=== PATIENT | male | born 1930 | race Caucasian/White ===

== ENCOUNTER → 2016-10-24 | Outpatient (CLI) | payer MEDICARE, BC, OTHER ==
[~2016-10-24] MED LIST: LOTE20TA3 PO; METO25 PO; RIVA15 PO
[2016-10-24 10:42] LABS: CHLORIDE 108 MEQ/L (98-107); POTASSIUM 4.1 MEQ/L (3.5-5.1); SODIUM (NA) 143 MEQ/L (136-145)
[2016-10-24 10:46] LABS: ANION GAP 10 MEQ/L (5-15); BLOOD UREA NITROGEN 36 MG/DL (7-18)
[2016-10-24 10:49] LABS: ALT (GPT) 21 U/L (12-78); AST (GOT) 22 U/L (15-37); GLOMERULAR FILTRATION RATE 48 ML/MIN (>89)
[2016-10-24 10:51] LABS: TOTAL BILIRUBIN ADULT 0.6 MG/DL (0.2-1.0)
[2016-10-24 10:52] LABS: ALKALINE PHOSPHATASE 60 U/L (45-117)
[2016-10-24 12:40] LABS: AUTOMATED NEUTROPHIL # 3.8 TH/MM3 (1.8-7.7); BASOPHIL # 0.1 TH/MM3 (0-0.2); BASOPHIL % 1.4 % (0.0-2.0); EOSINOPHIL # 0.3 TH/MM3 (0-0.4); EOSINOPHIL % 4.2 % (0.0-4.0); HEMO FLAGS DIFF FINAL; LYMPH % 21.5 % (9.0-44.0); LYMPHOCYTE # 1.5 TH/MM3 (1.0-4.8); MEAN CELL VOLUME 93.7 FL (80.0-100.0); MEAN CORPUSCULAR HEMOGLOBIN 31.1 PG (27.0-34.0); MEAN CORPUSCULAR HGB CONC 33.2 % (32.0-36.0); MONO % 16.4 % (0.0-8.0); NEUT % 56.5 % (16.0-70.0); PLATELET COUNT 179 TH/MM3 (150-450); RED BLOOD COUNT 4.06 MIL/MM3 (4.50-5.90); RED CELL DISTRIBUTION WIDTH 14.2 % (11.6-17.2); WHITE BLOOD COUNT 6.8 TH/MM3 (4.0-11.0)
== END ==
LOC: PLAB 08:39
PROVIDERS: ATTEND Family Medicine
DX: R10.9 Unspecified abdominal pain (principal)
CPT/HCPCS: 36415; 80053; 85025

== ENCOUNTER → 2017-02-25 | Outpatient (CLI) | payer MEDICARE, BC, OTHER ==
[2017-02-25 09:29] LABS: BASOPHIL % 0.4 % (0.0-2.0); EOSINOPHIL # 0.2 TH/MM3 (0-0.4); HEMATOCRIT 37.8 % (39.0-51.0); HEMO FLAGS DIFF FINAL; LYMPH % 19.3 % (9.0-44.0); LYMPHOCYTE # 1.3 TH/MM3 (1.0-4.8); MEAN CELL VOLUME 93.5 FL (80.0-100.0); MEAN CORPUSCULAR HEMOGLOBIN 31.7 PG (27.0-34.0); MEAN CORPUSCULAR HGB CONC 33.9 % (32.0-36.0); MONO % 17.3 % (0.0-8.0); PLATELET COUNT 179 TH/MM3 (150-450); RED BLOOD COUNT 4.05 MIL/MM3 (4.50-5.90); RED CELL DISTRIBUTION WIDTH 14.5 % (11.6-17.2); WHITE BLOOD COUNT 6.7 TH/MM3 (4.0-11.0)
[2017-02-25 10:12] LABS: BLOOD UREA NITROGEN 24 MG/DL (7-18); FERRITIN 173 NG/ML (26-388); GLOMERULAR FILTRATION RATE 45 ML/MIN (>89); TRANSFERRIN IRON PROFILE 232 MG/DL (200-360)
== END ==
LOC: PLAB 07:35
PROVIDERS: ATTEND Internal Medicine Gastroenterology
DX: R10.32 Left lower quadrant pain (principal); D64.9 Anemia, unspecified
CPT/HCPCS: 36415; 82565; 82728; 83540; 83550; 84520; 85025

== ENCOUNTER 2017-05-07 02:54 | Inpatient (IN) | payer MEDICARE, BC, OTHER ==
[~2017-05-07] VITALS: Ht 177.8 cm; Wt 90.7 kg
[2017-05-07] VITALS (16 sets, daily range): BP systolic 105–140; BP diastolic 55–85; PULSE 63–113; RESP 12–23; TEMP 97.4–102.3; O2SAT 92–100
--- NOTE | 2017-05-07 03:49 | PD ---
HPI Chief Complaint: Altered Mental Status Time Seen by Provider: 03:45 Travel History International Travel<30 days: No Contact w/Intl Traveler<30days: No Traveled to known affect area: No History of Present Illness HPI The patient is an 86 year old male who presents to the [facility] emergency department with a history of a rapid decline in his health over the last 2-3 weeks. The patient's family reports that he does have a history of sleep apnea and uses a CPAP mask. He had been sitting up elevated to sleep for several days in a roll when he awoke with back pain. The patient went to [facility] for evaluation and treatment of the back pain and was given a prescription for pain medicine. The patient then followed up with a chiropractor. After having chiropractic manipulation the patient was not able to walk and had to have a wheelchair to get around since then. The patient's pain was severe in his back. The patient was again brought to [facility] and had a CT scan of the upper spine done. They reported that the patient had spinal stenosis, herniated disc, degenerative disc disease noted. The patient was also constipated. The patient was admitted to the hospital for several days. The patient was then discharged to a local rehabilitation facility. He continues to be unable to walk. He is undergoing rehabilitation and will stand for a few seconds at a time. He has had a decreased level of alertness for the last 2 days. The patient's family reports that he was placed on gabapentin briefly and was experiencing muscle spasms and jerking/tremors. The gabapentin was therefore discontinued. The patient has not been eating or drinking well for the last 2 days. Patient primary care physician is Dr. Martinez. The patient was noted to be tremulous prior to her arrival and was sent over from his rehabilitation facility after being noted to have a fever with a MAXIMUM TEMPERATURE of 102. The patient's family reports that he has had a cough that began today. Otherwise, the patient has not had any neck pain , chest pain, shortness of breath, abdominal pain, vomiting, diarrhea, or urinary symptoms. The patient has been experiencing constipation. His last bowel movement was on Friday, 4 days ago. [facility] Past Medical History Narrative Medical The patient's past medical history is significant for hypertension, history of a mitral valve repair, atrial fibrillation, arthritis, hiatal hernia, hypertension. 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) Cancer: No Cardiovascular Problems: Yes (IRREGULAR HEARBEAT) Chest Pain: No Diabetes: No Diminished Hearing: No (UNKNOWN) Endocrine: No Gastrointestinal Disorders: No Glaucoma: No Genitourinary: No Hepatitis: No Hiatal Hernia: No Hypertension: Yes Immune Disorder: No Implanted Vascular Access Dvce: Yes Musculoskeletal: No Neurologic: No Psychiatric: No Reproductive: No Respiratory: Yes (SLEEP APNEA-USES C-PAP AT HS) Integumentary: No Thyroid Disease: No Influenza Vaccination: No Past Surgical History Narrative Surgical The patient's past surgical history is significant for multiple cardiac ablations that were unsuccessful, mitral valve repair related to mitral stenosis , pacemaker placement. Body Medical Devices: PACERMAKER Cardiac Surgery: Yes (PACEMAKER) Pacemaker: Yes Thoracic Surgery: Yes (VALVE REPAIR) Other Surgery: Yes Social History Alcohol Use: No Tobacco Use: No (FORMER) Substance Use: No Allergies-Medications (Allergen,Severity, Reaction): Coded Allergies: Xopenex (Unverified Allergy, Severe, 05/07/17) Uncoded Allergies: MRI PRECAUTION PACEMAKER (Adverse Reaction, Severe, NON COMPATIBLE PACMAKER , 05/07/17) [facility] PACEMAKER/05/07/17 [facility] Reported Meds & Prescriptions Reported Meds & Active Scripts Active Reported Xarelto (Rivaroxaban) 15 Mg Tab 15 Mg PO DAILY Carvedilol 3.125 Mg Tab 3.125 Mg PO BID Fleet Enema Six Pack 7-19 gm/118Ml (Sodium Phosphates) 1 Taylor Taylor Benazepril-Hydrochlorothiazide 20-12.5 Mg Tab 0.5 Tab PO DAILY Baclofen 10 Mg Tab 10 Mg PO BID Senokot S (Sennosides-Docusate Sodium) 8.6-50 Mg Tab 2 Tab PO HS Miralax Powder (Polyethylene Glycol 3350 Powder) 17 Gm Powd 17 Gm PO DAILY Mix and dissolve one measuring cap-ful (17 grams) in water or juice. Hydrocodone-Acetaminophen 5-325 mg Tab 2 Tab PO Q4H PRN Nystatin Liq 100,000 unit/ml Susp 5 Ml SWISH-SWAL QID Remeron (Mirtazapine) 15 Mg Tab 15 Mg PO HS Review of Systems Except as stated in HPI: all other systems reviewed are Neg General / Constitutional: Positive: Fever Eyes: No: Visual changes HENT: Positive: Congestion, No: Headaches Cardiovascular: No: Chest Pain or Discomfort Respiratory: Positive: Cough, No: Shortness of Breath Gastrointestinal: Positive: Constipation, Changes in Bowel Habits, Loss of Appetite, No: Nausea, Vomiting, Diarrhea, Abdominal Pain, Indigestion Genitourinary: No: Dysuria Musculoskeletal: Positive: Myalgias, Arthralgias, Limited ROM, No: Pain Skin: No Rash Neurologic: Positive: Weakness (generalized weakness), Change in Mentation, No : Focal Abnormalities, Slurred Speech, Sensory Disturbance Psychiatric: No: Depression Endocrine: No: Polydipsia Hematologic/Lymphatic: No: Easy Bruising Physical Exam Narrative General: The patient is a well-developed well-nourished male, drowsy on examination, intermittently alert. Head and Neck exam: Head is normocephalic atraumatic. Eyes: The patient has difficulty following commands for extraocular motion testing. Pupils are equal round and reactive to light. Nose: Midline septum with pink mucous membranes Mouth: Dentition unremarkable. Moist mucus membranes. Posterior oropharynx is not erythematous. No tonsillar hypertrophy. Uvula midline. Airway patent. Neck: No palpable lymphadenopathy. No nuchal rigidity. No thyromegaly. Cardiovascular: Sinus tachycardia in the low 100s without murmurs, gallops, or rubs. No pulse deficit to the extremities and simultaneous auscultation and palpation of his radial artery. Lungs: Clear to auscultation bilaterally. No wheezes, rhonchi, or rales. Abdomen: Soft, without tenderness to palpation in all 4 quadrants of the abdomen. No guarding, rebound, or rigidity. Normal bowel sounds are audible. No tenderness on palpation of McBurney's point. Negative [place] sign. Extremities: No clubbing, cyanosis, or edema. 2+ pulses in all 4 extremities. No calf tenderness on palpation. Back: No costovertebral angle tenderness to palpation. No spinous process tenderness on palpation. No step-off or crepitus. No erythema or ecchymosis. Neurologic Exam: The patient is uncooperative with formal neurologic testing. He is able to follow commands to say hello and smile. He is able to follow commands for strength testing and is able to squeeze with bilateral hands. The patient on examination of his legs withdraws to having his feet touched. Any movement seems to cause back pain for the patient. 2+ DTRs. Skin Exam: No rash noted. Intact skin that is warm and dry. The patient has an area of erythema overlying the sacrum, early pressure sore. Data Data Last Documented VS Vital Signs Date Time Temp Pulse Resp B/P Pulse Ox O2 Delivery O2 Flow Rate FiO2 05/07/17 05:21 107 14 116/61 95 Nasal Cannula 2 05/07/17 03:05 102.3 Orders Electrocardiogram (05/07/17 03:46) Complete Blood Count With Diff (05/07/17 03:46) Comprehensive Metabolic Panel (05/07/17 03:46) Creatine Kinase (Cpk) (05/07/17 03:46) Ckmb (Isoenzyme) Profile (05/07/17 03:46) Troponin I (05/07/17 03:46) B-Type Natriuretic Peptide (05/07/17 03:46) Prothrombin Time / Inr (Pt) (05/07/17 03:46) Act Partial Throm Time (Ptt) (05/07/17 03:46) Blood Culture (05/07/17 03:46) Lipase (05/07/17 03:46) Urinalysis - C+S If Indicated (05/07/17 03:46) Magnesium (Mg) (05/07/17 03:46) Ammonia (05/07/17 03:46) Chest, Single Ap (05/07/17 03:46) Ct Brain W/O Iv Contrast(Rout) (05/07/17 03:46) Iv Access Insert/Monitor (05/07/17 03:46) Ecg Monitoring (05/07/17 03:46) Oximetry (05/07/17 03:46) Lactic Acid Sepsis Protocol (05/07/17 03:46) Vancomycin Inj (Vancomycin Inj) (05/07/17 04:00) Piperacil-Tazo 3.375 Gm Premix (Zosyn 3. (05/07/17 04:00) Acetaminophen (Tylenol) (05/07/17 04:00) Sodium Chlorid 0.9% 500 Ml Inj (Ns 500 M (05/07/17 04:00) Acetaminophen Supp (Tylenol Supp) (05/07/17 04:30) Sodium Chlor 0.9% 1000 Ml Inj (Ns 1000 M (05/07/17 06:30) Admit Order (Ed Use Only) (05/07/17 06:26) Labs Laboratory Tests Test 05/07/17 05/07/17 03:30 03:40 White Blood Count 23.8 TH/MM3 Red Blood Count 4.51 MIL/MM3 Hemoglobin 13.6 GM/DL Hematocrit 42.3 % Mean Corpuscular Volume 93.8 FL Mean Corpuscular Hemoglobin 30.2 PG Mean Corpuscular Hemoglobin 32.2 % Concent Red Cell Distribution Width 13.7 % Platelet Count 283 TH/MM3 Mean Platelet Volume 9.6 FL Neutrophils (%) (Auto) 85.2 % Lymphocytes (%) (Auto) 3.7 % Monocytes (%) (Auto) 10.8 % Eosinophils (%) (Auto) 0.1 % Basophils (%) (Auto) 0.2 % Neutrophils # (Auto) 20.3 TH/MM3 Lymphocytes # (Auto) 0.9 TH/MM3 Monocytes # (Auto) 2.6 TH/MM3 Eosinophils # (Auto) 0.0 TH/MM3 Basophils # (Auto) 0.1 TH/MM3 CBC Comment AUTO DIFF Differential Total Cells 100 Counted Neutrophils % (Manual) 77 % Band Neutrophils % 9 % Lymphocytes % 5 % Monocytes % 7 % Neutrophils # (Manual) 20.9 TH/MM3 Metamyelocytes 1 % Myelocytes 1 % Differential Comment FINAL DIFF MANUAL Toxic Vacuolation PRESENT Platelet Estimate NORMAL Platelet Morphology Comment NORMAL Red Cell Morphology Comment NORMAL Prothrombin Time 12.9 SEC Prothromb Time International 1.2 RATIO Ratio Activated Partial 32.7 SEC Thromboplast Time Sodium Level 142 MEQ/L Potassium Level 4.1 MEQ/L Chloride Level 104 MEQ/L Carbon Dioxide Level 26.9 MEQ/L Anion Gap 11 MEQ/L Blood Urea Nitrogen 72 MG/DL Creatinine 2.06 MG/DL Estimat Glomerular Filtration 31 ML/MIN Rate Random Glucose 151 MG/DL Lactic Acid Level 1.5 mmol/L Calcium Level 10.3 MG/DL Magnesium Level 3.1 MG/DL Total Bilirubin 1.0 MG/DL Aspartate Amino Transf 14 U/L (AST/SGOT) Alanine Aminotransferase 19 U/L (ALT/SGPT) Alkaline Phosphatase 90 U/L Ammonia 28 MCMOL/L Total Creatine Kinase 27 U/L Troponin I LESS THAN 0.02 NG/ML B-Type Natriuretic Peptide 25 PG/ML Total Protein 7.8 GM/DL Albumin 3.4 GM/DL Lipase 162 U/L Urine Color YELLOW Urine Turbidity CLEAR Urine pH 5.0 Urine Specific [place] 1.017 Urine Protein TRACE mg/dL Urine Glucose (UA) NEG mg/dL Urine Ketones TRACE mg/dL Urine Occult Blood NEG Urine Nitrite NEG Urine Bilirubin NEG Urine Urobilinogen LESS THAN 2.0 MG/DL Urine Leukocyte Esterase NEG Urine RBC 2 /hpf Urine WBC LESS THAN 1 /hpf Urine Renal Epithelial Cells <1 /hpf Urine Bacteria RARE /hpf Urine Hyaline Casts 3 /lpf Urine Mucus FEW /lpf Microscopic Urinalysis Comment CULT NOT INDICATED MDM Medical Decision Making Medical Screen Exam Complete: Yes Emergency Medical Condition: Yes Medical Record Reviewed: Yes Interpretation(s) Last Impressions Head CT 05/07/17345 Signed Impressions: Service Date/Time: Sunday, May 07, 2017 05:06 - CONCLUSION: 1. Subtle small focal area of mildly increased density in the left periventricular white matter with surrounding low density. This is nonspecific but could represent a subtle area of slight hemorrhage and edema. 2. Atrophic change and chronic small vessel ischemic changes. Reji Meza MD Chest X-Ray 05/07/17345 Signed Impressions: Service Date/Time: Sunday, May 07, 2017 03:55 - CONCLUSION: Stable appearance with apparent scarring and no definite acute pneumonia. Reji Meza MD Differential Diagnosis Sepsis related to UTI, versus pneumonia, versus altered mentation from intracranial abnormality, versus hepatic encephalopathy, versus other metabolic encephalopathy Narrative Course During the course of the patients emergency department visit, the patients history, examination, and differential diagnosis were reviewed with the patient. The patient had IV access obtained and blood work sent for analysis. The patient was on a monitoring manager with oximetry and blood pressure monitoring. An ECG was done on arrival. The patient's ECG shows a sinus tachycardia rate of 110, left anterior fascicular block is noted, QRS duration 110 ms, QTC 411 ms, no acute ST segment elevation is noted. A CT scan of the brain was ordered. The patient was initially provided normal saline 500 mL bolus. The patient was initially cover with broad-spectrum antibiotic and given Tylenol 600 mg OK. A Perez catheter was placed to gravity. The patients laboratory studies were reviewed and remarkable for a white count of 23.8, hemoglobin 13.8, platelets 283 with neutrophils 77, bands 9, lymphocytes 5, monocytes 7, CMP is remarkable for a BUN of 72 and a creatinine of 2.06 which is slightly increased compared to his prior level of renal insufficiency, calcium 10.3, magnesium 3.1, glucose 151, AST 14, CPK 27, troponin I less than 0.02, BNP is 25, lipase 162, ammonia level XXVIII, lactic acid 1.5, PT 12.9, INR 1.2, PTT 32.7, urinalysis shows trace ketones rare bacteria, culture not indicated. Radiology studies were reviewed and remarkable for a chest x-ray that shows a stable appearance with the parents scarring and no definite acute pneumonia. CT scan of the brain shows a subtle small focal area of mildly increased density in the left periventricular white matter with surrounding low-density. This is nonspecific but could represent a subtle area of slight hemorrhage and edema. Atrophic changes chronic small vessel ischemic changes. A call was placed out to the neurosurgeon on-call, Dr. Yañez regarding the patient's CT scan findings. He reviewed the images. I did explain that the patient has a history of A. fib and is on Xarelto. Given the patient's fever and sepsis with back pain and he was concerned about the possibility of an underlying infection in the back. He recommended MRI, however I later found out that patient has a pacemaker that is incompatible with MRI. I did call me again regarding this he recommended at this point that a CT scan of the brain with contrast be ordered along with a CT scan of the cervical, T-spine, and L- spine with and without contrast. He recommended that further antibiotic administration be held until it is known whether the patient has a focus of infection in his back that could then be biopsied and cultured. He recommended that the patient be admitted to the intensive care unit under the electrical service technician. I then spoke to Dr. Mejia regarding this patient's case. He did agree to admit the patient for further evaluation and treatment at this time. The patient was given an additional 1 L normal saline IV fluid bolus after BNP came back within normal limits and no evidence of fluid overload was noted on chest x-ray and reexamination of the patient revealed no evidence of fluid overload. The patients results were discussed with the patient, including the plan of care. I explained that further testing and/ or monitoring is indicated based on the patients history, examination, and/ or laboratory findings. Therefore, I recommended admission for additional evaluation. The patient expressed understanding and was agreeable with this plan. The patient was admitted to the hospital in critical condition and sent to a bed under the care of the electrical service technician service. Critical Care Narrative Aggregate critical care time was 42 minutes. Time to perform other separately billable procedures was not included in the critical care time. My time did not include minutes spent treating any other patients simultaneously or on activities that did not directly contribute to the patient's treatment. The services I provided to this patient were to treat and/or prevent clinically significant deterioration that could result in: Progression of disability, versus fluid overload from volume resuscitation, versus cardiovascular collapse I provided critical care services requiring my management, as noted below: Chart data review, documentation time, medication orders and management, vital sign assessments/reviewing monitor data, ordering and reviewing lab tests, ordering and interpreting/reviewing x-rays and diagnostic studies, care of the patient and discussion of the patient with the admitting physicians. Sepsis Criteria SIRS Criteria (2 or more): Temp > 100.9 or < 96.8, Heart rate over 90, WBC > 59278, < 4000 or > 10% bands Physician Communication Physician Communication I spoke to Dr. Yañez regarding this patient at approximately 6:05 AM. He reviewed the patient's CT scan findings. He was concerned given the patient's history about the possibility of cerebritis, versus early abscess formation, versus discitis, versus osteomyelitis given the patient's back pain and sepsis. He recommended holding on further doses of antibiotic and obtaining an MRI with and without contrast of the brain, C-spine, T-spine, and L-spine. The patient will be admitted to the intensive care unit for close monitoring. Diagnosis Primary Impression: Sepsis Qualified Code: A41.9 - Sepsis, due to unspecified organism Additional Impressions: Altered mental status Qualified Code: R41.0 - Delirium Back pain Qualified Code: M54.5 - Acute bilateral low back pain without sciatica Generalized weakness Admitting Information Admitting Physician Requests: Sharyn Brewster MD May 07, 2017 03:49
[2017-05-07] MEDS ORDERED: SODIUM CHLORID 0.9% 500 ML INJ 500 ML IV ONE (04:00)
[2017-05-07] MEDS ORDERED: ACETAMINOPHEN 325 MG TAB PO ONE (04:00)
[2017-05-07] MEDS ORDERED: PIPERACIL-TAZO 3.375 GM PREMIX 50 ML IV ONE (04:00)
[2017-05-07] MEDS ORDERED: VANCOMYCIN INJ 1,000 MG in SODIUM CHLOR 0.9% 250 ML INJ 250 ML IV ONE (04:00)
[2017-05-07 04:21] LABS: AUTOMATED NEUTROPHIL # 20.3 TH/MM3 (1.8-7.7); BASOPHIL # 0.1 TH/MM3 (0-0.2); BASOPHIL % 0.2 % (0.0-2.0); EOSINOPHIL % 0.1 % (0.0-4.0); HEMATOCRIT 42.3 % (39.0-51.0); LYMPH % 3.7 % (9.0-44.0); LYMPHOCYTE # 0.9 TH/MM3 (1.0-4.8); MEAN CELL VOLUME 93.8 FL (80.0-100.0); MEAN CORPUSCULAR HEMOGLOBIN 30.2 PG (27.0-34.0); MEAN CORPUSCULAR HGB CONC 32.2 % (32.0-36.0); MONO % 10.8 % (0.0-8.0); NEUT % 85.2 % (16.0-70.0); PLATELET COUNT 283 TH/MM3 (150-450); RED BLOOD COUNT 4.51 MIL/MM3 (4.50-5.90); RED CELL DISTRIBUTION WIDTH 13.7 % (11.6-17.2); WHITE BLOOD COUNT 23.8 TH/MM3 (4.0-11.0)
--- NOTE | 2017-05-07 04:26 | RADRPT ---
EXAM DATE/TIME: 05/07/2017 03:55 [facility] COMPARISON: CHEST SINGLE AP, July 28, 2014, 8:58. INDICATIONS : Fever. MEDICAL HISTORY : None. SURGICAL HISTORY : Pacemaker. CABG. ENCOUNTER: Initial ACUITY: 1 day PAIN SCORE: 9/10 LOCATION: Bilateral chest FINDINGS: A single view of the chest demonstrates the lungs to be symmetrically aerated without evidence of mas s, infiltrate or effusion. The heart size remains mildly prominent. There is stable mild scarring at the lung bases. There is no perihilar edema. Patient status post median sternotomy. A left subclavia n transvenous pacer remains unchanged. Osseous structures are intact. CONCLUSION: Stable appearance with apparent scarring and no definite acute pneumonia. Reji Meza MD on May 07, 2017 at 4:24 Board Certified Radiologist. This report was verified electronically.
[2017-05-07 04:27] LABS: HEMO FLAGS AUTO DIFF
[2017-05-07] MEDS ORDERED: ACETAMINOPHEN 650 MG SUPP RECTAL ONE (04:30)
[2017-05-07 04:40] LABS: APTT (PATIENT) 32.7 SEC (24.3-30.1); INTERNATIONAL NORMALIZED RATIO 1.2 RATIO; PROTHROMBIN TIME - PATIENT 12.9 SEC (9.8-11.6)
[2017-05-07] MEDS ORDERED: BENA20TA3 PO (04:47)
[2017-05-07] MEDS ORDERED: REME15TA PO (04:47)
[2017-05-07] MEDS ORDERED: NYST1000 SWISH-SWAL (04:47)
[2017-05-07] MEDS ORDERED: MIRA3350 PO (04:47)
[2017-05-07] MEDS ORDERED: SENN1TAB17 PO (04:47)
[2017-05-07] MEDS ORDERED: CARV3.12 PO (04:47)
[2017-05-07] MEDS ORDERED: HYDR-3516 PO (04:47)
[2017-05-07] MEDS ORDERED: XARE15TA PO (04:47)
[2017-05-07] MEDS ORDERED: FLEEENE (04:47)
[2017-05-07] MEDS ORDERED: BACL10TA PO (04:47)
[2017-05-07 04:53] LABS: ALT (GPT) 19 U/L (12-78); ANION GAP 11 MEQ/L (5-15); AST (GOT) 14 U/L (15-37); BICARBONATE 26.9 MEQ/L (21.0-32.0); BLOOD UREA NITROGEN 72 MG/DL (7-18); CHLORIDE 104 MEQ/L (98-107); GLOMERULAR FILTRATION RATE 31 ML/MIN (>89); MAGNESIUM 3.1 MG/DL (1.5-2.5); POTASSIUM 4.1 MEQ/L (3.5-5.1); SODIUM (NA) 142 MEQ/L (136-145)
[2017-05-07 04:56] LABS: ALKALINE PHOSPHATASE 90 U/L (45-117); BANDS 9 % (0-6); METAMYELOCYTES 1 % (0-1); MYELOCYTES 1 % (0-0); NEUTROPHIL # MANUAL DIFF 20.9 TH/MM3 (1.8-7.7); POLYS (SEG NEUTROPHILS) 77 % (16-70); SCAN/DIFF FINAL DIFF MANUAL; WBC DIFF SAMPLE 100
[2017-05-07 04:57] LABS: BACTERIA, URINE RARE /hpf; BLOOD, URINE NEG (NEG); COMMENT (UR) CULT NOT INDICATED; CULTURE IF INDICATED CULT NOT INDICATED; GLUCOSE,URINE NEG (NEG); HYALINE CAST, URINE 3 /lpf (RARE); KETONE, URINE TRACE mg/dL (NEG); MUCUS URINE FEW /lpf (OCC); NITRITE,URINE NEG (NEG); RENAL EPITHELIAL CELLS <1 /hpf; URINE COLOR YELLOW (YELLW/STRAW)
[2017-05-07 04:57] LABS: CREATINE KINASE 27 U/L (39-308); PLATELET ESTIMATE SMEAR NORMAL (NORMAL); PLATELET MORPHOLOGY NORMAL (NORMAL); TOXIC VACUOLATION PRESENT (NONE SEEN)
--- NOTE | 2017-05-07 05:27 | RADRPT ---
EXAM DATE/TIME: 05/07/2017 05:06 [facility] COMPARISON: No previous studies available for comparison. INDICATIONS : Altered mental status. RADIATION DOSE: 69.15 CTDIvol (mGy) MEDICAL HISTORY : Hypertension. Cardiovascular disease SURGICAL HISTORY : Pacemaker. ENCOUNTER: Initial ACUITY: 1 day PAIN SCALE: Non-responsive LOCATION: cranial TECHNIQUE: Multiple contiguous axial images were obtained of the head. Using automated exposure control and adj ustment of the mA and/or kV according to patient size, radiation dose was kept as low as reasonably a chievable to obtain optimal diagnostic quality images. DICOM format image data is available electro nically for review and comparison. FINDINGS: CEREBRUM: There is moderate atrophic change with sulcal and ventricular prominence. Periventricular white matte r lucencies are present greatest along the left lateral ventricle. There is a small focal area of mil dly increased density measuring approximately 5 x 3 mm in this region. This is best seen on axial eloisa ge #25. No evidence of midline shift, mass lesion, hemorrhage or acute infarction. No extra-axial fl uid collections are seen. POSTERIOR FOSSA: The cerebellum and brainstem are intact. The 4th ventricle is midline. The cerebellopontine angle i s unremarkable. EXTRACRANIAL: The visualized portion of the orbits is intact. SKULL: The calvaria is intact. No evidence of skull fracture. CONCLUSION: 1. Subtle small focal area of mildly increased density in the left periventricular white matter with surrounding low density. This is nonspecific but could represent a subtle area of slight hemorrhage a nd edema. 2. Atrophic change and chronic small vessel ischemic changes. Reji Meza MD on May 07, 2017 at 5:23 Board Certified Radiologist. This report was verified electronically.
[2017-05-07] MEDS ORDERED: SODIUM CHLOR 0.9% 1000 ML INJ 1,000 ML IV ONE (06:30)
--- NOTE | 2017-05-07 09:04 | EKG ---
Date Performed: 05/07/2017 Time Performed: 04:33:59 PTAGE: 86 years EKG: SINUS TACHYCARDIA LEFT ANTERIOR FASCICULAR BLOCK MODERATE ST DEPRESSION ABNORMAL ECG PREVIOUS TRACING : 07/28/2014 21.45 DOCTOR: Milind De Santiago Interpretating Date/Time 05/07/2017 09:02:50
[2017-05-07] MEDS ORDERED: MISCELLANEOUS NURSING INFORMATION XX SCH (09:30)
[2017-05-07] MEDS ORDERED: DEXTROSE 50% IN WATER 50 ML VIAL(D50) IV PRN (09:30)
[2017-05-07] MEDS ORDERED: RESP: IPRATROPIUM 0.5 MG/2.5 ML NEB INH PRN (09:30)
[2017-05-07] MEDS ORDERED: Vancomycin Consult Pharmacy 1 EA OTHER SCH (09:30)
[2017-05-07] MEDS ORDERED: SENNOSIDES 8.6 MG TAB PO PRN (09:30)
[2017-05-07] MEDS ORDERED: LACTULOSE SYRUP 20 GM/30 ML CUP PO PRN (09:30)
[2017-05-07] MEDS ORDERED: BISACODYL 10 MG SUPP RECTAL PRN (09:30)
[2017-05-07] MEDS ORDERED: CHLORHEXIDINE GLUCONATE 2 % 1 PACK (2 CLOTHS) TOP PRN (09:30)
[2017-05-07] MEDS ORDERED: MAGNESIUM HYDROXIDE SUSP 30 ML CUP PO PRN (09:30)
[2017-05-07] MEDS ORDERED: GLUCAGON 1 MG/ML VIAL OTHER PRN (09:30)
--- NOTE | 2017-05-07 09:50 | MB ---
cc: IRMA FELDER M.D. DATE OF CONSULTATION 05/07/2017 HISTORY OF PRESENT ILLNESS He is an 86-year-old seen in neurological consultation. He was brought to the hospital yesterday and he is in the emergency room waiting for a regular bed. It appears that actually he came in in the middle of the night earlier today. His daughter is at the bedside. They provide history and I reviewed the H&P. The history is consistent. Some two weeks ago or so he was evaluated at [facility] for back pain and he may have stayed in the hospital two or three days. He went back to the hospital at some point with the diagnosis of some possible spine lesion. He did went to a nursing facility for rehab but needed to use a hoist in order to be transferred, etc. At some point he also went to a chiropractor and, according to the daughter he walked into the chiropractor's office and left in a wheelchair. Last night the family got a call that the patient was having seizure-like activity and he never had seizures before. He was subsequently brought to the hospital where I met him. PAST MEDICAL HISTORY 1. History of atrial fibrillation. 2. Hypertension. 3. Mitral valve repair. 4. Obstructive sleep apnea. 5. Pacemaker. The CT brain showed a small area of increased signal in the left periventricular region that could be calcification or a small hemorrhage, very tiny and really an incidental finding. The patient was noted to have some temperature of 102. He did have constipation when he was at [facility]. MEDICATIONS He takes - 1. Xarelto. 2. Carvedilol. 3. Benazepril. 4. Baclofen. 5. Symbicort. 6. MiraLax. 7. Hydrocodone. 8. Remeron. 9. Nystatin. NEUROLOGICAL EXAMINATION The neurologic exam showed the patient to be asleep and awakened. He followed simple commands but somewhat poorly. He did not seem to be fully responsive, though his eyes were open and he verbalized a few things. He did count fingers in both right and left visual hanks. There is no facial symmetry. He did not appear in distress until I moved his legs when he grimaced mildly. He did circuit breaker assembler perhaps stronger with the right than left but he was able to raise the left arm. He moves the lower extremities minimally on request and upon some somatosensory stimulation there was a little bit more of withdrawal. His reflexes were essentially absent in the lower extremities and plantar responses were none versus flexor. There is trace reflex response at the elbows. Pupils were about the same size, reactive. ASSESSMENT AND RECOMMENDATIONS This elderly man was functioning well some a three weeks ago, living alone and driving and now has been in the wheelchair in the longterm and had some tremor or shivering last night, possibly from sepsis. At the neurologic issue is the reason for his weakness especially involving the lower extremities as he is minimally functional motor krueger at this point but he is encephalopathic as well. Therefore the exam is limited. Unclear if he is able to have MRI studies or not as he has a pacemaker and I spoke to the nursing staff who are checking on these. I am going to look for the [facility] records, I believe he was at [facility] and there is a question of a spine lesion, so this may be an important issue. It appears that he had CT scans over there. If they were unable to do MRI, then we will do follow-up CT scans. He now has a bladder catheter and apparently he has been in diapers in the nursing facility. I checked his labs and he has a white count of 23.8, BUN of 72, creatinine 2.06 and glucose was 151. Sodium and potassium normal. Calcium 10.3, magnesium 3.1. I will follow the neurological course. Thank you for asking us to assist in his care. MD TIMI Grant/ELAINA /9:23 AM /9:34 AM
[2017-05-07] MEDS: SODIUM CHLOR 0.9% 1000 ML INJ 1,000 ML IV SCH (09:54)
[2017-05-07] MEDS: INSULIN NovoLIN REGULAR SUPPLEMENTAL SCALE SQ SCH ×4 (10:18→20:00)
--- NOTE | 2017-05-07 10:32 | MH ---
cc: CATHIE PRINGLE DATE OF ADMISSION: 05/07/2017 March 25, 1931 HISTORY OF PRESENT ILLNESS The patient is a 86-year-old male with past medical history of atrial fibrillation with previous ablation, permanent pacemaker placement, on Xarelto, hypertension, mitral valve repair, obstructive sleep apnea on C-PAP machine. The patient presented to [facility] ED early this morning with decline in his health for over the past 2-3 weeks. The patient went to [facility] for evaluation of his back pain and he was given prescription for pain medicine. He followed up with his chiropractor and since then he was not able to walk and had to use a wheelchair to get around. He was brought back to [facility] where he underwent a CT scan of the upper spine which showed spinal stenosis, herniated disk and degenerative disk disease. He was admitted to the hospital for several days and was then discharged to a local rehab facility. The patient continues to be unable to walk. He has had a decrease level of alertness for the past 2 days. The patient was placed Gabapentin for muscle spasms and tremors which was discontinued. Also, decreased p.o. intake for the past couple days. Per records, the patient has not had any neck pain, chest pain, shortness of breath, abdominal pain or any GI symptoms. In the ER he had a temperature of 102.3 rectally and his laboratory data is significant for leukocytosis with WBC of 23.8, associated with bandemia and renal failure with a creatinine of 2.06. His lactic acid level measured at 1.5. CT scan of the brain in the ER showed subtle small focal area of mildly increased density in the left periventricular white matter with surrounding low-density which is nonspecific. Questionable slight hemorrhage and edema. Dr. Yañez from neurosurgery was notified by ED and he recommended MRI of the brain, however, the patient has a pacemaker that is incompatible with MRI and he recommended to do a CT scan of the brain with contrast along with CT of the spine for further evaluation of his back pain. In the ED the patient was given vancomycin, Zosyn and 1.5 liter of crystalloids. He is on 2 liters nasal cannula with a saturation 98% and blood pressure of 106/57. The patient is awaiting to undergo CT of the spine along with CT brain with IV contrast. PAST MEDICAL HISTORY Past medical history significant for: 1. Hypertension. 2. Mitral valve repair. 3. Atrial fibrillation. 4. Arthritis. 5. Hiatal hernia. PAST SURGICAL HISTORY 1. Previous pacemaker placement. 2. Previous ablation. 3. Previous mitral valve repair related to mitral stenosis. SOCIAL HISTORY Nondrinker. Ex-smoker. ALLERGIES XOPENEX. MEDICATION Reported medications: 1. Xarelto. 2. Coreg. 3. Baclofen. 4. MiraLax. 5. Nystatin. 6. Remeron. FAMILY HISTORY Noncontributory. REVIEW OF SYSTEMS As per HPI. Rest of the review of systems unremarkable. PHYSICAL EXAMINATION GENERAL: A 86-year-old male lying in bed, in no acute distress. VITAL SIGNS: Temperature 102.3 rectally, pulse of 84, respiratory rate of 18, blood pressure 106/57, saturation 98% on 2 liters. HEENT: Atraumatic, normocephalic. Pupils equal, round and reactive to light and accommodation. Extraocular muscles intact. Conjunctivae pink. Nonicteric sclerae. Oral mucosa within normal. NECK: Supple. No JVD, adenopathy or thyromegaly. Trachea midline. CARDIOVASCULAR: Irregularly, irregular. Normal S1-S2. No murmurs, rubs or gallops noted. PULMONARY: Bilateral equal air entry. No rales or wheezing. ABDOMEN: Soft, nontender, no distension. Positive bowel sounds. EXTREMITIES: No cyanosis, clubbing or edema. NEURO: The patient is able to follow simple commands. Overall limited due to his back pain. LABORATORY DATA Sodium 142, potassium 4.1, chloride 104, CO2 26, BUN 72, creatinine 2.06, glucose 151, lactic acid 1.5, magnesium 3.1, AST 14, ALT 19, alk phos 90, total CK 27, troponin less than 0.02, BNP 25, albumin 3.4, WBC 23.8, hemoglobin 13.6, hematocrit 42, platelet count of 283, INR 1.2, PT 12.9, PTT 32.7. Urinalysis negative for leukocyte esterase, nitrite, less than 1 WBC. RADIOGRAPHIC STUDIES Chest x-ray showed no obvious infiltrates. CT brain showed several areas of possible slight hemorrhage and edema and atrophic change, chronic small-vessel ischemic changes. IMPRESSION 1. Respiratory insufficiency. 2. Altered mental status. 3. Febrile illness. 4. Leukocytosis with bandemia. 5. Acute renal failure. 6. Back pain with history of spinal stenosis and herniated disk. 7. Atrial fibrillation. 8. Hypertension. 9. History of obstructive sleep apnea on C-PAP. 10. Previous pacemaker placement. RECOMMENDATIONS 1. Monitor neuro status closely and avoid any sedatives. The patient is scheduled to undergo CT scan of the brain with contrast. Dr. Yañez from neurosurgery was notified regarding CT brain without contrast findings. 2. Will consult neurology service. His mental status changes likely related to sepsis and metabolic disturbance. 3. Continue with oxygen and maintain sats above 92%. 4. Bronchodilators on a p.r.n. basis and aspiration precautions. 5. Monitor heart rate and blood pressure closely and maintain MAP greater than 65 mmHg. Lactic acid level measured at 1.5. He was given 1.5 liters of crystalloids. Will continue with IV fluids NS at 84 mL an hour. 6. Monitor renal function, I&O's and avoid nephrotoxins. Electrolyte replacement as needed and continue with IV hydration as stated above. Will repeat BMP. 7. Keep n.p.o. for now and place on Protonix 40 mg IV daily for GI prophylaxis. 8. Continue with broad-spectrum antibiotics in the form of vancomycin and Zosyn. Adjust doses per renal function. A follow-up on blood cultures that was performed earlier today. Chest x-ray in the ED showed no definite acute pneumonia and a urinalysis was negative for UTI. Will consider ID consultation. 9. The patient is scheduled to undergo CT scan of the cervical, lumbar and thoracic spine for further evaluation of his back pain. 10. Monitor CBC. 11. Place on sliding scale insulin with Accu-Cheks for glycemic control. 12. GI prophylaxis with Protonix 40 mg daily and DVT prophylaxis with SCDs. Will hold off on Xarelto for now incase of any procedures needed. 13. Further recommendations will be based on hospital course. MD RA Cochran/ESTEFANIA /9:32 AM /9:57 AM
--- NOTE | 2017-05-07 10:39 | RADRPT ---
EXAM DATE/TIME: 05/07/2017 09:39 [facility] COMPARISON: CT BRAIN W/O CONTRAST, May 07, 2017, 5:06. INDICATIONS : Altered mental status IV CONTRAST: 46 cc Visipaque (iodixanol) IV ; Cumulative dose for multiple exams. RADIATION DOSE: 36.46 CTDIvol (mGy) MEDICAL HISTORY : Hypertension. A-Fib SURGICAL HISTORY : Pacemaker. ENCOUNTER: Initial ACUITY: 1 day PAIN SCALE: 10/10 LOCATION: cranial TECHNIQUE: Multiple contiguous axial images were obtained of the head. Using automated exposure control and adj ustment of the mA and/or kV according to patient size, radiation dose was kept as low as reasonably a chievable to obtain optimal diagnostic quality images. DICOM format image data is available electro nically for review and comparison. FINDINGS: CEREBRUM: There is mild generalized atrophy. Ventricles are normal in size. There is periventricular white alka er low attenuation and bilateral basal ganglia calcification. Stable 5 mm curvilinear increased densi ty in the left frontal periventricular white matter at the high convexity. No evidence of midline sh ift, cerebral edema or blood products. No extra-axial fluid collections are seen. POSTERIOR FOSSA: The cerebellum and brainstem demonstrate no acute finding. The 4th ventricle is midline. The cerebe llar pontine angle is unremarkable. EXTRACRANIAL: Visualized sinuses are clear. SKULL: The calvaria is intact. No evidence of skull fracture. CONCLUSION: 1. No acute intracranial abnormality is identified. There is no abnormal enhancement. 2. Stable nonspecific 5 mm curvilinear high density in the left frontal high convexity periventricula r white matter. Consider attention to this on followup imaging. 3. Chronic changes include mild atrophy and periventricular white matter low attenuation characterist ic of chronic microvascular ischemia. Dylan Carranza MD on May 07, 2017 at 10:33 Board Certified Radiologist. This report was verified electronically.
--- NOTE | 2017-05-07 10:49 | RADRPT ---
EXAM DATE/TIME: 05/07/2017 09:34 [facility] COMPARISON: No previous studies available for comparison. INDICATIONS : Osteomyelitis IV CONTRAST: 46 cc Visipaque (iodixanol) IV ; Cumulative dose for multiple exams. RADIATION DOSE: 24.48 CTDIvol (mGy) MEDICAL HISTORY : Hypertension. A-fib SURGICAL HISTORY : Pacemaker. ENCOUNTER: Initial ACUITY: 1 day PAIN SCALE: 10/10 LOCATION: neck TECHNIQUE: Volumetric scanning of the cervical spine was performed. Multiplanar reconstructions in the sagittal , coronal and oblique axial planes were performed. Using automated exposure control and adjustment o f the mA and/or kV according to patient size, radiation dose was kept as low as reasonably achievable to obtain optimal diagnostic quality images. DICOM format image data is available electronically fo r review and comparison. FINDINGS: VERTEBRA: Normal vertebral body height. No fracture is identified. ALIGNMENT: There is no anterolisthesis or retrolisthesis. Craniocervical junction and C1-C2 level demonstrate no acute finding. There is joint space narrowing and osteophytes at the atlantodens interval. C2-C3: There is right facet arthrosis with partial fusion and there is minimal posterior disc osteophyte com plex. No spinal canal stenosis or neural foraminal stenosis is present. C3-C4: There is right facet arthrosis with minimal posterior disc osteophyte complex. No spinal canal stenos is or neural foraminal narrowing is present. C4-C5: There is left facet arthrosis and diffuse posterior disc osteophyte complex and small bilateral uncov ertebral osteophytes. No spinal canal stenosis is present. There is mild neural foraminal narrowing b ilaterally. C5-C6: There is diffuse posterior disc osteophyte complex with decreased disc height. Uncovertebral osteophy luisa are present bilaterally, left greater than right. There is no spinal canal stenosis. There is mil d to moderate left neural foraminal narrowing. C6-C7: There is decreased disc height with endplate osteophytes anteriorly. Mild diffuse posterior disc oste ophyte complex is present with left uncovertebral osteophyte causing mild left neural foraminal narro wing. There is no canal stenosis. C7-T1: There is mild bilateral facet arthrosis. No disc herniation or canal stenosis is visualized. No neura l foraminal stenosis is seen. Visualized paraspinous structures demonstrate no acute finding. There is a calcified nodule in the ri ght thyroid gland measuring 8 mm. CONCLUSION: 1. No acute cervical spine abnormality is identified. I do not appreciate any findings to indicate os teomyelitis. However, a white blood cell scan may be more sensitive test for detecting osteomyelitis within the spine. 2. There are degenerative changes throughout the cervical spine, as above. Dylan Carranza MD on May 07, 2017 at 10:37 Board Certified Radiologist. This report was verified electronically.
--- NOTE | 2017-05-07 10:49 | RADRPT ---
EXAM DATE/TIME: 05/07/2017 09:34 [facility] COMPARISON: No previous studies available for comparison. INDICATIONS : Osteomyelitis IV CONTRAST: 46 cc Visipaque (iodixanol) IV ; Cumulative dose for multiple exams. RADIATION DOSE: 34.55 CTDIvol (mGy) ; Combined studies MEDICAL HISTORY : Hypertension. A-Fib SURGICAL HISTORY : Pacemaker. ENCOUNTER: Initial ACUITY: 1 day PAIN SCALE: 10/10 LOCATION: lower back TECHNIQUE: Volumetric scanning of the lumbar spine was performed. Multiplanar reconstructions in the sagittal, coronal and oblique axial planes were performed. Using automated exposure control and adjustment of the mA and/or kV according to patient size, radiation dose was kept as low as reasonably achievable t o obtain optimal diagnostic quality images. DICOM format image data is available electronically for review and comparison. FINDINGS: CONUS MEDULLARIS: Normal. PARASPINAL SOFT TISSUES: Normal. LUMBAR CORD: Normal. DURAL SAC: Normal. The bones are osteopenic with moderate degenerative changes. I see no bony destruction. L1 L3-L4: Moderate degenerative changes are present without bony destruction. There is moderate spinal stenosi s with bilateral neural foramina encroachment. L5-S1 CONCLUSION: Substantial degenerative changes. I don't see evidence for an osteomyelitis. Tagged white cell stud y could help since the patient has pacemaker and cannot tolerate MRI. The epidural space is poorly visualized. Myles Callejas MD FACR on May 07, 2017 at 10:43 Board Certified Radiologist. This report was verified electronically.
[2017-05-07] MEDS ORDERED: IODIXANOL 320 MG/ML 10 ML VIAL (for Rad CT) IV ONE (10:50)
--- NOTE | 2017-05-07 10:58 | RADRPT ---
EXAM DATE/TIME: 05/07/2017 09:34 [facility] COMPARISON: No previous studies available for comparison. INDICATIONS : Osteomyelitis IV CONTRAST: 46 cc Visipaque (iodixanol) IV ; Cumulative dose for multiple exams. RADIATION DOSE: 34.55 CTDIvol (mGy) ; Combined studies MEDICAL HISTORY : Hypertension. A-Fib SURGICAL HISTORY : Pacemaker. ENCOUNTER: Initial ACUITY: 1 day PAIN SCALE: 10/10 LOCATION: Upper back TECHNIQUE: Volumetric scanning of the thoracic spine was performed. Multiplanar reconstructions in the sagittal , coronal and oblique axial planes were performed. Using automated exposure control and adjustment o f the mA and/or kV according to patient size, radiation dose was kept as low as reasonably achievable to obtain optimal diagnostic quality images. DICOM format image data is available electronically fo r review and comparison. FINDINGS: The vertebral bodies of the thoracic spine are in normal alignment without evidence of subluxation. Vertebral body height is maintained. No fractures are seen. Minimal consolidative changes are seen posteriorly on the left. There are moderate degenerative changes throughout the thoracic spine, mostly anterior osteophytes. There is minimal loss of disc space height at T2-T3, T6-T7, T7-T8 and T8-T9. There is good preservat ion of vertebral body heights. There is no endplate destruction to suggest mass myelitis. There is no paravertebral mass There is no abnormal contrast-enhancement. CONCLUSION: Minimal consolidative changes left lung posteriorly. Extensive degenerative changes without obvious osteomyelitis . Tagged white cell study would help to exclude such since the patient hasn't pacemaker and cannot unde rgo MRI. Myles Callejas MD FACR on May 07, 2017 at 10:53 Board Certified Radiologist. This report was verified electronically.
[2017-05-07] MEDS ORDERED: VANCOMYCIN 1,000 MG/NS 250 ML IV ONE ×2 (11:00)
[2017-05-07] MEDS: PIPERACIL-TAZO 2.25 GM PREMIX 50 ML IV SCH ×3 (12:46→21:40)
--- NOTE | 2017-05-07 14:33 | PD.CONS ---
(Dayron Amado) HPI Service Neurosurgery Consult Requested By Dr Malaika Delcid Reason for Consult AMS, brain lesion, sepsis Primary Care Physician Brenda Martinez, DO History of Present Illness This is a very pleasant, although confused, 86-year-old male who isn't sure why he is here. The history is obtained from his daughters who are present and he gave permission to speak with. The patient has a history of sleep apnea and uses a CPAP machine at night. About 3 weeks ago he felt that having the head of the bed elevated would help him and he slept that way for a few nights. He developed back pain and one daughter took him to [facility] for evaluation. He was doing well and his pain was controlled with [facility], therefore he was discharged home. The following day the other daughter took him to his Chiropractor. At that time he was using a cane to ambulate. When he left the office he was not able to walk and had to be taken to the vehicle in a wheelchair. He was subsequently taken back to [facility] for evaluation again and imaging demonstrated spinal stenosis, disc herniation and degenerative disc disease. He was admitted for 3 days and after that was discharged to [facility] where he had been until this morning. His daughter's report that he was briefly on gabapentin which was stopped due to upper extremity tremors. That was replaced with Remeron and the patient had a decreased level of consciousness. The patient was found on the floor of his room at [facility] and he was transported to [facility] for evaluation in the emergency department. The daughters do report that the patient has had decreased oral intake the past few days and not had a bowel movement since 728. The patient was tremulous and had a max temperature of 102. His daughters did report to the ED Physician that the patient had started coughing that day. In the Emergency Department the patient was found to have an elevated WBC count at 23.8 with neutrophils [address] brain demonstrated a small focal area of mildly increased density within the left periventricular white matter with surrounding low-density which could represent slight haemorrhage and edema. Dr Yañez was notified and requested an MRI but the patient's pacemaker wasn't compatible. Therefore additional CT imaging w/o and w/contrast of the brain and spine were ordered which was unremarkable for any acute abnormality of the brain or spine. Substantial degenerative changes were noted throughout the spine. It was recommended that a tagged WBC study be done. The patient has been admitted by the [facility] to the [facility] and was waiting for a bed. (Dayron Amado) Review of Systems Constitutional: Patient denies any fever, chills, night sweats or any recent weight gain or loss. Integumentary: Patient denies any rashes, ulcerations or other lesions to the skin. HEENT: Patient denies any other visual or hearing difficulty. Respiratory: Patient denies any shortness of breath, wheezing or productive cough. Cardiovascular: Patient denies any chest pain, palpitations or irregular heartbeat. Gastrointestinal: Patient denies any abdominal pain, nausea, vomiting or incontinence of stool. Genitourinary: Patient denies any frequency, urgency, pain with urination or any urinary incontinence. Musculoskeletal: Patient denies any neck or back pain. Patient denies any pain or weakness to the extremities. Neurologic: Patient denies any headache, dizziness, numbness or tingling. Haematological/Lymphatic: Patient denies any easy bruising, bleeding tendencies or swollen glands. Psychiatric: Patient denies any anxiety or depression. The ROS may be suspect, the patient's daughters state he will say whatever he thinks will get him discharged home. (Dayron Amado) Past Family Social History Allergies: Coded Allergies: Xopenex (Unverified Allergy, Severe, 05/07/17) Uncoded Allergies: MRI PRECAUTION PACEMAKER (Adverse Reaction, Severe, NON COMPATIBLE PACMAKER , 05/07/17) [facility] PACEMAKER/05/07/17 VSV Past Medical History Hypertension Mitral valve stenosis Atrial fibrillation Arthritis Hiatal hernia Past Surgical History Pacemaker insertion Ablation x2 Mitral valve repair Reported Medications Xarelto Coreg Baclofen Miralax Nystatin Active Ordered Medications Current Medications Medications (Trade) Dose Ordered Sig/Jaswinder Route Start Time Stop Time Status Last Admin Miscellaneous Information 1 [id number] XX 05/07/17 09:30 (Chlorhexidine 2% Cloth) 3 pack Taper DAILY@04 TOP 05/08/17 04:00 05/04/18 03:59 (Chlorhexidine 2% Cloth) 3 pack UNSCH PRN TOP 05/07/17 09:30 (Lynsey-Colace) 1 tab BID PO 05/07/17 21:00 (Milk Of Magnesia Liq) 30 ml Q12H PRN PO 05/07/17 09:30 (Senokot) 17.2 mg Q12H PRN PO 05/07/17 09:30 (Dulcolax Supp) 10 mg DAILY PRN RECTAL 05/07/17 09:30 Lactulose 30 ml 30 ml DAILY PRN PO 05/07/17 09:30 (NS 1000 ml Inj) 1,000 ml @ 84 mls/hr [id number] IV 05/07/17 09:30 05/07/17 09:54 (D50w (Vial) Inj) 50 ml UNSCH PRN IV 05/07/17 09:30 (Glucagon Inj) 1 mg UNSCH PRN OTHER 05/07/17 09:30 Insulin Human Regular 1 1 Q4HR SQ 05/07/17 09:30 05/07/17 10:18 Pharmacy Profile Note 0 ml @ 0 mls/hr UNSCH OTHER 05/07/17 09:30 (Zosyn 2.25 Gm Premix) 50 ml @ 200 mls/hr Q6H IV 05/07/17 11:00 05/07/17 12:46 Social History Retired from [employer] (20 yrs) & [employer] (15 yrs). with 2 grown daughters. Lived alone and was providing own care per daughters. (Dayron Amado) Physical Exam Vital Signs Vital Signs Date Time Temp Pulse Resp B/P Pulse Ox O2 Delivery O2 Flow Rate FiO2 05/07/17 13:20 85 19 111/73 100 Nasal Cannula 2 05/07/17 12:37 64 20 113/84 99 Nasal Cannula 2 05/07/17 11:28 98 21 05/07/17 11:23 98.4 63 19 107/81 98 Nasal Cannula 2 05/07/17 10:01 81 21 105/58 97 Nasal Cannula 2 05/07/17 08:45 84 18 106/57 98 Nasal Cannula 2 05/07/17 07:39 Nasal Cannula 2 05/07/17 07:39 98.8 99 20 112/77 98 Nasal Cannula 2 05/07/17 06:48 96 13 106/55 97 Nasal Cannula 2 05/07/17 05:21 107 14 116/61 95 Nasal Cannula 2 05/07/17 04:35 110 12 130/78 95 Nasal Cannula 2 05/07/17 03:05 113 12 96 Non-Rebreather 15 05/07/17 03:05 102.3 113 12 121/85 96 Physical Exam GENERAL: The patient is awake & alert, readily interacts, in no apparent distress, essentially normal affect. SKIN: Warm, dry & intact, no evident rashes, ulcerations or other lesions noted. HEENT: Normocephalic, atraumatic. PERRLA, EOMI. TMs obscured by cerumen, no otorrhea. Bilateral nares pink & moist w/o rhinorrhea. MMM & pink. NECK: Midline cervical spine NTTP, neck supple, no JVD, trachea midline. CARDIOVASCULAR: S1S2 w/RRR w/o M/G/R, radial & pedal pulses 2+ bilaterally, cap refill < 2 sec, 2+ pedal edema. RESPIRATORY: CTAB w/o W/R/R, equal excursion, nonlaboured, on NC. GASTROINTESTINAL: Abdomen w/diffuse TTP, no palpable masses or organomegaly, positive bowel sounds. GENITOURINARY: Normal male genitalia, Perez catheter to BSD w/clear yellow urine. MUSCULOSKELETAL: CALDERON w/o difficulty, no evident deformity or clubbing, TTP to lumbosacral spine. NEUROLOGICAL: AAOx2 (person & time but not place). Speech clear & appropriate, recognises that he doesn't know where he is or why. CN II-XII grossly intact. Sensation intact to light touch to all extremities. Motor strength 5/5 to all major flexion & extension muscle groups except hand intrinsics/extrinsics which is 3+ to 5/5 which may be r/t patient not fully understanding and having difficulty following instructions. Laboratory Laboratory Tests Test 05/07/17 05/07/17 03:30 03:40 White Blood Count 23.8 Red Blood Count 4.51 Hemoglobin 13.6 Hematocrit 42.3 Mean Corpuscular Volume 93.8 Mean Corpuscular Hemoglobin 30.2 Mean Corpuscular Hemoglobin 32.2 Concent Red Cell Distribution Width 13.7 Platelet Count 283 Mean Platelet Volume 9.6 Neutrophils (%) (Auto) 85.2 Lymphocytes (%) (Auto) 3.7 Monocytes (%) (Auto) 10.8 Eosinophils (%) (Auto) 0.1 Basophils (%) (Auto) 0.2 Neutrophils # (Auto) 20.3 Lymphocytes # (Auto) 0.9 Monocytes # (Auto) 2.6 Eosinophils # (Auto) 0.0 Basophils # (Auto) 0.1 CBC Comment AUTO DIFF Differential Total Cells 100 Counted Neutrophils % (Manual) 77 Band Neutrophils % 9 Lymphocytes % 5 Monocytes % 7 Neutrophils # (Manual) 20.9 Metamyelocytes 1 Myelocytes 1 Differential Comment FINAL DIFF MANUAL Toxic Vacuolation PRESENT Platelet Estimate NORMAL Platelet Morphology Comment NORMAL Red Cell Morphology Comment NORMAL Prothrombin Time 12.9 Prothromb Time International 1.2 Ratio Activated Partial 32.7 Thromboplast Time Sodium Level 142 Potassium Level 4.1 Chloride Level 104 Carbon Dioxide Level 26.9 Anion Gap 11 Blood Urea Nitrogen 72 Creatinine 2.06 Estimat Glomerular Filtration 31 Rate Random Glucose 151 Lactic Acid Level 1.5 Calcium Level 10.3 Magnesium Level 3.1 Total Bilirubin 1.0 Aspartate Amino Transf 14 (AST/SGOT) Alanine Aminotransferase 19 (ALT/SGPT) Alkaline Phosphatase 90 Ammonia 28 Total Creatine Kinase 27 Troponin I LESS THAN 0.02 B-Type Natriuretic Peptide 25 Total Protein 7.8 Albumin 3.4 Lipase 162 Urine Color YELLOW Urine Turbidity CLEAR Urine pH 5.0 Urine Specific [place] 1.017 Urine Protein TRACE Urine Glucose (UA) NEG Urine Ketones TRACE Urine Occult Blood NEG Urine Nitrite NEG Urine Bilirubin NEG Urine Urobilinogen LESS THAN 2.0 Urine Leukocyte Esterase NEG Urine RBC 2 Urine WBC LESS THAN 1 Urine Renal Epithelial Cells <1 Urine Bacteria RARE Urine Hyaline Casts 3 Urine Mucus FEW Microscopic Urinalysis Comment CULT NOT INDICATED Date/Time Procedure Status Source Growth 05/07/17 03:35 Aerobic Blood Culture Received Blood Peripheral Pending 05/07/17 03:35 Anaerobic Blood Culture Received Blood Peripheral Pending (Dayron Amado) Result Diagram: 05/07/1732905/07/170 Imaging Recent Impressions Head CT 05/07/176 Signed Impressions: Service Date/Time: Sunday, May 07, 2017 05:06 - CONCLUSION: 1. Subtle small focal area of mildly increased density in the left periventricular white matter with surrounding low density. This is nonspecific but could represent a subtle area of slight hemorrhage and edema. 2. Atrophic change and chronic small vessel ischemic changes. Reji Meza MD Chest X-Ray 05/07/17 0346 Signed Impressions: Service Date/Time: Sunday, May 07, 2017 03:55 - CONCLUSION: Stable appearance with apparent scarring and no definite acute pneumonia. Reji Meza MD Thoracic Spine CT 05/07/17 0000 Signed Impressions: Service Date/Time: Sunday, May 07, 2017 09:34 - CONCLUSION: Minimal consolidative changes left lung posteriorly. Extensive degenerative changes without obvious osteomyelitis . Tagged white cell study would help to exclude such since the patient hasn't pacemaker and cannot undergo MRI. Myles Callejas MD FACR Lumbar Spine CT 05/07/17 Signed Impressions: Service Date/Time: Friday, May 07, 2017 09:34 - CONCLUSION: Substantial degenerative changes. I don't see evidence for an osteomyelitis. Tagged white cell study could help since the patient has pacemaker and cannot tolerate MRI. The epidural space is poorly visualized. Myles Callejas MD FACR Head CT 05/07/17 Signed Impressions: Service Date/Time: Sunday, May 07, 2017 09:39 - CONCLUSION: 1. No acute intracranial abnormality is identified. There is no abnormal enhancement. 2. Stable nonspecific 5 mm curvilinear high density in the left frontal high convexity periventricular white matter. Consider attention to this on followup imaging. 3. Chronic changes include mild atrophy and periventricular white matter low attenuation characteristic of chronic microvascular ischemia. Dylan Carranza MD Cervical Spine CT 05/07/17 Signed Impressions: Service Date/Time: Sunday, May 07, 2017 09:34 - CONCLUSION: 1. No acute cervical spine abnormality is identified. I do not appreciate any findings to indicate osteomyelitis. However, a white blood cell scan may be more sensitive test for detecting osteomyelitis within the spine. 2. There are degenerative changes throughout the cervical spine, as above. Dylan Carranza MD (Dayron Amado) Assessment and Plan Assessment and Plan Impression: Altered mental status Febrile illness Leukocytosis w/bandemia Back pain w/history of spinal stenosis, disc herniation & degenerative disc disease Patient doing well when seen, still w/confusion o/w neurologically intact, persistent low back pain. Plan: Primary management per [facility]. Frequent neuro checks. Tagged WBC study. (Dayron Amado) Attending Statement I have personally seen and examined the patient on 05/07/2017. Pertinent documentation and study results have been reviewed by the undersigned. I have personally developed the treatment plan and performed medical decision making. Agree with findings, exam, and treatment plan as noted above. On my examination on 05/07/2017, patient awake and relatively alert, moderate confusion and mild agitation He is not complaining of any significant low back pain. He moves his upper extremities and legs with good strength, a little difficult to accurately assess due to confusion-altered mental status. Hospital response absent bilateral No ankle clonus Plantar responses are neutral Imaging studies fully reviewed by the undersigned as noted above. Based on his history, suspicious for infectious process in the spine. Also question the etiology of the abnormality noted on CT scan head imaging with area of decreased attenuation at the left periventricular region, but no enhancement on contrast CT imaging. Tagged white blood cell study pending. Infectious disease following. (Ishmael Yañez MD) Dayron Amado May 07, 2017 14:33 Ishmael Yañez MD May 09, 2017 21:21
--- NOTE | 2017-05-07 17:18 | HHI.IDPN ---
Note Infectious Disease Note BRIEF ID NOTE Came by to see patient to do ID consultation Patient just left the ICU to go to nuclear medicine for WBC scan Full ID consultation will be done tomorrow Kae Alberto MD, MD May 07, 2017 17:18
[2017-05-07] MEDS: MORPHINE SULFATE 4 MG/ML INJ IV PUSH PRN (18:56)
[2017-05-07] MEDS: DOCUSATE SODIUM 50 MG/SENNA 8.6 MG TAB PO SCH (21:40)
[2017-05-08] VITALS (13 sets, daily range): BP systolic 116–154; BP diastolic 61–84; PULSE 94–113; RESP 18–28; TEMP 98.2–98.8; O2SAT 91–94
[2017-05-08] MEDS: CHLORHEXIDINE GLUCONATE 2 % 1 PACK (2 CLOTHS) TOP SCH (04:00)
[2017-05-08] MEDS: INSULIN NovoLIN REGULAR SUPPLEMENTAL SCALE SQ SCH ×6 (04:00→20:00)
[2017-05-08 05:03] LABS: BASOPHIL % 0.1 % (0.0-2.0); EOSINOPHIL # 0.1 TH/MM3 (0-0.4); EOSINOPHIL % 0.2 % (0.0-4.0); HEMATOCRIT 35.8 % (39.0-51.0); HEMO FLAGS DIFF FINAL; LYMPHOCYTE # 1.7 TH/MM3 (1.0-4.8); MEAN CELL VOLUME 94.4 FL (80.0-100.0); MEAN CORPUSCULAR HEMOGLOBIN 31.2 PG (27.0-34.0); MONO % 9.8 % (0.0-8.0); NEUT % 81.9 % (16.0-70.0); PLATELET COUNT 231 TH/MM3 (150-450); RED CELL DISTRIBUTION WIDTH 13.8 % (11.6-17.2); WHITE BLOOD COUNT 20.8 TH/MM3 (4.0-11.0)
[2017-05-08] MEDS: PIPERACIL-TAZO 2.25 GM PREMIX 50 ML IV SCH ×4 (05:32→23:07)
[2017-05-08] MEDS: SODIUM CHLOR 0.9% 1000 ML INJ 1,000 ML IV SCH ×3 (05:33→23:05)
[2017-05-08 06:01] LABS: BICARBONATE 26.5 MEQ/L (21.0-32.0); MAGNESIUM 2.8 MG/DL (1.5-2.5); POTASSIUM 3.6 MEQ/L (3.5-5.1)
--- NOTE | 2017-05-08 08:06 | HHI.CCPN ---
Subjective Remarks/Hospital Course The patient is a 86-year-old male with past medical history of atrial fibrillation with previous ablation, permanent pacemaker placement, on Xarelto, hypertension, mitral valve repair, obstructive sleep apnea on C-PAP machine. The patient presented to [facility] ED early this morning with decline in his health for over the past 2-3 weeks. The patient went to [facility] for evaluation of his back pain and he was given prescription for pain medicine. He followed up with his chiropractor and since then he was not able to walk and had to use a wheelchair to get around. He was brought back to [facility] where he underwent a CT scan of the upper spine which showed spinal stenosis, herniated disk and degenerative disk disease. He was admitted to the hospital for several days and was then discharged to a local rehab facility. The patient continues to be unable to walk. He has had a decrease level of alertness for the past 2 days. The patient was placed Gabapentin for muscle spasms and tremors which was discontinued. Also, decreased p.o. intake for the past couple days. Per records , the patient has not had any neck pain, chest pain, shortness of breath, abdominal pain or any GI symptoms. In the ER he had a temperature of 102.3 rectally and his laboratory data is significant for leukocytosis with WBC of 23.8, associated with bandemia and renal failure with a creatinine of 2.06. His lactic acid level measured at 1.5. CT scan of the brain in the ER showed subtle small focal area of mildly increased density in the left periventricular white matter with surrounding low-density which is nonspecific. Questionable slight hemorrhage and edema. Dr. Yañez from neurosurgery was notified by ED and he recommended MRI of the brain, however, the patient has a pacemaker that is incompatible with MRI and he recommended to do a CT scan of the brain with contrast along with CT of the spine for further evaluation of his back pain. In the ED the patient was given vancomycin, Zosyn and 1.5 liter of crystalloids. He is on 2 liters nasal cannula with a saturation 98% and blood pressure of 106/ 57. The patient is awaiting to undergo CT of the spine along with CT brain with IV contrast. SUBJ 8/3: Patient is lying on bed not in acute distress. WBC 20.8 yesterday improved to 20.8. BUN/cr 72/2 improved to 55/1.6. Urine output 2.[address] of the brain showed no evidence of bleed. 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 ID neurology and neurosurgery following. Patient's altered mentation appears to be secondary to sepsis which is improving now Objective Vital Signs Date Time Temp Pulse Resp B/P Pulse Ox O2 Delivery O2 Flow Rate FiO2 05/08/17 06:00 94 05/08/17 04:00 98.2 28 154/74 93 05/07/17 15:10 Nasal Cannula 2 05/07/17 11:28 21 Intake and Output 05/07/17 05/07/17 05/08/17 08:00 16:00 00:00 Intake Total 543 ml Output Total 900 ml 800 ml Balance -900 ml -257 ml Result Diagram: 05/08/17 0436 05/08/17 0436 Objective Remarks GENERAL: A 86-year-old male lying in bed, in no acute distress. HEENT: Atraumatic, normocephalic. Pupils equal, round NECK: Supple. No JVD, adenopathy or thyromegaly. Trachea midline. CARDIOVASCULAR: Irregularly irregular. Normal S1-S2. No murmurs, rubs or gallops noted. PULMONARY: Bilateral equal air entry. No rales or wheezing. ABDOMEN: Soft, nontender, no distension. Positive bowel sounds. EXTREMITIES: No cyanosis, clubbing or edema. NEURO: The patient is able to follow simple commands. Oriented to person and knows that he is in a hospital. Muscle power normal in all extremities sensations preserved. Reflexes normal A/P Assessment and Plan IMPRESSION Severe sepsis Altered mental status/acute metabolic encephalopathy Febrile illness with Leukocytosis and bandemia. Acute renal failure. Respiratory insufficiency. Back pain with history of spinal stenosis and herniated disk. Atrial fibrillation. Hypertension. History of obstructive sleep apnea on C-PAP. Previous pacemaker placement. RECOMMENDATIONS Neuro: - Mental status improving with IV antibiotics and hydration - Metabolic encephalopathy secondary to sepsis appears to be the reason for acute mental status change - Repeat CT of the brain with contrast did not show any intracranial hemorrhage. Dr. Yañez from neurosurgery following - Neurology service Dr. Turcios Resp: - Continue with oxygen and maintain sats above 92%. - Bronchodilators on a p.r.n. basis and aspiration precautions. - Use home CPAP at night CVS: - Monitor heart rate and blood pressure closely and maintain MAP greater than 65 mmHg. - Lactic acid level measured at 1.5. He was given 1.5 liters of crystalloids. Continue with IV fluids NS at 84 mL an hour. GI: - Keep n.p.o. for now and place on Protonix 40 mg IV daily for GI prophylaxis. - Speech pathology for swallow eval : - BUN and creatinine started improving with hydration - Monitor renal function, I&O's and avoid nephrotoxins. - Electrolyte replacement as needed ID: - Continue with broad-spectrum antibiotics in the form of vancomycin and Zosyn. Adjust doses per renal function. - Follow blood cultures, send sputum culture, repeat chest x-ray - Infectious disease following - CT scan of the cervical, lumbar and thoracic spine negative for any evidence of infection - Tagged WBC scan if concern of osteomyelitis-will discuss with ID HEME: - Monitor CBC. coags Endo: - Sliding scale insulin with Accu-Cheks for glycemic control. Proph: - GI prophylaxis with Protonix 40 mg daily and DVT prophylaxis with SCDs. - Will hold off on Xarelto for now incase of any procedures needed or LP needed CCT 32 MIN Remains critically ill but slightly improved. Still has severe sepsis acute renal failure and metabolic encephalopathy, but he appears to be on the right track with improvement Eduardo Richardson MD May 08, 2017 08:06
--- NOTE | 2017-05-08 09:09 | RADRPT ---
EXAM DATE/TIME: 05/08/2017 08:25 [facility] COMPARISON: CT THORACIC SPINE W CONTRAST, May 07, 2017, 9:34. CHEST SINGLE AP, May 07, 2017, 3:55. INDICATIONS : Respiratory disease. MEDICAL HISTORY : Hypertension. Atrial fibrilation. SURGICAL HISTORY : Pacemaker. ENCOUNTER: Subsequent ACUITY: 2 days PAIN SCORE: 0/10 LOCATION: Bilateral chest FINDINGS: Portable AP view of the chest demonstrates cardiac silhouette size at the upper limits for normal in this patient post median sternotomy. Single lead left chest wall cardiac pacing device remains presen t. Multiple EKG lines overlie the patient. There is atelectasis at the level in base. No pleural effu tico, airspace consolidation, or pneumothorax is visualized. The bones and soft tissues demonstrate n o acute finding. CONCLUSION: Atelectasis at the left lung base. No acute cardiopulmonary abnormality is identified. Dylan Carranza MD on May 08, 2017 at 9:06 Board Certified Radiologist. This report was verified electronically.
[2017-05-08] MEDS: DOCUSATE SODIUM 50 MG/SENNA 8.6 MG TAB PO SCH ×2 (09:16→23:05)
[2017-05-08] MEDS: MORPHINE SULFATE 4 MG/ML INJ IV PUSH PRN ×3 (09:24→18:59)
--- NOTE | 2017-05-08 10:19 | PD.ID.CON ---
History of Present Illness Service ID Consult Requested By Reason for Consult Evaluation and M'ment of sepsis, possible epidural abscess/osteomyelitis. Primary Care Physician Brenda Martinez DO Diagnoses: History of Present Illness asked me to see pt and take over consult as she is unable to see patient. is a very pleasant, 86-year-old male with PMHx of chronic back pain on narcotics. His PMHx is also significant for Sleep apnea, on CPAP, Pacemaker status, Afib on anticoagulants. With this background patient is admitted with altered mental status. Reportedly, approx 3 weeks ago he felt that having the head of the bed elevated would help him and he slept that way for a few nights. He developed back pain and one daughter took him to [facility] for evaluation. He was doing well and his pain was controlled with Seymour, therefore he was discharged home. The following day the other daughter took him to his Chiropractor. At that time he was using a cane to ambulate. When he left the office he was not able to walk and had to be taken to the vehicle in a wheelchair. He was subsequently taken back to [facility] for evaluation again and imaging demonstrated spinal stenosis, disc herniation and degenerative disc disease. He was admitted for 3 days and after that was discharged to [facility] where he had been until this morning. His daughter's report that he was briefly on gabapentin which was stopped due to upper extremity tremors. That was replaced with Remeron and the patient had a decreased level of consciousness. The patient was found on the floor of his room at [facility] and he was transported to [facility] for evaluation in the emergency department. The daughters do report that the patient has had decreased oral intake the past few days and not had a bowel movement since 728. The patient was tremulous and had a max temperature of 102. His daughters did report to the ED Physician that the patient had started coughing that day. In the Emergency Department the patient was found to have an elevated WBC count at 23.8 with neutrophils [address] brain demonstrated a small focal area of mildly increased density within the left periventricular white matter with surrounding low-density which could represent slight hemorrhage and edema. Dr Yañez was notified and requested an MRI but the patient's pacemaker wasn't compatible. Therefore additional CT imaging w/o and w/contrast of the brain and spine were ordered which was unremarkable for any acute abnormality of the brain or spine. Substantial degenerative changes were noted throughout the spine. It was recommended that a tagged WBC study be done. The patient has been admitted by the Technology Applications Teacher to the [facility] [place] At the time of my evaluation, patient is in the [facility]. He is not on pressors, awake, oriented x 2, non focal, has a wilcox in place with good urine output. No diarrhea, no rash. Coughs white yellow sputum. Denies any chest pain but endorses worsening back pain on slightest movement. ID consulted for evaluation and Mment of sepsis, possible spinal epidural abscess or osteomyelitis. Review of Systems ROS Limitations: Altered Mental Status Past Family Social History Allergies: Coded Allergies: Xopenex (Unverified Allergy, Severe, 05/07/17) Uncoded Allergies: MRI PRECAUTION PACEMAKER (Adverse Reaction, Severe, NON COMPATIBLE PACMAKER , 05/07/17) [facility] PACEMAKER/05/07/17 [facility] Past Medical History Hypertension Mitral valve stenosis Atrial fibrillation Arthritis Hiatal hernia Past Surgical History Pacemaker insertion Ablation x2 Mitral valve repair Reported Medications Reported Meds & Active Scripts Active Reported Xarelto (Rivaroxaban) 15 Mg Tab 15 Mg PO DAILY Carvedilol 3.125 Mg Tab 3.125 Mg PO BID Fleet Enema Six Pack 7-19 gm/118Ml (Sodium Phosphates) 1 Taylor Taylor Benazepril-Hydrochlorothiazide 20-12.5 Mg Tab 0.5 Tab PO DAILY Baclofen 10 Mg Tab 10 Mg PO BID Senokot S (Sennosides-Docusate Sodium) 8.6-50 Mg Tab 2 Tab PO HS Miralax Powder (Polyethylene Glycol 3350 Powder) 17 Gm Powd 17 Gm PO DAILY Mix and dissolve one measuring cap-ful (17 grams) in water or juice. Hydrocodone-Acetaminophen 5-325 mg Tab 2 Tab PO Q4H PRN Nystatin Liq 100,000 unit/ml Susp 5 Ml SWISH-SWAL QID Remeron (Mirtazapine) 15 Mg Tab 15 Mg PO HS Active Ordered Medications Current Medications Medications (Trade) Dose Ordered Sig/Jaswinder Route Start Time Stop Time Status Last Admin Miscellaneous Information 1 Q361D XX 05/07/17 09:30 (Chlorhexidine 2% Cloth) 3 pack Taper DAILY@04 TOP 05/08/17 04:00 05/04/18 03:59 05/08/17 04:00 (Chlorhexidine 2% Cloth) 3 pack UNSCH PRN TOP 05/07/17 09:30 (Lynsey-Colace) 1 tab BID PO 05/07/17 21:00 05/08/17 09:16 (Milk Of Magnesia Liq) 30 ml Q12H PRN PO 05/07/17 09:30 (Senokot) 17.2 mg Q12H PRN PO 05/07/17 09:30 (Dulcolax Supp) 10 mg DAILY PRN RECTAL 05/07/17 09:30 Lactulose 30 ml 30 ml DAILY PRN PO 05/07/17 09:30 (NS 1000 ml Inj) 1,000 ml @ 84 mls/hr [id number] IV 05/07/17 09:30 05/08/17 09:17 (D50w (Vial) Inj) 50 ml UNSCH PRN IV 05/07/17 09:30 (Glucagon Inj) 1 mg UNSCH PRN OTHER 05/07/17 09:30 Insulin Human Regular 1 1 Q4HR SQ 05/07/17 09:30 05/07/17 10:18 Pharmacy Profile Note 0 ml @ 0 mls/hr UNSCH OTHER 05/07/17 09:30 (Zosyn 2.25 Gm Premix) 50 ml @ 200 mls/hr Q6H IV 05/07/17 11:00 05/08/17 09:16 Morphine Sulfate 2 mg 2 mg Q3H PRN IV PUSH 05/07/17 18:45 05/08/17 09:24 (Vancomycin Inj/ NS 250 ml Inj) 250 ml @ 250 mls/hr Q12H IV 05/08/17 11:00 Family History could not be obtained. Social History Retired from [employer] (20 yrs) & [employer] (15 yrs). with 2 grown daughters. Lived alone and was providing own care per daughters. Physical Exam Vital Signs Vital Signs Date Time Temp Pulse Resp B/P Pulse Ox O2 Delivery O2 Flow Rate FiO2 05/08/17 09:17 94 05/08/17 06:00 94 05/08/17 04:00 98.2 96 28 154/74 93 05/08/17 04:00 94 05/08/17 02:00 94 05/08/17 00:00 98.2 98 24 116/63 94 05/08/17 00:00 98 05/07/17 22:00 92 05/07/17 20:00 96 05/07/17 20:00 97.4 96 20 138/72 93 05/07/17 19:01 20 05/07/17 18:00 101 05/07/17 16:00 104 05/07/17 16:00 97.9 104 23 140/75 92 05/07/17 15:10 75 17 128/80 98 Nasal Cannula 2 05/07/17 13:20 85 19 111/73 100 Nasal Cannula 2 05/07/17 12:37 64 20 113/84 99 Nasal Cannula 2 05/07/17 11:28 98 21 05/07/17 11:23 98.4 63 19 107/81 98 Nasal Cannula 2 Physical Exam GENERAL: Obese elderly, well-developed patient, in no apparent distress. SKIN: No rashes, ecchymoses or lesions. Cool and dry. HEAD: Atraumatic. Normocephalic. No temporal or scalp tenderness. EYES: Pupils equal round and reactive. Extraocular motions intact. No scleral icterus. No injection or drainage. ENT: Nose without bleeding, purulent drainage or septal hematoma. Throat without erythema, tonsillar hypertrophy or exudate. Uvula midline. Airway patent. NECK: Trachea midline. supple, nontender, no meningeal signs. Pacemaker site with no e.o infection. CARDIOVASCULAR: Regular rate and rhythm without murmurs, gallops, or rubs. RESPIRATORY: Clear to auscultation. Breath sounds equal bilaterally. No wheezes , rales, or rhonchi. Protuberant abdomen. MUSCULOSKELETAL: Extremities without clubbing, cyanosis, or edema. No joint tenderness, effusion, or edema noted. No calf tenderness. Negative Homans sign bilaterally. NEUROLOGICAL: Awake and alert. Grossly non focal. Confused. Able to tell me where he is. Does not events leading to admission or any other health details. Psych: cooperative IV line sites with no e.o infection. Laboratory Laboratory Tests Test 05/07/17 05/08/17 16:00 04:36 Nasal Screen MRSA (PCR) MRSA NOT DETECTED White Blood Count 20.8 Red Blood Count 3.80 Hemoglobin 11.8 Hematocrit 35.8 Mean Corpuscular Volume 94.4 Mean Corpuscular Hemoglobin 31.2 Mean Corpuscular Hemoglobin 33.0 Concent Red Cell Distribution Width 13.8 Platelet Count 231 Mean Platelet Volume 9.8 Neutrophils (%) (Auto) 81.9 Lymphocytes (%) (Auto) 8.0 Monocytes (%) (Auto) 9.8 Eosinophils (%) (Auto) 0.2 Basophils (%) (Auto) 0.1 Neutrophils # (Auto) 17.0 Lymphocytes # (Auto) 1.7 Monocytes # (Auto) 2.0 Eosinophils # (Auto) 0.1 Basophils # (Auto) 0.0 CBC Comment DIFF FINAL Differential Comment Sodium Level 147 Potassium Level 3.6 Chloride Level 111 Carbon Dioxide Level 26.5 Anion Gap 10 Blood Urea Nitrogen 55 Creatinine 1.59 Estimat Glomerular Filtration 41 Rate Random Glucose 132 Calcium Level 9.4 Phosphorus Level 2.7 Magnesium Level 2.8 Total Creatine Kinase 38 Vitamin B12 Level 1789 Thyroid Stimulating Hormone 0.210 3rd Gen Random Vancomycin Level 11.8 Date/Time Procedure Status Source Growth 05/07/17 03:35 Aerobic Blood Culture Received Blood Peripheral Pending 05/07/17 03:35 Anaerobic Blood Culture Received Blood Peripheral Pending Result Diagram: 05/08/17 0436 05/08/17 0436 Imaging Last Impressions Chest X-Ray 05/08/17 0000 Signed Impressions: Service Date/Time: May 08:25 - CONCLUSION: Atelectasis at the left lung base. No acute cardiopulmonary abnormality is identified. Dylan Carranza MD Head CT 05/07/17 0346 Signed Impressions: Service Date/Time: Sunday, May 07, 2017 05:06 - CONCLUSION: 1. Subtle small focal area of mildly increased density in the left periventricular white matter with surrounding low density. This is nonspecific but could represent a subtle area of slight hemorrhage and edema. 2. Atrophic change and chronic small vessel ischemic changes. Reji Meza MD Thoracic Spine CT 05/07/17 0000 Signed Impressions: Service Date/Time: Sunday, May 07, 2017 09:34 - CONCLUSION: Minimal consolidative changes left lung posteriorly. Extensive degenerative changes without obvious osteomyelitis . Tagged white cell study would help to exclude such since the patient hasn't pacemaker and cannot undergo MRI. Myles Callejas MD FACR Lumbar Spine CT 05/07/17 0000 Signed Impressions: Service Date/Time: Sunday, May 07, 2017 09:34 - CONCLUSION: Substantial degenerative changes. I don't see evidence for an osteomyelitis. Tagged white cell study could help since the patient has pacemaker and cannot tolerate MRI. The epidural space is poorly visualized. Myles Callejas MD FACR Cervical Spine CT 05/07/17 0000 Signed Impressions: Service Date/Time: Sunday, May 07, 2017 09:34 - CONCLUSION: 1. No acute cervical spine abnormality is identified. I do not appreciate any findings to indicate osteomyelitis. However, a white blood cell scan may be more sensitive test for detecting osteomyelitis within the spine. 2. There are degenerative changes throughout the cervical spine, as above. Dylan Carranza MD Assessment and Plan Assessment and Plan Sepsis present on admission. Possible Osteomyelitis of spine or Epidural abscess. Possible aspiration pneumonia or CAP. Acute metabolic encephalopathy: infection, metabolic, ? dementia at baseline, hypothyrodism related. Acute renal failure: ? baseline CKD, prerenal component (poor oral intake prior to admission)\ Morbid Obesity (BMI 23.7) Sleep apnea on CPAP. Chronic pain on narcotics. (no pain medicine pump in place, will d.w daughter if any intrathecal pump) Pacemaker status. Recs Urine legionella antigen Urine Strep pneumo antigen Follow cultures Follow WBC Scan. continue Zosyn IV Continue Vanco IV (if no bacteremia consider switching to Zyvox or stop as pt has acute renal failure) start Azithro (for atypical pneumonia) Check 2 D ECHO (pacemaker status and infection of unknown origin so far) Follow clinically. d/w SAMEER Gomez and . I will be OOT from 05/09/2017 to 05/15/2017. I will be back on 05/16/2017. Other ID MDs covering for me. Melanie Mejia MD May 08, 2017 10:19
--- NOTE | 2017-05-08 12:13 | HHI.PR ---
Review/Management Daily Summary 05/08 more responsive and following commands much more promptly now moves lower limbs well oriented to person and aware of being in the hospital, denying back pain today probably met encephalopathy from sepsis I saw records from [facility] when NS thought L2 lesion to be benign and no surgical LS disease monitor Subjective Subjective Comments No acute events reported No headache Active Medications Current Medications Medications (Trade) Dose Ordered Sig/Jaswinder Route Start Time Stop Time Status Last Admin Miscellaneous Information 1 Q361D XX 05/07/17 09:30 (Chlorhexidine 2% Cloth) 3 pack Taper DAILY@04 TOP 05/08/17 04:00 05/04/18 03:59 05/08/17 04:00 (Chlorhexidine 2% Cloth) 3 pack UNSCH PRN TOP 05/07/17 09:30 (Lynsey-Colace) 1 tab BID PO 05/07/17 21:00 05/08/17 09:16 (Milk Of Magnesia Liq) 30 ml Q12H PRN PO 05/07/17 09:30 (Senokot) 17.2 mg Q12H PRN PO 05/07/17 09:30 (Dulcolax Supp) 10 mg DAILY PRN RECTAL 05/07/17 09:30 Lactulose 30 ml 30 ml DAILY PRN PO 05/07/17 09:30 (NS 1000 ml Inj) 1,000 ml @ 84 mls/hr [id number] IV 05/07/17 09:30 05/08/17 09:17 (D50w (Vial) Inj) 50 ml UNSCH PRN IV 05/07/17 09:30 (Glucagon Inj) 1 mg UNSCH PRN OTHER 05/07/17 09:30 Insulin Human Regular 1 1 Q4HR SQ 05/07/17 09:30 05/07/17 10:18 Pharmacy Profile Note 0 ml @ 0 mls/hr UNSCH OTHER 05/07/17 09:30 (Zosyn 2.25 Gm Premix) 50 ml @ 200 mls/hr Q6H IV 05/07/17 11:00 05/08/17 09:16 Morphine Sulfate 2 mg 2 mg Q3H PRN IV PUSH 05/07/17 18:45 05/08/17 09:24 Vancomycin HCl 1000 mg/Sodium Chloride 250 ml @ 250 mls/hr Q12H IV 05/08/17 11:00 (Zithromax Inj/ NS 250 ml Inj) 250 ml @ 250 mls/hr Q24H IV 05/08/17 11:00 Allergies Allergies Coded Allergies Xopenex (Unverified Allergy, Severe, 05/07/17) Uncoded Allergies MRI PRECAUTION PACEMAKER ( Adverse Reaction, Severe, NON COMPATIBLE PACMAKER, 05/07/17) Exam I&O / VS 05/07/17 05/07/17 05/08/17 15:00 23:00 07:00 Intake Total 543 ml 598 ml Output Total 1700 ml 650 ml Balance -1157 ml -52 ml Intake Oral 120 ml IV Total 423 ml 598 ml Output Urine Total 1700 ml 650 ml Vital Signs Date Time Temp Pulse Resp B/P Pulse Ox O2 Delivery O2 Flow Rate FiO2 05/08/17 12:00 98.6 110 20 151/81 92 05/08/17 12:00 110 05/08/17 10:00 109 05/08/17 09:45 19 05/08/17 09:17 94 05/08/17 08:00 98.5 108 22 153/84 94 05/08/17 08:00 108 05/08/17 06:00 94 05/08/17 04:00 98.2 96 28 154/74 93 05/08/17 04:00 94 05/08/17 02:00 94 05/08/17 00:00 98.2 98 24 116/63 94 05/08/17 00:00 98 05/07/17 22:00 92 05/07/17 20:00 96 05/07/17 20:00 97.4 96 20 138/72 93 05/07/17 18:00 101 05/07/17 16:00 104 05/07/17 16:00 97.9 104 23 140/75 92 05/07/17 15:10 75 17 128/80 98 Nasal Cannula 2 05/07/17 13:20 85 19 111/73 100 Nasal Cannula 2 05/07/17 12:37 64 20 113/84 99 Nasal Cannula 2 Objective Radiology Results Last 48 hours Impressions Chest X-Ray 05/08/17 0000 Signed Impressions: Service Date/Time: May 08:25 - CONCLUSION: Atelectasis at the left lung base. No acute cardiopulmonary abnormality is identified. Dylan Carranza MD Head CT 05/07/176 Signed Impressions: Service Date/Time: Sunday, May 07, 2017 05:06 - CONCLUSION: 1. Subtle small focal area of mildly increased density in the left periventricular white matter with surrounding low density. This is nonspecific but could represent a subtle area of slight hemorrhage and edema. 2. Atrophic change and chronic small vessel ischemic changes. Reji Meza MD Chest X-Ray 05/07/17345 Signed Impressions: Service Date/Time: Sunday, May 07, 2017 03:55 - CONCLUSION: Stable appearance with apparent scarring and no definite acute pneumonia. Reji Meza MD Thoracic Spine CT 05/07/17 Signed Impressions: Service Date/Time: Sunday, May 07, 2017 09:34 - CONCLUSION: Minimal consolidative changes left lung posteriorly. Extensive degenerative changes without obvious osteomyelitis . Tagged white cell study would help to exclude such since the patient hasn't pacemaker and cannot undergo MRI. Myles Callejas MD FACR Lumbar Spine CT 05/07/17 Signed Impressions: Service Date/Time: Sunday, May 07, 2017 09:34 - CONCLUSION: Substantial degenerative changes. I don't see evidence for an osteomyelitis. Tagged white cell study could help since the patient has pacemaker and cannot tolerate MRI. The epidural space is poorly visualized. Myles Callejas MD FACR Head CT 05/07/17 Signed Impressions: Service Date/Time: Sunday, May 07, 2017 09:39 - CONCLUSION: 1. No acute intracranial abnormality is identified. There is no abnormal enhancement. 2. Stable nonspecific 5 mm curvilinear high density in the left frontal high convexity periventricular white matter. Consider attention to this on followup imaging. 3. Chronic changes include mild atrophy and periventricular white matter low attenuation characteristic of chronic microvascular ischemia. Dylan Carranza MD Cervical Spine CT 05/07/17 Signed Impressions: Service Date/Time: Sunday, May 07, 2017 09:34 - CONCLUSION: 1. No acute cervical spine abnormality is identified. I do not appreciate any findings to indicate osteomyelitis. However, a white blood cell scan may be more sensitive test for detecting osteomyelitis within the spine. 2. There are degenerative changes throughout the cervical spine, as above. Dylan Carranza MD Micro and Labs Laboratory Tests Test 05/07/17 05/08/17 16:00 04:36 Nasal Screen MRSA (PCR) MRSA NOT DETECTED White Blood Count 20.8 Red Blood Count 3.80 Hemoglobin 11.8 Hematocrit 35.8 Mean Corpuscular Volume 94.4 Mean Corpuscular Hemoglobin 31.2 Mean Corpuscular Hemoglobin 33.0 Concent Red Cell Distribution Width 13.8 Platelet Count 231 Mean Platelet Volume 9.8 Neutrophils (%) (Auto) 81.9 Lymphocytes (%) (Auto) 8.0 Monocytes (%) (Auto) 9.8 Eosinophils (%) (Auto) 0.2 Basophils (%) (Auto) 0.1 Neutrophils # (Auto) 17.0 Lymphocytes # (Auto) 1.7 Monocytes # (Auto) 2.0 Eosinophils # (Auto) 0.1 Basophils # (Auto) 0.0 CBC Comment DIFF FINAL Differential Comment Sodium Level 147 Potassium Level 3.6 Chloride Level 111 Carbon Dioxide Level 26.5 Anion Gap 10 Blood Urea Nitrogen 55 Creatinine 1.59 Estimat Glomerular Filtration 41 Rate Random Glucose 132 Calcium Level 9.4 Phosphorus Level 2.7 Magnesium Level 2.8 Total Creatine Kinase 38 Vitamin B12 Level 1789 Thyroid Stimulating Hormone 0.210 3rd Gen Random Vancomycin Level 11.8 Date/Time Procedure Status Source Growth 05/08/17 10:20 Legionella Antigen - Final Complete Urine Random Urine PRESUMPTIVE NEGATIVE FOR LEGIONELLA P... 05/08/17 10:20 Streptococcus pneumoniae Antigen (M - Final Complete Urine Random Urine PRESUMPTIVE NEGATIVE FOR STREPTOCOCCU... 05/07/17 03:35 Aerobic Blood Culture - Preliminary Resulted Blood Peripheral NO GROWTH IN 1 DAY 05/07/17 03:35 Anaerobic Blood Culture - Preliminary Resulted Blood Peripheral NO GROWTH IN 1 DAY Papa Turcios MD May 08, 2017 12:13
[2017-05-08] MEDS: AZITHROMYCIN INJ 500 MG in SODIUM CHLOR 0.9% 250 ML INJ 250 ML IV SCH (13:03)
[2017-05-08] MEDS: VANCOMYCIN 1,000 MG/NS 250 ML IV SCH ×4 (13:03→23:06)
[2017-05-08 13:42] LABS: RAPID PLASMA REAGIN SCREEN NON-REACTIVE (NON-REACTVE)
--- NOTE | 2017-05-08 16:20 | RADRPT ---
EXAM DATE/TIME: 05/07/2017 17:05 [facility] COMPARISON: No previous studies available for comparison. INDICATIONS : Neck pain for 3 weeks. DOSE: 21.1 mCi Tc99m Ceretec labeled white blood cells IV PLANAR IMAGIN min, 3 hrs, 20 hrs SPECT IMAGIN hrs, 20 hrs IMAGNG: SPECT/CT imaging with fusion was performed. RADIATION DOSE: 13.81 CTDIvol (mGy) ; Multiple Day Study MEDICAL HISTORY : Hypertension. Atrial fibrillation. SURGICAL HISTORY : Pacemaker. Mitral valve replaced. ENCOUNTER: Initial ACUITY: 3 weeks PAIN SCALE: 3/10 LOCATION: Neck. TECHNIQUE: Following the in vitro labeling of autologous white cells and reinjection, whole body scan was perfor med at the specified times. Imaging was performed at specified times in sagittal, axial and coronal planes. Attenuation correction was performed with computed tomography and both the attenuation corre ction and non-attenuation corrected data sets were reviewed. FINDINGS: No abnormal activity is identified cervical or thoracic spine. There is increased activity around the mainstem bronchi bilaterally extending into the lungs characteris tracheobronchitis and probable bro nchopneumonia.CONCLUSION: 1. No abnormal activity in the neck or cervical and thoracic spine. 2. Abnormal increased activity along both mainstem bronchi and extending into the lungs most characte ristic of a bronchitis or bronchopneumonia. Jose Pelayo MD on May 08, 2017 at 16:05 Board Certified Radiologist. This report was verified electronically.
--- NOTE | 2017-05-08 16:31 | HHI.NSPN ---
(Dayron Amado) History Chief Complaint: Slight aching to back. (AneudyDayron) Interval History 05/07: This is a very pleasant, although confused, 86-year-old male who isn't sure why he is here. The history is obtained from his daughters who are present and he gave permission to speak with. The patient has a history of sleep apnea and uses a CPAP machine at night. About 3 weeks ago he felt that having the head of the bed elevated would help him and he slept that way for a few nights. He developed back pain and one daughter took him to [facility] for evaluation. He was doing well and his pain was controlled with [place], therefore he was discharged home. The following day the other daughter took him to his Chiropractor. At that time he was using a cane to ambulate. When he left the office he was not able to walk and had to be taken to the vehicle in a wheelchair. He was subsequently taken back to [facility] for evaluation again and imaging demonstrated spinal stenosis, disc herniation and degenerative disc disease. He was admitted for 3 days and after that was discharged to [facility] where he had been until this morning. His daughter's report that he was briefly on gabapentin which was stopped due to upper extremity tremors. That was replaced with Remeron and the patient had a decreased level of consciousness. The patient was found on the floor of his room at [facility] and he was transported to [facility] for evaluation in the emergency department. The daughters do report that the patient has had decreased oral intake the past few days and not had a bowel movement since 728. The patient was tremulous and had a max temperature of 102. His daughters did report to the ED Physician that the patient had started coughing that day. In the Emergency Department the patient was found to have an elevated WBC count at 23.8 with neutrophils [address] brain demonstrated a small focal area of mildly increased density within the left periventricular white matter with surrounding low-density which could represent slight haemorrhage and edema. Dr Yañez was notified and requested an MRI but the patient's pacemaker wasn't compatible. Therefore additional CT imaging w/o and w/contrast of the brain and spine were ordered which was unremarkable for any acute abnormality of the brain or spine. Substantial degenerative changes were noted throughout the spine. It was recommended that a tagged WBC study be done. The patient has been admitted by the [facility] to the [facility] and was waiting for a bed. 05/08: The patient states he is doing good today. He has no complaints but does endorse some aching to the back. (Dayron Amado) System Review Comments Constitutional: Patient denies any fever or chills. HEENT: Patient denies any visual or hearing difficulty. Respiratory: Patient does endorse having a productive cough. He denies any shortness of breath. Cardiovascular: Patient denies any chest pain, palpitations or irregular heartbeat. Gastrointestinal: Patient denies any abdominal pain, nausea, vomiting or incontinence of stool. Genitourinary: Patient denies any urinary incontinence. Musculoskeletal: Patient endorses aching to the back. Patient denies any neck pain or any pain or weakness to the extremities. Neurologic: Patient denies any headache, dizziness, numbness or tingling. ( Dayron Amado) Exam Results Vital Signs Date Time Temp Pulse Resp B/P Pulse Ox O2 Delivery O2 Flow Rate FiO2 05/08/17 14:00 109 05/08/17 13:30 19 05/08/17 12:00 98.6 151/81 92 05/07/17 15:10 Nasal Cannula 2 05/07/17 11:28 21 Intake and Output 05/07/17 05/07/17 05/08/17 08:00 16:00 00:00 Intake Total 543 ml Output Total 900 ml 800 ml Balance -900 ml -257 ml (Dayron Amado) Physical Examination GENERAL: The patient is asleep but awakens to verbal stimuli, alert after that , readily interacts, in no apparent distress, essentially normal affect. SKIN: Warm, dry & intact, no evident rashes, ulcerations or other lesions noted. HEENT: Normocephalic, atraumatic. NECK: Midline cervical spine NTTP, neck supple, no JVD, trachea midline. CARDIOVASCULAR: S1S2 w/RRR w/o M/G/R, radial & pedal pulses 2+ bilaterally, cap refill < 2 sec, 2+ pedal edema. RESPIRATORY: CTAB w/o W/R/R, equal excursion, nonlaboured, on RA. GASTROINTESTINAL: Abdomen soft, nontender, positive bowel sounds. MUSCULOSKELETAL: CALDERON w/o difficulty, no evident deformity or clubbing, NTTP to lumbosacral spine. NEUROLOGICAL: Asleep, awakens to verbal stimuli, alert after that, oriented to self, year but not month and being in hospital. Speech clear & appropriate although still slightly confused. Sensation intact to light touch to all extremities. Motor strength 5/5 to all major flexion & extension muscle groups. (Dayron Amado) Lab, Micro, Other Results Allergies Coded Allergies Type Severity Reaction Last Updated Verified Xopenex Allergy Severe 05/07/17 No Uncoded Allergies Type Severity Reaction Last Updated Verified MRI PRECAUTION PACEMAKER Adverse Reaction Severe NON COMPATIBLE PACMAKER Recent Impressions Chest X-Ray 05/08/17 0000 Signed Impressions: Service Date/Time: May 08:25 - CONCLUSION: Atelectasis at the left lung base. No acute cardiopulmonary abnormality is identified. Dylan Carranza MD Head CT 05/07/17 0346 Signed Impressions: Service Date/Time: Sunday, May 07, 2017 05:06 - CONCLUSION: 1. Subtle small focal area of mildly increased density in the left periventricular white matter with surrounding low density. This is nonspecific but could represent a subtle area of slight hemorrhage and edema. 2. Atrophic change and chronic small vessel ischemic changes. Reji Meza MD Chest X-Ray 05/07/17 0346 Signed Impressions: Service Date/Time: Sunday, May 07, 2017 03:55 - CONCLUSION: Stable appearance with apparent scarring and no definite acute pneumonia. Reji Meza MD Thoracic Spine CT 05/07/17 0000 Signed Impressions: Service Date/Time: Sunday, May 07, 2017 09:34 - CONCLUSION: Minimal consolidative changes left lung posteriorly. Extensive degenerative changes without obvious osteomyelitis . Tagged white cell study would help to exclude such since the patient hasn't pacemaker and cannot undergo MRI. Myles Callejas MD FACR Lumbar Spine CT 05/07/17 0000 Signed Impressions: Service Date/Time: Sunday, May 07, 2017 09:34 - CONCLUSION: Substantial degenerative changes. I don't see evidence for an osteomyelitis. Tagged white cell study could help since the patient has pacemaker and cannot tolerate MRI. The epidural space is poorly visualized. Myles Callejas MD FACR Head CT 05/07/17 0000 Signed Impressions: Service Date/Time: Sunday, May 07, 2017 09:39 - CONCLUSION: 1. No acute intracranial abnormality is identified. There is no abnormal enhancement. 2. Stable nonspecific 5 mm curvilinear high density in the left frontal high convexity periventricular white matter. Consider attention to this on followup imaging. 3. Chronic changes include mild atrophy and periventricular white matter low attenuation characteristic of chronic microvascular ischemia. Dylan Carranza MD Cervical Spine CT 05/07/17 0000 Signed Impressions: Service Date/Time: Sunday, May 07, 2017 09:34 - CONCLUSION: 1. No acute cervical spine abnormality is identified. I do not appreciate any findings to indicate osteomyelitis. However, a white blood cell scan may be more sensitive test for detecting osteomyelitis within the spine. 2. There are degenerative changes throughout the cervical spine, as above. Dylan Carranza MD ////// 06:00 18:00 06:00 18:00 06:00 18:00 Intake Total 1141 ml 1476 ml Output Total 900 ml 1450 ml 400 ml Balance -900 ml -309 ml 1076 ml Intake Oral 120 ml 480 ml IV Total 1021 ml 996 ml Output Urine Total 900 ml 1450 ml 400 ml Laboratory Tests Test 05/07/17 05/07/17 05/07/17 05/08/17 03:30 03:40 16:00 04:36 White Blood Count 23.8 TH/MM3 20.8 TH/MM3 Red Blood Count 4.51 MIL/MM3 3.80 MIL/MM3 Hemoglobin 13.6 GM/DL 11.8 GM/DL Hematocrit 42.3 % 35.8 % Mean Corpuscular Volume 93.8 FL 94.4 FL Mean Corpuscular Hemoglobin 30.2 PG 31.2 PG Mean Corpuscular Hemoglobin 32.2 % 33.0 % Concent Red Cell Distribution Width 13.7 % 13.8 % Platelet Count 283 TH/MM3 231 TH/MM3 Mean Platelet Volume 9.6 FL 9.8 FL Neutrophils (%) (Auto) 85.2 % 81.9 % Lymphocytes (%) (Auto) 3.7 % 8.0 % Monocytes (%) (Auto) 10.8 % 9.8 % Eosinophils (%) (Auto) 0.1 % 0.2 % Basophils (%) (Auto) 0.2 % 0.1 % Neutrophils # (Auto) 20.3 TH/MM3 17.0 TH/MM3 Lymphocytes # (Auto) 0.9 TH/MM3 1.7 TH/MM3 Monocytes # (Auto) 2.6 TH/MM3 2.0 TH/MM3 Eosinophils # (Auto) 0.0 TH/MM3 0.1 TH/MM3 Basophils # (Auto) 0.1 TH/MM3 0.0 TH/MM3 CBC Comment AUTO DIFF DIFF FINAL Differential Total Cells 100 Counted Neutrophils % (Manual) 77 % Band Neutrophils % 9 % Lymphocytes % 5 % Monocytes % 7 % Neutrophils # (Manual) 20.9 TH/MM3 Metamyelocytes 1 % Myelocytes 1 % Differential Comment FINAL DIFF MANUAL Toxic Vacuolation PRESENT Platelet Estimate NORMAL Platelet Morphology Comment NORMAL Red Cell Morphology Comment NORMAL Prothrombin Time 12.9 SEC Prothromb Time International 1.2 RATIO Ratio Activated Partial 32.7 SEC Thromboplast Time Sodium Level 142 MEQ/L 147 MEQ/L Potassium Level 4.1 MEQ/L 3.6 MEQ/L Chloride Level 104 MEQ/L 111 MEQ/L Carbon Dioxide Level 26.9 MEQ/L 26.5 MEQ/L Anion Gap 11 MEQ/L 10 MEQ/L Blood Urea Nitrogen 72 MG/DL 55 MG/DL Creatinine 2.06 MG/DL 1.59 MG/DL Estimat Glomerular Filtration 31 ML/MIN 41 ML/MIN Rate Random Glucose 151 MG/DL 132 MG/DL Lactic Acid Level 1.5 mmol/L Calcium Level 10.3 MG/DL 9.4 MG/DL Magnesium Level 3.1 MG/DL 2.8 MG/DL Total Bilirubin 1.0 MG/DL Aspartate Amino Transf 14 U/L (AST/SGOT) Alanine Aminotransferase 19 U/L (ALT/SGPT) Alkaline Phosphatase 90 U/L Ammonia 28 MCMOL/L Total Creatine Kinase 27 U/L 38 U/L Troponin I LESS THAN 0.02 NG/ML B-Type Natriuretic Peptide 25 PG/ML Total Protein 7.8 GM/DL Albumin 3.4 GM/DL Lipase 162 U/L Urine Color YELLOW Urine Turbidity CLEAR Urine pH 5.0 Urine Specific Kimberly 1.017 Urine Protein TRACE mg/dL Urine Glucose (UA) NEG mg/dL Urine Ketones TRACE mg/dL Urine Occult Blood NEG Urine Nitrite NEG Urine Bilirubin NEG Urine Urobilinogen LESS THAN 2.0 MG/DL Urine Leukocyte Esterase NEG Urine RBC 2 /hpf Urine WBC LESS THAN 1 /hpf Urine Renal Epithelial Cells <1 /hpf Urine Bacteria RARE /hpf Urine Hyaline Casts 3 /lpf Urine Mucus FEW /lpf Microscopic Urinalysis Comment CULT NOT INDICATED Nasal Screen MRSA (PCR) MRSA NOT DETECTED Phosphorus Level 2.7 MG/DL Vitamin B12 Level 1789 PG/ML Thyroid Stimulating Hormone 0.210 uIU/ML 3rd Gen Random Vancomycin Level 11.8 COMMENT Rapid Plasma Reagin NON-REACTIVE Vital Signs Date Time Temp Pulse Resp B/P Pulse Ox O2 Delivery O2 Flow Rate FiO2 05/08/17 14:00 109 05/08/17 13:30 19 05/08/17 12:00 98.6 110 20 151/81 92 05/08/17 12:00 110 05/08/17 10:00 109 05/08/17 09:17 94 05/08/17 08:00 98.5 108 22 153/84 94 05/08/17 08:00 108 05/08/17 06:00 94 05/08/17 04:00 98.2 96 28 154/74 93 05/08/17 04:00 94 05/08/17 02:00 94 05/08/17 00:00 98.2 98 24 116/63 94 05/08/17 00:00 98 05/07/17 22:00 92 05/07/17 20:00 96 05/07/17 20:00 97.4 96 20 138/72 93 05/07/17 18:00 101 05/07/17 16:00 104 05/07/17 16:00 97.9 104 23 140/75 92 05/07/17 15:10 75 17 128/80 98 Nasal Cannula 2 05/07/17 13:20 85 19 111/73 100 Nasal Cannula 2 05/07/17 12:37 64 20 113/84 99 Nasal Cannula 2 05/07/17 11:28 98 21 05/07/17 11:23 98.4 63 19 107/81 98 Nasal Cannula 2 05/07/17 10:01 81 21 105/58 97 Nasal Cannula 2 05/07/17 08:45 84 18 106/57 98 Nasal Cannula 2 05/07/17 07:39 Nasal Cannula 2 05/07/17 07:39 98.8 99 20 112/77 98 Nasal Cannula 2 05/07/17 06:48 96 13 106/55 97 Nasal Cannula 2 05/07/17 05:21 107 14 116/61 95 Nasal Cannula 2 05/07/17 04:35 110 12 130/78 95 Nasal Cannula 2 05/07/17 03:05 113 12 96 Non-Rebreather 15 05/07/17 03:05 102.3 113 12 121/85 96 (Dayron Amado) Medical Decision Making Impression and Plan Impression: Altered mental status Febrile illness Leukocytosis w/bandemia Back pain w/history of spinal stenosis, disc herniation & degenerative disc disease Repeat CT brain demonstrates no acute intracranial abnormality. CT cervical, thoracic & lumbar spine demonstrates extensive degenerative changes w/o any obvious osteomyelitis. Tagged WBC study results pending. Leukocystosis, slight interval improvement Sodium 146 Patient doing well when seen, improvement in confusion o/w neurologically intact , improvement in low back pain. Plan: Primary management per [facility]. Frequent neuro checks. (Dayron Amado) Attending Statement I have personally seen and examined the patient on 05/08/17 pertinent documentation and study results have been reviewed by the undersigned. I have personally developed the treatment plan and performed medical decision making. Agree with findings, exam, and treatment plan as noted above. Patient with moderate confusion, mild agitation when examined by the undersigned. No significant spinal tenderness. Patient does not complain of any significant low back pain He is moving all extremities well Tagged WBC study results pending Infectious disease following. May mobilize out of bed from neurosurgery standpoint. Okay for Britany (Ishmael Yañez MD) Dayron Amado May 08, 2017 16:31 Ishmael Yañez MD May 09, 2017 21:16
[2017-05-09] VITALS (12 sets, daily range): BP systolic 129–153; BP diastolic 74–97; PULSE 110–114; RESP 16–20; TEMP 98.4–99.1; O2SAT 92–98
[2017-05-09] MEDS: CHLORHEXIDINE GLUCONATE 2 % 1 PACK (2 CLOTHS) TOP SCH (04:00)
[2017-05-09] MEDS: INSULIN NovoLIN REGULAR SUPPLEMENTAL SCALE SQ SCH ×6 (04:00→23:24)
--- NOTE | 2017-05-09 05:36 | RADRPT ---
EXAM DATE/TIME: 05/09/2017 04:14 [place] COMPARISON: CHEST SINGLE AP, May 08, 2017, 8:25. INDICATIONS : Shortness of breath MEDICAL HISTORY : Hypertension. Atrial fibrilation. SURGICAL HISTORY : Pacemaker. ENCOUNTER: Subsequent ACUITY: 4 - 6 days PAIN SCORE: 8/10 LOCATION: Bilateral chest FINDINGS: The cardiac silhouette is enlarged in transverse diameter. Median sternotomy wires are present. A bip olar pacemaker is in place via a left sided approach. There is subsegmental atelectasis in the left b ase. The right lung is free of acute parenchymal opacity. CONCLUSION: 1. Subsegmental atelectasis left base. The findings are improved when compared with the prior exam. Aguila Brown MD on May 09, 2017 at 5:34 Board Certified Radiologist. This report was verified electronically.
[2017-05-09] MEDS: PIPERACIL-TAZO 2.25 GM PREMIX 50 ML IV SCH ×4 (06:03→23:20)
[2017-05-09 07:03] LABS: BASOPHIL % 0.2 % (0.0-2.0); EOSINOPHIL # 0.1 TH/MM3 (0-0.4); EOSINOPHIL % 0.6 % (0.0-4.0); HEMATOCRIT 36.5 % (39.0-51.0); HEMO FLAGS DIFF FINAL; LYMPH % 11.5 % (9.0-44.0); LYMPHOCYTE # 1.6 TH/MM3 (1.0-4.8); MEAN CELL VOLUME 94.6 FL (80.0-100.0); MEAN CORPUSCULAR HEMOGLOBIN 31.1 PG (27.0-34.0); MEAN CORPUSCULAR HGB CONC 32.9 % (32.0-36.0); MONO % 10.9 % (0.0-8.0); NEUT % 76.8 % (16.0-70.0); PLATELET COUNT 207 TH/MM3 (150-450); RED BLOOD COUNT 3.86 MIL/MM3 (4.50-5.90); RED CELL DISTRIBUTION WIDTH 13.9 % (11.6-17.2); WHITE BLOOD COUNT 14.3 TH/MM3 (4.0-11.0)
[2017-05-09 07:50] LABS: ALKALINE PHOSPHATASE 106 U/L (45-117); ALT (GPT) 22 U/L (12-78); ANION GAP 8 MEQ/L (5-15); AST (GOT) 21 U/L (15-37); BICARBONATE 24.7 MEQ/L (21.0-32.0); BLOOD UREA NITROGEN 39 MG/DL (7-18); CHLORIDE 112 MEQ/L (98-107); GLOMERULAR FILTRATION RATE 52 ML/MIN (>89); POTASSIUM 3.8 MEQ/L (3.5-5.1); SODIUM (NA) 145 MEQ/L (136-145); TOTAL BILIRUBIN ADULT 0.7 MG/DL (0.2-1.0)
[2017-05-09] MEDS: DOCUSATE SODIUM 50 MG/SENNA 8.6 MG TAB PO SCH ×2 (08:49→20:50)
[2017-05-09] MEDS: SODIUM CHLOR 0.9% 1000 ML INJ 1,000 ML IV SCH ×2 (08:50→20:51)
--- NOTE | 2017-05-09 09:47 | HHI.IDPN ---
Subjective Subjective Remarks ID COVERAGE is a very pleasant, 86-year-old male with PMHx of chronic back pain on narcotics. His PMHx is also significant for Sleep apnea, on CPAP, Pacemaker status, Afib on anticoagulants. With this background patient is admitted with altered mental status. Reportedly, approx 3 weeks ago he felt that having the head of the bed elevated would help him and he slept that way for a few nights. He developed back pain and one daughter took him to [facility] for evaluation. He was doing well and his pain was controlled with Ferron, therefore he was discharged home. The following day the other daughter took him to his Chiropractor. At that time he was using a cane to ambulate. When he left the office he was not able to walk and had to be taken to the vehicle in a wheelchair. He was subsequently taken back to [facility] for evaluation again and imaging demonstrated spinal stenosis, disc herniation and degenerative disc disease. He was admitted for 3 days and after that was discharged to [facility] where he had been until this morning. His daughter's report that he was briefly on gabapentin which was stopped due to upper extremity tremors. That was replaced with Remeron and the patient had a decreased level of consciousness. The patient was found on the floor of his room at [facility] and he was transported to [facility] for evaluation in the emergency department. The daughters do report that the patient has had decreased oral intake the past few days and not had a bowel movement since 728. The patient was tremulous and had a max temperature of 102. His daughters did report to the ED Physician that the patient had started coughing that day. In the Emergency Department the patient was found to have an elevated WBC count at 23.8 with neutrophils [address] brain demonstrated a small focal area of mildly increased density within the left periventricular white matter with surrounding low-density which could represent slight hemorrhage and edema. Dr Yañez was notified and requested an MRI but the patient's pacemaker wasn't compatible. Therefore additional CT imaging w/o and w/contrast of the brain and spine were ordered which was unremarkable for any acute abnormality of the brain or spine. Substantial degenerative changes were noted throughout the spine. It was recommended that a tagged WBC study be done. The patient has been admitted by the Patient Registration Clerk to the [facility] At the time of my evaluation, patient is in the [facility]. He is not on pressors, awake, oriented x 2, non focal, has a wilcox in place with good urine output. No diarrhea, no rash. Coughs white yellow sputum. Denies any chest pain but endorses worsening back pain on slightest movement. ID consulted for evaluation and Mment of sepsis, possible spinal epidural abscess or osteomyelitis. Notes reviewed Temps better BP ok Mental status improved Tagged WBC scan did not lit up spine, but (+) for lungs Not SOB No CP Has moist cough, occasionally brings up fuchs phlegm No N/V Antibiotics Vancomycin Zithromax Zosyn Past Medical History Hypertension Mitral valve stenosis Atrial fibrillation Arthritis Hiatal hernia Past Surgical History Pacemaker insertion Ablation x2 Mitral valve repair Allergies: Coded Allergies: Xopenex (Unverified Allergy, Severe, 05/07/17) Uncoded Allergies: MRI PRECAUTION PACEMAKER (Adverse Reaction, Severe, NON COMPATIBLE PACMAKER , 05/07/17) [facility] PACEMAKER/05/07/17 VSV Objective . Vital Signs Date Time Temp Pulse Resp B/P Pulse Ox O2 Delivery O2 Flow Rate FiO2 05/09/17 08:00 114 05/09/17 08:00 98.8 112 19 145/92 93 05/09/17 06:00 111 05/09/17 04:00 111 05/09/17 04:00 98.9 111 18 129/74 95 05/09/17 02:00 110 05/09/17 00:00 98.4 110 16 137/76 93 05/09/17 00:00 110 05/09/17 00:00 110 05/08/17 22:00 111 05/08/17 22:00 111 05/08/17 20:00 111 05/08/17 20:00 98.7 111 18 133/61 91 05/08/17 20:00 111 05/08/17 19:20 20 05/08/17 18:00 112 05/08/17 18:00 113 05/08/17 16:00 109 05/08/17 16:00 98.8 110 20 117/78 92 05/08/17 16:00 109 05/08/17 14:00 109 05/08/17 12:00 98.6 110 20 151/81 92 05/08/17 12:00 110 05/08/17 12:00 110 05/08/17 10:00 109 05/08/17 10:00 109 05/08/17 05/08/17 05/09/17 15:00 23:00 07:00 Intake Total 1476 ml 583 ml 510 ml Output Total 400 ml 600 ml 350 ml Balance 1076 ml -17 ml 160 ml Intake Oral 480 ml 120 ml 80 ml IV Total 996 ml 463 ml 430 ml Output Urine Total 400 ml 600 ml 350 ml # Bowel Movements 0 0 . Laboratory Tests Test 05/08/17 05/09/17 04:36 06:20 White Blood Count 20.8 TH/MM3 14.3 TH/MM3 Red Blood Count 3.80 MIL/MM3 3.86 MIL/MM3 Hemoglobin 11.8 GM/DL 12.0 GM/DL Hematocrit 35.8 % 36.5 % Mean Corpuscular Volume 94.4 FL 94.6 FL Mean Corpuscular Hemoglobin 31.2 PG 31.1 PG Mean Corpuscular Hemoglobin 33.0 % 32.9 % Concent Red Cell Distribution Width 13.8 % 13.9 % Platelet Count 231 TH/MM3 207 TH/MM3 Mean Platelet Volume 9.8 FL 9.7 FL Neutrophils (%) (Auto) 81.9 % 76.8 % Lymphocytes (%) (Auto) 8.0 % 11.5 % Monocytes (%) (Auto) 9.8 % 10.9 % Eosinophils (%) (Auto) 0.2 % 0.6 % Basophils (%) (Auto) 0.1 % 0.2 % Neutrophils # (Auto) 17.0 TH/MM3 11.0 TH/MM3 Lymphocytes # (Auto) 1.7 TH/MM3 1.6 TH/MM3 Monocytes # (Auto) 2.0 TH/MM3 1.6 TH/MM3 Eosinophils # (Auto) 0.1 TH/MM3 0.1 TH/MM3 Basophils # (Auto) 0.0 TH/MM3 0.0 TH/MM3 CBC Comment DIFF FINAL DIFF FINAL Differential Comment Laboratory Tests Test 05/08/17 05/09/17 04:36 06:20 Sodium Level 147 MEQ/L 145 MEQ/L Potassium Level 3.6 MEQ/L 3.8 MEQ/L Chloride Level 111 MEQ/L 112 MEQ/L Carbon Dioxide Level 26.5 MEQ/L 24.7 MEQ/L Anion Gap 10 MEQ/L 8 MEQ/L Blood Urea Nitrogen 55 MG/DL 39 MG/DL Creatinine 1.59 MG/DL 1.31 MG/DL Estimat Glomerular Filtration 41 ML/MIN 52 ML/MIN Rate Random Glucose 132 MG/DL 134 MG/DL Calcium Level 9.4 MG/DL 9.3 MG/DL Phosphorus Level 2.7 MG/DL Magnesium Level 2.8 MG/DL Total Creatine Kinase 38 U/L Vitamin B12 Level 1789 PG/ML Thyroid Stimulating Hormone 0.210 uIU/ML 3rd Gen Total Bilirubin 0.7 MG/DL Aspartate Amino Transf 21 U/L (AST/SGOT) Alanine Aminotransferase 22 U/L (ALT/SGPT) Alkaline Phosphatase 106 U/L Total Protein 6.9 GM/DL Albumin 2.7 GM/DL Microbiology Date/Time Procedure Status Source Growth 05/07/17 03:30 Aerobic Blood Culture - Preliminary Resulted Blood Peripheral NO GROWTH IN 1 DAY 05/07/17 03:30 Anaerobic Blood Culture - Preliminary Resulted Blood Peripheral NO GROWTH IN 1 DAY 05/07/17 03:35 Aerobic Blood Culture - Preliminary Resulted Blood Peripheral NO GROWTH IN 1 DAY 05/07/17 03:35 Anaerobic Blood Culture - Preliminary Resulted Blood Peripheral NO GROWTH IN 1 DAY 05/08/17 10:20 Legionella Antigen - Final Complete Urine Random Urine PRESUMPTIVE NEGATIVE FOR LEGIONELLA P... 05/08/17 10:20 Streptococcus pneumoniae Antigen (M - Final Complete Urine Random Urine PRESUMPTIVE NEGATIVE FOR STREPTOCOCCU... 05/08/17 12:15 Gram Stain - Final Resulted Sputum Expectorated Sputum 05/08/17 12:15 Sputum Culture Resulted Sputum Expectorated Sputum Pending Imaging Chest X-Ray 05/09/17 0600 Signed Impressions: Service Date/Time: Tuesday, May 09, 2017 04:14 - CONCLUSION: 1. Subsegmental atelectasis left base. The findings are improved when compared with the prior exam. Aguila Brown MD Head CT 05/07/17 0346 Signed Impressions: Service Date/Time: Sunday, May 07, 2017 05:06 - CONCLUSION: 1. Subtle small focal area of mildly increased density in the left periventricular white matter with surrounding low density. This is nonspecific but could represent a subtle area of slight hemorrhage and edema. 2. Atrophic change and chronic small vessel ischemic changes. Reji Meza MD Tumor Localization 8/2/17 0000 Signed Impressions: Service Date/Time: Sunday, May 07, 2017 17:05 - CONCLUSION: 1. No abnormal activity in the neck or cervical and thoracic spine. 2. Abnormal increased activity along both mainstem bronchi and extending into the lungs most characteristic of a bronchitis or bronchopneumonia. Jose Pelayo MD Thoracic Spine CT 05/07/17 Signed Impressions: Service Date/Time: Sunday, May 07, 2017 09:34 - CONCLUSION: Minimal consolidative changes left lung posteriorly. Extensive degenerative changes without obvious osteomyelitis . Tagged white cell study would help to exclude such since the patient hasn't pacemaker and cannot undergo MRI. Myles Callejas MD FACR Lumbar Spine CT 05/07/17 Signed Impressions: Service Date/Time: Sunday, May 07, 2017 09:34 - CONCLUSION: Substantial degenerative changes. I don't see evidence for an osteomyelitis. Tagged white cell study could help since the patient has pacemaker and cannot tolerate MRI. The epidural space is poorly visualized. Myles Callejas MD FACR Cervical Spine CT 05/07/17 Signed Impressions: Service Date/Time: Sunday, May 07, 2017 09:34 - CONCLUSION: 1. No acute cervical spine abnormality is identified. I do not appreciate any findings to indicate osteomyelitis. However, a white blood cell scan may be more sensitive test for detecting osteomyelitis within the spine. 2. There are degenerative changes throughout the cervical spine, as above. Dylan Carranza MD Physical Exam GENERAL: Awake and alert, in no apparent distress. SKIN: No rashes, ecchymoses or lesions. Cool and dry. HEAD: Atraumatic. Normocephalic. No temporal or scalp tenderness. EYES: Pupils equal round and reactive. Extraocular motions intact. No scleral icterus. No injection or drainage. ENT: Nose without bleeding, purulent drainage or septal hematoma. Throat without erythema. Has fuchs coating on his tongue. NECK: Trachea midline. supple, nontender, no meningeal signs. Pacemaker site with no e.o infection. CARDIOVASCULAR: Regular rate and rhythm without murmurs, gallops, or rubs. RESPIRATORY: Clear to auscultation. Breath sounds equal bilaterally. No wheezes , rales, or rhonchi. ABDOMEN: Protuberant abdomen. Not tender MUSCULOSKELETAL: Extremities without clubbing, cyanosis, or edema. No joint tenderness, effusion, or edema noted. No calf tenderness. Negative Homans sign bilaterally. NEUROLOGICAL: Awake and alert. Grossly non focal. Psych: cooperative IV line sites with no e.o infection. Assessment & Plan Remarks Sepsis present on admission. Pneumonia ? Osteomyelitis of spine or Epidural abscess, WBC scan negative, back pain same Acute metabolic encephalopathy: infection, metabolic, ? dementia at baseline - seems better, so possibly related to sepsis Acute renal failure: ? baseline CKD, prerenal component (poor oral intake prior to admission) - improving Morbid Obesity (BMI 23.7) Sleep apnea on CPAP. Chronic pain on narcotics. (no pain medicine pump in place, will d.w daughter if any intrathecal pump) Pacemaker status. PLAN Follow cultures. - adjust Abx accordingly once C/S available Continue Zosyn IV Continue Vanco IV (if no bacteremia consider switching to Zyvox or stop as pt has acute renal failure) Continue Azithro (for atypical pneumonia) Await echo Follow temps Monitor progress D/W Dr Antunez ([facility]) Dr Virgen covering this weekend Kae Gaffney MD May 09, 2017 09:47
--- NOTE | 2017-05-09 09:49 | HHI.CCPN ---
Subjective Remarks/Hospital Course The patient is a 86-year-old male with past medical history of atrial fibrillation with previous ablation, permanent pacemaker placement, on Xarelto, hypertension, mitral valve repair, obstructive sleep apnea on C-PAP machine. The patient presented to [facility] ED early this morning with decline in his health for over the past 2-3 weeks. The patient went to [facility] for evaluation of his back pain and he was given prescription for pain medicine. He followed up with his chiropractor and since then he was not able to walk and had to use a wheelchair to get around. He was brought back to [facility] where he underwent a CT scan of the upper spine which showed spinal stenosis, herniated disk and degenerative disk disease. He was admitted to the hospital for several days and was then discharged to a local rehab facility. The patient continues to be unable to walk. He has had a decrease level of alertness for the past 2 days. The patient was placed Gabapentin for muscle spasms and tremors which was discontinued. Also, decreased p.o. intake for the past couple days. Per records , the patient has not had any neck pain, chest pain, shortness of breath, abdominal pain or any GI symptoms. In the ER he had a temperature of 102.3 rectally and his laboratory data is significant for leukocytosis with WBC of 23.8, associated with bandemia and renal failure with a creatinine of 2.06. His lactic acid level measured at 1.5. CT scan of the brain in the ER showed subtle small focal area of mildly increased density in the left periventricular white matter with surrounding low-density which is nonspecific. Questionable slight hemorrhage and edema. Dr. Yañez from neurosurgery was notified by ED and he recommended MRI of the brain, however, the patient has a pacemaker that is incompatible with MRI and he recommended to do a CT scan of the brain with contrast along with CT of the spine for further evaluation of his back pain. In the ED the patient was given vancomycin, Zosyn and 1.5 liter of crystalloids. He is on 2 liters nasal cannula with a saturation 98% and blood pressure of 106/ 57. The patient is awaiting to undergo CT of the spine along with CT brain with IV contrast. SUBJ 8/3: Patient is lying on bed not in acute distress. WBC 20.8 yesterday improved to 20.8. BUN/cr 72/2 improved to 55/1.6. Urine output 2.[address] of the brain showed no evidence of bleed. 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 ID neurology and neurosurgery following. Patient's altered mentation appears to be secondary to sepsis which is improving now 05/09 No events overnight. On room air oxygen when seen. Afebrile. Renal function is improving with Cr: 1.31 today from 1.59 Objective Vital Signs Date Time Temp Pulse Resp B/P Pulse Ox O2 Delivery O2 Flow Rate FiO2 05/09/17 08:00 114 05/09/17 08:00 98.8 19 145/92 93 05/07/17 15:10 Nasal Cannula 2 05/07/17 11:28 21 Intake and Output 05/08/17 05/08/17 05/08/17 07:59 15:59 23:59 Intake Total 598 ml 1476 ml 583 ml Output Total 650 ml 400 ml 600 ml Balance -52 ml 1076 ml -17 ml Result Diagram: 05/09/17 0620 05/09/17 0620 Other Results Laboratory Tests Test 05/09/17 06:20 White Blood Count 14.3 TH/MM3 Red Blood Count 3.86 MIL/MM3 Hemoglobin 12.0 GM/DL Hematocrit 36.5 % Mean Corpuscular Volume 94.6 FL Mean Corpuscular Hemoglobin 31.1 PG Mean Corpuscular Hemoglobin 32.9 % Concent Red Cell Distribution Width 13.9 % Platelet Count 207 TH/MM3 Mean Platelet Volume 9.7 FL Neutrophils (%) (Auto) 76.8 % Lymphocytes (%) (Auto) 11.5 % Monocytes (%) (Auto) 10.9 % Eosinophils (%) (Auto) 0.6 % Basophils (%) (Auto) 0.2 % Neutrophils # (Auto) 11.0 TH/MM3 Lymphocytes # (Auto) 1.6 TH/MM3 Monocytes # (Auto) 1.6 TH/MM3 Eosinophils # (Auto) 0.1 TH/MM3 Basophils # (Auto) 0.0 TH/MM3 CBC Comment DIFF FINAL Differential Comment Sodium Level 145 MEQ/L Potassium Level 3.8 MEQ/L Chloride Level 112 MEQ/L Carbon Dioxide Level 24.7 MEQ/L Anion Gap 8 MEQ/L Blood Urea Nitrogen 39 MG/DL Creatinine 1.31 MG/DL Estimat Glomerular Filtration 52 ML/MIN Rate Random Glucose 134 MG/DL Calcium Level 9.3 MG/DL Total Bilirubin 0.7 MG/DL Aspartate Amino Transf 21 U/L (AST/SGOT) Alanine Aminotransferase 22 U/L (ALT/SGPT) Alkaline Phosphatase 106 U/L Total Protein 6.9 GM/DL Albumin 2.7 GM/DL Vancomycin Level Trough 24.0 MCG/ML Imaging Last Impressions Chest X-Ray 05/09/17 0600 Signed Impressions: Service Date/Time: Tuesday, May 09, 2017 04:14 - CONCLUSION: 1. Subsegmental atelectasis left base. The findings are improved when compared with the prior exam. Aguila Brown MD Head CT 05/07/17 0346 Signed Impressions: Service Date/Time: Sunday, May 07, 2017 05:06 - CONCLUSION: 1. Subtle small focal area of mildly increased density in the left periventricular white matter with surrounding low density. This is nonspecific but could represent a subtle area of slight hemorrhage and edema. 2. Atrophic change and chronic small vessel ischemic changes. Reji Meza MD Tumor Localization 05/07/17 0000 Signed Impressions: Service Date/Time: Sunday, May 07, 2017 17:05 - CONCLUSION: 1. No abnormal activity in the neck or cervical and thoracic spine. 2. Abnormal increased activity along both mainstem bronchi and extending into the lungs most characteristic of a bronchitis or bronchopneumonia. Jose Pelayo MD Thoracic Spine CT 05/07/17 0000 Signed Impressions: Service Date/Time: Sunday, May 07, 2017 09:34 - CONCLUSION: Minimal consolidative changes left lung posteriorly. Extensive degenerative changes without obvious osteomyelitis . Tagged white cell study would help to exclude such since the patient hasn't pacemaker and cannot undergo MRI. Myles Callejas MD FACR Lumbar Spine CT 05/07/17 0000 Signed Impressions: Service Date/Time: Sunday, May 07, 2017 09:34 - CONCLUSION: Substantial degenerative changes. I don't see evidence for an osteomyelitis. Tagged white cell study could help since the patient has pacemaker and cannot tolerate MRI. The epidural space is poorly visualized. Myles Callejas MD FACR Cervical Spine CT 05/07/17 0000 Signed Impressions: Service Date/Time: Sunday, May 07, 2017 09:34 - CONCLUSION: 1. No acute cervical spine abnormality is identified. I do not appreciate any findings to indicate osteomyelitis. However, a white blood cell scan may be more sensitive test for detecting osteomyelitis within the spine. 2. There are degenerative changes throughout the cervical spine, as above. Dylan Carranza MD Objective Remarks GENERAL: A 86-year-old male lying in bed, in no acute distress. HEENT: Atraumatic, normocephalic. Pupils equal, round NECK: Supple. No JVD, adenopathy or thyromegaly. Trachea midline. CARDIOVASCULAR: Irregularly irregular. Normal S1-S2. No murmurs, rubs or gallops noted. PULMONARY: Bilateral equal air entry. No rales or wheezing. ABDOMEN: Soft, nontender, no distension. Positive bowel sounds. EXTREMITIES: No cyanosis, clubbing or edema. NEURO: The patient is able to follow simple commands. Oriented to person and knows that he is in a hospital. Muscle power normal in all extremities sensations preserved. Reflexes normal A/P Assessment and Plan IMPRESSION Severe sepsis Altered mental status/acute metabolic encephalopathy Febrile illness with Leukocytosis and bandemia. Acute renal failure. Respiratory insufficiency. Back pain with history of spinal stenosis and herniated disk. Atrial fibrillation. Hypertension. History of obstructive sleep apnea on C-PAP. Previous pacemaker placement. RECOMMENDATIONS Neuro: - Mental status improving with IV antibiotics and hydration - Metabolic encephalopathy secondary to sepsis appears to be the reason for acute mental status change - Repeat CT of the brain with contrast did not show any intracranial hemorrhage. Dr. Yañez from neurosurgery following - Neurology service Dr. Turcios Resp: - Oxygen PRN maintain sats above 92%. - Bronchodilators on a p.r.n. basis and aspiration precautions. - Use home CPAP at night -CXR today- Subsegmental atelectasis left base. Overall improved compared to prior exam. CVS: - Monitor HR and BP and maintain MAP > 65 mmHg. - Lactic acid level measured at 1.5. He was given 1.5 liters of crystalloids in ED. Continue with IV fluids NS at 84 mL an hour. GI: - On Protonix 40 mg IV daily for GI prophylaxis. - On PO heart healthy diet : - Monitor renal function, I&O's and avoid nephrotoxins. -renal function is improving -Cr: 1.31 from 1.59 - Electrolyte replacement as needed ID: - Continue with abx (vancomycin, Zithromax, Zosyn) montior for sigsn of infections ( Fever, WBC) WBC is trending down - BC 05/07: NGTD, 05/08 strep pneumonia and Legionella urinary Ag negative, follow up on sputum cx - ID following - CT scan of the cervical, lumbar and thoracic spine negative for any evidence of infection - Tagged WBC scan : tracheobronchitis vs bronchopneumonia HEME: - Monitor CBC. coags Endo: - Sliding scale insulin with Accu-Cheks for glycemic control. Proph: - GI prophylaxis with Protonix 40 mg daily and DVT prophylaxis with SCDs. - Xarelto on hold for now in case of any procedures needed Level 3 Benedicto Antunez MD May 09, 2017 09:49
[2017-05-09] MEDS: AZITHROMYCIN INJ 500 MG in SODIUM CHLOR 0.9% 250 ML INJ 250 ML IV SCH (11:58)
[2017-05-09] MEDS: VANCOMYCIN 1,000 MG/NS 250 ML IV SCH ×4 (11:58→23:20)
--- NOTE | 2017-05-09 18:44 | ECHRPT ---
Indication: endocarditis CONCLUSIONS The left ventricular systolic function is [id number] reduced with an estimated ejection fra ction in the range of 35-40%. Mild concentric left ventricular hypertrophy. Mitral valve annuloplasty ring is probably present. Trace mitral valve regurgitation. There is mild tricuspid valve regurgitation. BP: 153 / 84 HR: 109 Rhythm: MEASUREMENTS (Male / Female) Normal Values Technical Quality: 2D ECHO LV Diastolic Diameter PLAX 4.4 cm 4.2 - 5.9 / 3.9 - 5.3 cm LV Systolic Diameter PLAX 3.8 cm IVS Diastolic Thickness 1.4 cm 0.6 - 1.0 / 0.6 - 0.9 cm LVPW Diastolic Thickness 0.6 cm 0.6 - 1.0 / 0.6 - 0.9 cm LV Relative Wall Thickness 0.4 RV Internal Dim ED PLAX 2.1 cm DOPPLER MV Peak Velocity 187.0 cm/s MV Peak Gradient 14.0 mmHg MV Mean Velocity 93.0 cm/s MV Mean Gradient 5.0 mmHg MV Area PHT 4.0 cm TR Peak Velocity 278.0 cm/s TR Peak Gradient 30.9 mmHg FINDINGS LEFT VENTRICLE Normal left ventricular size. Mild concentric left ventricular hypertrophy. The left ventricular systolic function is [id number] reduced with an estimated ejection fra ction in the range of 35-40%. RIGHT VENTRICLE The right ventricular size is normal. The right ventricular systoilc function is mildly decreased. LEFT ATRIUM The left atrial size is moderately dilated. RIGHT ATRIUM The right atrium is not well visualized. ATRIAL SEPTUM The interatrial septum not well visualized. AORTA The aortic root and proximal ascending aorta are normal in size on limited imaging. MITRAL VALVE Mitral valve annuloplasty ring is probably present. No stenosis noted (MVA of 4cm squared) Trace mitral valve regurgitation. AORTIC VALVE Trileaflet aortic valve. No aortic valve stenosis or regurgitation. TRICUSPID VALVE Grossly normal tricuspid valve There is mild tricuspid valve regurgitation. There is estimated mild pulmonary hypertension present (41 mmHg). PULMONARY VALVE The pulmonary valve is not well visualized. VESSELS The inferior vena cava is normal in size. PERICARDIUM No pericardial effusion. Cullen Maxwell DO (Electronically Signed) Final Date:09 May 2017 18:42
[2017-05-10] VITALS (13 sets, daily range): BP systolic 114–156; BP diastolic 73–94; PULSE 108–115; RESP 16–21; TEMP 98.3–98.7; O2SAT 91–97
[2017-05-10] MEDS: MORPHINE SULFATE 4 MG/ML INJ IV PUSH PRN (02:46)
[2017-05-10] MEDS: CHLORHEXIDINE GLUCONATE 2 % 1 PACK (2 CLOTHS) TOP SCH (04:00)
[2017-05-10] MEDS: INSULIN NovoLIN REGULAR SUPPLEMENTAL SCALE SQ SCH ×5 (04:00→20:00)
[2017-05-10] MEDS ORDERED: HALOPERIDOL LACTATE 5 MG/ML AMP IV ONE (04:00)
[2017-05-10] MEDS: PIPERACIL-TAZO 2.25 GM PREMIX 50 ML IV SCH ×4 (04:21→22:33)
[2017-05-10 07:24] LABS: AUTOMATED NEUTROPHIL # 12.1 TH/MM3 (1.8-7.7); BASOPHIL % 0.3 % (0.0-2.0); EOSINOPHIL % 0.1 % (0.0-4.0); HEMATOCRIT 35.4 % (39.0-51.0); HEMO FLAGS AUTO DIFF; LYMPHOCYTE # 1.4 TH/MM3 (1.0-4.8); MEAN CELL VOLUME 93.3 FL (80.0-100.0); MEAN CORPUSCULAR HEMOGLOBIN 30.1 PG (27.0-34.0); MEAN CORPUSCULAR HGB CONC 32.3 % (32.0-36.0); MONO % 10.4 % (0.0-8.0); NEUT % 80.2 % (16.0-70.0); PLATELET COUNT 202 TH/MM3 (150-450); RED CELL DISTRIBUTION WIDTH 13.8 % (11.6-17.2); WHITE BLOOD COUNT 15.1 TH/MM3 (4.0-11.0)
[2017-05-10 07:25] LABS: BICARBONATE 21.8 MEQ/L (21.0-32.0)
[2017-05-10 07:28] LABS: POTASSIUM 4.4 MEQ/L (3.5-5.1)
[2017-05-10 07:59] LABS: METAMYELOCYTES 1 % (0-1); NEUTROPHIL # MANUAL DIFF 12.2 TH/MM3 (1.8-7.7); POLYS (SEG NEUTROPHILS) 80 % (16-70); WBC DIFF SAMPLE 100
[2017-05-10 08:00] LABS: PLATELET ESTIMATE SMEAR NORMAL (NORMAL); PLATELET MORPHOLOGY NORMAL (NORMAL); SCAN/DIFF FINAL DIFF MANUAL
[2017-05-10] MEDS: DOCUSATE SODIUM 50 MG/SENNA 8.6 MG TAB PO SCH ×2 (08:06→20:05)
[2017-05-10] MEDS: SODIUM CHLOR 0.9% 1000 ML INJ 1,000 ML IV SCH ×2 (08:07→22:00)
[2017-05-10] MEDS ORDERED: ONDANSETRON HCL 4 MG/2 ML VIAL IV PUSH PRN (09:15)
[2017-05-10] MEDS ORDERED: VANCOMYCIN 1,000 MG/NS 250 ML IV ONE ×2 (12:00)
[2017-05-10] MEDS: AZITHROMYCIN INJ 500 MG in SODIUM CHLOR 0.9% 250 ML INJ 250 ML IV SCH (12:09)
[2017-05-10] MEDS ORDERED: PROCHLORPERAZINE INJ 10 MG/2 ML VIAL IV PUSH PRN (13:00)
[2017-05-10] MEDS ORDERED: PROMETHAZINE HCL 25 MG SUPP RECTAL PRN (13:00)
--- NOTE | 2017-05-10 13:51 | HHI.CCPN ---
Subjective Remarks/Hospital Course The patient is a 86-year-old male with past medical history of atrial fibrillation with previous ablation, permanent pacemaker placement, on Xarelto, hypertension, mitral valve repair, obstructive sleep apnea on C-PAP machine. The patient presented to [facility] ED early this morning with decline in his health for over the past 2-3 weeks. The patient went to [place] for evaluation of his back pain and he was given prescription for pain medicine. He followed up with his chiropractor and since then he was not able to walk and had to use a wheelchair to get around. He was brought back to [place] where he underwent a CT scan of the upper spine which showed spinal stenosis, herniated disk and degenerative disk disease. He was admitted to the hospital for several days and was then discharged to a local rehab facility. The patient continues to be unable to walk. He has had a decrease level of alertness for the past 2 days. The patient was placed Gabapentin for muscle spasms and tremors which was discontinued. Also, decreased p.o. intake for the past couple days. Per records , the patient has not had any neck pain, chest pain, shortness of breath, abdominal pain or any GI symptoms. In the ER he had a temperature of 102.3 rectally and his laboratory data is significant for leukocytosis with WBC of 23.8, associated with bandemia and renal failure with a creatinine of 2.06. His lactic acid level measured at 1.5. CT scan of the brain in the ER showed subtle small focal area of mildly increased density in the left periventricular white matter with surrounding low-density which is nonspecific. Questionable slight hemorrhage and edema. Dr. Yañez from neurosurgery was notified by ED and he recommended MRI of the brain, however, the patient has a pacemaker that is incompatible with MRI and he recommended to do a CT scan of the brain with contrast along with CT of the spine for further evaluation of his back pain. In the ED the patient was given vancomycin, Zosyn and 1.5 liter of crystalloids. He is on 2 liters nasal cannula with a saturation 98% and blood pressure of 106/ 57. The patient is awaiting to undergo CT of the spine along with CT brain with IV contrast. 05/08: Patient is lying on bed not in acute distress. WBC 20.8 yesterday improved to 20.8. BUN/cr 72/2 improved to 55/1.6. Urine output 2.[address] of the brain showed no evidence of bleed. 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 ID neurology and neurosurgery following. Patient's altered mentation appears to be secondary to sepsis which is improving now 05/09 No events overnight. On room air oxygen when seen. Afebrile. Renal function is improving with Cr: 1.31 today from 1.59 Subjective: 05/10: Draining bilious emesis this AM. Denies abdominal pain currently. Currently afebrile. Remains in sinus tachycardia. Somewhat confused today but received Zofran. CT brain ordered for a.m. Objective Vital Signs Date Time Temp Pulse Resp B/P Pulse Ox O2 Delivery O2 Flow Rate FiO2 05/10/17 12:18 91 Nasal Cannula 5.00 05/10/17 10:00 108 05/10/17 08:00 98.3 20 126/78 05/07/17 11:28 21 Intake and Output 05/09/17 05/09/17 05/10/17 08:00 16:00 00:00 Intake Total 510 ml 902 ml 1312 ml Output Total 350 ml 400 ml 600 ml Balance 160 ml 502 ml 712 ml Result Diagram: 05/10/17 0550 05/10/17 0550 Other Results Microbiology Date/Time Procedure Status Source Growth 05/08/17 12:15 Gram Stain - Final Resulted Sputum Expectorated Sputum 05/08/17 12:15 Sputum Culture - Preliminary Resulted Sputum Expectorated Sputum MODERATE GROWTH NORMAL RESPIRATORY IRENE 05/08/17 10:20 Legionella Antigen - Final Complete Urine Random Urine PRESUMPTIVE NEGATIVE FOR LEGIONELLA P... 05/08/17 10:20 Streptococcus pneumoniae Antigen (M - Final Complete Urine Random Urine PRESUMPTIVE NEGATIVE FOR STREPTOCOCCU... 05/07/17 03:35 Aerobic Blood Culture - Preliminary Resulted Blood Peripheral NO GROWTH IN 3 DAYS 05/07/17 03:35 Anaerobic Blood Culture - Preliminary Resulted Blood Peripheral NO GROWTH IN 3 DAYS Imaging Last Impressions Chest X-Ray 05/09/17 0600 Signed Impressions: Service Date/Time: Tuesday, May 09, 2017 04:14 - CONCLUSION: 1. Subsegmental atelectasis left base. The findings are improved when compared with the prior exam. Aguila Brown MD Head CT 05/07/17 0346 Signed Impressions: Service Date/Time: Sunday, May 07, 2017 05:06 - CONCLUSION: 1. Subtle small focal area of mildly increased density in the left periventricular white matter with surrounding low density. This is nonspecific but could represent a subtle area of slight hemorrhage and edema. 2. Atrophic change and chronic small vessel ischemic changes. Reji Meza MD Tumor Localization 05/07/17 0000 Signed Impressions: Service Date/Time: Sunday, May 07, 2017 17:05 - CONCLUSION: 1. No abnormal activity in the neck or cervical and thoracic spine. 2. Abnormal increased activity along both mainstem bronchi and extending into the lungs most characteristic of a bronchitis or bronchopneumonia. Jose Pelayo MD Thoracic Spine CT 05/07/17 Signed Impressions: Service Date/Time: Sunday, May 07, 2017 09:34 - CONCLUSION: Minimal consolidative changes left lung posteriorly. Extensive degenerative changes without obvious osteomyelitis . Tagged white cell study would help to exclude such since the patient hasn't pacemaker and cannot undergo MRI. Myles Callejas MD FACR Lumbar Spine CT 05/07/17 Signed Impressions: Service Date/Time: Sunday, May 07, 2017 09:34 - CONCLUSION: Substantial degenerative changes. I don't see evidence for an osteomyelitis. Tagged white cell study could help since the patient has pacemaker and cannot tolerate MRI. The epidural space is poorly visualized. Myles Callejas MD FACR Cervical Spine CT 05/07/17 0000 Signed Impressions: Service Date/Time: Sunday, May 07, 2017 09:34 - CONCLUSION: 1. No acute cervical spine abnormality is identified. I do not appreciate any findings to indicate osteomyelitis. However, a white blood cell scan may be more sensitive test for detecting osteomyelitis within the spine. 2. There are degenerative changes throughout the cervical spine, as above. Dylan Carranza MD Objective Remarks GENERAL: A 86-year-old male sitting up in bed, in no acute distress. HEENT: Atraumatic, normocephalic. Pupils equal, round NECK: Supple. No JVD, adenopathy or thyromegaly. Trachea midline. CARDIOVASCULAR: Irregularly irregular. Tachycardia. Normal S1-S2. No murmurs , rubs or gallops noted. PULMONARY: Bilateral equal air entry. No rales or wheezing. ABDOMEN: Soft, nontender, no distension. Positive bowel sounds. EXTREMITIES: No significant peripheral edema. NEURO: The patient is able to follow simple commands. Oriented to person and knows that he is in a hospital. Muscle power normal in all extremities with sensations preserved. Reflexes normal A/P Assessment and Plan IMPRESSION Severe sepsis Altered mental status/acute metabolic encephalopathy Febrile illness with Leukocytosis and bandemia. Acute renal failure - resolved Respiratory insufficiency. Back pain with history of spinal stenosis and herniated disk. Atrial fibrillation. Hypertension. Osteoarthritis History of obstructive sleep apnea on C-PAP. Previous [employer] pacemaker placement. Chronic systolic heart failure Mitral valve replacement Leukocytosis Low TSH RECOMMENDATIONS Neuro: - Mental status improving with IV antibiotics and hydration - Metabolic encephalopathy secondary to sepsis appears to be the reason for acute mental status change - Repeat CT of the brain with no contrast 05/06 revealed left frontal 5 motor convexity recommended follow-up. Dr. Yañez from neurosurgery following - Neurology service Dr. Turcios Resp: - Oxygen PRN maintain sats above 92%. - Bronchodilators on a p.r.n. basis and aspiration precautions. - Use home CPAP at night -CXR today- Subsegmental atelectasis left base. Overall improved compared to prior exam. CVS: - Monitor HR and BP and maintain MAP > 65 mmHg. - Lactic acid level measured at 1.5. He was given 1.5 liters of crystalloids in ED. Continue with IV fluids NS at 84 mL an hour. 2-D echocardiogram revealed EF 35-40%. Mild LVH. Trace MR/TR. GI: - On Protonix 40 mg IV daily for GI prophylaxis. - On PO heart healthy diet : - Monitor renal function, I&O's and avoid nephrotoxins. -renal function is improving -Cr: Currently within normal limits - Electrolyte replacement as needed ID: - Continue with abx (vancomycin, Zithromax, Zosyn) montior for sigsn of infections ( Fever, WBC) WBC is trending down - BC 05/07: NGTD, 05/08 strep pneumonia and Legionella urinary Ag negative, follow up on sputum cx - ID following - CT scan of the cervical, lumbar and thoracic spine negative for any evidence of infection - Tagged WBC scan : tracheobronchitis vs bronchopneumonia HEME: - Monitor CBC. coags Endo: - Sliding scale insulin with Accu-Cheks for glycemic control. Follow-up free T3/T4 Proph: - GI prophylaxis with Protonix 40 mg daily and DVT prophylaxis with SCDs. - Xarelto on hold for now in case of any procedures needed Level 3 Roly Richards MD May 10, 2017 13:51
--- NOTE | 2017-05-10 15:31 | RADRPT ---
EXAM DATE/TIME: 05/10/2017 14:58 [facility] COMPARISON: No previous studies available for comparison. INDICATIONS : Nausea and vomiting. MEDICAL HISTORY : Hypertension. SURGICAL HISTORY : None. ENCOUNTER: Initial ACUITY: 1 day PAIN SCORE: 5/10 LOCATION: Bilateral abdomen. FINDINGS: There is nonspecific gastric distention. There is no small or large bowel distention. No evidence of free air. CONCLUSION: Distended stomach, etiology uncertain. Gastric outlet or proximal duodenal obstruction would be in th e differential. No evidence of small or large bowel distention. Dylan Santo MD on May 10, 2017 at 15:28 Board Certified Radiologist. This report was verified electronically.
[2017-05-10] MEDS: DIATRIZOATE MEGLUM/DIATRIZOATE SOD 9 ML CUP PO ONE ×2 (17:26→18:22)
[2017-05-10 18:30] LABS: INDIRECT BILIRUBIN 0.5 MG/DL (0.0-0.8); TOTAL BILIRUBIN ADULT 0.7 MG/DL (0.2-1.0)
--- NOTE | 2017-05-10 21:05 | RADRPT ---
EXAM DATE/TIME: 05/10/2017 20:52 [facility] COMPARISON: No previous studies available for comparison. INDICATIONS : Follow-up, left front 5mm convex abnormality. RADIATION DOSE: 49.08 CTDIvol (mGy) MEDICAL HISTORY : Cardiovascular disease. Hypertension. Hernia, hiatal. SURGICAL HISTORY : Pacemaker. Cardiac surgery. ENCOUNTER: Subsequent ACUITY: 3 days PAIN SCALE: 0/10 LOCATION: cranial TECHNIQUE: Multiple contiguous axial images were obtained of the head. Using automated exposure control and adj ustment of the mA and/or kV according to patient size, radiation dose was kept as low as reasonably a chievable to obtain optimal diagnostic quality images. DICOM format image data is available electro nically for review and comparison. FINDINGS: Comparison is May 07. Small high density area in the left frontal lobe may represent calcification or possibly a tiny hemorrhage, either stable or minimally smaller. There is white matter disease. Bas al ganglia calcifications are noted. No mass effect or shift. No hydrocephalus. CONCLUSION: 1. No new findings. Tiny hemorrhage or calcification left frontal lobe either stable or slightly smal ler. Jose Pelayo MD on May 10, 2017 at 20:58 Board Certified Radiologist. This report was verified electronically.
--- NOTE | 2017-05-10 21:15 | RADRPT ---
EXAM DATE/TIME: 05/10/2017 20:55 [facility] COMPARISON: No previous studies available for comparison. INDICATIONS : Distention. ORAL CONTRAST: Prescribed oral contrast ingested. RADIATION DOSE: 19.35 CTDIvol (mGy) MEDICAL HISTORY : Cardiovascular disease. Hypertension. Hernia, hiatal. SURGICAL HISTORY : Pacemaker. Cardiac surgery. ENCOUNTER: Initial ACUITY: 1 day PAIN SCALE: 8/10 LOCATION: medial abdomen TECHNIQUE: Volumetric scanning of the abdomen and pelvis was performed. Using automated exposure control and ad justment of the mA and/or kV according to patient size, radiation dose was kept as low as reasonably achievable to obtain optimal diagnostic quality images. DICOM format image data is available electro nically for review and comparison. FINDINGS: There is subsegmental basal airspace disease. Pacer leads in right atrium and right ventricle with ca rdiomegaly. No acute findings in the liver, spleen, adrenals or pancreas. Bilateral renal cysts. No hydronephrosi s or obstructive uropathy. No calcified gallstones or biliary ductal dilatation. Nasogastric tube coiled in stomach. Pectus defo rmity. No significant free fluid. No bowel obstruction. No adenopathy. Perez catheter in bladder. Degenerati ve disc disease in the lumbar spine with stenosis most notable at L2-3. Colonic diverticulosis without diverticulitis. CONCLUSION: 1. Mild gaseous distention of the stomach with nasogastric tube present. No significant small or larg e bowel distention. Colonic diverticulosis. 2. Subsegmental basal airspace disease in the lungs without significant effusion. 3. Pacer leads in right atrium and right ventricle. 4. Perez in decompressed bladder. Jose Pealyo MD on May 10, 2017 at 21:08 Board Certified Radiologist. This report was verified electronically.
[2017-05-11] VITALS (20 sets, daily range): BP systolic 135–169; BP diastolic 79–90; PULSE 81–115; RESP 17–22; TEMP 97.6–98; O2SAT 89–98
[2017-05-11] MEDS: CHLORHEXIDINE GLUCONATE 2 % 1 PACK (2 CLOTHS) TOP SCH (04:00)
[2017-05-11] MEDS: INSULIN NovoLIN REGULAR SUPPLEMENTAL SCALE SQ SCH ×4 (04:00→11:49)
[2017-05-11] MEDS: PIPERACIL-TAZO 2.25 GM PREMIX 50 ML IV SCH (04:28)
[2017-05-11] MEDS: DOCUSATE SODIUM 50 MG/SENNA 8.6 MG TAB PO SCH ×3 (08:24→21:00)
[2017-05-11] MEDS: SODIUM CHLOR 0.9% 1000 ML INJ 1,000 ML IV SCH (08:24)
[2017-05-11] MEDS: AZITHROMYCIN INJ 500 MG in SODIUM CHLOR 0.9% 250 ML INJ 250 ML IV SCH (11:22)
[2017-05-11] MEDS: PIPERACIL-TAZO 4.5 GM PREMIX 100 ML IV SCH ×2 (11:22→22:01)
--- NOTE | 2017-05-11 13:05 | HHI.CCPN ---
Subjective Remarks/Hospital Course The patient is a 86-year-old male with past medical history of atrial fibrillation with previous ablation, permanent pacemaker placement, on Xarelto, hypertension, mitral valve repair, obstructive sleep apnea on C-PAP machine. The patient presented to [facility] ED early this morning with decline in his health for over the past 2-3 weeks. The patient went to [facility] for evaluation of his back pain and he was given prescription for pain medicine. He followed up with his chiropractor and since then he was not able to walk and had to use a wheelchair to get around. He was brought back to [facility] where he underwent a CT scan of the upper spine which showed spinal stenosis, herniated disk and degenerative disk disease. He was admitted to the hospital for several days and was then discharged to a local rehab facility. The patient continues to be unable to walk. He has had a decrease level of alertness for the past 2 days. The patient was placed Gabapentin for muscle spasms and tremors which was discontinued. Also, decreased p.o. intake for the past couple days. Per records , the patient has not had any neck pain, chest pain, shortness of breath, abdominal pain or any GI symptoms. In the ER he had a temperature of 102.3 rectally and his laboratory data is significant for leukocytosis with WBC of 23.8, associated with bandemia and renal failure with a creatinine of 2.06. His lactic acid level measured at 1.5. CT scan of the brain in the ER showed subtle small focal area of mildly increased density in the left periventricular white matter with surrounding low-density which is nonspecific. Questionable slight hemorrhage and edema. Dr. Yañez from neurosurgery was notified by ED and he recommended MRI of the brain, however, the patient has a pacemaker that is incompatible with MRI and he recommended to do a CT scan of the brain with contrast along with CT of the spine for further evaluation of his back pain. In the ED the patient was given vancomycin, Zosyn and 1.5 liter of crystalloids. He is on 2 liters nasal cannula with a saturation 98% and blood pressure of 106/ 57. The patient is awaiting to undergo CT of the spine along with CT brain with IV contrast. 05/08: Patient is lying on bed not in acute distress. WBC 20.8 yesterday improved to 20.8. BUN/cr 72/2 improved to 55/1.6. Urine output 2.[address] of the brain showed no evidence of bleed. 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 ID neurology and neurosurgery following. Patient's altered mentation appears to be secondary to sepsis which is improving now 05/09 No events overnight. On room air oxygen when seen. Afebrile. Renal function is improving with Cr: 1.31 today from 1.59 05/10: Draining bilious emesis this AM. Denies abdominal pain currently. Currently afebrile. Remains in sinus tachycardia. Somewhat confused today but received Zofran. CT brain ordered for a.m. Subjective: 05/11: Afebrile. CT brain essentially stable convexity noted. CT abdomen/ pelvis revealed slightly distended stomach with no signs of obstruction. Mental status stable. Objective Vital Signs Date Time Temp Pulse Resp B/P Pulse Ox O2 Delivery O2 Flow Rate FiO2 05/11/17 12:00 92 18 160/89 89 05/11/17 07:53 Nasal Cannula 2.00 05/11/17 04:00 98.0 05/07/17 11:28 21 Intake and Output 05/10/17 05/10/17 05/11/17 08:00 16:00 00:00 Intake Total 713 ml 829 ml 869 ml Output Total 550 ml 425 ml 350 ml Balance 163 ml 404 ml 519 ml Result Diagram: 05/10/17 0550 05/10/17 0550 Other Results Microbiology Date/Time Procedure Status Source Growth 05/08/17 12:15 Gram Stain - Final Complete Sputum Expectorated Sputum 05/08/17 12:15 Sputum Culture - Final Complete Sputum Expectorated Sputum MODERATE GROWTH NORMAL RESPIRATORY IRENE 05/08/17 10:20 Legionella Antigen - Final Complete Urine Random Urine PRESUMPTIVE NEGATIVE FOR LEGIONELLA P... 05/08/17 10:20 Streptococcus pneumoniae Antigen (M - Final Complete Urine Random Urine PRESUMPTIVE NEGATIVE FOR STREPTOCOCCU... 05/07/17 03:35 Aerobic Blood Culture - Preliminary Resulted Blood Peripheral NO GROWTH IN 4 DAYS 05/07/17 03:35 Anaerobic Blood Culture - Preliminary Resulted Blood Peripheral NO GROWTH IN 4 DAYS Imaging Last Impressions Head CT 05/10/172019 Signed Impressions: Service Date/Time: Wednesday, May 10, 2017 20:52 - CONCLUSION: 1. No new findings. Tiny hemorrhage or calcification left frontal lobe either stable or slightly smaller. Jose Pelayo MD Abdomen/Pelvis CT 05/10/17 Signed Impressions: Service Date/Time: Wednesday, May 10, 2017 20:55 - CONCLUSION: 1. Mild gaseous distention of the stomach with nasogastric tube present. No significant small or large bowel distention. Colonic diverticulosis. 2. Subsegmental basal airspace disease in the lungs without significant effusion. 3. Pacer leads in right atrium and right ventricle. 4. Perez in decompressed bladder. Jose Pelayo MD Abdomen X-Ray 05/10/17 Signed Impressions: Service Date/Time: Wednesday, May 10, 2017 14:58 - CONCLUSION: Distended stomach, etiology uncertain. Gastric outlet or proximal duodenal obstruction would be in the differential. No evidence of small or large bowel distention. Dylan Santo MD Chest X-Ray 05/09/17 0600 Signed Impressions: Service Date/Time: Tuesday, May 09, 2017 04:14 - CONCLUSION: 1. Subsegmental atelectasis left base. The findings are improved when compared with the prior exam. Aguila Brown MD Tumor Localization 05/07/17 Signed Impressions: Service Date/Time: Sunday, May 07, 2017 17:05 - CONCLUSION: 1. No abnormal activity in the neck or cervical and thoracic spine. 2. Abnormal increased activity along both mainstem bronchi and extending into the lungs most characteristic of a bronchitis or bronchopneumonia. Joes Pelayo MD Thoracic Spine CT 05/07/17 Signed Impressions: Service Date/Time: Sunday, May 07, 2017 09:34 - CONCLUSION: Minimal consolidative changes left lung posteriorly. Extensive degenerative changes without obvious osteomyelitis . Tagged white cell study would help to exclude such since the patient hasn't pacemaker and cannot undergo MRI. Myles Callejas MD FACR Lumbar Spine CT 05/07/17 Signed Impressions: Service Date/Time: Sunday, May 07, 2017 09:34 - CONCLUSION: Substantial degenerative changes. I don't see evidence for an osteomyelitis. Tagged white cell study could help since the patient has pacemaker and cannot tolerate MRI. The epidural space is poorly visualized. Myles Callejas MD FACJohana Cervical Spine CT 8/2/17 0000 Signed Impressions: Service Date/Time: Sunday, May 07, 2017 09:34 - CONCLUSION: 1. No acute cervical spine abnormality is identified. I do not appreciate any findings to indicate osteomyelitis. However, a white blood cell scan may be more sensitive test for detecting osteomyelitis within the spine. 2. There are degenerative changes throughout the cervical spine, as above. Dylan Carranza MD Objective Remarks GENERAL: A 86-year-old male sitting up in bed, in no acute distress. HEENT: Atraumatic, normocephalic. Pupils equal, round NECK: Supple. No JVD, adenopathy or thyromegaly. Trachea midline. CARDIOVASCULAR: Irregularly irregular. Tachycardia. Normal S1-S2. No murmurs , rubs or gallops noted. PULMONARY: Bilateral equal air entry. No rales or wheezing. ABDOMEN: Soft, nontender, no real distention. Positive bowel sounds. EXTREMITIES: No significant peripheral edema. NEURO: The patient is able to follow simple commands. Oriented to person and knows that he is in a hospital. Muscle power normal in all extremities with sensations preserved. Reflexes normal A/P Assessment and Plan IMPRESSION Severe sepsis Altered mental status/acute metabolic encephalopathy Febrile illness with Leukocytosis and bandemia. Acute renal failure - resolved Respiratory insufficiency. Back pain with history of spinal stenosis and herniated disk. Atrial fibrillation. Hypertension. Osteoarthritis History of obstructive sleep apnea on C-PAP. Previous [employer] pacemaker placement. Chronic systolic heart failure Mitral valve replacement Leukocytosis Low TSH Gastric distention Colonic diverticulosis RECOMMENDATIONS Neuro: - Mental status improving with IV antibiotics and hydration - Metabolic encephalopathy secondary to sepsis appears to be the reason for acute mental status change - Repeat CT of the brain with no contrast 05/06 revealed left frontal 5 motor convexity recommended follow-up. Dr. Yañez from neurosurgery following - Neurology service Dr. Turcios Resp: - Oxygen PRN maintain sats above 92%. - Bronchodilators on a p.r.n. basis and aspiration precautions. - Use home CPAP at night -CXR today- Subsegmental atelectasis left base. Overall improved compared to prior exam. CVS: - Monitor HR and BP and maintain MAP > 65 mmHg. - Lactic acid level measured at 1.5. He was given 1.5 liters of crystalloids in ED. Continue with IV fluids NS at 84 mL an hour. 2-D echocardiogram revealed EF 35-40%. Mild LVH. Trace MR/TR. GI: - On Protonix 40 mg IV daily for GI prophylaxis. - On PO heart healthy diet - GI consulted for assistance the stomach. CT abdomen/pelvis feels slightly distended stomach with no signs of obstruction : - Monitor renal function, I&O's and avoid nephrotoxins. - renal function is stabilized-Cr: Currently within normal limits - Electrolyte replacement as needed ID: - Continue with abx (vancomycin, Zithromax, Zosyn) montior for sigsn of infections ( Fever, WBC) WBC is trending down - BC 05/07: NGTD, 05/08 strep pneumonia and Legionella urinary Ag negative, follow up on sputum cx - ID following - CT scan of the cervical, lumbar and thoracic spine negative for any evidence of infection - Tagged WBC scan : tracheobronchitis vs bronchopneumonia HEME: - Monitor CBC. coags Endo: - Sliding scale insulin with Accu-Cheks for glycemic control. Follow-up free T3/T4 Proph: - GI prophylaxis with Protonix 40 mg daily and DVT prophylaxis with SCDs. - Xarelto on hold for now in case of any procedures needed Level 2 Patient is stable from a critical care medicine standpoint. Assign care to hospitalist in a.m. 05/12. Roly Richards MD May 11, 2017 13:05
[2017-05-11 15:25] LABS: AUTOMATED NEUTROPHIL # 10.8 TH/MM3 (1.8-7.7); BASOPHIL % 0.2 % (0.0-2.0); EOSINOPHIL # 0.1 TH/MM3 (0-0.4); EOSINOPHIL % 0.5 % (0.0-4.0); HEMATOCRIT 35.4 % (39.0-51.0); LYMPH % 11.2 % (9.0-44.0); LYMPHOCYTE # 1.5 TH/MM3 (1.0-4.8); MEAN CORPUSCULAR HEMOGLOBIN 30.2 PG (27.0-34.0); MEAN CORPUSCULAR HGB CONC 31.8 % (32.0-36.0); MONO % 9.5 % (0.0-8.0); NEUT % 78.6 % (16.0-70.0); PLATELET COUNT 193 TH/MM3 (150-450); RED BLOOD COUNT 3.73 MIL/MM3 (4.50-5.90); RED CELL DISTRIBUTION WIDTH 13.5 % (11.6-17.2); WHITE BLOOD COUNT 13.8 TH/MM3 (4.0-11.0)
[2017-05-11 15:26] LABS: HEMO FLAGS AUTO DIFF
[2017-05-11 15:37] LABS: BICARBONATE 25.6 MEQ/L (21.0-32.0); MAGNESIUM 1.8 MG/DL (1.5-2.5); POTASSIUM 3.2 MEQ/L (3.5-5.1)
[2017-05-11 15:47] LABS: FREE T3 1.41 PG/ML (2.18-3.98); FREE T4 1.44 NG/DL (0.76-1.46)
[2017-05-11 16:12] LABS: SCAN/DIFF AUTO DIFF CONFIRMED
[2017-05-11] MEDS: NYSTATIN SUSP 500,000 U/5 ML CUP SWISH-SWAL SCH ×2 (17:01→21:42)
[2017-05-11] MEDS: 1/2 NS + KCL 20 MEQ INJ 1,000 ML IV SCH (17:04)
[2017-05-11] MEDS: MAGNESIUM SULFATE 1 GM PREMIX 100 ML IV SCH ×2 (17:32→19:48)
[2017-05-11] MEDS ORDERED: VANCOMYCIN INJ 1,500 MG in SODIUM CHLORID 0.9% 500 ML INJ 500 ML IV ONE (18:00)
[2017-05-11] MEDS ORDERED: POTASSIUM PHOSPHATE INJ 15 MMOL in SODIUM CHLORIDE 0.9% INJ 150 ML IV ONE (18:00)
[2017-05-11] MEDS: MIRTAZAPINE 15 MG TAB PO SCH (21:42)
[2017-05-11] MEDS: CARVEDILOL 3.125 MG TAB PO SCH (21:42)
[2017-05-12] VITALS (9 sets, daily range): BP systolic 134–164; BP diastolic 71–92; PULSE 90–103; RESP 18–20; TEMP 97.5–98.7; O2SAT 95–97
[2017-05-12] MEDS: CHLORHEXIDINE GLUCONATE 2 % 1 PACK (2 CLOTHS) TOP SCH (04:00)
[2017-05-12] MEDS: PIPERACIL-TAZO 4.5 GM PREMIX 100 ML IV SCH ×3 (05:09→20:35)
[2017-05-12] MEDS: 1/2 NS + KCL 20 MEQ INJ 1,000 ML IV SCH ×2 (05:11→16:59)
[2017-05-12] MEDS: DOCUSATE SODIUM 50 MG/SENNA 8.6 MG TAB PO SCH ×3 (08:41→20:36)
[2017-05-12] MEDS: POLYETHYLENE GLYCOL 17 GM PKG PO SCH (08:41)
[2017-05-12] MEDS: NYSTATIN SUSP 500,000 U/5 ML CUP SWISH-SWAL SCH ×4 (08:43→20:35)
[2017-05-12] MEDS: CARVEDILOL 3.125 MG TAB PO SCH ×2 (08:44→20:35)
[2017-05-12 09:55] LABS: AUTOMATED NEUTROPHIL # 10.3 TH/MM3 (1.8-7.7); BASOPHIL # 0.1 TH/MM3 (0-0.2); BASOPHIL % 0.5 % (0.0-2.0); EOSINOPHIL # 0.3 TH/MM3 (0-0.4); HEMATOCRIT 31.7 % (39.0-51.0); LYMPH % 10.4 % (9.0-44.0); LYMPHOCYTE # 1.4 TH/MM3 (1.0-4.8); MEAN CELL VOLUME 92.6 FL (80.0-100.0); MEAN CORPUSCULAR HEMOGLOBIN 31.2 PG (27.0-34.0); MEAN CORPUSCULAR HGB CONC 33.7 % (32.0-36.0); MONO % 8.7 % (0.0-8.0); NEUT % 78.4 % (16.0-70.0); PLATELET COUNT 195 TH/MM3 (150-450); RED BLOOD COUNT 3.42 MIL/MM3 (4.50-5.90); RED CELL DISTRIBUTION WIDTH 13.6 % (11.6-17.2); WHITE BLOOD COUNT 13.2 TH/MM3 (4.0-11.0)
[2017-05-12 10:15] LABS: HEMO FLAGS AUTO DIFF
[2017-05-12 10:18] LABS: AMYLASE 70 U/L (25-115); ANION GAP 11 MEQ/L (5-15); AST (GOT) 13 U/L (15-37); BICARBONATE 24.4 MEQ/L (21.0-32.0); BLOOD UREA NITROGEN 17 MG/DL (7-18); CHLORIDE 108 MEQ/L (98-107); GLOMERULAR FILTRATION RATE 73 ML/MIN (>89); MAGNESIUM 2.1 MG/DL (1.5-2.5); POTASSIUM 3.1 MEQ/L (3.5-5.1); SODIUM (NA) 143 MEQ/L (136-145)
[2017-05-12 10:19] LABS: ALT (GPT) 20 U/L (12-78)
[2017-05-12 10:22] LABS: ALKALINE PHOSPHATASE 84 U/L (45-117); TOTAL BILIRUBIN ADULT 0.8 MG/DL (0.2-1.0)
[2017-05-12 10:50] LABS: PLATELET ESTIMATE SMEAR NORMAL (NORMAL); PLATELET MORPHOLOGY NORMAL (NORMAL); SCAN/DIFF AUTO DIFF CONFIRMED
[2017-05-12] MEDS: AZITHROMYCIN INJ 500 MG in SODIUM CHLOR 0.9% 250 ML INJ 250 ML IV SCH (11:10)
--- NOTE | 2017-05-12 14:13 | PD.CONS ---
HPI History of Present Illness This is a 86 year old male who presented to the ER for evaluation generalized weakness and back pain with difficulty getting around. He was evaluated at [facility] for evaluation of back pain and given pain medicine. He then followed up with a chiropractor, but was having a difficulty ambulating and was requiring the use of a wheelchair. He returned to the hospital and was admitted for inability to ambulate. CT scan of the upper spine which revealed spinal stenosis, herniated disk and degenerative disc disease. He was treated in the hospital and then discharged to a local rehab facility. He was then sent to this facility for inability to walk and lethargy. He was noted to have a fever of 102.[address] scan of the brain revealed small focal area of mildly increased density in the left periventricular white matter with surrounding low-density which is nonspecific. Questionable slight hemorrhage and edema. He was evaluated by neurosurgery and MRI was recommended, but could not be done secondary to his PPM being incompatible with MRI. He was then admitted to the unit with severe sepsis, altered mental status, acute metabolic encephalopathy, febrile illness with leukocytosis and bandemia, acute kidney injury, respiratory insufficiency, back pain, atrial fibrillation, hypertension , ostearthritis, RYLAND, systolic heart failure. He was noted to have a large amount of gastric output and he was evaluated with Abdomen X-Ray (05/10/17)----> Distended stomach, etiology uncertain. Gastric outlet or proximal duodenal obstruction would be in the differential. No evidence of small or large bowel distention. He then had a Abdomen/Pelvis CT (05/10/17)-----> 1. Mild gaseous distention of the stomach with nasogastric tube present. No significant small or large bowel distention. Colonic diverticulosis. 2. Subsegmental basal airspace disease in the lungs without significant effusion. 3. Pacer leads in right atrium and right ventricle. 4. Perez in decompressed bladder. GI was consulted for further evaluation and treatment of gastric distention. The patient tells me that he has been told that his stomach was distended for quite some time, even prior to this hospitalization. He states that he has had an EGD in the past, but not for quite some time. He is not currently having any nausea or vomiting and he denies any heartburn, reflux, abdominal pain, melena, or hematochezia. He does report that he has had diarrhea intermittently for the past week. This is usually 1-2 liquid brown stools per day. PFSH Past Medical History ? Gastric distention, unclear etiology- pt states he has been told this in the past HTN Mitral valve stenosis, s/p mitral valve repair Atrial fibrillation Arthritis Hiatal hernia Spinal stenosis Herniated disk Degenerative disc disease. Past Surgical History PPM placement Cardiac ablation MV repair EGD Coded Allergies: Xopenex (Unverified Allergy, Severe, 05/07/17) Uncoded Allergies: MRI PRECAUTION PACEMAKER (Adverse Reaction, Severe, NON COMPATIBLE PACMAKER , 05/07/17) [facility] PACEMAKER/05/07/17 [facility] Medications Allergies Coded Allergies Type Severity Reaction Last Updated Verified Xopenex Allergy Severe 05/07/17 No Uncoded Allergies Type Severity Reaction Last Updated Verified MRI PRECAUTION PACEMAKER Adverse Reaction Severe NON COMPATIBLE PACMAKER Active Scripts Medications Dose Route/Sig Days Date Category Dose Instructions Xarelto (Rivaroxaban) 15 Mg Tab 15 Mg PO DAILY 05/07/17 Reported Carvedilol 3.125 Mg Tab 3.125 Mg PO BID 05/07/17 Reported Fleet Enema Six Pack 7-19 gm/118Ml (Sodium Phosphates) 1 Taylor Taylor 05/07/17 Reported Benazepril-Hydrochlorothiazide 20-12.5 Mg Tab 0.5 Tab PO DAILY 05/07/17 Reported Baclofen 10 Mg Tab 10 Mg PO BID 05/07/17 Reported Senokot S (Sennosides-Docusate Sodium) 8.6-50 Mg Tab 2 Tab PO HS 05/07/17 Reported Miralax Powder (Polyethylene Glycol 3350 Powder) 17 Gm Powd 17 Gm PO DAILY 05/07/17 Reported Mix and dissolve one measuring cap-ful (17 grams) in water or juice. Hydrocodone-Acetaminophen 5-325 mg Tab 2 Tab PO Q4H PRN 05/07/17 Reported Nystatin Liq 100,000 unit/ml Susp 5 Ml SWISH-SWAL QID 05/07/17 Reported Remeron (Mirtazapine) 15 Mg Tab 15 Mg PO HS 05/07/17 Reported Family History States both parents from cancer, does not know what type. Social History No tobacco, etoh, illicit drug use. Review of Systems Constitutional: COMPLAINS OF: Fatigue, DENIES: Weight loss Respiratory: DENIES: Cough, Shortness of breath Cardiovascular: DENIES: Chest pain Gastrointestinal: COMPLAINS OF: Diarrhea, DENIES: Abdominal pain, Black stools , Bloody stools, Constipation, Nausea, Vomiting, Swelling of Abdomen, Heartburn , Hematemesis Musculoskeletal: COMPLAINS OF: Joint pain Integumentary: DENIES: Rash Hematologic/lymphatic: DENIES: Bruising Neurologic: DENIES: Headache Psychiatric: COMPLAINS OF: Confusion GI Exam Vitals I&O Vital Signs Date Time Temp Pulse Resp B/P Pulse Ox O2 Delivery O2 Flow Rate FiO2 05/12/17 12:00 98.2 100 20 140/71 96 05/12/17 08:08 90 05/12/17 08:00 98.3 91 20 137/75 96 05/12/17 08:00 Nasal Cannula 2.00 05/12/17 07:26 97 Nasal Cannula 2.00 05/12/17 04:00 98.7 101 18 142/82 96 05/12/17 00:00 98.2 90 18 134/76 95 05/11/17 21:00 115 05/11/17 20:00 97.6 113 18 148/90 97 05/11/17 18:01 114 05/11/17 18:00 109 05/11/17 17:00 103 17 160/81 96 05/11/17 16:00 85 05/11/17 16:00 85 17 140/89 96 05/11/17 14:01 94 05/11/17 14:00 99 I/O 05/11/17 05/11/17 05/11/17 05/12/17 05/12/17 05/12/17 07:00 15:00 23:00 07:00 15:00 23:00 Intake Total 524 ml 985 ml 480 ml Output Total 325 ml 1200 ml 500 ml 1000 ml Balance 199 ml -215 ml -20 ml -1000 ml Intake Oral 150 ml 480 ml IV Total 374 ml 985 ml Output Urine Total 325 ml 500 ml 500 ml 1000 ml Gastric Drainage Total 700 ml # Bowel Movements 2 0 1 Imaging Last Impressions Head CT 05/10/172019 Signed Impressions: Service Date/Time: Wednesday, May 10, 2017 20:52 - CONCLUSION: 1. No new findings. Tiny hemorrhage or calcification left frontal lobe either stable or slightly smaller. Jose Pelayo MD Abdomen/Pelvis CT 05/10/17 Signed Impressions: Service Date/Time: Wednesday, May 10, 2017 20:55 - CONCLUSION: 1. Mild gaseous distention of the stomach with nasogastric tube present. No significant small or large bowel distention. Colonic diverticulosis. 2. Subsegmental basal airspace disease in the lungs without significant effusion. 3. Pacer leads in right atrium and right ventricle. 4. Perez in decompressed bladder. Jose Pelayo MD Abdomen X-Ray 05/10/17 Signed Impressions: Service Date/Time: Wednesday, May 10, 2017 14:58 - CONCLUSION: Distended stomach, etiology uncertain. Gastric outlet or proximal duodenal obstruction would be in the differential. No evidence of small or large bowel distention. Dylan Santo MD Chest X-Ray 05/09/17 0600 Signed Impressions: Service Date/Time: Tuesday, May 09, 2017 04:14 - CONCLUSION: 1. Subsegmental atelectasis left base. The findings are improved when compared with the prior exam. Aguila Brown MD Tumor Localization 05/07/17 Signed Impressions: Service Date/Time: Sunday, May 07, 2017 17:05 - CONCLUSION: 1. No abnormal activity in the neck or cervical and thoracic spine. 2. Abnormal increased activity along both mainstem bronchi and extending into the lungs most characteristic of a bronchitis or bronchopneumonia. Jose Pelayo MD Thoracic Spine CT 05/07/17 Signed Impressions: Service Date/Time: Sunday, May 07, 2017 09:34 - CONCLUSION: Minimal consolidative changes left lung posteriorly. Extensive degenerative changes without obvious osteomyelitis . Tagged white cell study would help to exclude such since the patient hasn't pacemaker and cannot undergo MRI. Myles Callejas MD FACR Lumbar Spine CT 05/07/17 Signed Impressions: Service Date/Time: Sunday, May 07, 2017 09:34 - CONCLUSION: Substantial degenerative changes. I don't see evidence for an osteomyelitis. Tagged white cell study could help since the patient has pacemaker and cannot tolerate MRI. The epidural space is poorly visualized. Myles Callejas MD FACJohana Cervical Spine CT 05/07/17 Signed Impressions: Service Date/Time: Sunday, May 07, 2017 09:34 - CONCLUSION: 1. No acute cervical spine abnormality is identified. I do not appreciate any findings to indicate osteomyelitis. However, a white blood cell scan may be more sensitive test for detecting osteomyelitis within the spine. 2. There are degenerative changes throughout the cervical spine, as above. Dylan Carranza MD Laboratory Test 05/11/17 05/12/17 13:54 09:10 White Blood Count 13.8 TH/MM3 13.2 TH/MM3 Red Blood Count 3.73 MIL/MM3 3.42 MIL/MM3 Hemoglobin 11.3 GM/DL 10.7 GM/DL Hematocrit 35.4 % 31.7 % Mean Corpuscular Volume 95.0 FL 92.6 FL Mean Corpuscular Hemoglobin 30.2 PG 31.2 PG Mean Corpuscular Hemoglobin 31.8 % 33.7 % Concent Red Cell Distribution Width 13.5 % 13.6 % Platelet Count 193 TH/MM3 195 TH/MM3 Mean Platelet Volume 9.3 FL 9.2 FL Neutrophils (%) (Auto) 78.6 % 78.4 % Lymphocytes (%) (Auto) 11.2 % 10.4 % Monocytes (%) (Auto) 9.5 % 8.7 % Eosinophils (%) (Auto) 0.5 % 2.0 % Basophils (%) (Auto) 0.2 % 0.5 % Neutrophils # (Auto) 10.8 TH/MM3 10.3 TH/MM3 Lymphocytes # (Auto) 1.5 TH/MM3 1.4 TH/MM3 Monocytes # (Auto) 1.3 TH/MM3 1.1 TH/MM3 Eosinophils # (Auto) 0.1 TH/MM3 0.3 TH/MM3 Basophils # (Auto) 0.0 TH/MM3 0.1 TH/MM3 CBC Comment AUTO DIFF AUTO DIFF Differential Comment AUTO DIFF AUTO DIFF CONFIRMED CONFIRMED Sodium Level 147 MEQ/L 143 MEQ/L Potassium Level 3.2 MEQ/L 3.1 MEQ/L Chloride Level 111 MEQ/L 108 MEQ/L Carbon Dioxide Level 25.6 MEQ/L 24.4 MEQ/L Anion Gap 10 MEQ/L 11 MEQ/L Blood Urea Nitrogen 22 MG/DL 17 MG/DL Creatinine 1.02 MG/DL 0.97 MG/DL Estimat Glomerular Filtration 69 ML/MIN 73 ML/MIN Rate Random Glucose 90 MG/DL 114 MG/DL Calcium Level 8.4 MG/DL 8.6 MG/DL Phosphorus Level 2.0 MG/DL 2.1 MG/DL Magnesium Level 1.8 MG/DL 2.1 MG/DL Free Thyroxine 1.44 NG/DL Free Triiodothyronine (T3) 1.41 PG/ML pg/dL Random Vancomycin Level 14.6 COMMENT Platelet Estimate NORMAL Platelet Morphology Comment NORMAL Red Cell Morphology Comment NORMAL Lactic Acid Level 0.8 mmol/L Total Bilirubin 0.8 MG/DL Aspartate Amino Transf 13 U/L (AST/SGOT) Alanine Aminotransferase 20 U/L (ALT/SGPT) Alkaline Phosphatase 84 U/L Total Protein 6.0 GM/DL Albumin 2.3 GM/DL Amylase Level 70 U/L Lipase 280 U/L Date/Time Procedure Status Source Growth 05/08/17 12:15 Gram Stain - Final Complete Sputum Expectorated Sputum 05/08/17 12:15 Sputum Culture - Final Complete Sputum Expectorated Sputum MODERATE GROWTH NORMAL RESPIRATORY ARTHUR 05/08/17 10:20 Legionella Antigen - Final Complete Urine Random Urine PRESUMPTIVE NEGATIVE FOR LEGIONELLA P... 05/08/17 10:20 Streptococcus pneumoniae Antigen (M - Final Complete Urine Random Urine PRESUMPTIVE NEGATIVE FOR STREPTOCOCCU... Physical Examination HEENT: Normocephalic; atraumatic; no jaundice. CHEST: CTA CARDIAC: RRR ABDOMEN: Soft, nondistended, nontender; no hepatosplenomegaly; bowel sounds are present in all four quadrants. EXTREMITIES: No clubbing, cyanosis, or edema. SKIN: Normal; no rash; no jaundice. UNIT CONTROL CLERK: No focal deficits; lethargic,oriented times three. Assessment and Plan Plan ASSESSMENT: - Gastric distention, unclear etiology. Abdomen X-Ray (05/10/17)----> Distended stomach, etiology uncertain. Gastric outlet or proximal duodenal obstruction would be in the differential. No evidence of small or large bowel distention. He then had a Abdomen/Pelvis CT (05/10/17)-----> 1. Mild gaseous distention of the stomach with nasogastric tube present. No significant small or large bowel distention. Colonic diverticulosis. 2. Subsegmental basal airspace disease in the lungs without significant effusion. 3. Pacer leads in right atrium and right ventricle. 4. Perez in decompressed bladder. GI was consulted for further evaluation and treatment of gastric distention. The patient tells me that he has been told that his stomach was distended for quite some time, even prior to this hospitalization. He states that he has had an EGD in the past, but not for quite some time. He is not currently having any nausea, vomiting, or abdominal pain. - Diarrhea. 1 week hx of intermittent diarrhea with 1-2 liquid stools per day. No bleeding. Will check for CDiff. - Inability to ambulate, generalized weakness with spinal stenosis, herniated disk, and ddd. NSx following- CT cervical, thoracic, lumbar spine with extensive degenerative changes without obvious OM. WBC scan without activity in neck and thoracic spine. - AMS, acute encephalopathy. Abnormal imaging with CT scan of the brain revealed small focal area of mildly increased density in the left periventricular white matter with surrounding low-density which is nonspecific. Questionable slight hemorrhage and edema. He was evaluated by neurosurgery and MRI was recommended, but could not be done secondary to his PPM being incompatible with MRI. Rpt. CT with no acute intracranial abnormality. NSx following - Resp. Insufficiency, bronchitis vs. bronchopneumonia on wbc scan. Zosyn/ Azithromycin. - Fever, Leukocytosis, Bandemia. Sputum with moderate growth normal respiratory arthur, random urine negative for legionella/streptococcus, bcx no growth 5 days. Zosyn, Nystatin, Azithromycin. - Acute kidney injury with electrolyte abnormalities. Improved. - Anemia, normocytic. 10.7/31.7. - Hx Atrial fibrillation, hypertension, ostearthritis, RYLAND, systolic heart failure. per attending. PLAN: - Plan for egd in am - Obtain consents - NPO after MN - Cont. Miralax - Add Protonix - Monitor labs - Supportive care - Further recommendations to follow based on results of above - Pt seen and examined by Dr. Ludwig and myself and this note is written on his behalf Tonia Ferraro May 12, 2017 14:13
--- NOTE | 2017-05-12 16:20 | HHI.NSPN ---
(Dayron Amado) History Chief Complaint: Back pain with movement. (AenudyDayron DWYER) Interval History 05/07: This is a very pleasant, although confused, 86-year-old male who isn't sure why he is here. The history is obtained from his daughters who are present and he gave permission to speak with. The patient has a history of sleep apnea and uses a CPAP machine at night. About 3 weeks ago he felt that having the head of the bed elevated would help him and he slept that way for a few nights. He developed back pain and one daughter took him to [facility] for evaluation. He was doing well and his pain was controlled with [place], therefore he was discharged home. The following day the other daughter took him to his Chiropractor. At that time he was using a cane to ambulate. When he left the office he was not able to walk and had to be taken to the vehicle in a wheelchair. He was subsequently taken back to [facility] for evaluation again and imaging demonstrated spinal stenosis, disc herniation and degenerative disc disease. He was admitted for 3 days and after that was discharged to [facility] where he had been until this morning. His daughter's report that he was briefly on gabapentin which was stopped due to upper extremity tremors. That was replaced with Remeron and the patient had a decreased level of consciousness. The patient was found on the floor of his room at [facility] and he was transported to [facility] for evaluation in the emergency department. The daughters do report that the patient has had decreased oral intake the past few days and not had a bowel movement since 728. The patient was tremulous and had a max temperature of 102. His daughters did report to the ED Physician that the patient had started coughing that day. In the Emergency Department the patient was found to have an elevated WBC count at 23.8 with neutrophils [address] brain demonstrated a small focal area of mildly increased density within the left periventricular white matter with surrounding low-density which could represent slight haemorrhage and edema. Dr Yañez was notified and requested an MRI but the patient's pacemaker wasn't compatible. Therefore additional CT imaging w/o and w/contrast of the brain and spine were ordered which was unremarkable for any acute abnormality of the brain or spine. Substantial degenerative changes were noted throughout the spine. It was recommended that a tagged WBC study be done. The patient has been admitted by the Bow Maker Machine Tender to the [facility] and was waiting for a bed. 05/08: The patient states he is doing good today. He has no complaints but does endorse some aching to the back. 05/12: When seen this afternoon the patient states he is doing good. He denied any back pain when asked but finally did endorse pain with movement. He also endorsed pain to the right groin. He still is unable to ambulate. (Dayron Amado) System Review Comments Constitutional: Patient denies any fever or chills. HEENT: Patient denies any visual or hearing difficulty. Respiratory: Patient does have a cough. He denies any shortness of breath. Cardiovascular: Patient denies any chest pain, palpitations or irregular heartbeat. Gastrointestinal: Patient denies any abdominal pain, nausea, vomiting or incontinence of stool. Genitourinary: Patient denies any urinary incontinence. Musculoskeletal: Patient has back pain with movement. He also has pain to the right groin. He denies any neck or extremity pain. Neurologic: Patient states he is unable to walk. He denies any headache, dizziness, numbness or tingling. (Dayron Amado) Exam Results Vital Signs Date Time Temp Pulse Resp B/P Pulse Ox O2 Delivery O2 Flow Rate FiO2 05/12/17 12:00 98.2 100 20 140/71 96 05/12/17 08:00 Nasal Cannula 2.00 Intake and Output 05/11/17 05/11/17 05/11/17 07:59 15:59 23:59 Intake Total 524 ml 985 ml 480 ml Output Total 325 ml 1200 ml 500 ml Balance 199 ml -215 ml -20 ml (Dayron Amado) Physical Examination GENERAL: The patient is awake & alert when seen and readily interacts, in no apparent distress, essentially normal affect. SKIN: Warm, dry & intact, no evident rashes, ulcerations or other lesions noted. HEENT: Normocephalic, atraumatic. NECK: Neck supple, no JVD, trachea midline. CARDIOVASCULAR: S1S2 w/RRR w/o M/G/R, radial & pedal pulses 2+ bilaterally, cap refill < 2 sec, 2+ pedal edema. RESPIRATORY: CTAB w/o W/R/R, equal excursion, nonlaboured, on RA. GASTROINTESTINAL: Abdomen soft, nontender, positive bowel sounds. MUSCULOSKELETAL: CALDERON w/o difficulty, no evident deformity or clubbing,TTP to lumbar spine & right groin. NEUROLOGICAL: AAOx2 (self, year). Speech clear & appropriate. Sensation intact to light touch to all extremities. Motor strength 5/5 to all major flexion & extension muscle groups. (Dayron Amado) Lab, Micro, Other Results Allergies Coded Allergies Type Severity Reaction Last Updated Verified Xopenex Allergy Severe 05/07/17 No Uncoded Allergies Type Severity Reaction Last Updated Verified MRI PRECAUTION PACEMAKER Adverse Reaction Severe NON COMPATIBLE PACMAKER Recent Impressions Head CT 05/10/172019 Signed Impressions: Service Date/Time: Wednesday, May 10, 2017 20:52 - CONCLUSION: 1. No new findings. Tiny hemorrhage or calcification left frontal lobe either stable or slightly smaller. Jose Pelayo MD Abdomen/Pelvis CT 05/10/17 0000 Signed Impressions: Service Date/Time: Wednesday, May 10, 2017 20:55 - CONCLUSION: 1. Mild gaseous distention of the stomach with nasogastric tube present. No significant small or large bowel distention. Colonic diverticulosis. 2. Subsegmental basal airspace disease in the lungs without significant effusion. 3. Pacer leads in right atrium and right ventricle. 4. Perez in decompressed bladder. Jose Pelayo MD Abdomen X-Ray 05/10/17 0000 Signed Impressions: Service Date/Time: Wednesday, May 10, 2017 14:58 - CONCLUSION: Distended stomach, etiology uncertain. Gastric outlet or proximal duodenal obstruction would be in the differential. No evidence of small or large bowel distention. Dylan Santo MD / 05:59 17:59 05:59 17:59 05:59 17:59 Intake Total 1312 ml 1542 ml 1393 ml 985 ml 480 ml 730 ml Output Total 600 ml 975 ml 675 ml 1200 ml 500 ml 1000 ml Balance 712 ml 567 ml 718 ml -215 ml -20 ml -270 ml Intake Oral 240 ml 80 ml 150 ml 480 ml IV Total 1072 ml 1462 ml 1243 ml 985 ml 730 ml Output Urine Total 600 ml 975 ml 675 ml 500 ml 500 ml 1000 ml Gastric Drainage Total 700 ml # Bowel Movements 0 2 0 2 0 1 Laboratory Tests Test 05/10/17 05/10/17 05/10/17 05/11/17 05:50 17:40 17:46 13:54 White Blood Count 15.1 TH/MM3 13.8 TH/MM3 Red Blood Count 3.80 MIL/MM3 3.73 MIL/MM3 Hemoglobin 11.5 GM/DL 11.3 GM/DL Hematocrit 35.4 % 35.4 % Mean Corpuscular Volume 93.3 FL 95.0 FL Mean Corpuscular Hemoglobin 30.1 PG 30.2 PG Mean Corpuscular Hemoglobin 32.3 % 31.8 % Concent Red Cell Distribution Width 13.8 % 13.5 % Platelet Count 202 TH/MM3 193 TH/MM3 Mean Platelet Volume 10.2 FL 9.3 FL Neutrophils (%) (Auto) 80.2 % 78.6 % Lymphocytes (%) (Auto) 9.0 % 11.2 % Monocytes (%) (Auto) 10.4 % 9.5 % Eosinophils (%) (Auto) 0.1 % 0.5 % Basophils (%) (Auto) 0.3 % 0.2 % Neutrophils # (Auto) 12.1 TH/MM3 10.8 TH/MM3 Lymphocytes # (Auto) 1.4 TH/MM3 1.5 TH/MM3 Monocytes # (Auto) 1.6 TH/MM3 1.3 TH/MM3 Eosinophils # (Auto) 0.0 TH/MM3 0.1 TH/MM3 Basophils # (Auto) 0.0 TH/MM3 0.0 TH/MM3 CBC Comment AUTO DIFF AUTO DIFF Differential Total Cells 100 Counted Neutrophils % (Manual) 80 % Lymphocytes % 14 % Monocytes % 5 % Neutrophils # (Manual) 12.2 TH/MM3 Metamyelocytes 1 % Differential Comment FINAL DIFF AUTO DIFF MANUAL CONFIRMED Platelet Estimate NORMAL Platelet Morphology Comment NORMAL Hematology Comments Sodium Level 145 MEQ/L 147 MEQ/L Potassium Level 4.4 MEQ/L 3.2 MEQ/L Chloride Level 112 MEQ/L 111 MEQ/L Carbon Dioxide Level 21.8 MEQ/L 25.6 MEQ/L Anion Gap 11 MEQ/L 10 MEQ/L Blood Urea Nitrogen 29 MG/DL 22 MG/DL Creatinine 1.07 MG/DL 1.02 MG/DL Estimat Glomerular Filtration 65 ML/MIN 69 ML/MIN Rate Random Glucose 145 MG/DL 90 MG/DL Calcium Level 8.8 MG/DL 8.4 MG/DL Random Vancomycin Level 21.1 COMMENT 14.6 COMMENT Total Bilirubin 0.7 MG/DL Direct Bilirubin 0.2 MG/DL Indirect Bilirubin 0.5 MG/DL Aspartate Amino Transf 21 U/L (AST/SGOT) Alanine Aminotransferase 23 U/L (ALT/SGPT) Alkaline Phosphatase 99 U/L Total Protein 6.7 GM/DL Albumin 2.5 GM/DL Amylase Level 59 U/L Lipase 204 U/L Lactic Acid Level 2.3 mmol/L Phosphorus Level 2.0 MG/DL Magnesium Level 1.8 MG/DL Free Thyroxine 1.44 NG/DL Free Triiodothyronine (T3) 1.41 PG/ML pg/dL Test 05/12/17 09:10 White Blood Count 13.2 TH/MM3 Red Blood Count 3.42 MIL/MM3 Hemoglobin 10.7 GM/DL Hematocrit 31.7 % Mean Corpuscular Volume 92.6 FL Mean Corpuscular Hemoglobin 31.2 PG Mean Corpuscular Hemoglobin 33.7 % Concent Red Cell Distribution Width 13.6 % Platelet Count 195 TH/MM3 Mean Platelet Volume 9.2 FL Neutrophils (%) (Auto) 78.4 % Lymphocytes (%) (Auto) 10.4 % Monocytes (%) (Auto) 8.7 % Eosinophils (%) (Auto) 2.0 % Basophils (%) (Auto) 0.5 % Neutrophils # (Auto) 10.3 TH/MM3 Lymphocytes # (Auto) 1.4 TH/MM3 Monocytes # (Auto) 1.1 TH/MM3 Eosinophils # (Auto) 0.3 TH/MM3 Basophils # (Auto) 0.1 TH/MM3 CBC Comment AUTO DIFF Differential Comment AUTO DIFF CONFIRMED Platelet Estimate NORMAL Platelet Morphology Comment NORMAL Red Cell Morphology Comment NORMAL Sodium Level 143 MEQ/L Potassium Level 3.1 MEQ/L Chloride Level 108 MEQ/L Carbon Dioxide Level 24.4 MEQ/L Anion Gap 11 MEQ/L Blood Urea Nitrogen 17 MG/DL Creatinine 0.97 MG/DL Estimat Glomerular Filtration 73 ML/MIN Rate Random Glucose 114 MG/DL Lactic Acid Level 0.8 mmol/L Calcium Level 8.6 MG/DL Phosphorus Level 2.1 MG/DL Magnesium Level 2.1 MG/DL Total Bilirubin 0.8 MG/DL Aspartate Amino Transf 13 U/L (AST/SGOT) Alanine Aminotransferase 20 U/L (ALT/SGPT) Alkaline Phosphatase 84 U/L Total Protein 6.0 GM/DL Albumin 2.3 GM/DL Amylase Level 70 U/L Lipase 280 U/L Vital Signs Date Time Temp Pulse Resp B/P Pulse Ox O2 Delivery O2 Flow Rate FiO2 05/12/17 12:00 98.2 100 20 140/71 96 05/12/17 08:08 90 05/12/17 08:00 98.3 91 20 137/75 96 05/12/17 08:00 Nasal Cannula 2.00 05/12/17 07:26 97 Nasal Cannula 2.00 05/12/17 04:00 98.7 101 18 142/82 96 05/12/17 00:00 98.2 90 18 134/76 95 05/11/17 21:00 115 05/11/17 20:00 97.6 113 18 148/90 97 05/11/17 18:01 114 05/11/17 18:00 109 05/11/17 17:00 103 17 160/81 96 05/11/17 16:00 85 05/11/17 16:00 85 17 140/89 96 05/11/17 14:01 94 05/11/17 14:00 99 05/11/17 13:00 107 05/11/17 12:00 92 05/11/17 12:00 92 18 160/89 89 05/11/17 11:00 106 05/11/17 10:00 100 05/11/17 09:00 106 05/11/17 09:00 106 22 139/90 95 05/11/17 08:00 81 05/11/17 08:00 81 20 169/83 94 05/11/17 07:53 96 Nasal Cannula 2.00 05/11/17 06:00 102 05/11/17 04:00 98.0 113 18 149/79 98 05/11/17 04:00 105 05/11/17 02:00 104 05/11/17 01:30 97.7 104 18 135/89 95 05/11/17 00:00 104 05/10/17 22:00 113 05/10/17 20:00 113 05/10/17 20:00 98.6 113 18 134/79 97 05/10/17 18:00 114 05/10/17 16:00 98.4 112 21 114/73 96 05/10/17 16:00 112 05/10/17 14:00 115 05/10/17 12:18 91 Nasal Cannula 5.00 05/10/17 12:00 98.7 110 21 118/73 93 05/10/17 12:00 110 05/10/17 10:00 108 05/10/17 08:00 98.3 113 20 126/78 95 05/10/17 08:00 112 05/10/17 06:00 114 05/10/17 04:00 98.7 111 18 156/94 95 05/10/17 04:00 111 05/10/17 02:53 16 05/10/17 02:00 113 05/10/17 00:00 98.3 112 16 140/85 96 05/10/17 00:00 112 05/09/17 22:00 113 05/09/17 20:00 114 05/09/17 20:00 99.1 114 18 153/97 98 05/09/17 18:00 114 (Dayron Amado) Medical Decision Making Impression and Plan Impression: Altered mental status Febrile illness Leukocytosis w/bandemia Back pain w/history of spinal stenosis, disc herniation & degenerative disc disease Repeat CT brain demonstrates no acute intracranial abnormality. CT cervical, thoracic & lumbar spine demonstrates extensive degenerative changes w/o any obvious osteomyelitis. Tagged WBC study was unremarkable for any abnormal activity to the neck or cervical and thoracic spine. There was abnormal increased activity along both mainstem bronchi and extending into the lungs most characteristic of bronchitis or bronchopneumonia. Patient continues to do well and remains neurologically intact, still w/back pain and inability to ambulate. Plan: Primary management per Hospitalist. Continue neuro checks. (Dayron Amado) Attending Statement I have personally seen and examined the patient on the date of this note. Pertinent documentation and study results have been reviewed by the undersigned. I have personally developed the treatment plan and performed medical decision making. Agree with findings, exam, and treatment plan as noted above. Patient continues to have significant low back pain with movement. Still painful trying to mobilize out of bed. His upper and lower extremity sensorimotor exam is within normal limits. No definite evidence of focal lumbar radiculopathy. He does not really have significant focal L3 or L4 symptoms or deficits, but does have probable moderately severe stenosis of the L3 4 level. It seems somewhat unlikely that this is causing the severe central low back pain. On examination today he does have moderate tenderness at the lower lumbosacral midline with mild right lateral hip tenderness and discomfort in the right hip and groin region with range of motion. There is a possibility of lumbar facet mediated pain. 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 Discussed with the patient's family. He would be a reasonable candidate for lumbar facet block and possible LIOR's, given the lack of definite infectious etiology for his pain. He would need to be off of anticoagulation to complete the injections. If he is off anticoagulation, a myelogram CT scan of the spine would also be reasonable to better determine the severity of nerve root impingement, particularly at the L3 4 level. Cardiology opinion regarding the patient's risks for being off anticoagulation for an extended period of time would be helpful. No surgical intervention is recommended at the present time given his intact neurologic function, but may require a limited decompressive procedure depending on pain management procedures and possible myelogram if accomplished. (Ishmael Yañez MD) Dayron Amado May 12, 2017 16:20 Ishmael Yañez MD May 12, 2017 23:45
[2017-05-12] MEDS: LISINOPRIL 5 MG TAB PO SCH (18:00)
[2017-05-12] MEDS ORDERED: MORPHINE SULFATE 4 MG/ML INJ IV PUSH ONE (18:15)
--- NOTE | 2017-05-12 18:32 | HHI.PR ---
Subjective Remarks Follow-up on inability to walk, back pain, right hip pain, tracheobronchitis. Patient states that he's been okay since last night, he is does well if he lies still but if he tries to walk his right hip and his low back her tremendously. Objective Vital Signs Date Time Temp Pulse Resp B/P Pulse Ox O2 Delivery O2 Flow Rate FiO2 05/12/17 17:01 97 Nasal Cannula 2.00 05/12/17 16:00 97.5 103 20 164/92 95 05/12/17 12:00 98.2 100 20 140/71 96 05/12/17 08:08 90 05/12/17 08:00 98.3 91 20 137/75 96 05/12/17 08:00 Nasal Cannula 2.00 05/12/17 07:26 97 Nasal Cannula 2.00 05/12/17 04:00 98.7 101 18 142/82 96 05/12/17 00:00 98.2 90 18 134/76 95 05/11/17 21:00 115 05/11/17 20:00 97.6 113 18 148/90 97 I/O 05/11/17 05/11/17 05/11/17 05/12/17 05/12/17 05/12/17 07:00 15:00 23:00 07:00 15:00 23:00 Intake Total 524 ml 985 ml 480 ml 730 ml Output Total 325 ml 1200 ml 500 ml 1000 ml 700 ml Balance 199 ml -215 ml -20 ml -1000 ml 730 ml -700 ml Intake Oral 150 ml 480 ml IV Total 374 ml 985 ml 730 ml Output Urine Total 325 ml 500 ml 500 ml 1000 ml 700 ml Gastric Drainage Total 700 ml # Bowel Movements 2 0 1 1 Result Diagram: 05/12/17 0910 05/12/17 0910 Imaging Last Impressions Head CT 05/10/172019 Signed Impressions: Service Date/Time: Wednesday, May 10, 2017 20:52 - CONCLUSION: 1. No new findings. Tiny hemorrhage or calcification left frontal lobe either stable or slightly smaller. Jose Pelayo MD Abdomen/Pelvis CT 05/10/17 0000 Signed Impressions: Service Date/Time: Wednesday, May 10, 2017 20:55 - CONCLUSION: 1. Mild gaseous distention of the stomach with nasogastric tube present. No significant small or large bowel distention. Colonic diverticulosis. 2. Subsegmental basal airspace disease in the lungs without significant effusion. 3. Pacer leads in right atrium and right ventricle. 4. Perez in decompressed bladder. Jose Pelayo MD Abdomen X-Ray 05/10/17 Signed Impressions: Service Date/Time: Wednesday, May 10, 2017 14:58 - CONCLUSION: Distended stomach, etiology uncertain. Gastric outlet or proximal duodenal obstruction would be in the differential. No evidence of small or large bowel distention. Dylan Santo MD Chest X-Ray 05/09/17 0600 Signed Impressions: Service Date/Time: Tuesday, May 09, 2017 04:14 - CONCLUSION: 1. Subsegmental atelectasis left base. The findings are improved when compared with the prior exam. Aguila Brown MD Tumor Localization 05/07/17 Signed Impressions: Service Date/Time: Sunday, May 07, 2017 17:05 - CONCLUSION: 1. No abnormal activity in the neck or cervical and thoracic spine. 2. Abnormal increased activity along both mainstem bronchi and extending into the lungs most characteristic of a bronchitis or bronchopneumonia. Jose Pelayo MD Thoracic Spine CT 05/07/17 Signed Impressions: Service Date/Time: Sunday, May 07, 2017 09:34 - CONCLUSION: Minimal consolidative changes left lung posteriorly. Extensive degenerative changes without obvious osteomyelitis . Tagged white cell study would help to exclude such since the patient hasn't pacemaker and cannot undergo MRI. Myles Callejas MD FACR Lumbar Spine CT 05/07/17 Signed Impressions: Service Date/Time: Sunday, May 07, 2017 09:34 - CONCLUSION: Substantial degenerative changes. I don't see evidence for an osteomyelitis. Tagged white cell study could help since the patient has pacemaker and cannot tolerate MRI. The epidural space is poorly visualized. Myles Callejas MD FACR Cervical Spine CT 05/07/17 Signed Impressions: Service Date/Time: Sunday, May 07, 2017 09:34 - CONCLUSION: 1. No acute cervical spine abnormality is identified. I do not appreciate any findings to indicate osteomyelitis. However, a white blood cell scan may be more sensitive test for detecting osteomyelitis within the spine. 2. There are degenerative changes throughout the cervical spine, as above. Dylan Carranza MD Objective Remarks GENERAL: Resting comfortably no acute distress CARDIOVASCULAR: irregular rhythm and regular rate, without murmurs, gallops, or rubs. RESPIRATORY: Breath sounds equal and clear bilaterally anteriorly. GASTROINTESTINAL: Abdomen soft, non-tender, nondistended. MUSCULOSKELETAL: No cyanosis, or edema. He has minimal pain on right hip abduction, but has the severe pain in right internal rotation and hip flexion ( actively and passively), pain with external rotation but moderate pain on active and passive abduction. Noted to be very tender over right inguinal fold with no masses palpated. No bruising noted. Exam is limited due to pain. A/P Assessment and Plan 86 y/o WM admitted to ICU with inability to walk and metabolic encephalopathy secondary to sepsis likely secondary to tracheobronchitis rhonchi versus bronchopneumonia. Most recently patient had a fall onto the floor out of his bed at home prior to hospitalization and had substantial low back and right hip pain. Has has been essentially unable to walk secondary to pain in both areas. Has had substantial central nervous system workup, neurology and neurosurgery both following, no acute SOCIAL WORKER ASSISTANT infections have been identified, rather pulmonary process has been identified by infectious disease. Patient still reports having substantial right hip pain - we'll workup for fracture versus effusion versus arthritis flare. Metabolic encephalopathy - clinically resolved. - secondary to sepsis appears to be the reason for acute mental status change - Repeat CT of the brain with no contrast 05/06 revealed left frontal 5 motor convexity recommended follow-up. Dr. Yañez from neurosurgery following Right hip pain - We'll obtain plain film, if negative may consider CT scan for right hip for further workup if pain persists and also because MRI is contraindicated given patient has pacemaker. Discussed case with with over the phone, impression is most likely flareup of chronic arthritis but initial workup is warranted. Impaired systolic function - 2-D echocardiogram revealed EF 35-40%. Mild LVH. Trace MR/TR. started low dose lisinopril abd distention - chronic, not a problem for the patient, tolerating feeds well Tracheobronchitis vs bronchopneumonia - Continue with abx (vancomycin, Zithromax, Zosyn) montior for sigsn of infections ( Fever, WBC) WBC is trending down - BC 05/07: NGTD, 05/08 strep pneumonia and Legionella urinary Ag negative, follow up on sputum cx - ID following - CT scan of the cervical, lumbar and thoracic spine negative for any evidence of infection - Tagged WBC scan : tracheobronchitis vs bronchopneumonia -Oxygen PRN maintain sats above 92%. - Bronchodilators on a p.r.n. basis and aspiration precautions. - Use home CPAP at night -CXR today- Subsegmental atelectasis left base. Afib - Currently rate controlled but will need to resume anticoagulation, we'll consider restarting tomorrow after touching base with neurosurgery - Sliding scale insulin with Accu-Cheks for glycemic control. Follow-up free T3/T4 Proph: - GI prophylaxis with Protonix 40 mg daily and DVT prophylaxis with SCDs. - Xarelto on hold for now in case of any procedures needed Level 2 Armaan Burden MD May 12, 2017 18:32
--- NOTE | 2017-05-12 18:55 | RADRPT ---
EXAM DATE/TIME: 05/12/2017 18:29 [facility] COMPARISON: No previous studies available for comparison. INDICATIONS : Right hip pain MEDICAL HISTORY : Arthritis. Cardiovascular disease. Hypertension. Hernia, hiatal. SURGICAL HISTORY : Pacemaker. Cardiac surgery. ENCOUNTER: Initial ACUITY: 1 week PAIN SCORE: 7/10 LOCATION: Right Hip FINDINGS: Examination of the right hip was performed with AP Pelvis. There is moderate osteoarthritis of the r ight hip. Mild osteoarthritis left hip. No acute fracture or dislocation. CONCLUSION: 1. Moderate osteoarthritis of the right hip. No acute bony abnormalities. Jose Pelayo MD on May 12, 2017 at 18:51 Board Certified Radiologist. This report was verified electronically.
[2017-05-12] MEDS: MIRTAZAPINE 15 MG TAB PO SCH (20:35)
[2017-05-13] VITALS (9 sets, daily range): BP systolic 129–149; BP diastolic 77–92; PULSE 98–114; RESP 20; TEMP 97.3–98; O2SAT 95–98
[2017-05-13] MEDS: CHLORHEXIDINE GLUCONATE 2 % 1 PACK (2 CLOTHS) TOP SCH (03:17)
[2017-05-13] MEDS: PIPERACIL-TAZO 4.5 GM PREMIX 100 ML IV SCH ×2 (05:05→13:37)
[2017-05-13] MEDS: 1/2 NS + KCL 20 MEQ INJ 1,000 ML IV SCH ×2 (05:05→11:44)
[2017-05-13 07:27] LABS: AUTOMATED NEUTROPHIL # 8.2 TH/MM3 (1.8-7.7); BASOPHIL % 0.3 % (0.0-2.0); EOSINOPHIL # 0.2 TH/MM3 (0-0.4); EOSINOPHIL % 2.2 % (0.0-4.0); HEMATOCRIT 32.8 % (39.0-51.0); LYMPH % 13.3 % (9.0-44.0); LYMPHOCYTE # 1.5 TH/MM3 (1.0-4.8); MEAN CELL VOLUME 93.8 FL (80.0-100.0); MEAN CORPUSCULAR HEMOGLOBIN 30.7 PG (27.0-34.0); MEAN CORPUSCULAR HGB CONC 32.7 % (32.0-36.0); NEUT % 73.2 % (16.0-70.0); PLATELET COUNT 196 TH/MM3 (150-450); RED CELL DISTRIBUTION WIDTH 13.6 % (11.6-17.2); WHITE BLOOD COUNT 11.2 TH/MM3 (4.0-11.0)
[2017-05-13 07:35] LABS: HEMO FLAGS AUTO DIFF
[2017-05-13 07:45] LABS: BICARBONATE 24.7 MEQ/L (21.0-32.0); POTASSIUM 3.1 MEQ/L (3.5-5.1)
[2017-05-13] MEDS: NYSTATIN SUSP 500,000 U/5 ML CUP SWISH-SWAL SCH ×4 (08:09→22:08)
[2017-05-13] MEDS: DOCUSATE SODIUM 50 MG/SENNA 8.6 MG TAB PO SCH ×3 (08:10→21:00)
[2017-05-13] MEDS: PANTOPRAZOLE SOD 40 MG DELAYED RELEASE TAB PO SCH (08:10)
[2017-05-13] MEDS: POLYETHYLENE GLYCOL 17 GM PKG PO SCH (08:10)
[2017-05-13 08:16] LABS: BANDS 8 % (0-6); EOSINOPHILS 2 % (0-4); MYELOCYTES 2 % (0-0); NEUTROPHIL # MANUAL DIFF 8.6 TH/MM3 (1.8-7.7); POLYS (SEG NEUTROPHILS) 67 % (16-70); WBC DIFF SAMPLE 100
[2017-05-13 08:17] LABS: OVALOCYTES 1+ (NORMAL); PLATELET ESTIMATE SMEAR NORMAL (NORMAL); PLATELET MORPHOLOGY NORMAL (NORMAL); SCAN/DIFF FINAL DIFF MANUAL
[2017-05-13] MEDS: LISINOPRIL 5 MG TAB PO SCH (08:17)
[2017-05-13] MEDS: CARVEDILOL 3.125 MG TAB PO SCH ×2 (08:18→22:08)
--- NOTE | 2017-05-13 10:49 | HHI.GIFU ---
Subjective Remarks EGD performed. Multiple biopsies taken. Duodenal polyp looks benign. Not removed, biopsied only. Gastritis biopsied. 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 Objective Vitals I&O Vital Signs Date Time Temp Pulse Resp B/P Pulse Ox O2 Delivery O2 Flow Rate FiO2 05/13/17 08:00 98.0 110 20 149/81 98 05/13/17 08:00 Nasal Cannula 1.00 05/13/17 06:24 103 05/13/17 04:00 97.6 98 20 138/77 95 05/13/17 00:00 97.8 102 20 140/83 95 05/12/17 20:00 98.4 92 20 152/75 95 05/12/17 17:01 97 Nasal Cannula 2.00 05/12/17 16:00 97.5 103 20 164/92 95 05/12/17 12:00 98.2 100 20 140/71 96 I/O 05/12/17 05/12/17 05/12/17 05/13/17 05/13/17 05/13/17 07:00 15:00 23:00 07:00 15:00 23:00 Intake Total 730 ml 240 ml 0 ml Output Total 1000 ml 700 ml 800 ml Balance -1000 ml 730 ml -460 ml -800 ml Intake Oral 240 ml 0 ml IV Total 730 ml Output Urine Total 1000 ml 700 ml 800 ml # Bowel Movements 1 1 Laboratory Laboratory Tests Test 05/12/17 05/13/17 18:07 06:29 Procalcitonin 0.15 White Blood Count 11.2 Red Blood Count 3.50 Hemoglobin 10.7 Hematocrit 32.8 Mean Corpuscular Volume 93.8 Mean Corpuscular Hemoglobin 30.7 Mean Corpuscular Hemoglobin 32.7 Concent Red Cell Distribution Width 13.6 Platelet Count 196 Mean Platelet Volume 8.9 Neutrophils (%) (Auto) 73.2 Lymphocytes (%) (Auto) 13.3 Monocytes (%) (Auto) 11.0 Eosinophils (%) (Auto) 2.2 Basophils (%) (Auto) 0.3 Neutrophils # (Auto) 8.2 Lymphocytes # (Auto) 1.5 Monocytes # (Auto) 1.2 Eosinophils # (Auto) 0.2 Basophils # (Auto) 0.0 CBC Comment AUTO DIFF Differential Total Cells 100 Counted Neutrophils % (Manual) 67 Band Neutrophils % 8 Lymphocytes % 16 Monocytes % 5 Eosinophils % 2 Neutrophils # (Manual) 8.6 Myelocytes 2 Differential Comment FINAL DIFF MANUAL Platelet Estimate NORMAL Platelet Morphology Comment NORMAL Ovalocytes 1+ Sodium Level 142 Potassium Level 3.1 Chloride Level 107 Carbon Dioxide Level 24.7 Anion Gap 10 Blood Urea Nitrogen 16 Creatinine 1.00 Estimat Glomerular Filtration 71 Rate Random Glucose 111 Calcium Level 8.5 Random Vancomycin Level 10.7 Date/Time Procedure Status Source Growth 05/08/17 12:15 Gram Stain - Final Complete Sputum Expectorated Sputum 05/08/17 12:15 Sputum Culture - Final Complete Sputum Expectorated Sputum MODERATE GROWTH NORMAL RESPIRATORY ARTHUR Physical Exam HEENT: Pupils round and reactive to light; normocephalic; atraumatic; no jaundice. Throat is clear. NECK: Neck is supple, no JVD, no lymphadenopathy. CHEST: Chest is clear to auscultation and percussion. CARDIAC: Regular rate and rhythm with no murmur gallop or rubs. ABDOMEN: Soft, nondistended, nontender; no hepatosplenomegaly; bowel sounds are present in all four quadrants. EXTREMITIES: No clubbing, cyanosis, or edema. SKIN: Normal; no rash; no jaundice. MEDICAL LABORATORY TECHNICIANS: No focal deficits; alert and oriented times three. Assessment and Plan Plan ASSESSMENT: - Gastric distention, unclear etiology. Abdomen X-Ray (05/10/17)----> Distended stomach, etiology uncertain. Gastric outlet or proximal duodenal obstruction would be in the differential. No evidence of small or large bowel distention. He then had a Abdomen/Pelvis CT (05/10/17)-----> 1. Mild gaseous distention of the stomach with nasogastric tube present. No significant small or large bowel distention. Colonic diverticulosis. 2. Subsegmental basal airspace disease in the lungs without significant effusion. 3. Pacer leads in right atrium and right ventricle. 4. Perez in decompressed bladder. GI was consulted for further evaluation and treatment of gastric distention. The patient tells me that he has been told that his stomach was distended for quite some time, even prior to this hospitalization. He states that he has had an EGD in the past, but not for quite some time. He is not currently having any nausea, vomiting, or abdominal pain. - Diarrhea. 1 week hx of intermittent diarrhea with 1-2 liquid stools per day. No bleeding. Will check for CDiff. - Inability to ambulate, generalized weakness with spinal stenosis, herniated disk, and ddd. NSx following- CT cervical, thoracic, lumbar spine with extensive degenerative changes without obvious OM. WBC scan without activity in neck and thoracic spine. - AMS, acute encephalopathy. Abnormal imaging with CT scan of the brain revealed small focal area of mildly increased density in the left periventricular white matter with surrounding low-density which is nonspecific. Questionable slight hemorrhage and edema. He was evaluated by neurosurgery and MRI was recommended, but could not be done secondary to his PPM being incompatible with MRI. Rpt. CT with no acute intracranial abnormality. NSx following - Resp. Insufficiency, bronchitis vs. bronchopneumonia on wbc scan. Zosyn/ Azithromycin. - Fever, Leukocytosis, Bandemia. Sputum with moderate growth normal respiratory arthur, random urine negative for legionella/streptococcus, bcx no growth 5 days. Zosyn, Nystatin, Azithromycin. - Acute kidney injury with electrolyte abnormalities. Improved. - Anemia, normocytic. 10.7/31.7. - Hx Atrial fibrillation, hypertension, ostearthritis, RYLAND, systolic heart failure. per attending. EGD showed no ulcerations but gastritis is present. May respond to Carafate. Incidental duodenal polyp will need removal with poss EMR. Biopsy taken.Barretts esophagus at GE junction biopsy taken. PLAN: Regular diet. Await biopsy result. Carafate 1 gm SIMON and HS Arslan Ludwig MD May 13, 2017 10:49
[2017-05-13] MEDS ORDERED: PROPOFOL 200 MG/20 ML AMP IV ONE (10:58)
--- NOTE | 2017-05-13 11:08 | HHI.GIFU ---
Subjective Remarks EGD performed. Distal esophagitis. Hiatal hernia. Biopsies taken at GE junction. Mild gastritis. Biopsied. Pylorus is open. duodenum norrmal. Objective Vitals I&O Vital Signs Date Time Temp Pulse Resp B/P Pulse Ox O2 Delivery O2 Flow Rate FiO2 05/13/17 08:00 98.0 110 20 149/81 98 05/13/17 08:00 Nasal Cannula 1.00 05/13/17 06:24 103 05/13/17 04:00 97.6 98 20 138/77 95 05/13/17 00:00 97.8 102 20 140/83 95 05/12/17 20:00 98.4 92 20 152/75 95 05/12/17 17:01 97 Nasal Cannula 2.00 05/12/17 16:00 97.5 103 20 164/92 95 05/12/17 12:00 98.2 100 20 140/71 96 I/O 05/12/17 05/12/17 05/12/17 05/13/17 05/13/17 05/13/17 07:00 15:00 23:00 07:00 15:00 23:00 Intake Total 730 ml 240 ml 0 ml Output Total 1000 ml 700 ml 800 ml Balance -1000 ml 730 ml -460 ml -800 ml Intake Oral 240 ml 0 ml IV Total 730 ml Output Urine Total 1000 ml 700 ml 800 ml # Bowel Movements 1 1 Laboratory Laboratory Tests Test 05/12/17 05/13/17 18:07 06:29 Procalcitonin 0.15 White Blood Count 11.2 Red Blood Count 3.50 Hemoglobin 10.7 Hematocrit 32.8 Mean Corpuscular Volume 93.8 Mean Corpuscular Hemoglobin 30.7 Mean Corpuscular Hemoglobin 32.7 Concent Red Cell Distribution Width 13.6 Platelet Count 196 Mean Platelet Volume 8.9 Neutrophils (%) (Auto) 73.2 Lymphocytes (%) (Auto) 13.3 Monocytes (%) (Auto) 11.0 Eosinophils (%) (Auto) 2.2 Basophils (%) (Auto) 0.3 Neutrophils # (Auto) 8.2 Lymphocytes # (Auto) 1.5 Monocytes # (Auto) 1.2 Eosinophils # (Auto) 0.2 Basophils # (Auto) 0.0 CBC Comment AUTO DIFF Differential Total Cells 100 Counted Neutrophils % (Manual) 67 Band Neutrophils % 8 Lymphocytes % 16 Monocytes % 5 Eosinophils % 2 Neutrophils # (Manual) 8.6 Myelocytes 2 Differential Comment FINAL DIFF MANUAL Platelet Estimate NORMAL Platelet Morphology Comment NORMAL Ovalocytes 1+ Sodium Level 142 Potassium Level 3.1 Chloride Level 107 Carbon Dioxide Level 24.7 Anion Gap 10 Blood Urea Nitrogen 16 Creatinine 1.00 Estimat Glomerular Filtration 71 Rate Random Glucose 111 Calcium Level 8.5 Random Vancomycin Level 10.7 Date/Time Procedure Status Source Growth 05/08/17 12:15 Gram Stain - Final Complete Sputum Expectorated Sputum 05/08/17 12:15 Sputum Culture - Final Complete Sputum Expectorated Sputum MODERATE GROWTH NORMAL RESPIRATORY ARTHUR Physical Exam HEENT: Pupils round and reactive to light; normocephalic; atraumatic; no jaundice. Throat is clear. NECK: Neck is supple, no JVD, no lymphadenopathy. CHEST: Chest is clear to auscultation and percussion. CARDIAC: Regular rate and rhythm with no murmur gallop or rubs. ABDOMEN: Soft, nondistended, nontender; no hepatosplenomegaly; bowel sounds are present in all four quadrants. EXTREMITIES: No clubbing, cyanosis, or edema. SKIN: Normal; no rash; no jaundice. CRM MARKETING MANAGER: No focal deficits; alert and oriented times three. Assessment and Plan Plan ASSESSMENT: - Gastric distention, unclear etiology. Abdomen X-Ray (05/10/17)----> Distended stomach, etiology uncertain. Gastric outlet or proximal duodenal obstruction would be in the differential. No evidence of small or large bowel distention. He then had a Abdomen/Pelvis CT (05/10/17)-----> 1. Mild gaseous distention of the stomach with nasogastric tube present. No significant small or large bowel distention. Colonic diverticulosis. 2. Subsegmental basal airspace disease in the lungs without significant effusion. 3. Pacer leads in right atrium and right ventricle. 4. Perez in decompressed bladder. GI was consulted for further evaluation and treatment of gastric distention. The patient tells me that he has been told that his stomach was distended for quite some time, even prior to this hospitalization. He states that he has had an EGD in the past, but not for quite some time. He is not currently having any nausea, vomiting, or abdominal pain. - Diarrhea. 1 week hx of intermittent diarrhea with 1-2 liquid stools per day. No bleeding. Will check for CDiff. - Inability to ambulate, generalized weakness with spinal stenosis, herniated disk, and ddd. NSx following- CT cervical, thoracic, lumbar spine with extensive degenerative changes without obvious OM. WBC scan without activity in neck and thoracic spine. - AMS, acute encephalopathy. Abnormal imaging with CT scan of the brain revealed small focal area of mildly increased density in the left periventricular white matter with surrounding low-density which is nonspecific. Questionable slight hemorrhage and edema. He was evaluated by neurosurgery and MRI was recommended, but could not be done secondary to his PPM being incompatible with MRI. Rpt. CT with no acute intracranial abnormality. NSx following - Resp. Insufficiency, bronchitis vs. bronchopneumonia on wbc scan. Zosyn/ Azithromycin. - Fever, Leukocytosis, Bandemia. Sputum with moderate growth normal respiratory arthur, random urine negative for legionella/streptococcus, bcx no growth 5 days. Zosyn, Nystatin, Azithromycin. - Acute kidney injury with electrolyte abnormalities. Improved. - Anemia, normocytic. 10.7/31.7. - Hx Atrial fibrillation, hypertension, ostearthritis, RYLAND, systolic heart failure. per attending. EGD showed distal esophagitis. Hiatal hernia. Pylorus is open. Duodenum is normal. PLAN: Full liquid diet. continue to follow. Arslan Ludwig MD May 13, 2017 11:08
[2017-05-13] MEDS ORDERED: DO NOT ADM ANY ANTICOAGULANT DRUGS PRN (11:17)
[2017-05-13] MEDS: AZITHROMYCIN INJ 500 MG in SODIUM CHLOR 0.9% 250 ML INJ 250 ML IV SCH (12:22)
[2017-05-13] MEDS: MORPHINE SULFATE 4 MG/ML INJ IV PUSH PRN (12:54)
--- NOTE | 2017-05-13 14:09 | HHI.NSPN ---
(Dayron Amado) History Chief Complaint: Back pain with movement. (AneudyDayron DWYER) Interval History 05/07: This is a very pleasant, although confused, 86-year-old male who isn't sure why he is here. The history is obtained from his daughters who are present and he gave permission to speak with. The patient has a history of sleep apnea and uses a CPAP machine at night. About 3 weeks ago he felt that having the head of the bed elevated would help him and he slept that way for a few nights. He developed back pain and one daughter took him to [facility] for evaluation. He was doing well and his pain was controlled with [place], therefore he was discharged home. The following day the other daughter took him to his Chiropractor. At that time he was using a cane to ambulate. When he left the office he was not able to walk and had to be taken to the vehicle in a wheelchair. He was subsequently taken back to [facility] for evaluation again and imaging demonstrated spinal stenosis, disc herniation and degenerative disc disease. He was admitted for 3 days and after that was discharged to [facility] where he had been until this morning. His daughter's report that he was briefly on gabapentin which was stopped due to upper extremity tremors. That was replaced with Remeron and the patient had a decreased level of consciousness. The patient was found on the floor of his room at [facility] and he was transported to [facility] for evaluation in the emergency department. The daughters do report that the patient has had decreased oral intake the past few days and not had a bowel movement since 728. The patient was tremulous and had a max temperature of 102. His daughters did report to the ED Physician that the patient had started coughing that day. In the Emergency Department the patient was found to have an elevated WBC count at 23.8 with neutrophils [address] brain demonstrated a small focal area of mildly increased density within the left periventricular white matter with surrounding low-density which could represent slight haemorrhage and edema. Dr Yañez was notified and requested an MRI but the patient's pacemaker wasn't compatible. Therefore additional CT imaging w/o and w/contrast of the brain and spine were ordered which was unremarkable for any acute abnormality of the brain or spine. Substantial degenerative changes were noted throughout the spine. It was recommended that a tagged WBC study be done. The patient has been admitted by the Enrollment Manager to the [facility] and was waiting for a bed. 05/08: The patient states he is doing good today. He has no complaints but does endorse some aching to the back. 05/12: When seen this afternoon the patient states he is doing good. He denied any back pain when asked but finally did endorse pain with movement. He also endorsed pain to the right groin. He still is unable to ambulate. 05/13: The patient says he is doing good this afternoon. He does endorse back pain with movement and still has the right groin pain. He went for a GI procedure this morning but he isn't aware of the results. (Dayron Amado ) System Review Comments Constitutional: Patient denies any fever or chills. HEENT: Patient denies any visual or hearing difficulty. Respiratory: Patient denies any shortness of breath or productive cough. Cardiovascular: Patient denies any chest pain, palpitations or irregular heartbeat. Gastrointestinal: Patient denies any abdominal pain, nausea, vomiting or incontinence of stool. Genitourinary: Patient denies any urinary incontinence. Musculoskeletal: Patient has back pain with movement. He also has pain to the right groin. He denies any neck or extremity pain. Neurologic: Patient states he is unable to walk. He denies any headache, dizziness, numbness or tingling. (Dayron Amado) Exam Results Vital Signs Date Time Temp Pulse Resp B/P Pulse Ox O2 Delivery O2 Flow Rate FiO2 05/13/17 12:00 97.3 114 20 146/92 98 05/13/17 11:45 Nasal Cannula 2 Intake and Output 05/12/17 05/12/17 05/13/17 08:00 16:00 00:00 Intake Total 730 ml 240 ml Output Total 1000 ml 700 ml 0 ml Balance -1000 ml 30 ml 240 ml (Dayron Amado) Physical Examination GENERAL: The patient is awake & alert watching TV, he readily interacts, in no apparent distress, essentially normal affect. SKIN: Warm, dry & intact, no evident rashes, ulcerations or other lesions noted. HEENT: Normocephalic, atraumatic. NECK: Neck supple, no JVD, trachea midline. CARDIOVASCULAR: S1S2 w/RRR w/o M/G/R, radial & pedal pulses 2+ bilaterally, cap refill < 2 sec, 2+ pedal edema. RESPIRATORY: CTAB w/o W/R/R, equal excursion, nonlaboured, on RA. GASTROINTESTINAL: Abdomen soft, nontender, positive bowel sounds. MUSCULOSKELETAL: CALDERON w/o difficulty, no evident deformity or clubbing, TTP to lumbar spine & right groin. NEUROLOGICAL: AAOx3 (person, time & being in hospital but not name). Speech clear & appropriate. Sensation intact to light touch to all extremities. Motor strength 5/5 to all major flexion & extension muscle groups. (Dayron Amado) Lab, Micro, Other Results Allergies Coded Allergies Type Severity Reaction Last Updated Verified Xopenex Allergy Severe 05/07/17 No Uncoded Allergies Type Severity Reaction Last Updated Verified MRI PRECAUTION PACEMAKER Adverse Reaction Severe NON COMPATIBLE PACMAKER Recent Impressions Hip and Pelvis X-Ray 05/12/17 0000 Signed Impressions: Service Date/Time: Friday, May 12, 2017 18:29 - CONCLUSION: 1. Moderate osteoarthritis of the right hip. No acute bony abnormalities. Jose Pelayo MD Head CT 05/10/172019 Signed Impressions: Service Date/Time: Wednesday, May 10, 2017 20:52 - CONCLUSION: 1. No new findings. Tiny hemorrhage or calcification left frontal lobe either stable or slightly smaller. Jose Pelayo MD 06:00 18:00 06:00 18:00 06:00 18:00 Intake Total 1393 ml 985 ml 480 ml 730 ml 240 ml 180 ml Output Total 675 ml 1200 ml 1500 ml 700 ml 800 ml 325 ml Balance 718 ml -215 ml -1020 ml 30 ml -560 ml -145 ml Intake Oral 150 ml 480 ml 240 ml IV Total 1243 ml 985 ml 730 ml 30 ml Other 150 ml Output Urine Total 675 ml 500 ml 1500 ml 700 ml 800 ml 325 ml Gastric Drainage Total 700 ml # Bowel Movements 0 2 1 1 0 Laboratory Tests Test 05/10/17 05/10/17 05/11/17 05/12/17 17:40 17:46 13:54 09:10 Total Bilirubin 0.7 MG/DL 0.8 MG/DL Direct Bilirubin 0.2 MG/DL Indirect Bilirubin 0.5 MG/DL Aspartate Amino Transf 21 U/L 13 U/L (AST/SGOT) Alanine Aminotransferase 23 U/L 20 U/L (ALT/SGPT) Alkaline Phosphatase 99 U/L 84 U/L Total Protein 6.7 GM/DL 6.0 GM/DL Albumin 2.5 GM/DL 2.3 GM/DL Amylase Level 59 U/L 70 U/L Lipase 204 U/L 280 U/L Lactic Acid Level 2.3 mmol/L 0.8 mmol/L White Blood Count 13.8 TH/MM3 13.2 TH/MM3 Red Blood Count 3.73 MIL/MM3 3.42 MIL/MM3 Hemoglobin 11.3 GM/DL 10.7 GM/DL Hematocrit 35.4 % 31.7 % Mean Corpuscular Volume 95.0 FL 92.6 FL Mean Corpuscular Hemoglobin 30.2 PG 31.2 PG Mean Corpuscular Hemoglobin 31.8 % 33.7 % Concent Red Cell Distribution Width 13.5 % 13.6 % Platelet Count 193 TH/MM3 195 TH/MM3 Mean Platelet Volume 9.3 FL 9.2 FL Neutrophils (%) (Auto) 78.6 % 78.4 % Lymphocytes (%) (Auto) 11.2 % 10.4 % Monocytes (%) (Auto) 9.5 % 8.7 % Eosinophils (%) (Auto) 0.5 % 2.0 % Basophils (%) (Auto) 0.2 % 0.5 % Neutrophils # (Auto) 10.8 TH/MM3 10.3 TH/MM3 Lymphocytes # (Auto) 1.5 TH/MM3 1.4 TH/MM3 Monocytes # (Auto) 1.3 TH/MM3 1.1 TH/MM3 Eosinophils # (Auto) 0.1 TH/MM3 0.3 TH/MM3 Basophils # (Auto) 0.0 TH/MM3 0.1 TH/MM3 CBC Comment AUTO DIFF AUTO DIFF Differential Comment AUTO DIFF AUTO DIFF CONFIRMED CONFIRMED Sodium Level 147 MEQ/L 143 MEQ/L Potassium Level 3.2 MEQ/L 3.1 MEQ/L Chloride Level 111 MEQ/L 108 MEQ/L Carbon Dioxide Level 25.6 MEQ/L 24.4 MEQ/L Anion Gap 10 MEQ/L 11 MEQ/L Blood Urea Nitrogen 22 MG/DL 17 MG/DL Creatinine 1.02 MG/DL 0.97 MG/DL Estimat Glomerular Filtration 69 ML/MIN 73 ML/MIN Rate Random Glucose 90 MG/DL 114 MG/DL Calcium Level 8.4 MG/DL 8.6 MG/DL Phosphorus Level 2.0 MG/DL 2.1 MG/DL Magnesium Level 1.8 MG/DL 2.1 MG/DL Free Thyroxine 1.44 NG/DL Free Triiodothyronine (T3) 1.41 PG/ML pg/dL Random Vancomycin Level 14.6 COMMENT Platelet Estimate NORMAL Platelet Morphology Comment NORMAL Red Cell Morphology Comment NORMAL Test 05/12/17 05/13/17 18:07 06:29 Procalcitonin 0.15 ng/mL White Blood Count 11.2 TH/MM3 Red Blood Count 3.50 MIL/MM3 Hemoglobin 10.7 GM/DL Hematocrit 32.8 % Mean Corpuscular Volume 93.8 FL Mean Corpuscular Hemoglobin 30.7 PG Mean Corpuscular Hemoglobin 32.7 % Concent Red Cell Distribution Width 13.6 % Platelet Count 196 TH/MM3 Mean Platelet Volume 8.9 FL Neutrophils (%) (Auto) 73.2 % Lymphocytes (%) (Auto) 13.3 % Monocytes (%) (Auto) 11.0 % Eosinophils (%) (Auto) 2.2 % Basophils (%) (Auto) 0.3 % Neutrophils # (Auto) 8.2 TH/MM3 Lymphocytes # (Auto) 1.5 TH/MM3 Monocytes # (Auto) 1.2 TH/MM3 Eosinophils # (Auto) 0.2 TH/MM3 Basophils # (Auto) 0.0 TH/MM3 CBC Comment AUTO DIFF Differential Total Cells 100 Counted Neutrophils % (Manual) 67 % Band Neutrophils % 8 % Lymphocytes % 16 % Monocytes % 5 % Eosinophils % 2 % Neutrophils # (Manual) 8.6 TH/MM3 Myelocytes 2 % Differential Comment FINAL DIFF MANUAL Platelet Estimate NORMAL Platelet Morphology Comment NORMAL Ovalocytes 1+ Sodium Level 142 MEQ/L Potassium Level 3.1 MEQ/L Chloride Level 107 MEQ/L Carbon Dioxide Level 24.7 MEQ/L Anion Gap 10 MEQ/L Blood Urea Nitrogen 16 MG/DL Creatinine 1.00 MG/DL Estimat Glomerular Filtration 71 ML/MIN Rate Random Glucose 111 MG/DL Calcium Level 8.5 MG/DL Random Vancomycin Level 10.7 COMMENT Vital Signs Date Time Temp Pulse Resp B/P Pulse Ox O2 Delivery O2 Flow Rate FiO2 05/13/17 12:00 97.3 114 20 146/92 98 05/13/17 11:45 98.5 92 16 130/81 96 Nasal Cannula 2 05/13/17 11:30 113 16 125/84 96 Nasal Cannula 2 05/13/17 11:15 98.0 113 16 123/81 96 Nasal Cannula 2 05/13/17 08:00 98.0 110 20 149/81 98 05/13/17 08:00 Nasal Cannula 1.00 05/13/17 06:24 103 05/13/17 04:00 97.6 98 20 138/77 95 05/13/17 00:00 97.8 102 20 140/83 95 05/12/17 20:00 98.4 92 20 152/75 95 05/12/17 17:01 97 Nasal Cannula 2.00 05/12/17 16:00 97.5 103 20 164/92 95 05/12/17 12:00 98.2 100 20 140/71 96 05/12/17 08:08 90 05/12/17 08:00 98.3 91 20 137/75 96 05/12/17 08:00 Nasal Cannula 2.00 05/12/17 07:26 97 Nasal Cannula 2.00 05/12/17 04:00 98.7 101 18 142/82 96 05/12/17 00:00 98.2 90 18 134/76 95 05/11/17 21:00 115 05/11/17 20:00 97.6 113 18 148/90 97 05/11/17 18:01 114 05/11/17 18:00 109 05/11/17 17:00 103 17 160/81 96 05/11/17 16:00 85 05/11/17 16:00 85 17 140/89 96 05/11/17 14:01 94 05/11/17 14:00 99 05/11/17 13:00 107 05/11/17 12:00 92 05/11/17 12:00 92 18 160/89 89 05/11/17 11:00 106 05/11/17 10:00 100 05/11/17 09:00 106 05/11/17 09:00 106 22 139/90 95 05/11/17 08:00 81 05/11/17 08:00 81 20 169/83 94 05/11/17 07:53 96 Nasal Cannula 2.00 05/11/17 06:00 102 05/11/17 04:00 98.0 113 18 149/79 98 05/11/17 04:00 105 05/11/17 02:00 104 05/11/17 01:30 97.7 104 18 135/89 95 05/11/17 00:00 104 05/10/17 22:00 113 05/10/17 20:00 113 05/10/17 20:00 98.6 113 18 134/79 97 05/10/17 18:00 114 05/10/17 16:00 98.4 112 21 114/73 96 05/10/17 16:00 112 05/10/17 14:00 115 (Dayron Amado) Medical Decision Making Impression and Plan Impression: Altered mental status Febrile illness Leukocytosis w/bandemia Back pain w/history of spinal stenosis, disc herniation & degenerative disc disease Repeat CT brain demonstrates no acute intracranial abnormality. CT cervical, thoracic & lumbar spine demonstrates extensive degenerative changes w/o any obvious osteomyelitis. Tagged WBC study was unremarkable for any abnormal activity to the neck or cervical and thoracic spine. There was abnormal increased activity along both mainstem bronchi and extending into the lungs most characteristic of bronchitis or bronchopneumonia. Patient is doing good and neurologically intact, still w/back pain and inability to ambulate. Plan: Primary management per Hospitalist. Continue neuro checks. Will order CT myelogram to be done on . Will hold Mirtazapine, Prochlorperazine & Promethazine so that CT myelogram may be done. CBC & PT on at 0600. Valium corporate operations compliance manager for CT myelogram per protocol. (Dayron Amado) Attending Statement I have personally seen and examined the patient on the date of this note. Pertinent documentation and study results have been reviewed by the undersigned. I have personally developed the treatment plan and performed medical decision making. Agree with findings, exam, and treatment plan as noted above. On my examination 05/13/17, the patient remains awake and alert. He has focal tenderness over the mid right groin area without palpable mass. Also fairly focal tenderness at the right mid anterior ankle. Mild lower extremity edema. No cyanosis noted. No significant varicosities. Uncertain regarding the etiology of the left groin and ankle pain. His initial CT scan reveals rather severe L3 4 stenosis. Discussed with the patient regarding myelogram CT scan of the lumbar spine and he wishes to proceed on 05/15/17. Contraindicated myelography medications have been held today. He remains unable to ambulate out of bed due to the severe low back pain. (Ishmael Yañez MD) Dayron Amado May 13, 2017 14:09 Ishmael Yañez MD May 13, 2017 22:01
--- NOTE | 2017-05-13 15:02 | HHI.IDPN ---
Subjective Subjective Remarks ID COVERAGE is a very pleasant, 86-year-old male with PMHx of chronic back pain on narcotics. His PMHx is also significant for Sleep apnea, on CPAP, Pacemaker status, Afib on anticoagulants. With this background patient is admitted with altered mental status. Reportedly, approx 3 weeks ago he felt that having the head of the bed elevated would help him and he slept that way for a few nights. He developed back pain and one daughter took him to [facility] for evaluation. He was doing well and his pain was controlled with [place], therefore he was discharged home. The following day the other daughter took him to his Chiropractor. At that time he was using a cane to ambulate. When he left the office he was not able to walk and had to be taken to the vehicle in a wheelchair. He was subsequently taken back to [facility] for evaluation again and imaging demonstrated spinal stenosis, disc herniation and degenerative disc disease. He was admitted for 3 days and after that was discharged to [facility] where he had been until this morning. His daughter's report that he was briefly on gabapentin which was stopped due to upper extremity tremors. That was replaced with Remeron and the patient had a decreased level of consciousness. The patient was found on the floor of his room at [place] [facility] and he was transported to [facility] for evaluation in the emergency department. The daughters do report that the patient has had decreased oral intake the past few days and not had a bowel movement since 728. The patient was tremulous and had a max temperature of 102. His daughters did report to the ED Physician that the patient had started coughing that day. In the Emergency Department the patient was found to have an elevated WBC count at 23.8 with neutrophils [address] brain demonstrated a small focal area of mildly increased density within the left periventricular white matter with surrounding low-density which could represent slight hemorrhage and edema. Dr Yañez was notified and requested an MRI but the patient's pacemaker wasn't compatible. Therefore additional CT imaging w/o and w/contrast of the brain and spine were ordered which was unremarkable for any acute abnormality of the brain or spine. Substantial degenerative changes were noted throughout the spine. It was recommended that a tagged WBC study be done. The patient has been admitted by the Warehouse Associate to the [facility] . At the time of my evaluation, patient is in the [facility]MC. He is not on pressors, awake, oriented x 2, non focal, has a wilcox in place with good urine output. No diarrhea, no rash. Coughs white yellow sputum. Denies any chest pain but endorses worsening back pain on slightest movement. ID consulted for evaluation and Mment of sepsis, possible spinal epidural abscess or osteomyelitis. Notes reviewed Temps better BP ok Good sats on RA C/S reviewed Not SOB No CP No N/V Antibiotics Vancomycin Zithromax Zosyn Past Medical History Hypertension Mitral valve stenosis Atrial fibrillation Arthritis Hiatal hernia Past Surgical History Pacemaker insertion Ablation x2 Mitral valve repair Allergies: Coded Allergies: Xopenex (Unverified Allergy, Severe, 05/07/17) Uncoded Allergies: MRI PRECAUTION PACEMAKER (Adverse Reaction, Severe, NON COMPATIBLE PACMAKER , 05/07/17) [facility] PACEMAKER/05/07/17 VSV Objective . Vital Signs Date Time Temp Pulse Resp B/P Pulse Ox O2 Delivery O2 Flow Rate FiO2 05/13/17 12:00 97.3 114 20 146/92 98 05/13/17 11:45 98.5 92 16 130/81 96 Nasal Cannula 2 05/13/17 11:30 113 16 125/84 96 Nasal Cannula 2 05/13/17 11:15 98.0 113 16 123/81 96 Nasal Cannula 2 05/13/17 08:00 98.0 110 20 149/81 98 05/13/17 08:00 Nasal Cannula 1.00 05/13/17 06:24 103 05/13/17 04:00 97.6 98 20 138/77 95 05/13/17 00:00 97.8 102 20 140/83 95 05/12/17 20:00 98.4 92 20 152/75 95 05/12/17 17:01 97 Nasal Cannula 2.00 05/12/17 16:00 97.5 103 20 164/92 95 05/12/17 05/12/17 05/13/17 14:59 22:59 06:59 Intake Total 730 ml 240 ml 0 ml Output Total 700 ml 800 ml Balance 730 ml -460 ml -800 ml Intake Oral 240 ml 0 ml IV Total 730 ml Output Urine Total 700 ml 800 ml # Bowel Movements 1 . Laboratory Tests Test 05/12/17 05/13/17 09:10 06:29 White Blood Count 13.2 TH/MM3 11.2 TH/MM3 Red Blood Count 3.42 MIL/MM3 3.50 MIL/MM3 Hemoglobin 10.7 GM/DL 10.7 GM/DL Hematocrit 31.7 % 32.8 % Mean Corpuscular Volume 92.6 FL 93.8 FL Mean Corpuscular Hemoglobin 31.2 PG 30.7 PG Mean Corpuscular Hemoglobin 33.7 % 32.7 % Concent Red Cell Distribution Width 13.6 % 13.6 % Platelet Count 195 TH/MM3 196 TH/MM3 Mean Platelet Volume 9.2 FL 8.9 FL Neutrophils (%) (Auto) 78.4 % 73.2 % Lymphocytes (%) (Auto) 10.4 % 13.3 % Monocytes (%) (Auto) 8.7 % 11.0 % Eosinophils (%) (Auto) 2.0 % 2.2 % Basophils (%) (Auto) 0.5 % 0.3 % Neutrophils # (Auto) 10.3 TH/MM3 8.2 TH/MM3 Lymphocytes # (Auto) 1.4 TH/MM3 1.5 TH/MM3 Monocytes # (Auto) 1.1 TH/MM3 1.2 TH/MM3 Eosinophils # (Auto) 0.3 TH/MM3 0.2 TH/MM3 Basophils # (Auto) 0.1 TH/MM3 0.0 TH/MM3 CBC Comment AUTO DIFF AUTO DIFF Differential Comment AUTO DIFF FINAL DIFF CONFIRMED MANUAL Platelet Estimate NORMAL NORMAL Platelet Morphology Comment NORMAL NORMAL Red Cell Morphology Comment NORMAL Differential Total Cells 100 Counted Neutrophils % (Manual) 67 % Band Neutrophils % 8 % Lymphocytes % 16 % Monocytes % 5 % Eosinophils % 2 % Neutrophils # (Manual) 8.6 TH/MM3 Myelocytes 2 % Ovalocytes 1+ Laboratory Tests Test 05/12/17 05/12/17 05/13/17 09:10 18:07 06:29 Sodium Level 143 MEQ/L 142 MEQ/L Potassium Level 3.1 MEQ/L 3.1 MEQ/L Chloride Level 108 MEQ/L 107 MEQ/L Carbon Dioxide Level 24.4 MEQ/L 24.7 MEQ/L Anion Gap 11 MEQ/L 10 MEQ/L Blood Urea Nitrogen 17 MG/DL 16 MG/DL Creatinine 0.97 MG/DL 1.00 MG/DL Estimat Glomerular Filtration 73 ML/MIN 71 ML/MIN Rate Random Glucose 114 MG/DL 111 MG/DL Lactic Acid Level 0.8 mmol/L Calcium Level 8.6 MG/DL 8.5 MG/DL Phosphorus Level 2.1 MG/DL Magnesium Level 2.1 MG/DL Total Bilirubin 0.8 MG/DL Aspartate Amino Transf 13 U/L (AST/SGOT) Alanine Aminotransferase 20 U/L (ALT/SGPT) Alkaline Phosphatase 84 U/L Total Protein 6.0 GM/DL Albumin 2.3 GM/DL Amylase Level 70 U/L Lipase 280 U/L Procalcitonin 0.15 ng/mL Imaging Chest X-Ray 05/09/17 0600 Signed Impressions: Service Date/Time: Tuesday, May 09, 2017 04:14 - CONCLUSION: 1. Subsegmental atelectasis left base. The findings are improved when compared with the prior exam. Aguila Brown MD Head CT 05/07/17 0346 Signed Impressions: Service Date/Time: Sunday, May 07, 2017 05:06 - CONCLUSION: 1. Subtle small focal area of mildly increased density in the left periventricular white matter with surrounding low density. This is nonspecific but could represent a subtle area of slight hemorrhage and edema. 2. Atrophic change and chronic small vessel ischemic changes. Reji Meza MD Tumor Localization 05/07/17 0000 Signed Impressions: Service Date/Time: Sunday, May 07, 2017 17:05 - CONCLUSION: 1. No abnormal activity in the neck or cervical and thoracic spine. 2. Abnormal increased activity along both mainstem bronchi and extending into the lungs most characteristic of a bronchitis or bronchopneumonia. Jose Pelayo MD Thoracic Spine CT 05/07/17 0000 Signed Impressions: Service Date/Time: Sunday, May 07, 2017 09:34 - CONCLUSION: Minimal consolidative changes left lung posteriorly. Extensive degenerative changes without obvious osteomyelitis . Tagged white cell study would help to exclude such since the patient hasn't pacemaker and cannot undergo MRI. Myles Callejas MD FACR Lumbar Spine CT 05/07/17 0000 Signed Impressions: Service Date/Time: Sunday, May 07, 2017 09:34 - CONCLUSION: Substantial degenerative changes. I don't see evidence for an osteomyelitis. Tagged white cell study could help since the patient has pacemaker and cannot tolerate MRI. The epidural space is poorly visualized. Myles Callejas MD FACR Cervical Spine CT 05/07/17 0000 Signed Impressions: Service Date/Time: Sunday, May 07, 2017 09:34 - CONCLUSION: 1. No acute cervical spine abnormality is identified. I do not appreciate any findings to indicate osteomyelitis. However, a white blood cell scan may be more sensitive test for detecting osteomyelitis within the spine. 2. There are degenerative changes throughout the cervical spine, as above. Dylan Carranza MD Physical Exam GENERAL: Awake and alert, NAD SKIN: No rashes, ecchymoses or lesions. Cool and dry. HEAD: Atraumatic. Normocephalic. No temporal or scalp tenderness. EYES: Pupils equal round and reactive. Extraocular motions intact. No scleral icterus. No injection or drainage. ENT: Nose without bleeding, purulent drainage. Throat without erythema. Has fuchs coating on his tongue. NECK: Trachea midline. supple, nontender, no meningeal signs. Pacemaker site with no e.o infection. CARDIOVASCULAR: Regular rate and rhythm without murmurs, gallops, or rubs. RESPIRATORY: Clear to auscultation. Decreased at bases ABDOMEN: Protuberant, not tender MUSCULOSKELETAL: Extremities without clubbing, cyanosis, or edema. No calf tenderness. NEUROLOGICAL: Awake and alert. Grossly non focal. Psych: cooperative IV line sites with no e.o infection. Assessment & Plan Remarks Sepsis present on admission. Pneumonia ? Osteomyelitis of spine or Epidural abscess, WBC scan negative, back pain same Acute metabolic encephalopathy: infection, metabolic, ? dementia at baseline - seems better, so possibly related to sepsis Acute renal failure: ? baseline CKD, prerenal component (poor oral intake prior to admission) - improving Morbid Obesity (BMI 23.7) Sleep apnea on CPAP. Chronic pain on narcotics. (no pain medicine pump in place, will d.w daughter if any intrathecal pump) Pacemaker status. PLAN Change to po Abx and complete PNA treatment Follow temps Monitor progress Clinically improving from ID standpoint Kae Gaffney MD May 13, 2017 15:02
--- NOTE | 2017-05-13 20:15 | HHI.PR ---
Subjective Remarks Follow-up on inability to walk, back pain, right hip pain, tracheobronchitis. Still having right hip pain and back pain. Reports that he had issues with severe incontinence without the Perez during this hospitalization and is concerned that this will recur if we discontinue the Perez Objective Vital Signs Date Time Temp Pulse Resp B/P Pulse Ox O2 Delivery O2 Flow Rate FiO2 05/13/17 19:52 Nasal Cannula 2.00 05/13/17 16:00 98.0 113 20 129/78 98 05/13/17 16:00 Nasal Cannula 2.00 05/13/17 12:00 Nasal Cannula 2.00 05/13/17 12:00 97.3 114 20 146/92 98 05/13/17 11:45 98.5 92 16 130/81 96 Nasal Cannula 2 05/13/17 11:30 113 16 125/84 96 Nasal Cannula 2 05/13/17 11:15 98.0 113 16 123/81 96 Nasal Cannula 2 05/13/17 08:12 113 05/13/17 08:00 98.0 110 20 149/81 98 05/13/17 08:00 Nasal Cannula 1.00 05/13/17 06:24 103 05/13/17 04:00 97.6 98 20 138/77 95 05/13/17 00:00 97.8 102 20 140/83 95 I/O 05/12/17 05/12/17 05/12/17 05/13/17 05/13/17 05/13/17 07:00 15:00 23:00 07:00 15:00 23:00 Intake Total 730 ml 240 ml 0 ml 912 ml Output Total 1000 ml 700 ml 800 ml 1450 ml Balance -1000 ml 730 ml -460 ml -800 ml -538 ml Intake Oral 240 ml 0 ml 360 ml IV Total 730 ml 402 ml Other 150 ml Output Urine Total 1000 ml 700 ml 800 ml 1450 ml # Bowel Movements 1 1 1 Result Diagram: 05/13/1729 05/13/17628 Imaging Last Impressions Hip and Pelvis X-Ray 05/12/17 0000 Signed Impressions: Service Date/Time: Friday, May 12, 2017 18:29 - CONCLUSION: 1. Moderate osteoarthritis of the right hip. No acute bony abnormalities. Jose Pelayo MD Head CT 05/10/172019 Signed Impressions: Service Date/Time: Wednesday, May 10, 2017 20:52 - CONCLUSION: 1. No new findings. Tiny hemorrhage or calcification left frontal lobe either stable or slightly smaller. Jose Pelayo MD Abdomen/Pelvis CT 05/10/17 Signed Impressions: Service Date/Time: Wednesday, May 10, 2017 20:55 - CONCLUSION: 1. Mild gaseous distention of the stomach with nasogastric tube present. No significant small or large bowel distention. Colonic diverticulosis. 2. Subsegmental basal airspace disease in the lungs without significant effusion. 3. Pacer leads in right atrium and right ventricle. 4. Perez in decompressed bladder. Jose Pelayo MD Abdomen X-Ray 05/10/17 Signed Impressions: Service Date/Time: Wednesday, May 10, 2017 14:58 - CONCLUSION: Distended stomach, etiology uncertain. Gastric outlet or proximal duodenal obstruction would be in the differential. No evidence of small or large bowel distention. Dylan Santo MD Chest X-Ray 05/09/17 0600 Signed Impressions: Service Date/Time: Tuesday, May 09, 2017 04:14 - CONCLUSION: 1. Subsegmental atelectasis left base. The findings are improved when compared with the prior exam. Aguila Brown MD Tumor Localization 05/07/17 Signed Impressions: Service Date/Time: Sunday, May 07, 2017 17:05 - CONCLUSION: 1. No abnormal activity in the neck or cervical and thoracic spine. 2. Abnormal increased activity along both mainstem bronchi and extending into the lungs most characteristic of a bronchitis or bronchopneumonia. Jose Pelayo MD Thoracic Spine CT 05/07/17 Signed Impressions: Service Date/Time: Sunday, May 07, 2017 09:34 - CONCLUSION: Minimal consolidative changes left lung posteriorly. Extensive degenerative changes without obvious osteomyelitis . Tagged white cell study would help to exclude such since the patient hasn't pacemaker and cannot undergo MRI. Myles Callejas MD FACR Lumbar Spine CT 05/07/17 Signed Impressions: Service Date/Time: Sunday, May 07, 2017 09:34 - CONCLUSION: Substantial degenerative changes. I don't see evidence for an osteomyelitis. Tagged white cell study could help since the patient has pacemaker and cannot tolerate MRI. The epidural space is poorly visualized. Myles Callejas MD FACR Cervical Spine CT 05/07/17 0000 Signed Impressions: Service Date/Time: Sunday, May 07, 2017 09:34 - CONCLUSION: 1. No acute cervical spine abnormality is identified. I do not appreciate any findings to indicate osteomyelitis. However, a white blood cell scan may be more sensitive test for detecting osteomyelitis within the spine. 2. There are degenerative changes throughout the cervical spine, as above. Dylan Carranza MD Objective Remarks GENERAL: Resting comfortably no acute distress CARDIOVASCULAR: irregular rhythm and regular rate, without murmurs, gallops, or rubs. RESPIRATORY: Breath sounds equal and clear bilaterally anteriorly. GASTROINTESTINAL: Abdomen soft, non-tender, nondistended. MUSCULOSKELETAL: tender over right inguinal fold with no masses palpated. No bruising noted. A/P Assessment and Plan 86 y/o WM admitted to ICU with inability to walk and metabolic encephalopathy secondary to sepsis likely secondary to tracheobronchitis rhonchi versus bronchopneumonia. Most recently patient had a fall onto the floor out of his bed at home prior to hospitalization and had substantial low back and right hip pain. Has has been essentially unable to walk secondary to pain in both areas. Has had substantial central nervous system workup, neurology and neurosurgery both following, no acute LPN INSTRUCTOR infections have been identified, rather pulmonary process has been identified by infectious disease. Patient still reports having substantial right hip pain - we'll workup for fracture versus effusion versus arthritis flare. Metabolic encephalopathy - clinically resolved. - secondary to sepsis appears to be the reason for acute mental status change - Repeat CT of the brain with no contrast 05/06 revealed left frontal 5 motor convexity recommended follow-up. Dr. Yañez from neurosurgery following Right hip pain -, Plain film is negative, we'll proceed with CT scan for right hip for further workup if pain persists since MRI is contraindicated given patient has pacemaker. Discussed case with ortho yesterday over the phone, impression is most likely flareup of chronic arthritis but initial workup is warranted. Impaired systolic function - 2-D echocardiogram revealed EF 35-40%. Mild LVH. Trace MR/TR. low dose lisinopril abd distention - chronic, not a problem for the patient, tolerating feeds well Tracheobronchitis vs bronchopneumonia - Continue with abx (vancomycin, Zithromax, Zosyn) montior for sigsn of infections ( Fever, WBC) WBC is trending down - BC 05/07: NGTD, 05/08 strep pneumonia and Legionella urinary Ag negative, follow up on sputum cx - ID following - CT scan of the cervical, lumbar and thoracic spine negative for any evidence of infection - Tagged WBC scan : tracheobronchitis vs bronchopneumonia -Oxygen PRN maintain sats above 92%. - Bronchodilators on a p.r.n. basis and aspiration precautions. - Use home CPAP at night Afib - Currently rate controlled, resuming anticoagulation since no surgery is planned at this time - Sliding scale insulin with Accu-Cheks for glycemic control. Follow-up free T3/T4 Proph: - GI prophylaxis with Protonix 40 mg daily and DVT prophylaxis with SCDs. - Xarelto on hold for now in case of any procedures needed Level 2 Armaan Burden MD May 13, 2017 20:15
[2017-05-13] MEDS ORDERED: ENOXAPARIN SODIUM 40 MG/0.4 ML SYRINGE SQ ONE (21:00)
[2017-05-13] MEDS: CEFUROXIME AXETIL 500 MG TAB PO SCH (22:08)
[2017-05-14] VITALS (10 sets, daily range): BP systolic 131–152; BP diastolic 79–99; PULSE 74–115; RESP 18–22; TEMP 97.4–98.7; O2SAT 93–98
[2017-05-14] MEDS: CHLORHEXIDINE GLUCONATE 2 % 1 PACK (2 CLOTHS) TOP SCH (03:44)
[2017-05-14] MEDS: 1/2 NS + KCL 20 MEQ INJ 1,000 ML IV SCH (04:20)
[2017-05-14] MEDS: AZITHROMYCIN 250 MG TAB PO SCH (08:49)
[2017-05-14] MEDS: PANTOPRAZOLE SOD 40 MG DELAYED RELEASE TAB PO SCH (08:49)
[2017-05-14] MEDS: CARVEDILOL 3.125 MG TAB PO SCH ×2 (08:50→21:40)
[2017-05-14] MEDS: LISINOPRIL 5 MG TAB PO SCH (08:50)
[2017-05-14] MEDS: CEFUROXIME AXETIL 500 MG TAB PO SCH ×2 (08:50→21:40)
[2017-05-14] MEDS: NYSTATIN SUSP 500,000 U/5 ML CUP SWISH-SWAL SCH ×4 (08:50→21:00)
[2017-05-14] MEDS: DOCUSATE SODIUM 50 MG/SENNA 8.6 MG TAB PO SCH ×3 (09:00→21:00)
[2017-05-14] MEDS: POLYETHYLENE GLYCOL 17 GM PKG PO SCH (09:00)
[2017-05-14] MEDS ORDERED: IOHEXOL 350 MG/ML 10 ML VIAL (for RAD DIAG) IV ONE (10:45)
--- NOTE | 2017-05-14 11:23 | RADRPT ---
EXAM DATE/TIME: 05/14/2017 10:26 [place] COMPARISON: No previous studies available for comparison. INDICATIONS : Severe right hip pain. IV CONTRAST: 67 cc Omnipaque 350 (iohexol) IV RADIATION DOSE: 21.72 CTDIvol (mGy) MEDICAL HISTORY : None SURGICAL HISTORY : None. ENCOUNTER: Initial ACUITY: 1 day PAIN SCALE: 8/10 LOCATION: Right pelvis TECHNIQUE: Volumetric scanning of the hip was performed. Using automated exposure control and adjustment of the mA and/or kV according to patient size, radiation dose was kept as low as reasonably achievable to o btain optimal diagnostic quality images. DICOM format image data is available electronically for rev iew and comparison. FINDINGS: BONES: Significant marginal spurring is identified along the femoral head and neck. There is no evidence of acute fracture or subluxation. A 14 mm subchondral cyst is noted along the weight-bearing portion of the acetabulum. Smaller subchondral cysts are seen in the acetabulum and femoral head. Mild marginal spurring is noted along the acetabular rim. JOINTS: Severe joint space narrowing with [id number] apposition is noted. SOFT TISSUES: Muscles, tendons and neurovascular structures are grossly unremarkable. No evidence of mass, organize d fluid collection, or foreign body. CONCLUSION: Moderate to severe arthropathy of the right hip characteristic of osteoarthritis. No acute fracture, inflammatory changes or soft tissue mass are noted. Palliative treatment with intra-articular steroid injection should be considered. Luca Gonzalez MD on May 14, 2017 at 11:09 Board Certified Radiologist. This report was verified electronically.
[2017-05-14] MEDS: MORPHINE SULFATE 4 MG/ML INJ IV PUSH PRN ×3 (13:06→23:36)
--- NOTE | 2017-05-14 14:48 | HHI.GIFU ---
Subjective Remarks Late entry from 0940 this am. Pt was in stretcher, going to ay. HR was 130 when I saw patient, but nurse reports that they had just got him up on the stretcher and that it immediately came back down to 113. He c/o hip pain. No n/v. Mild epigastric discomfort. 1 bm Objective Vitals I&O Vital Signs Date Time Temp Pulse Resp B/P Pulse Ox O2 Delivery O2 Flow Rate FiO2 05/14/17 12:00 98.3 113 22 131/87 97 05/14/17 11:41 93 Nasal Cannula 3.00 05/14/17 08:00 97.4 115 22 149/99 96 05/14/17 04:00 98.2 113 20 150/91 96 05/14/17 00:00 98.1 96 20 138/82 96 05/13/17 20:00 97.9 114 20 130/86 97 05/13/17 19:52 Nasal Cannula 2.00 05/13/17 19:38 114 05/13/17 16:00 98.0 113 20 129/78 98 05/13/17 16:00 Nasal Cannula 2.00 I/O 05/13/17 05/13/17 05/13/17 05/14/17 05/14/17 05/14/17 06:59 14:59 22:59 06:59 14:59 22:59 Intake Total 0 ml 912 ml 1152 ml 630 ml Output Total 800 ml 1450 ml 1000 ml 525 ml Balance -800 ml -538 ml 152 ml 105 ml Intake Oral 0 ml 360 ml 480 ml 0 ml IV Total 402 ml 672 ml 630 ml Other 150 ml Output Urine Total 800 ml 1450 ml 1000 ml 525 ml # Bowel Movements 1 Imaging Last Impressions Lower Extremity CT 05/14/17 0000 Signed Impressions: Service Date/Time: Sunday, May 14, 2017 10:26 - CONCLUSION: Moderate to severe arthropathy of the right hip characteristic of osteoarthritis. No acute fracture, inflammatory changes or soft tissue mass are noted. Palliative treatment with intra-articular steroid injection should be considered. Luca Gonzalez MD Hip and Pelvis X-Ray 05/12/17 0000 Signed Impressions: Service Date/Time: Friday, May 12, 2017 18:29 - CONCLUSION: 1. Moderate osteoarthritis of the right hip. No acute bony abnormalities. Jose Pelayo MD Head CT 05/10/172019 Signed Impressions: Service Date/Time: Wednesday, May 10, 2017 20:52 - CONCLUSION: 1. No new findings. Tiny hemorrhage or calcification left frontal lobe either stable or slightly smaller. Jose Pelayo MD Abdomen/Pelvis CT 05/10/17 Signed Impressions: Service Date/Time: Wednesday, May 10, 2017 20:55 - CONCLUSION: 1. Mild gaseous distention of the stomach with nasogastric tube present. No significant small or large bowel distention. Colonic diverticulosis. 2. Subsegmental basal airspace disease in the lungs without significant effusion. 3. Pacer leads in right atrium and right ventricle. 4. Perez in decompressed bladder. Jose Pelayo MD Abdomen X-Ray 05/10/17 Signed Impressions: Service Date/Time: Wednesday, May 10, 2017 14:58 - CONCLUSION: Distended stomach, etiology uncertain. Gastric outlet or proximal duodenal obstruction would be in the differential. No evidence of small or large bowel distention. Dylan Santo MD Chest X-Ray 05/09/17 0600 Signed Impressions: Service Date/Time: Tuesday, May 09, 2017 04:14 - CONCLUSION: 1. Subsegmental atelectasis left base. The findings are improved when compared with the prior exam. Aguila Brown MD Tumor Localization 05/07/17 Signed Impressions: Service Date/Time: Sunday, May 07, 2017 17:05 - CONCLUSION: 1. No abnormal activity in the neck or cervical and thoracic spine. 2. Abnormal increased activity along both mainstem bronchi and extending into the lungs most characteristic of a bronchitis or bronchopneumonia. Jose Pelayo MD Thoracic Spine CT 05/07/17 Signed Impressions: Service Date/Time: Sunday, May 07, 2017 09:34 - CONCLUSION: Minimal consolidative changes left lung posteriorly. Extensive degenerative changes without obvious osteomyelitis . Tagged white cell study would help to exclude such since the patient hasn't pacemaker and cannot undergo MRI. Myles Callejas MD FACR Lumbar Spine CT 05/07/17 Signed Impressions: Service Date/Time: Sunday, May 07, 2017 09:34 - CONCLUSION: Substantial degenerative changes. I don't see evidence for an osteomyelitis. Tagged white cell study could help since the patient has pacemaker and cannot tolerate MRI. The epidural space is poorly visualized. Myles Callejas MD FACR Cervical Spine CT 05/07/17 0000 Signed Impressions: Service Date/Time: Sunday, May 07, 2017 09:34 - CONCLUSION: 1. No acute cervical spine abnormality is identified. I do not appreciate any findings to indicate osteomyelitis. However, a white blood cell scan may be more sensitive test for detecting osteomyelitis within the spine. 2. There are degenerative changes throughout the cervical spine, as above. Dylan Carranza MD Physical Exam HEENT: Normocephalic; atraumatic; no jaundice. CHEST: CTA, diminished bases CARDIAC: Irregular, tachycardic ABDOMEN: Soft, nondistended, nontender; no hepatosplenomegaly; bowel sounds are present in all four quadrants. EXTREMITIES: No clubbing, cyanosis, or edema. SKIN: Normal; no rash; no jaundice. [employer]: No focal deficits; alert and oriented times three. Assessment and Plan Plan ASSESSMENT: - Gastric distention, unclear etiology. Abdomen X-Ray (05/10/17)----> Distended stomach, etiology uncertain. Gastric outlet or proximal duodenal obstruction would be in the differential. No evidence of small or large bowel distention. He then had a Abdomen/Pelvis CT (05/10/17)-----> 1. Mild gaseous distention of the stomach with nasogastric tube present. No significant small or large bowel distention. Colonic diverticulosis. 2. Subsegmental basal airspace disease in the lungs without significant effusion. 3. Pacer leads in right atrium and right ventricle. 4. Perez in decompressed bladder. GI was consulted for further evaluation and treatment of gastric distention. The patient tells me that he has been told that his stomach was distended for quite some time, even prior to this hospitalization and that he has had an EGD in the past, but not for quite some time. S/P EGD (05/13/17)----> distal esophagitis, hiatal hernia, bx of GE junction, mild gastritis pylorus open, normal duodenum. Pathology pending. No n/v. Mild epigastric discomfort. PPI. - Diarrhea. 1 week hx of intermittent diarrhea with 1-2 liquid stools per day. No bleeding. 1BM today. - Inability to ambulate, generalized weakness with spinal stenosis, herniated disk, and ddd. NSx following- CT cervical, thoracic, lumbar spine with extensive degenerative changes without obvious OM. WBC scan without activity in neck and thoracic spine. - AMS, acute encephalopathy. Abnormal imaging with CT scan of the brain revealed small focal area of mildly increased density in the left periventricular white matter with surrounding low-density which is nonspecific. Questionable slight hemorrhage and edema. He was evaluated by neurosurgery and MRI was recommended, but could not be done secondary to his PPM being incompatible with MRI. Rpt. CT with no acute intracranial abnormality. NSx following - Resp. Insufficiency, bronchitis vs. bronchopneumonia on wbc scan. Ceftin/ Azithromycin. - Fever, Leukocytosis, Bandemia. Sputum with moderate growth normal respiratory arthur, random urine negative for legionella/streptococcus, bcx no growth 5 days. Ceftin, Nystatin, Azithromycin. - Acute kidney injury with electrolyte abnormalities. Improved. - Anemia, normocytic. 10.7/32.8 yesterday. - Hx Atrial fibrillation, hypertension, ostearthritis, [place], systolic heart failure. per attending. PLAN: - WU - Await pathology - PPI - Monitor labs - Supportive care - Further recommendations to follow based on results of above - Pt seen and examined by Dr. Ludwig and myself and this note is written on his behalf Tonia Ferraro May 14, 2017 14:48
[2017-05-14] MEDS ORDERED: ENOXAPARIN SODIUM 30 MG/0.3 ML SYRINGE SQ ONE (17:00)
--- NOTE | 2017-05-14 18:16 | HHI.PR ---
Subjective Remarks Follow-up on inability to walk, back pain, right hip pain, tracheobronchitis. Still having right hip pain and back pain. Reports that he had issues with severe incontinence without the Perez during this hospitalization and is concerned that this will recur if we discontinue the Perez Objective Vital Signs Date Time Temp Pulse Resp B/P Pulse Ox O2 Delivery O2 Flow Rate FiO2 05/14/17 16:00 98.7 114 20 152/79 98 05/14/17 12:00 98.3 113 22 131/87 97 05/14/17 11:41 93 Nasal Cannula 3.00 05/14/17 08:00 97.4 115 22 149/99 96 05/14/17 04:00 98.2 113 20 150/91 96 05/14/17 00:00 98.1 96 20 138/82 96 05/13/17 20:00 97.9 114 20 130/86 97 05/13/17 19:52 Nasal Cannula 2.00 05/13/17 19:38 114 I/O 05/13/17 05/13/17 05/13/17 05/14/17 05/14/17 05/14/17 06:59 14:59 22:59 06:59 14:59 22:59 Intake Total 0 ml 912 ml 1152 ml 630 ml 480 ml Output Total 800 ml 1450 ml 1000 ml 525 ml 1250 ml Balance -800 ml -538 ml 152 ml 105 ml -770 ml Intake Oral 0 ml 360 ml 480 ml 0 ml 480 ml IV Total 402 ml 672 ml 630 ml Other 150 ml Output Urine Total 800 ml 1450 ml 1000 ml 525 ml 1250 ml # Bowel Movements 1 1 Result Diagram: 05/13/1729 05/13/17628 Objective Remarks GENERAL: Resting comfortably no acute distress CARDIOVASCULAR: irregular rhythm and regular rate, without murmurs, gallops, or rubs. RESPIRATORY: Breath sounds equal and clear bilaterally anteriorly. GASTROINTESTINAL: Abdomen soft, non-tender, nondistended. MUSCULOSKELETAL: tender over right inguinal fold with no masses palpated. No bruising noted. A/P Assessment and Plan 86 y/o WM admitted to ICU with inability to walk and metabolic encephalopathy secondary to sepsis likely secondary to tracheobronchitis rhonchi versus bronchopneumonia. Most recently patient had a fall onto the floor out of his bed at home prior to hospitalization and had substantial low back and right hip pain. Has has been essentially unable to walk secondary to pain in both areas. Has had substantial central nervous system workup, neurology and neurosurgery both following, no acute [employer] infections have been identified, rather pulmonary process has been identified by infectious disease. Patient still reports having substantial right hip pain - we'll workup for fracture versus effusion versus arthritis flare. Metabolic encephalopathy - clinically resolved. - secondary to sepsis appears to be the reason for acute mental status change - Repeat CT of the brain with no contrast 05/06 revealed left frontal 5 motor convexity recommended follow-up. Dr. Yañez from neurosurgery following Right hip pain -, Plain film is negative, we'll proceed with CT scan for right hip for further workup if pain persists since MRI is contraindicated given patient has pacemaker. Discussed case with ortho yesterday over the phone, impression is most likely flareup of chronic arthritis but initial workup is warranted. Impaired systolic function - 2-D echocardiogram revealed EF 35-40%. Mild LVH. Trace MR/TR. low dose lisinopril abd distention - chronic, not a problem for the patient, tolerating feeds well Tracheobronchitis vs bronchopneumonia - Continue with abx (vancomycin, Zithromax, Zosyn) montior for sigsn of infections ( Fever, WBC) WBC is trending down - BC 05/07: NGTD, 05/08 strep pneumonia and Legionella urinary Ag negative, follow up on sputum cx - ID following - CT scan of the cervical, lumbar and thoracic spine negative for any evidence of infection - Tagged WBC scan : tracheobronchitis vs bronchopneumonia -Oxygen PRN maintain sats above 92%. - Bronchodilators on a p.r.n. basis and aspiration precautions. - Use home CPAP at night Afib - Currently rate controlled, resuming anticoagulation since no surgery is planned at this time - Sliding scale insulin with Accu-Cheks for glycemic control. Follow-up free T3/T4 Proph: - GI prophylaxis with Protonix 40 mg daily and DVT prophylaxis with SCDs. - Xarelto on hold for now in case of any procedures needed Level 2 Armaan Burden MD May 14, 2017 18:16
--- NOTE | 2017-05-14 18:23 | HHI.PR ---
Subjective Remarks Follow-up on inability to walk, back pain, right hip pain, tracheobronchitis. Patient actually reports being able to sit up today in bed which she says is a improvement from before, being able to bear somewhat more weight partially on his right hip. Says that he still unable to stand due to the severe pain in his right hip and also from his lower back. He is opting to delay the treatment of a radiographically guided intra-articular right hip injection due to this improvement, we'll reassess in a few days to see if he still needs it. Objective Vital Signs Date Time Temp Pulse Resp B/P Pulse Ox O2 Delivery O2 Flow Rate FiO2 05/14/17 16:00 98.7 114 20 152/79 98 05/14/17 12:00 98.3 113 22 131/87 97 05/14/17 11:41 93 Nasal Cannula 3.00 05/14/17 08:00 97.4 115 22 149/99 96 05/14/17 04:00 98.2 113 20 150/91 96 05/14/17 00:00 98.1 96 20 138/82 96 05/13/17 20:00 97.9 114 20 130/86 97 05/13/17 19:52 Nasal Cannula 2.00 05/13/17 19:38 114 I/O 05/13/17 05/13/17 05/13/17 05/14/17 05/14/17 05/14/17 06:59 14:59 22:59 06:59 14:59 22:59 Intake Total 0 ml 912 ml 1152 ml 630 ml 480 ml Output Total 800 ml 1450 ml 1000 ml 525 ml 1250 ml Balance -800 ml -538 ml 152 ml 105 ml -770 ml Intake Oral 0 ml 360 ml 480 ml 0 ml 480 ml IV Total 402 ml 672 ml 630 ml Other 150 ml Output Urine Total 800 ml 1450 ml 1000 ml 525 ml 1250 ml # Bowel Movements 1 1 Result Diagram: 05/13/1762805/13/17628 Objective Remarks GENERAL: Resting comfortably, no acute distress CARDIOVASCULAR: irregular rhythm and tachycardic rate, without murmurs, gallops , or rubs. RESPIRATORY: Breath sounds equal and clear bilaterally anteriorly. GASTROINTESTINAL: Abdomen soft, non-tender, nondistended. MUSCULOSKELETAL: less, mild TTP over right inguinal fold with no masses palpated. A/P Assessment and Plan 86 y/o WM admitted to ICU with inability to walk and metabolic encephalopathy secondary to sepsis likely secondary to tracheobronchitis rhonchi versus bronchopneumonia. Most recently patient had a fall onto the floor out of his bed at home prior to hospitalization and had substantial low back and right hip pain. Has has been essentially unable to walk secondary to pain in both areas. Has had substantial central nervous system workup, neurology and neurosurgery both following, no acute [employer] infections have been identified, rather pulmonary process has been identified by infectious disease. Patient still reports having substantial right hip pain - we'll workup for fracture versus effusion versus arthritis flare. Metabolic encephalopathy - clinically resolved. - secondary to sepsis appears to be the reason for acute mental status change - Repeat CT of the brain with no contrast 05/06 revealed left frontal 5 motor convexity recommended follow-up. Dr. Yañez from neurosurgery following. Free T4 wnl. Inability to walk/back pain - Has chronic degenerative disc disease along with spinal stenosis. Neurosurgery following, plan for CT myelogram tomorrow. Has to be off of Lovenox 12 hours prior to procedure. Right hip pain/inability to walk - Plain film is negative, CT scan is not showing any signs of acute infection or hip effusion, patient overall is improving with this, would like to try conservative management before proceeding with an intra-articular hip injection. Impaired systolic function - 2-D echocardiogram revealed EF 35-40%. Mild LVH. Trace MR/TR. low dose lisinopril abd distention - chronic, not a problem for the patient, tolerating feeds well Tracheobronchitis vs bronchopneumonia - Continue with abx (vancomycin, Zithromax, Zosyn) montior for sigsn of infections ( Fever, WBC) WBC is trending down - BC 05/07: NGTD, 05/08 strep pneumonia and Legionella urinary Ag negative, follow up on sputum cx - ID following - CT scan of the cervical, lumbar and thoracic spine negative for any evidence of infection - Tagged WBC scan : tracheobronchitis vs bronchopneumonia -Oxygen PRN maintain sats above 92%. - Bronchodilators on a p.r.n. basis and aspiration precautions. - Use home CPAP at night Afib - Currently rate controlled, given Lovenox last night, giving another Lovenox shot today as one time given CT myelogram tomorrow. Free T4 wnl. - Sliding scale insulin with Accu-Cheks for glycemic control. Proph: - GI prophylaxis with Protonix 40 mg daily and DVT prophylaxis with SCDs. - Xarelto on hold for now in case of any procedures needed - lovenox intermittently due to procedures Armaan Burden MD May 14, 2017 18:23
[2017-05-15] VITALS (9 sets, daily range): BP systolic 139–147; BP diastolic 84–89; PULSE 106–115; RESP 18; TEMP 97.9–98.8; O2SAT 95–97
[2017-05-15] MEDS: CHLORHEXIDINE GLUCONATE 2 % 1 PACK (2 CLOTHS) TOP SCH (04:00)
[2017-05-15] MEDS: 1/2 NS + KCL 20 MEQ INJ 1,000 ML IV SCH (04:09)
[2017-05-15] MEDS ORDERED: LACTATED RINGER'S 1000 ML INJ 1,000 ML IV SCH ×2 (06:00→17:52)
[2017-05-15] MEDS ORDERED: DIAZEPAM 5 MG TAB PO SCH ×2 (07:00→15:15)
[2017-05-15] MEDS: CARVEDILOL 3.125 MG TAB PO SCH ×2 (08:32→21:49)
[2017-05-15] MEDS: AZITHROMYCIN 250 MG TAB PO SCH (08:32)
[2017-05-15] MEDS: NYSTATIN SUSP 500,000 U/5 ML CUP SWISH-SWAL SCH ×4 (08:32→21:49)
[2017-05-15] MEDS: CEFUROXIME AXETIL 500 MG TAB PO SCH ×2 (08:32→21:49)
[2017-05-15] MEDS: LISINOPRIL 5 MG TAB PO SCH (08:33)
[2017-05-15] MEDS: PANTOPRAZOLE SOD 40 MG DELAYED RELEASE TAB PO SCH (08:33)
[2017-05-15] MEDS: DOCUSATE SODIUM 50 MG/SENNA 8.6 MG TAB PO SCH ×3 (08:34→21:00)
[2017-05-15] MEDS: POLYETHYLENE GLYCOL 17 GM PKG PO SCH (08:34)
--- NOTE | 2017-05-15 09:01 | HHI.PR ---
Subjective Remarks The patient says that the hoarseness in his voice comes and goes. He said he is still feeling weak. He says he has a couple of tests to do today. He says his right hip and groin is hurting quite a bit. He says he is on a clear liquid diet. Objective Vitals Vital Signs Date Time Temp Pulse Resp B/P Pulse Ox O2 Delivery O2 Flow Rate FiO2 05/15/17 08:00 98.8 115 18 139/84 95 05/15/17 04:44 98.5 110 18 143/84 96 05/14/17 23:28 98.7 113 18 147/95 97 05/14/17 20:18 96 Nasal Cannula 2.50 05/14/17 20:17 98.4 115 18 144/92 97 05/14/17 20:00 115 05/14/17 19:47 Nasal Cannula 2.00 05/14/17 16:00 98.7 114 20 152/79 98 05/14/17 12:00 98.3 113 22 131/87 97 05/14/17 11:41 93 Nasal Cannula 3.00 I/O 05/14/17 05/14/17 05/14/17 05/15/17 05/15/17 05/15/17 07:00 15:00 23:00 07:00 15:00 23:00 Intake Total 630 ml 1080 ml 60 ml Output Total 525 ml 1250 ml 225 ml Balance 105 ml -170 ml -165 ml Intake Oral 0 ml 1080 ml 60 ml IV Total 630 ml Output Urine Total 525 ml 1250 ml 225 ml # Voids 0 # Bowel Movements 1 0 Result Diagram: 05/13/17 0629 05/13/17 0629 Imaging Last Impressions Lower Extremity CT 05/14/17 0000 Signed Impressions: Service Date/Time: Sunday, May 14, 2017 10:26 - CONCLUSION: Moderate to severe arthropathy of the right hip characteristic of osteoarthritis. No acute fracture, inflammatory changes or soft tissue mass are noted. Palliative treatment with intra-articular steroid injection should be considered. Luca Gonzalez MD Hip and Pelvis X-Ray 05/12/17 0000 Signed Impressions: Service Date/Time: Friday, May 12, 2017 18:29 - CONCLUSION: 1. Moderate osteoarthritis of the right hip. No acute bony abnormalities. Jose Pelayo MD Head CT 05/10/172019 Signed Impressions: Service Date/Time: Wednesday, May 10, 2017 20:52 - CONCLUSION: 1. No new findings. Tiny hemorrhage or calcification left frontal lobe either stable or slightly smaller. Jose Pelayo MD Abdomen/Pelvis CT 05/10/17 Signed Impressions: Service Date/Time: Wednesday, May 10, 2017 20:55 - CONCLUSION: 1. Mild gaseous distention of the stomach with nasogastric tube present. No significant small or large bowel distention. Colonic diverticulosis. 2. Subsegmental basal airspace disease in the lungs without significant effusion. 3. Pacer leads in right atrium and right ventricle. 4. Perez in decompressed bladder. Jose Pelayo MD Abdomen X-Ray 05/10/17 Signed Impressions: Service Date/Time: Wednesday, May 10, 2017 14:58 - CONCLUSION: Distended stomach, etiology uncertain. Gastric outlet or proximal duodenal obstruction would be in the differential. No evidence of small or large bowel distention. Dylan Santo MD Chest X-Ray 05/09/17 0600 Signed Impressions: Service Date/Time: Tuesday, May 09, 2017 04:14 - CONCLUSION: 1. Subsegmental atelectasis left base. The findings are improved when compared with the prior exam. Aguila Brown MD Tumor Localization 05/07/17 Signed Impressions: Service Date/Time: Sunday, May 07, 2017 17:05 - CONCLUSION: 1. No abnormal activity in the neck or cervical and thoracic spine. 2. Abnormal increased activity along both mainstem bronchi and extending into the lungs most characteristic of a bronchitis or bronchopneumonia. Jose Pelayo MD Thoracic Spine CT 05/07/17 Signed Impressions: Service Date/Time: Sunday, May 07, 2017 09:34 - CONCLUSION: Minimal consolidative changes left lung posteriorly. Extensive degenerative changes without obvious osteomyelitis . Tagged white cell study would help to exclude such since the patient hasn't pacemaker and cannot undergo MRI. Myles Callejas MD FACR Lumbar Spine CT 05/07/17 Signed Impressions: Service Date/Time: Sunday, May 07, 2017 09:34 - CONCLUSION: Substantial degenerative changes. I don't see evidence for an osteomyelitis. Tagged white cell study could help since the patient has pacemaker and cannot tolerate MRI. The epidural space is poorly visualized. Myles Callejas MD FACR Cervical Spine CT 05/07/17 0000 Signed Impressions: Service Date/Time: Sunday, May 07, 2017 09:34 - CONCLUSION: 1. No acute cervical spine abnormality is identified. I do not appreciate any findings to indicate osteomyelitis. However, a white blood cell scan may be more sensitive test for detecting osteomyelitis within the spine. 2. There are degenerative changes throughout the cervical spine, as above. Dylan Carranza MD Objective Remarks GENERAL: Sitting up in bed, in no acute distress. HEENT: Atraumatic, normocephalic. Pupils equal, round NECK: Supple. No JVD, adenopathy or thyromegaly. Trachea midline. CARDIOVASCULAR: Tachycardia. Normal S1-S2. No murmurs, rubs or gallops noted. PULMONARY: Bilateral equal air entry. No rales or wheezing. ABDOMEN: Soft, nontender, slightly distended. Positive bowel sounds. EXTREMITIES: No significant peripheral edema. Right hip tender to palpation. NEURO: No gross deficits. PSYCH: Mood and affect appropriate. Medications and IVs Current Medications Medications (Trade) Dose Ordered Sig/Jaswinder Route Start Time Stop Time Status Last Admin Miscellaneous Information 1 Q361D XX 05/07/17 09:30 (Chlorhexidine 2% Cloth) Taper DAILY@04 TOP 05/08/17 04:00 05/04/18 03:59 05/11/17 04:00 (Chlorhexidine 2% Cloth) 3 pack UNSCH PRN TOP 05/07/17 09:30 (Lynsey-Colace) 1 tab BID PO 05/07/17 21:00 05/13/17 08:10 (Milk Of Magnesia Liq) 30 ml Q12H PRN PO 05/07/17 09:30 (Senokot) 17.2 mg Q12H PRN PO 05/07/17 09:30 (Dulcolax Supp) 10 mg DAILY PRN RECTAL 05/07/17 09:30 (Lactulose Liq) 30 ml DAILY PRN PO 05/07/17 09:30 (Morphine Inj) 2 mg Q3H PRN IV PUSH 05/07/17 18:45 05/14/17 23:36 (Zofran Inj) 4 mg Q6HR PRN IV PUSH 05/10/17 09:15 05/10/17 09:33 (Compazine Inj) 5 mg Q6H PRN IV PUSH 05/10/17 13:00 Hold 05/10/17 13:43 (Phenergan Supp) 25 mg Q6H PRN RECTAL 05/10/17 13:00 Hold (Coreg) 3.125 mg BID PO 05/11/17 21:00 05/15/17 08:32 (Remeron) 15 mg HS PO 05/11/17 21:00 Hold 05/12/17 20:35 (Mycostatin Liq) 5 ml QID SWISH-SWAL 05/11/17 18:00 05/15/17 08:32 (Miralax) 17 gm DAILY PO 05/12/17 09:00 (Lynsey-Colace) 2 tab HS PO 05/11/17 21:00 (Protonix) 40 mg DAILY PO 05/13/17 09:00 05/15/17 08:33 Lisinopril 5 mg 5 mg DAILY PO 05/12/17 18:00 05/15/17 08:33 (Lr 1000 ml Inj) 1,000 ml @ 125 mls/hr Q8H IV 05/15/17 06:00 05/15/17 13:59 05/15/17 05:31 (Zithromax) 500 mg DAILY PO 05/14/17 09:00 05/18/17 08:59 05/15/17 08:32 (Ceftin) 500 mg Q12HR PO 05/13/17 21:00 05/17/17 20:59 05/15/17 08:32 A/P Assessment and Plan Metabolic encephalopathy/ weakness Admitted to ICU with inability to walk and metabolic encephalopathy secondary to sepsis likely secondary to tracheobronchitis versus bronchopneumonia. Most recently patient had a fall onto the floor out of his bed at home prior to hospitalization and had substantial low back and right hip pain. Has has been essentially unable to walk secondary to pain in both areas. Has had substantial central nervous system workup, neurology and neurosurgery both following, no acute DYE RANGE TENDER infections have been identified. ID consult appreciated. Imaging has revealed significant spinal stenosis. - antibiotics per ID. - CT myelogram per NS pending. - PT/ OT/ ST. Right hip pain Plain film is negative, CT scan with arthritis. - consider joint injection. - PT/ OT. - pain control with a bowel regimen. Chronic systolic CHF 2-D echocardiogram revealed EF 35-40%; Mild LVH; Trace MR/TR. - continue low dose lisinopril. abdominal distention GI consult appreciated. CT scan noted. - serial abdominal exams. - follow up with GI. - bowel regimen. Tracheobronchitis vs bronchopneumonia ID consult appreciated. BC 05/07: NGTD, 05/08 strep pneumonia and Legionella urinary Ag negative. CT scan of the cervical, lumbar and thoracic spine negative for any evidence of infection. Tagged WBC scan: tracheobronchitis vs bronchopneumonia. - Oxygen PRN maintain sats above 92%. - Bronchodilators on a p.r.n. basis and aspiration precautions. - Use home CPAP at night. - continue azithromycin and Ceftin per ID. Afib Has been tachycardic. - repeat an EKG. - increase Coreg as needed. - telemetry. - Xarelto on hold for procedures. Hypokalemia Likely s/t decreased PO intake. - repeat BMP and replete as needed. PPx: Lovenox Discharge Planning Awaiting further evaluation Reji Jaramillo DO May 15, 2017 09:01
[2017-05-15 09:56] LABS: AUTOMATED NEUTROPHIL # 8.4 TH/MM3 (1.8-7.7); BASOPHIL % 0.2 % (0.0-2.0); EOSINOPHIL # 0.2 TH/MM3 (0-0.4); EOSINOPHIL % 1.8 % (0.0-4.0); HEMO FLAGS DIFF FINAL; LYMPH % 10.1 % (9.0-44.0); LYMPHOCYTE # 1.1 TH/MM3 (1.0-4.8); MEAN CELL VOLUME 92.7 FL (80.0-100.0); MEAN CORPUSCULAR HEMOGLOBIN 30.7 PG (27.0-34.0); MEAN CORPUSCULAR HGB CONC 33.1 % (32.0-36.0); MONO % 11.8 % (0.0-8.0); NEUT % 76.1 % (16.0-70.0); PLATELET COUNT 195 TH/MM3 (150-450); RED BLOOD COUNT 3.56 MIL/MM3 (4.50-5.90); RED CELL DISTRIBUTION WIDTH 13.4 % (11.6-17.2)
[2017-05-15 10:01] LABS: INTERNATIONAL NORMALIZED RATIO 1.1 RATIO; PROTHROMBIN TIME - PATIENT 12.3 SEC (9.8-11.6)
--- NOTE | 2017-05-15 10:30 | HHI.NSPN ---
(Dayron Amado) History Chief Complaint: Right groin and right foot pain. (Dayron Amado) Interval History 05/07: This is a very pleasant, although confused, 86-year-old male who isn't sure why he is here. The history is obtained from his daughters who are present and he gave permission to speak with. The patient has a history of sleep apnea and uses a CPAP machine at night. About 3 weeks ago he felt that having the head of the bed elevated would help him and he slept that way for a few nights. He developed back pain and one daughter took him to [facility] for evaluation. He was doing well and his pain was controlled with [place], therefore he was discharged home. The following day the other daughter took him to his Chiropractor. At that time he was using a cane to ambulate. When he left the office he was not able to walk and had to be taken to the vehicle in a wheelchair. He was subsequently taken back to [facility] for evaluation again and imaging demonstrated spinal stenosis, disc herniation and degenerative disc disease. He was admitted for 3 days and after that was discharged to [facility] where he had been until this morning. His daughter's report that he was briefly on gabapentin which was stopped due to upper extremity tremors. That was replaced with Remeron and the patient had a decreased level of consciousness. The patient was found on the floor of his room at [facility] and he was transported to [facility] for evaluation in the emergency department. The daughters do report that the patient has had decreased oral intake the past few days and not had a bowel movement since 728. The patient was tremulous and had a max temperature of 102. His daughters did report to the ED Physician that the patient had started coughing that day. In the Emergency Department the patient was found to have an elevated WBC count at 23.8 with neutrophils [address] brain demonstrated a small focal area of mildly increased density within the left periventricular white matter with surrounding low-density which could represent slight haemorrhage and edema. Dr Yañez was notified and requested an MRI but the patient's pacemaker wasn't compatible. Therefore additional CT imaging w/o and w/contrast of the brain and spine were ordered which was unremarkable for any acute abnormality of the brain or spine. Substantial degenerative changes were noted throughout the spine. It was recommended that a tagged WBC study be done. The patient has been admitted by the Polymer Tester to the [facility] and was waiting for a bed. 05/08: The patient states he is doing good today. He has no complaints but does endorse some aching to the back. 05/12: When seen this afternoon the patient states he is doing good. He denied any back pain when asked but finally did endorse pain with movement. He also endorsed pain to the right groin. He still is unable to ambulate. 05/13: The patient says he is doing good this afternoon. He does endorse back pain with movement and still has the right groin pain. He went for a GI procedure this morning but he isn't aware of the results. 05/15: This morning the patient states he is doing good. He does have pain to the right groin and the right foot. He denies any pain to the back. He is to go for a CT myelogram today. (Dayron Amado) System Review Comments Constitutional: Patient denies any fever or chills. HEENT: Patient denies any visual or hearing difficulty. Respiratory: Patient denies any shortness of breath or productive cough. Cardiovascular: Patient states he did have a racing heart this morning but not when seen. He denies any chest pain or irregular heartbeat. Gastrointestinal: Patient states his "tummy is tender" this morning but he is unable to describe it any further. He denies any vomiting or incontinence of stool. Genitourinary: Patient denies any urinary incontinence. Musculoskeletal: Patient has pain to the right groin and the right foot. He denies any neck, back or other extremity pain. Neurologic: Patient states he is unable to walk. He denies any headache, dizziness, numbness or tingling. (Dayron Amado) Exam Results Vital Signs Date Time Temp Pulse Resp B/P Pulse Ox O2 Delivery O2 Flow Rate FiO2 05/15/17 08:00 98.8 115 18 139/84 95 05/14/17 20:18 Nasal Cannula 2.50 05/14/17 08:00 21 Intake and Output 05/14/17 05/14/17 05/15/17 08:00 16:00 00:00 Intake Total 630 ml 480 ml 600 ml Output Total 525 ml 1250 ml Balance 105 ml -770 ml 600 ml (Dayron Amado) Physical Examination GENERAL: The patient is asleep but awakens to verbal stimuli, after that he is alert and readily interacts. No apparent distress. Normal affect. SKIN: Warm, dry & intact, no evident rashes, ulcerations or other lesions noted. HEENT: Normocephalic, atraumatic. NECK: Midline cervical spine NTTP, neck supple, no JVD, trachea midline. CARDIOVASCULAR: S1S2 w/RRR w/o M/G/R, radial & pedal pulses 2+ bilaterally, cap refill < 2 sec, 2+ pedal edema. RESPIRATORY: CTAB w/o W/R/R, equal excursion, nonlaboured, on NC. GASTROINTESTINAL: Abdomen soft, nontender, positive bowel sounds. MUSCULOSKELETAL: CALEDRON w/o difficulty, no evident deformity or clubbing, TTP at mid right groin and top of the mid right foot, the patient states the lumbosacral spine is "raw" to palpation. NEUROLOGICAL: AAOx3 (person, time & being in hospital but not name). Speech clear & appropriate. Sensation intact to light touch to all extremities. Motor strength 5/5 to all major flexion & extension muscle groups. (Dayron Amado) Lab, Micro, Other Results Allergies Coded Allergies Type Severity Reaction Last Updated Verified Xopenex Allergy Severe 05/07/17 No Uncoded Allergies Type Severity Reaction Last Updated Verified MRI PRECAUTION PACEMAKER Adverse Reaction Severe NON COMPATIBLE PACMAKER Recent Impressions Lower Extremity CT 05/14/17 0000 Signed Impressions: Service Date/Time: Sunday, May 14, 2017 10:26 - CONCLUSION: Moderate to severe arthropathy of the right hip characteristic of osteoarthritis. No acute fracture, inflammatory changes or soft tissue mass are noted. Palliative treatment with intra-articular steroid injection should be considered. Luca Gonzalez MD 06:00 18:00 06:00 18:00 06:00 18:00 Intake Total 240 ml 912 ml 1782 ml 480 ml 660 ml Output Total 800 ml 1450 ml 1525 ml 1250 ml 225 ml Balance -560 ml -538 ml 257 ml -770 ml 435 ml Intake Oral 240 ml 360 ml 480 ml 480 ml 660 ml IV Total 402 ml 1302 ml Other 150 ml Output Urine Total 800 ml 1450 ml 1525 ml 1250 ml 225 ml # Voids 0 # Bowel Movements 0 1 1 0 Laboratory Tests Test 05/12/17 05/13/17 05/15/17 18:07 06:29 09:19 Procalcitonin 0.15 ng/mL White Blood Count 11.2 TH/MM3 11.0 TH/MM3 Red Blood Count 3.50 MIL/MM3 3.56 MIL/MM3 Hemoglobin 10.7 GM/DL 10.9 GM/DL Hematocrit 32.8 % 33.0 % Mean Corpuscular Volume 93.8 FL 92.7 FL Mean Corpuscular Hemoglobin 30.7 PG 30.7 PG Mean Corpuscular Hemoglobin 32.7 % 33.1 % Concent Red Cell Distribution Width 13.6 % 13.4 % Platelet Count 196 TH/MM3 195 TH/MM3 Mean Platelet Volume 8.9 FL 8.6 FL Neutrophils (%) (Auto) 73.2 % 76.1 % Lymphocytes (%) (Auto) 13.3 % 10.1 % Monocytes (%) (Auto) 11.0 % 11.8 % Eosinophils (%) (Auto) 2.2 % 1.8 % Basophils (%) (Auto) 0.3 % 0.2 % Neutrophils # (Auto) 8.2 TH/MM3 8.4 TH/MM3 Lymphocytes # (Auto) 1.5 TH/MM3 1.1 TH/MM3 Monocytes # (Auto) 1.2 TH/MM3 1.3 TH/MM3 Eosinophils # (Auto) 0.2 TH/MM3 0.2 TH/MM3 Basophils # (Auto) 0.0 TH/MM3 0.0 TH/MM3 CBC Comment AUTO DIFF DIFF FINAL Differential Total Cells 100 Counted Neutrophils % (Manual) 67 % Band Neutrophils % 8 % Lymphocytes % 16 % Monocytes % 5 % Eosinophils % 2 % Neutrophils # (Manual) 8.6 TH/MM3 Myelocytes 2 % Differential Comment FINAL DIFF MANUAL Platelet Estimate NORMAL Platelet Morphology Comment NORMAL Ovalocytes 1+ Sodium Level 142 MEQ/L Potassium Level 3.1 MEQ/L Chloride Level 107 MEQ/L Carbon Dioxide Level 24.7 MEQ/L Anion Gap 10 MEQ/L Blood Urea Nitrogen 16 MG/DL Creatinine 1.00 MG/DL Estimat Glomerular Filtration 71 ML/MIN Rate Random Glucose 111 MG/DL Calcium Level 8.5 MG/DL Random Vancomycin Level 10.7 COMMENT Prothrombin Time 12.3 SEC Prothromb Time International 1.1 RATIO Ratio Vital Signs Date Time Temp Pulse Resp B/P Pulse Ox O2 Delivery O2 Flow Rate FiO2 05/15/17 08:00 98.8 115 18 139/84 95 05/15/17 04:44 98.5 110 18 143/84 96 05/14/17 23:28 98.7 113 18 147/95 97 05/14/17 20:18 96 Nasal Cannula 2.50 05/14/17 20:17 98.4 115 18 144/92 97 05/14/17 20:00 115 05/14/17 19:47 Nasal Cannula 2.00 05/14/17 16:00 98.7 114 20 152/79 98 05/14/17 12:00 98.3 113 22 131/87 97 05/14/17 11:41 93 Nasal Cannula 3.00 05/14/17 08:00 96 Nasal Cannula 2.00 21 05/14/17 08:00 97.4 115 22 149/99 96 05/14/17 08:00 74 05/14/17 04:00 98.2 113 20 150/91 96 05/14/17 00:00 98.1 96 20 138/82 96 05/13/17 20:00 97.9 114 20 130/86 97 05/13/17 19:52 Nasal Cannula 2.00 05/13/17 19:38 114 05/13/17 16:00 98.0 113 20 129/78 98 05/13/17 16:00 Nasal Cannula 2.00 05/13/17 12:00 Nasal Cannula 2.00 05/13/17 12:00 97.3 114 20 146/92 98 05/13/17 11:45 98.5 92 16 130/81 96 Nasal Cannula 2 05/13/17 11:30 113 16 125/84 96 Nasal Cannula 2 05/13/17 11:15 98.0 113 16 123/81 96 Nasal Cannula 2 05/13/17 08:12 113 05/13/17 08:00 98.0 110 20 149/81 98 05/13/17 08:00 Nasal Cannula 1.00 05/13/17 06:24 103 05/13/17 04:00 97.6 98 20 138/77 95 05/13/17 00:00 97.8 102 20 140/83 95 05/12/17 20:00 98.4 92 20 152/75 95 05/12/17 17:01 97 Nasal Cannula 2.00 05/12/17 16:00 97.5 103 20 164/92 95 05/12/17 12:00 98.2 100 20 140/71 96 (Dayron Amado) Medical Decision Making Impression and Plan Impression: Altered mental status Febrile illness Leukocytosis w/bandemia Back pain w/history of spinal stenosis, disc herniation & degenerative disc disease Repeat CT brain demonstrates no acute intracranial abnormality. CT cervical, thoracic & lumbar spine demonstrates extensive degenerative changes w/o any obvious osteomyelitis. Tagged WBC study was unremarkable for any abnormal activity to the neck or cervical and thoracic spine. There was abnormal increased activity along both mainstem bronchi and extending into the lungs most characteristic of bronchitis or bronchopneumonia. Patient continues to do well and remains neurologically intact, back pain w/ movement, still unable to ambulate. Patient is refusing to sit up with Physical Therapy. Plan: Primary management per Hospitalist. Continue neuro checks. CT myelogram ordered for today on . Will hold Mirtazapine, Prochlorperazine & Promethazine [address] myelogram is done. Valium container coordinator for CT myelogram per protocol. (Dayron Amado) Attending Statement I have personally seen and examined the patient on 05/15/17. Pertinent documentation and study results have been reviewed by the undersigned. I have personally developed the treatment plan and performed medical decision making. Agree with findings, exam, and treatment plan as noted above. My examination on 05/15/17 revealed the patient to be awake and alert. Still with complaint of significant central low back pain when trying to mobilize out of better turn side to side. Sensation intact light touch lower extremities No focal lower extremity motor deficit Post myelogram CT scan pending at the time of 8/10/17 visit. (Ishmael Yañez MD ) Dayron Amado May 15, 2017 10:30 Ishmael Yañez MD May 16, 2017 20:28
[2017-05-15] MEDS: MORPHINE SULFATE 4 MG/ML INJ IV PUSH PRN (14:17)
[2017-05-15] MEDS ORDERED: TRIAMCINOLONE ACETONIDE 40 MG/ML VIAL ONE (15:23)
[2017-05-15] MEDS ORDERED: ROPIVACAINE 1% PF INJ 20 ML AMP ONE (15:23)
[2017-05-15] MEDS ORDERED: IOHEXOL 300 MG/ML 50 ML BTL (for RAD DIAG) IT ONE (16:28)
--- NOTE | 2017-05-15 17:03 | RADRPT ---
EXAM DATE/TIME: 05/15/2017 15:12 [facility] COMPARISON: No previous studies available for comparison. INDICATIONS : Patient with right hip pain in need of steroid injection. MEDICAL HISTORY : 1.HTN 2.Mitral value repair 3.Afib 4.Arthritis 5.Hiatal hernia SURGICAL HISTORY : 1.Pace maker 2.Ablation 3.Mitral valve repair ENCOUNTER: Initial ACUITY: 1 week PAIN SCORE: 10/10 LOCATION: Right Hip FLUORO TIME: 4.1 minutes IMAGE SERIES: 1 CONTRAST: 2cc Omnipaque (iohexol) 300 DEVICE: 20 gauge needle was placed into the right hip joint MEDICATIONS: 1.) 2 cc ropivicaine (Naropin) IA 2.) 40mg triamcinolone (Kenalog) IA RESPONSE: Pre procedure pain level was 10/10. Post procedure pain level was 0/10. PROCEDURE : The risks, benefits and alternatives to the procedure were explained and verbal and written consent w as obtained. The site was prepped in sterile fashion. Full sterile technique was used, including ca p, mask, sterile gloves and gown and a large sterile sheet. Hand hygiene and 2% chlorhexidine and/or betadine/alcohol prep was utilized per protocol for cutaneous antisepsis. The skin and subcutaneous tissues were infiltrated with local anesthetic solution. Under sterile conditions and using aseptic technique with fluoroscopic guidance the joint was punctur ed and positive contrast was injected to confirm intra-articular position. Following this, the presc ribed mixture of Kenalog and local anesthetics was injected. The patient tolerated the procedure wel l and there were no complications. CONCLUSION: Uncomplicated therapeutic injection performed under fluoroscopic guidance. Dylan Rush MD on May 15, 2017 at 17:01 Board Certified Radiologist. This report was verified electronically.
--- NOTE | 2017-05-15 17:03 | RADRPT ---
EXAM DATE/TIME: 05/15/2017 15:12 [facility] COMPARISON: No previous studies available for comparison. INDICATIONS : Patient with possible spinal stenosis in need of complete myelogram. MEDICAL HISTORY : 1.HTN 2.Mitral value repair 3.Afib 4.Arthritis 5.Hiatal hernia SURGICAL HISTORY : 1.Pace maker 2.Ablation 3.Mitral valve repair ENCOUNTER: Initial ACUITY: 1 week PAIN SCORE: 0/10 LUMBAR PUNCTURE TIME: 1606 hours FLUORO TIME: 4.1 minutes IMAGE SERIES: CONTRAST: 20 cc Omnipaque (iohexol) 300 ACCESS LEVEL: L2-3 PROCEDURE : 1. Fluoroscopic guided lumbar puncture. 2. Instillation of intrathecal contrast. 3. Total spinal axis myelogram. The risks, benefits and alternatives to the procedure were explained and verbal and written consent w as obtained. The site was prepped in sterile fashion. Full sterile technique was used, including ca p, mask, sterile gloves and gown and a large sterile sheet. Hand hygiene and 2% chlorhexidine and/or betadine/alcohol prep was utilized per protocol for cutaneous antisepsis. The skin and subcutaneous tissues were infiltrated with local anesthetic solution. With fluoroscopic guidance the lumbar thecal sac was punctured at level above and a diagnostic quanti ty of contrast is present in the subarachnoid space. Following the lumbar radiographs contrast was r un cephalad and radiographs were obtained of the thoracic spine. Under fluoroscopic guidance contras t was placed in the cervical region and radiographs were obtained of the cervical region. The patient tolerated procedure well and there were no complications. CT scan is to be performed for further evaluation. CONCLUSION: Uncomplicated total axis myelogram as above. CT scan is to be performed for further evaluation. Dylan Rush MD on May 15, 2017 at 17:01 Board Certified Radiologist. This report was verified electronically.
--- NOTE | 2017-05-15 17:32 | RADRPT ---
EXAM DATE/TIME: 05/15/2017 16:28 [facility] COMPARISON: No previous studies available for comparison. INDICATIONS : Neck pain, spinal stenosis. RADIATION DOSE: 28.49 CTDIvol (mGy) CT of thecervical spine was performed post myelogram. MEDICAL HISTORY : Hypertension. Afib. SURGICAL HISTORY : Pacemaker. ENCOUNTER: Initial ACUITY: 1 day PAIN SCALE: 2/10 LOCATION: Bilateral neck region. TECHNIQUE: Volumetric scanning of the cervical spine was performed. Multiplanar reconstructions in the sagittal, coronal and oblique axial planes were performed. Using automated exposure control and adjustment o f the mA and/or kV according to patient size, radiation dose was kept as low as reasonably achievable to obtain optimal diagnostic quality images. DICOM format image data is available electronically f or review and comparison. FINDINGS: There is excellent contrast opacification of the cervical subarachnoid space related to myelographic contrast performed earlier in special procedures. VERTEBRAE: Normal vertebral body height. ALIGNMENT: No evidence of subluxation. C2-C3: Mild vertebral body endplate ridging without significant disc protrusion, canal or foraminal stenosis . C3-C4: Slight broad dorsal disc osteophyte, minimally eccentric to the left with minimal indentation of thec al sac. Canal and foramina appear adequate. C4-C5: Broad calcific disc protrusion with trailing osteophytic spurring contributing to moderate indentatio n of the ventral thecal sac. Adequate preservation of dorsal CSF space. Slight bilateral foraminal st enosis, left worse than right. C5-C6: Slight broad dorsal disc osteophyte. Is abruptly asymmetric to the left with slight indentation of th e thecal sac and the left lateral recess and mild asymmetric left foraminal stenosis. Canal is adequa te. C6-C7: Minimal broad dorsal disc protrusion slightly indenting thecal sac. Mild asymmetrically left-sided fo raminal stenosis. Canal is adequate. C7-T1: The bony spinal canal is normal in size. No evidence of disc bulge or herniation. The neural forami na are bilaterally patent. CONCLUSION: Multilevel abnormalities, none of which appear to produce critical compromise of canal or foramina. S ee above discussion. Dylan Rush MD on May 15, 2017 at 17:23 Board Certified Radiologist. This report was verified electronically.
--- NOTE | 2017-05-15 17:38 | RADRPT ---
EXAM DATE/TIME: 05/15/2017 16:35 [facility] COMPARISON: No previous studies available for comparison. INDICATIONS : Mid back pain, spinal stenosis. RADIATION DOSE: 30.07 CTDIvol (mGy) ; Combined studies - Thoracic Spine/Lumbar Spine CT of thethoracic spine was performed post myelogram. MEDICAL HISTORY : Hypertension. AFIB SURGICAL HISTORY : Pacemaker. ENCOUNTER: Initial ACUITY: 1 day PAIN SCALE: 3/10 LOCATION: Bilateral mid back region. TECHNIQUE: Volumetric scanning of the thoracic spine was performed. Multiplanar reconstructions in the sagittal , coronal and oblique axial planes were performed. Using automated exposure control and adjustment o f the mA and/or kV according to patient size, radiation dose was kept as low as reasonably achievable to obtain optimal diagnostic quality images. DICOM format image data is available electronically f or review and comparison. FINDINGS: There is excellent contrast opacification of the thoracic subarachnoid space related to myelographic injection performed in special procedures. The vertebral bodies of the thoracic spine are in normal alignment without evidence of subluxation. Vertebral body height is maintained. No fractures are seen. T1-T2: Minimal broad dorsal disc protrusion slightly indenting thecal sac. Canal and foramina appear adequat e. T2-T3: The thecal sac has a normal diameter. No evidence of disc bulge or protrusion. T3-T4: The thecal sac has a normal diameter. No evidence of disc bulge or protrusion. T4-T5: Tiny right paracentral disc protrusion minimally indenting thecal sac. No canal or foraminal compromi se T5-T6: The thecal sac has a normal diameter. No evidence of disc bulge or protrusion. T6-T7: The thecal sac has a normal diameter. No evidence of disc bulge or protrusion. T7-T8: Tiny broad central to minimally right paracentral disc protrusion slightly indenting thecal sac. No c anal or foraminal compromise T8-T9: The thecal sac has a normal diameter. No evidence of disc bulge or protrusion. T9-T10: Minimal broad dorsal disc osteophyte centrally. Slight indentation of the thecal sac. No significant canal or foraminal compromise. T10-T11: The thecal sac has a normal diameter. No evidence of disc bulge or protrusion. T11-T12: The thecal sac has a normal diameter. No evidence of disc bulge or protrusion. T12-L1: The thecal sac has a normal diameter. No evidence of disc bulge or protrusion. CONCLUSION: Tiny disc protrusions at several levels as described, none producing any significant anatomic comprom ise. Dylan Rush MD on May 15, 2017 at 17:31 Board Certified Radiologist. This report was verified electronically.
[2017-05-15] MEDS ORDERED: SODIUM CHLOR 0.9% 1000 ML INJ 1,000 ML IV PRN (17:52)
--- NOTE | 2017-05-15 17:52 | RADRPT ---
EXAM DATE/TIME: 05/15/2017 16:42 [facility] COMPARISON: No previous studies available for comparison. INDICATIONS : Low back pain, spinal stenosis. RADIATION DOSE: 30.07 CTDIvol (mGy) ; Combined studies - Thoracic Spine/Lumbar Spine CT of thelumbar spine was performed post myelogram. MEDICAL HISTORY : Hypertension. AFIB SURGICAL HISTORY : Pacemaker. ENCOUNTER: Initial ACUITY: 1 day PAIN SCALE: 2/10 LOCATION: Bilateral low back region. TECHNIQUE: Volumetric scanning of the lumbar spine was performed. Multiplanar reconstructions in the sagittal, coronal and oblique axial planes were performed. Using automated exposure control and adjustment of the mA and/or kV according to patient size, radiation dose was kept as low as reasonably achievable t o obtain optimal diagnostic quality images. DICOM format image data is available electronically for review and comparison. FINDINGS: VERTEBRAE: Normal vertebral body height. ALIGNMENT: No evidence of subluxation. T12-L1: The thecal sac has a normal diameter. No evidence of disc bulge or protrusion. The neural foramina are patent bilaterally. L1-L2: The thecal sac has a normal diameter. No evidence of disc bulge or protrusion. The neural foramina are patent bilaterally. L2-L3: Annular disc bulge with broad superimposed dorsal disc protrusion. Pronounced dorsal ligamentous hype rtrophy contributing to severe concentric canal stenosis with significant crowding of nerve roots. Ca nal diameter is reduced to about a centimeter. Bilateral foraminal stenosis. L3-L4: The thecal sac has a normal diameter. No evidence of disc bulge or protrusion. The neural foramina are patent bilaterally. L4-L5: Annular disc bulge with broad superimposed dorsal disc protrusion, mildly eccentric to the left. Mode rate asymmetrically left-sided facet hypertrophy contributing to foraminal stenosis. L5-S1: The chronic bilateral pars fractures without significant associated spondylolisthesis. Canal and fora mei satisfactory. CONCLUSION: Significant concentric canal stenosis at L2-3. Less severe changes at other levels as described Dylan Rush MD on May 15, 2017 at 17:39 Board Certified Radiologist. This report was verified electronically.
--- NOTE | 2017-05-15 17:55 | PD.RAD ---
Post Procedure Progress Note Pre Procedure Diagnosis: (1) Back pain (2) Right hip pain Post Procedure Diagnosis: (1) Back pain (2) Right hip pain Procedure Date: May 15, 2017 Supervising Radiologist: Dylan Rush Anesthesia: Local Plan of Activity Patient to Unit: Nursing Unit Patient Condition: Fair See PACS Report for procedural detail/treatment Spinal Procedure Myelogram Additional Detail: total spine myelogram and right hip therapeutic injection Dylan Rush MD May 15, 2017 17:55
[2017-05-16] VITALS (8 sets, daily range): BP systolic 113–159; BP diastolic 60–97; PULSE 98–115; RESP 16–20; TEMP 97.3–98.3; O2SAT 93–97
[2017-05-16 01:02] LABS: BICARBONATE 25.8 MEQ/L (21.0-32.0); MAGNESIUM 1.5 MG/DL (1.5-2.5); POTASSIUM 3.8 MEQ/L (3.5-5.1)
[2017-05-16] MEDS: NYSTATIN SUSP 500,000 U/5 ML CUP SWISH-SWAL SCH ×4 (09:00→21:46)
[2017-05-16] MEDS: DOCUSATE SODIUM 50 MG/SENNA 8.6 MG TAB PO SCH ×3 (09:00→21:00)
[2017-05-16] MEDS: POLYETHYLENE GLYCOL 17 GM PKG PO SCH (09:00)
[2017-05-16] MEDS: CEFUROXIME AXETIL 500 MG TAB PO SCH ×2 (09:44→21:45)
[2017-05-16] MEDS: AZITHROMYCIN 250 MG TAB PO SCH (09:44)
[2017-05-16] MEDS: PANTOPRAZOLE SOD 40 MG DELAYED RELEASE TAB PO SCH (09:44)
[2017-05-16] MEDS: LISINOPRIL 5 MG TAB PO SCH (09:44)
[2017-05-16] MEDS: CARVEDILOL 3.125 MG TAB PO SCH ×2 (09:44→21:45)
[2017-05-16 09:50] LABS: HEMATOCRIT 33.3 % (39.0-51.0); MEAN CELL VOLUME 91.7 FL (80.0-100.0); MEAN CORPUSCULAR HEMOGLOBIN 31.4 PG (27.0-34.0); MEAN CORPUSCULAR HGB CONC 34.3 % (32.0-36.0); PLATELET COUNT 180 TH/MM3 (150-450); RED BLOOD COUNT 3.63 MIL/MM3 (4.50-5.90); REVIEW FLAG FINAL; WHITE BLOOD COUNT 7.6 TH/MM3 (4.0-11.0)
[2017-05-16] MEDS ORDERED: METOPROLOL TARTRATE 5 MG/5 ML VIAL IV PUSH ONE (10:15)
[2017-05-16 10:18] LABS: BICARBONATE 23.4 MEQ/L (21.0-32.0); MAGNESIUM 1.6 MG/DL (1.5-2.5); POTASSIUM 3.7 MEQ/L (3.5-5.1)
[2017-05-16] MEDS ORDERED: CARVEDILOL 3.125 MG TAB PO ONE (10:45)
[2017-05-16] MEDS ORDERED: MAGNESIUM SULFATE 1 GM PREMIX 100 ML IV ONE (11:00)
[2017-05-16] MEDS ORDERED: POTASSIUM CHLORIDE 20 MEQ CONTROLLED RELEASE TAB PO ONE (11:00)
--- NOTE | 2017-05-16 11:08 | HHI.PR ---
Subjective Remarks The patient is resting comfortably in a chair. He says that he has walked with physical therapy. He said it was the first time he ambulated in about 5 weeks. He was very happy with the joint injection yesterday. He was wondering about resuming Xarelto. Discussed with nursing. Objective Vitals Vital Signs Date Time Temp Pulse Resp B/P Pulse Ox O2 Delivery O2 Flow Rate FiO2 05/16/17 08:02 97.4 113 16 138/73 95 05/16/17 03:42 97.3 98 18 159/97 96 05/15/17 23:13 98.6 110 18 142/88 95 05/15/17 20:50 97.9 114 18 139/89 95 05/15/17 20:00 Nasal Cannula 2.00 05/15/17 20:00 112 05/15/17 16:00 97.9 106 18 145/88 97 05/15/17 12:52 96 Nasal Cannula 2.00 05/15/17 12:00 98.8 115 18 147/85 96 I/O 05/15/17 05/15/17 05/15/17 05/16/17 05/16/17 05/16/17 07:00 15:00 23:00 07:00 15:00 23:00 Intake Total 60 ml 720 ml 0 ml 0 ml Output Total 225 ml 600 ml 450 ml 450 ml Balance -165 ml 120 ml -450 ml -450 ml Intake Oral 60 ml 720 ml 0 ml 0 ml Output Urine Total 225 ml 600 ml 450 ml 450 ml # Bowel Movements 0 1 0 0 Result Diagram: 05/16/17 0906 05/16/17 0906 Imaging Last Impressions Myelogram 05/15/17 0800 Signed Impressions: Service Date/Time: May 15:12 - CONCLUSION: Uncomplicated total axis myelogram as above. CT scan is to be performed for further evaluation. Dylan Rush MD Thoracic Spine CT 05/15/17 0000 Signed Impressions: Service Date/Time: May 16:35 - CONCLUSION: Tiny disc protrusions at several levels as described, none producing any significant anatomic compromise. Dylan Rush MD Therapeutic Injection 05/15/17 0000 Signed Impressions: Service Date/Time: May 15:12 - CONCLUSION: Uncomplicated therapeutic injection performed under fluoroscopic guidance. Dylan Rush MD Lumbar Spine CT 05/15/17 0000 Signed Impressions: Service Date/Time: May 16:42 - CONCLUSION: Significant concentric canal stenosis at L2-3. Less severe changes at other levels as described Dylan Rush MD Cervical Spine CT 05/15/17 0000 Signed Impressions: Service Date/Time: May 16:28 - CONCLUSION: Multilevel abnormalities, none of which appear to produce critical compromise of canal or foramina. See above discussion. 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 No acute fracture, inflammatory changes or soft tissue mass are noted. Palliative treatment with intra-articular steroid injection should be considered. Luca Gonzalez MD Hip and Pelvis X-Ray 05/12/17 Signed Impressions: Service Date/Time: Friday, May 12, 2017 18:29 - CONCLUSION: 1. Moderate osteoarthritis of the right hip. No acute bony abnormalities. Jose Pelayo MD Head CT 05/10/172019 Signed Impressions: Service Date/Time: Wednesday, May 10, 2017 20:52 - CONCLUSION: 1. No new findings. Tiny hemorrhage or calcification left frontal lobe either stable or slightly smaller. Jose Pelayo MD Abdomen/Pelvis CT 05/10/17 Signed Impressions: Service Date/Time: Wednesday, May 10, 2017 20:55 - CONCLUSION: 1. Mild gaseous distention of the stomach with nasogastric tube present. No significant small or large bowel distention. Colonic diverticulosis. 2. Subsegmental basal airspace disease in the lungs without significant effusion. 3. Pacer leads in right atrium and right ventricle. 4. Perez in decompressed bladder. Jose Pelayo MD Abdomen X-Ray 05/10/17 0000 Signed Impressions: Service Date/Time: Wednesday, May 10, 2017 14:58 - CONCLUSION: Distended stomach, etiology uncertain. Gastric outlet or proximal duodenal obstruction would be in the differential. No evidence of small or large bowel distention. Dylan Santo MD Chest X-Ray 05/09/17 0600 Signed Impressions: Service Date/Time: Tuesday, May 09, 2017 04:14 - CONCLUSION: 1. Subsegmental atelectasis left base. The findings are improved when compared with the prior exam. Aguila Brown MD Tumor Localization 05/07/17 0000 Signed Impressions: Service Date/Time: Sunday, May 07, 2017 17:05 - CONCLUSION: 1. No abnormal activity in the neck or cervical and thoracic spine. 2. Abnormal increased activity along both mainstem bronchi and extending into the lungs most characteristic of a bronchitis or bronchopneumonia. Jose Pelayo MD Objective Remarks GENERAL: Sitting up in a chair, in no acute distress. HEENT: Atraumatic, normocephalic. Pupils equal, round NECK: Supple. No JVD, adenopathy or thyromegaly. Trachea midline. CARDIOVASCULAR: Tachycardic. Normal S1-S2. No murmurs, rubs or gallops noted. PULMONARY: Bilateral equal air entry. No rales or wheezing. ABDOMEN: Soft, nontender, nondistended. Positive bowel sounds. EXTREMITIES: No significant peripheral edema. Right hip tender to palpation. NEURO: No gross deficits. PSYCH: Mood and affect appropriate. Procedures Myelogram Right hip joint injection Medications and IVs Current Medications Medications (Trade) Dose Ordered Sig/Jaswinder Route Start Time Stop Time Status Last Admin Miscellaneous Information 1 [id number] XX 05/07/17 09:30 (Lynsey-Colace) 1 tab BID PO 05/07/17 21:00 05/13/17 08:10 (Milk Of Magnesia Liq) 30 ml Q12H PRN PO 05/07/17 09:30 (Senokot) 17.2 mg Q12H PRN PO 05/07/17 09:30 (Dulcolax Supp) 10 mg DAILY PRN RECTAL 05/07/17 09:30 (Lactulose Liq) 30 ml DAILY PRN PO 05/07/17 09:30 (Morphine Inj) 2 mg Q3H PRN IV PUSH 05/07/17 18:45 05/15/17 14:17 (Zofran Inj) 4 mg Q6HR PRN IV PUSH 05/10/17 09:15 05/10/17 09:33 (Compazine Inj) 5 mg Q6H PRN IV PUSH 05/10/17 13:00 Hold 05/10/17 13:43 (Phenergan Supp) 25 mg Q6H PRN RECTAL 05/10/17 13:00 Hold (Remeron) 15 mg HS PO 05/11/17 21:00 Hold 05/12/17 20:35 (Mycostatin Liq) 5 ml QID SWISH-SWAL 05/11/17 18:00 05/15/17 21:49 (Miralax) 17 gm DAILY PO 05/12/17 09:00 (Lynsey-Colace) 2 tab HS PO 05/11/17 21:00 (Protonix) 40 mg DAILY PO 05/13/17 09:00 05/16/17 09:44 (Prinivil) 5 mg DAILY PO 05/12/17 18:00 05/16/17 09:44 (Zithromax) 500 mg DAILY PO 05/14/17 09:00 05/18/17 08:59 05/16/17 09:44 Cefuroxime Axetil 500 mg 500 mg Q12HR PO 05/13/17 21:00 05/17/17 20:59 05/16/17 09:44 (NS 1000 ml Inj) 1,000 ml @ 125 mls/hr Q8H PRN IV 05/15/17 17:52 Carvedilol 6.25 mg 6.25 mg BID PO 05/16/17 21:00 (Magnesium Sulfate 1 Gm Premix) 100 ml @ 100 mls/hr ONCE ONCE IV 05/16/17 11:00 05/16/17 11:59 A/P Assessment and Plan Metabolic encephalopathy/ weakness Admitted to ICU with inability to walk and metabolic encephalopathy secondary to sepsis likely secondary to tracheobronchitis versus bronchopneumonia. Most recently patient had a fall onto the floor out of his bed at home prior to hospitalization and had substantial low back and right hip pain. Has has been essentially unable to walk secondary to pain in both areas. Has had substantial central nervous system workup, neurology and neurosurgery both following, no acute [employer] infections have been identified. ID consult appreciated. Imaging has revealed significant spinal stenosis. CT myelogram 05/15 : significant concentric canal stenosis at L2 - L3. - antibiotics per ID. - PT/ OT/ ST. - follow up with neurosurgery. Right hip pain Plain film is negative, CT scan with arthritis. S/p joint injection 05/15 with great relief. - PT/ OT. - pain control with a bowel regimen. Chronic systolic CHF 2-D echocardiogram revealed EF 35-40%; Mild LVH; Trace MR/TR. - continue low dose lisinopril. Abdominal distention GI consult appreciated. CT scan noted. Improved. - follow up with GI. - bowel regimen. Tracheobronchitis vs bronchopneumonia ID consult appreciated. BC 05/07: NGTD, 05/08 strep pneumonia and Legionella urinary Ag negative. CT scan of the cervical, lumbar and thoracic spine negative for any evidence of infection. Tagged WBC scan: tracheobronchitis vs bronchopneumonia. - Oxygen PRN maintain sats above 92%. - Bronchodilators on a p.r.n. basis and aspiration precautions. - Use home CPAP at night. - continue azithromycin and Ceftin per ID. Afib/ flutter Has been tachycardic into the 110s. - increase Coreg 05/16. Adjust as needed. - telemetry. - Xarelto on hold for procedures. Resume when cleared by neurosurgery. Hypokalemia Likely s/t decreased PO intake. - repeat BMP and replete as needed. PPx: Lovenox Discharge Planning Awaiting further evaluation by neurosurgery for spinal stenosis. Will need SNF Reji Jraamillo DO May 16, 2017 11:08 Reji Jaramillo DO May 16, 2017 11:08
--- NOTE | 2017-05-16 12:37 | HHI.IDPN ---
Subjective Subjective Remarks ID COVERAGE is a very pleasant, 86-year-old male with PMHx of chronic back pain on narcotics. His PMHx is also significant for Sleep apnea, on CPAP, Pacemaker status, Afib on anticoagulants. With this background patient is admitted with altered mental status. Reportedly, approx 3 weeks ago he felt that having the head of the bed elevated would help him and he slept that way for a few nights. He developed back pain and one daughter took him to [facility] for evaluation. He was doing well and his pain was controlled with Bowdle, therefore he was discharged home. The following day the other daughter took him to his Chiropractor. At that time he was using a cane to ambulate. When he left the office he was not able to walk and had to be taken to the vehicle in a wheelchair. He was subsequently taken back to [facility] for evaluation again and imaging demonstrated spinal stenosis, disc herniation and degenerative disc disease. He was admitted for 3 days and after that was discharged to [facility] where he had been until this morning. His daughter's report that he was briefly on gabapentin which was stopped due to upper extremity tremors. That was replaced with Remeron and the patient had a decreased level of consciousness. The patient was found on the floor of his room at [facility] and he was transported to [facility] for evaluation in the emergency department. The daughters do report that the patient has had decreased oral intake the past few days and not had a bowel movement since 728. The patient was tremulous and had a max temperature of 102. His daughters did report to the ED Physician that the patient had started coughing that day. In the Emergency Department the patient was found to have an elevated WBC count at 23.8 with neutrophils [address] brain demonstrated a small focal area of mildly increased density within the left periventricular white matter with surrounding low-density which could represent slight hemorrhage and edema. Dr Yañez was notified and requested an MRI but the patient's pacemaker wasn't compatible. Therefore additional CT imaging w/o and w/contrast of the brain and spine were ordered which was unremarkable for any acute abnormality of the brain or spine. Substantial degenerative changes were noted throughout the spine. It was recommended that a tagged WBC study be done. The patient has been admitted by the [facility] to the [facility] . ID consulted for evaluation and Mment of sepsis, possible spinal epidural abscess or osteomyelitis. WBC scan negative. Notes reviewed Temps better BP ok C/S reviewed Not SOB No CP No N/V Antibiotics Vancomycin Zithromax Zosyn Lines LIne sites with no e.o infection Past Medical History Hypertension Mitral valve stenosis Atrial fibrillation Arthritis Hiatal hernia Past Surgical History Pacemaker insertion Ablation x2 Mitral valve repair Allergies: Coded Allergies: Xopenex (Unverified Allergy, Severe, 05/07/17) Uncoded Allergies: MRI PRECAUTION PACEMAKER (Adverse Reaction, Severe, NON COMPATIBLE PACMAKER , 05/07/17) [facility] JUDES PACEMAKER/05/07/17 VSV Objective . Vital Signs Date Time Temp Pulse Resp B/P Pulse Ox O2 Delivery O2 Flow Rate FiO2 05/16/17 08:02 97.4 113 16 138/73 95 05/16/17 03:42 97.3 98 18 159/97 96 05/15/17 23:13 98.6 110 18 142/88 95 05/15/17 20:50 97.9 114 18 139/89 95 05/15/17 20:00 Nasal Cannula 2.00 05/15/17 20:00 112 05/15/17 16:00 97.9 106 18 145/88 97 05/15/17 12:52 96 Nasal Cannula 2.00 05/15/17 05/15/17 05/16/17 15:00 23:00 07:00 Intake Total 720 ml 0 ml 0 ml Output Total 600 ml 450 ml 450 ml Balance 120 ml -450 ml -450 ml Intake Oral 720 ml 0 ml 0 ml Output Urine Total 600 ml 450 ml 450 ml # Bowel Movements 1 0 0 . Laboratory Tests Test 05/15/17 05/16/17 09:19 09:06 White Blood Count 11.0 TH/MM3 7.6 TH/MM3 Red Blood Count 3.56 MIL/MM3 3.63 MIL/MM3 Hemoglobin 10.9 GM/DL 11.4 GM/DL Hematocrit 33.0 % 33.3 % Mean Corpuscular Volume 92.7 FL 91.7 FL Mean Corpuscular Hemoglobin 30.7 PG 31.4 PG Mean Corpuscular Hemoglobin 33.1 % 34.3 % Concent Red Cell Distribution Width 13.4 % 14.0 % Platelet Count 195 TH/MM3 180 TH/MM3 Mean Platelet Volume 8.6 FL 9.4 FL Neutrophils (%) (Auto) 76.1 % Lymphocytes (%) (Auto) 10.1 % Monocytes (%) (Auto) 11.8 % Eosinophils (%) (Auto) 1.8 % Basophils (%) (Auto) 0.2 % Neutrophils # (Auto) 8.4 TH/MM3 Lymphocytes # (Auto) 1.1 TH/MM3 Monocytes # (Auto) 1.3 TH/MM3 Eosinophils # (Auto) 0.2 TH/MM3 Basophils # (Auto) 0.0 TH/MM3 CBC Comment DIFF FINAL Differential Comment Laboratory Tests Test 05/15/17 05/16/17 23:57 09:06 Sodium Level 141 MEQ/L 137 MEQ/L Potassium Level 3.8 MEQ/L 3.7 MEQ/L Chloride Level 104 MEQ/L 103 MEQ/L Carbon Dioxide Level 25.8 MEQ/L 23.4 MEQ/L Anion Gap 11 MEQ/L 11 MEQ/L Blood Urea Nitrogen 10 MG/DL 16 MG/DL Creatinine 0.84 MG/DL 0.98 MG/DL Estimat Glomerular Filtration 86 ML/MIN 72 ML/MIN Rate Random Glucose 130 MG/DL 155 MG/DL Calcium Level 9.5 MG/DL 9.1 MG/DL Phosphorus Level 2.7 MG/DL Magnesium Level 1.5 MG/DL 1.6 MG/DL Imaging Chest X-Ray 05/09/17 0600 Signed Impressions: Service Date/Time: Tuesday, May 09, 2017 04:14 - CONCLUSION: 1. Subsegmental atelectasis left base. The findings are improved when compared with the prior exam. Aguila Brown MD Head CT 05/07/17 0346 Signed Impressions: Service Date/Time: Sunday, May 07, 2017 05:06 - CONCLUSION: 1. Subtle small focal area of mildly increased density in the left periventricular white matter with surrounding low density. This is nonspecific but could represent a subtle area of slight hemorrhage and edema. 2. Atrophic change and chronic small vessel ischemic changes. Rjei Meza MD Tumor Localization 05/07/17 0000 Signed Impressions: Service Date/Time: Sunday, May 07, 2017 17:05 - CONCLUSION: 1. No abnormal activity in the neck or cervical and thoracic spine. 2. Abnormal increased activity along both mainstem bronchi and extending into the lungs most characteristic of a bronchitis or bronchopneumonia. Jose Pelayo MD Thoracic Spine CT 05/07/17 Signed Impressions: Service Date/Time: Sunday, May 07, 2017 09:34 - CONCLUSION: Minimal consolidative changes left lung posteriorly. Extensive degenerative changes without obvious osteomyelitis . Tagged white cell study would help to exclude such since the patient hasn't pacemaker and cannot undergo MRI. Myles Callejas MD FACR Lumbar Spine CT 05/07/17 Signed Impressions: Service Date/Time: Sunday, May 07, 2017 09:34 - CONCLUSION: Substantial degenerative changes. I don't see evidence for an osteomyelitis. Tagged white cell study could help since the patient has pacemaker and cannot tolerate MRI. The epidural space is poorly visualized. Myles Callejas MD FACR Cervical Spine CT 05/07/17 Signed Impressions: Service Date/Time: Sunday, May 07, 2017 09:34 - CONCLUSION: 1. No acute cervical spine abnormality is identified. I do not appreciate any findings to indicate osteomyelitis. However, a white blood cell scan may be more sensitive test for detecting osteomyelitis within the spine. 2. There are degenerative changes throughout the cervical spine, as above. Dylan Carranza MD Physical Exam GENERAL: Awake and alert, in no apparent distress. SKIN: No rashes, ecchymoses or lesions. Cool and dry. HEAD: Atraumatic. Normocephalic. No temporal or scalp tenderness. EYES: Pupils equal round and reactive. Extraocular motions intact. No scleral icterus. No injection or drainage. ENT: Nose without bleeding, purulent drainage or septal hematoma. Throat without erythema. Has fuchs coating on his tongue. NECK: Trachea midline. supple, nontender, no meningeal signs. Pacemaker site with no e.o infection. CARDIOVASCULAR: Regular rate and rhythm without murmurs, gallops, or rubs. RESPIRATORY: Clear to auscultation. Breath sounds equal bilaterally. No wheezes , rales, or rhonchi. ABDOMEN: Protuberant abdomen. Not tender MUSCULOSKELETAL: Extremities without clubbing, cyanosis, or edema. No joint tenderness, effusion, or edema noted. No calf tenderness. Negative Homans sign bilaterally. NEUROLOGICAL: Awake and alert. Grossly non focal. Psych: cooperative IV line sites with no e.o infection. Assessment & Plan Remarks Sepsis present on admission. Pneumonia: likely aspiration (Remeron and Gabapentin on admission) Morbid Obesity (BMI 23.7) Sleep apnea on CPAP. Chronic pain on narcotics. (no pain medicine pump in place, will d.w daughter if any intrathecal pump) Pacemaker status. PLAN Continue oral azithro (monitor QT interval) Continue Cefuroxime Stop dates in eMAR Follow temps Monitor progress Clinically improving from ID standpoint Will sign off please call back if any change in clinical condition or questions. Melanie Mejia MD May 16, 2017 12:37
--- NOTE | 2017-05-16 15:17 | EKG ---
Date Performed: 05/15/2017 Time Performed: 13:07:00 PTAGE: 86 years EKG: Probable sinus tachycardia LEFT AXIS DEVIATION NONSPECIFIC T WAVE CHANGE ANTEROSEPTALLY Com pared to prior tracing no significant change ABNORMAL ECG PREVIOUS TRACING : 05/07/2017 04.33 DOCTOR: Rafat Ramos Interpretating Date/Time 05/16/2017 15:16:05
--- NOTE | 2017-05-16 16:13 | HHI.GIFU ---
Subjective Remarks Resting in bed. No n/v. Tolerating diet. No abdominal pain. Has been moving bowels. Objective Vitals I&O Vital Signs Date Time Temp Pulse Resp B/P Pulse Ox O2 Delivery O2 Flow Rate FiO2 05/16/17 15:09 97 21 05/16/17 12:02 97.5 115 16 130/80 94 05/16/17 08:02 97.4 113 16 138/73 95 05/16/17 08:00 96 Nasal Cannula 2.00 21 05/16/17 08:00 105 05/16/17 03:42 97.3 98 18 159/97 96 05/15/17 23:13 98.6 110 18 142/88 95 05/15/17 20:50 97.9 114 18 139/89 95 05/15/17 20:00 Nasal Cannula 2.00 05/15/17 20:00 112 I/O 05/15/17 05/15/17 05/15/17 05/16/17 05/16/17 05/16/17 06:59 14:59 22:59 06:59 14:59 22:59 Intake Total 60 ml 720 ml 0 ml 0 ml Output Total 225 ml 600 ml 450 ml 450 ml Balance -165 ml 120 ml -450 ml -450 ml Intake Oral 60 ml 720 ml 0 ml 0 ml Output Urine Total 225 ml 600 ml 450 ml 450 ml # Bowel Movements 0 1 0 0 Laboratory Laboratory Tests Test 05/15/17 05/16/17 23:57 09:06 Sodium Level 141 137 Potassium Level 3.8 3.7 Chloride Level 104 103 Carbon Dioxide Level 25.8 23.4 Anion Gap 11 11 Blood Urea Nitrogen 10 16 Creatinine 0.84 0.98 Estimat Glomerular Filtration 86 72 Rate Random Glucose 130 155 Calcium Level 9.5 9.1 Phosphorus Level 2.7 Magnesium Level 1.5 1.6 White Blood Count 7.6 Red Blood Count 3.63 Hemoglobin 11.4 Hematocrit 33.3 Mean Corpuscular Volume 91.7 Mean Corpuscular Hemoglobin 31.4 Mean Corpuscular Hemoglobin 34.3 Concent Red Cell Distribution Width 14.0 Platelet Count 180 Mean Platelet Volume 9.4 Imaging Last Impressions Myelogram 05/15/17 0800 Signed Impressions: Service Date/Time: May 15:12 - CONCLUSION: Uncomplicated total axis myelogram as above. CT scan is to be performed for further evaluation. Dylan Rush MD Thoracic Spine CT 05/15/17 Signed Impressions: Service Date/Time: May 16:35 - CONCLUSION: Tiny disc protrusions at several levels as described, none producing any significant anatomic compromise. Dylan Rush MD Therapeutic Injection 05/15/17 Signed Impressions: Service Date/Time: May 15:12 - CONCLUSION: Uncomplicated therapeutic injection performed under fluoroscopic guidance. Dylan Rush MD Lumbar Spine CT 05/15/17 Signed Impressions: Service Date/Time: May 16:42 - CONCLUSION: Significant concentric canal stenosis at L2-3. Less severe changes at other levels as described Dylan Rush MD Cervical Spine CT 05/15/17 Signed Impressions: Service Date/Time: May 16:28 - CONCLUSION: Multilevel abnormalities, none of which appear to produce critical compromise of canal or foramina. See above discussion. Dylan Rush MD Lower Extremity CT 05/14/17 Signed Impressions: Service Date/Time: Sunday, May 14, 2017 10:26 - CONCLUSION: Moderate to severe arthropathy of the right hip characteristic of osteoarthritis. No acute fracture, inflammatory changes or soft tissue mass are noted. Palliative treatment with intra-articular steroid injection should be considered. Luca Gonzalez MD Hip and Pelvis X-Ray 05/12/17 Signed Impressions: Service Date/Time: Friday, May 12, 2017 18:29 - CONCLUSION: 1. Moderate osteoarthritis of the right hip. No acute bony abnormalities. Jose Pelayo MD Head CT 05/10/172019 Signed Impressions: Service Date/Time: Wednesday, May 10, 2017 20:52 - CONCLUSION: 1. No new findings. Tiny hemorrhage or calcification left frontal lobe either stable or slightly smaller. Jose Pelayo MD Abdomen/Pelvis CT 05/10/17 Signed Impressions: Service Date/Time: Wednesday, May 10, 2017 20:55 - CONCLUSION: 1. Mild gaseous distention of the stomach with nasogastric tube present. No significant small or large bowel distention. Colonic diverticulosis. 2. Subsegmental basal airspace disease in the lungs without significant effusion. 3. Pacer leads in right atrium and right ventricle. 4. Perez in decompressed bladder. Jose Pelayo MD Abdomen X-Ray 05/10/17 0000 Signed Impressions: Service Date/Time: Wednesday, May 10, 2017 14:58 - CONCLUSION: Distended stomach, etiology uncertain. Gastric outlet or proximal duodenal obstruction would be in the differential. No evidence of small or large bowel distention. Dylan Santo MD Chest X-Ray 05/09/17 0600 Signed Impressions: Service Date/Time: Tuesday, May 09, 2017 04:14 - CONCLUSION: 1. Subsegmental atelectasis left base. The findings are improved when compared with the prior exam. Aguila Brown MD Tumor Localization 05/07/17 0000 Signed Impressions: Service Date/Time: Sunday, May 07, 2017 17:05 - CONCLUSION: 1. No abnormal activity in the neck or cervical and thoracic spine. 2. Abnormal increased activity along both mainstem bronchi and extending into the lungs most characteristic of a bronchitis or bronchopneumonia. Jose Pelayo MD Physical Exam HEENT: Normocephalic; atraumatic; no jaundice. CHEST: CTA, diminished bases CARDIAC: Irregular, tachycardic ABDOMEN: Soft, obese, nondistended, nontender; no hepatosplenomegaly; bowel sounds are present in all four quadrants. EXTREMITIES: No clubbing, cyanosis, or edema. SKIN: Normal; no rash; no jaundice. EYEGLASS LENS CUTTER: No focal deficits; alert and oriented times three. Assessment and Plan Plan ASSESSMENT: - Gastric distention, unclear etiology. Abdomen X-Ray (05/10/17)----> Distended stomach, etiology uncertain. Gastric outlet or proximal duodenal obstruction would be in the differential. No evidence of small or large bowel distention. He then had a Abdomen/Pelvis CT (05/10/17)-----> 1. Mild gaseous distention of the stomach with nasogastric tube present. No significant small or large bowel distention. Colonic diverticulosis. 2. Subsegmental basal airspace disease in the lungs without significant effusion. 3. Pacer leads in right atrium and right ventricle. 4. Perez in decompressed bladder. GI was consulted for further evaluation and treatment of gastric distention. The patient tells me that he has been told that his stomach was distended for quite some time, even prior to this hospitalization and that he has had an EGD in the past, but not for quite some time. S/P EGD (05/13/17)----> distal esophagitis, hiatal hernia, bx of GE junction, mild gastritis pylorus open, normal duodenum. Pathology gastric mucosa without significant histopathologic abnormality, distal esophagus biopsy with acute esophagitis with features of ulceration, grocott methenamine silver stain is negative for fungal organisms. No n/v. Mild epigastric discomfort. PPI. Denies any n/v, abdominal pain. He is tolerating his diet. - Diarrhea. 1 week hx of intermittent diarrhea with 1-2 liquid stools per day. No bleeding. Improved, having one bowel movement per day. - Inability to ambulate, generalized weakness with spinal stenosis, herniated disk, and ddd. NSx following- CT cervical, thoracic, lumbar spine with extensive degenerative changes without obvious OM. WBC scan without activity in neck and thoracic spine. S/P total spine myelogram and right hip therapeutic injection. - AMS, acute encephalopathy. Abnormal imaging with CT scan of the brain revealed small focal area of mildly increased density in the left periventricular white matter with surrounding low-density which is nonspecific. Questionable slight hemorrhage and edema. He was evaluated by neurosurgery and MRI was recommended, but could not be done secondary to his PPM being incompatible with MRI. Rpt. CT with no acute intracranial abnormality. NSx following - Resp. Insufficiency, bronchitis vs. bronchopneumonia on wbc scan. Ceftin/ Azithromycin. - Fever, Leukocytosis, Bandemia. Sputum with moderate growth normal respiratory arthur, random urine negative for legionella/streptococcus, bcx no growth 5 days. azithromycin, cefuroxime. - Acute kidney injury with electrolyte abnormalities. Improved. - Anemia, normocytic. 10.7/32.8 yesterday. - Hx Atrial fibrillation, hypertension, ostearthritis, RYLAND, systolic heart failure. per attending. PLAN: - WU - PPI - GI will sign off, please reconsult as needed - Pt seen and examined by Dr. Ludwig and myself and this note is written on his behalf Tonia Ferraro May 16, 2017 16:13
--- NOTE | 2017-05-16 18:05 | HHI.NSPN ---
(Dayron Amado) History Chief Complaint: Pain to the right lateral hip into the groin. (Dayron Amado) Interval History 05/07: This is a very pleasant, although confused, 86-year-old male who isn't sure why he is here. The history is obtained from his daughters who are present and he gave permission to speak with. The patient has a history of sleep apnea and uses a CPAP machine at night. About 3 weeks ago he felt that having the head of the bed elevated would help him and he slept that way for a few nights. He developed back pain and one daughter took him to [facility] for evaluation. He was doing well and his pain was controlled with [place], therefore he was discharged home. The following day the other daughter took him to his Chiropractor. At that time he was using a cane to ambulate. When he left the office he was not able to walk and had to be taken to the vehicle in a wheelchair. He was subsequently taken back to [facility] for evaluation again and imaging demonstrated spinal stenosis, disc herniation and degenerative disc disease. He was admitted for 3 days and after that was discharged to [facility] where he had been until this morning. His daughter's report that he was briefly on gabapentin which was stopped due to upper extremity tremors. That was replaced with Remeron and the patient had a decreased level of consciousness. The patient was found on the floor of his room at [facility] and he was transported to [facility] for evaluation in the emergency department. The daughters do report that the patient has had decreased oral intake the past few days and not had a bowel movement since 728. The patient was tremulous and had a max temperature of 102. His daughters did report to the ED Physician that the patient had started coughing that day. In the Emergency Department the patient was found to have an elevated WBC count at 23.8 with neutrophils [address] brain demonstrated a small focal area of mildly increased density within the left periventricular white matter with surrounding low-density which could represent slight haemorrhage and edema. Dr Yañez was notified and requested an MRI but the patient's pacemaker wasn't compatible. Therefore additional CT imaging w/o and w/contrast of the brain and spine were ordered which was unremarkable for any acute abnormality of the brain or spine. Substantial degenerative changes were noted throughout the spine. It was recommended that a tagged WBC study be done. The patient has been admitted by the Cost Recovery Technician to the [facility] [place] and was waiting for a bed. 05/08: The patient states he is doing good today. He has no complaints but does endorse some aching to the back. 05/12: When seen this afternoon the patient states he is doing good. He denied any back pain when asked but finally did endorse pain with movement. He also endorsed pain to the right groin. He still is unable to ambulate. 05/13: The patient says he is doing good this afternoon. He does endorse back pain with movement and still has the right groin pain. He went for a GI procedure this morning but he isn't aware of the results. 05/15: This morning the patient states he is doing good. He does have pain to the right groin and the right foot. He denies any pain to the back. He is to go for a CT myelogram today. 05/16: The patient is doing well when seen this afternoon. He states he has pain to the right lateral hip radiating into the groin. He denies any back pain. He states that he was able to ambulate in the room with Physical Therapy today. He had a myelogram which was described as being an uncomplicated total axis myelogram. The CT cervical spine demonstrated multilevel abnormalities w/o any apparent critical compromise of the canal or foramina. On the thoracic spine CT there were tiny disc protrusions at several levels none of which produced significant compromise. And on the lumbar CT there was significant concentric canal stenosis at L2-3 w/less severe changes at the other levels. (Dayron Amado) System Review Comments Constitutional: Patient denies any fever or chills. HEENT: Patient denies any visual or hearing difficulty. Respiratory: Patient denies any shortness of breath or productive cough. Cardiovascular: Patient denies any chest pain, palpitations or irregular heartbeat. Gastrointestinal: Patient denies any abdominal pain, nausea, vomiting or incontinence of stool. Genitourinary: Patient denies any urinary incontinence. Musculoskeletal: Patient complains of right lateral hip pain going into the right groin. He denies any neck, back or other extremity pain. Neurologic: Patient states he was able to ambulate in the room today. He denies any headache, dizziness, numbness or tingling. (Dayron Amado) Exam Results Vital Signs Date Time Temp Pulse Resp B/P Pulse Ox O2 Delivery O2 Flow Rate FiO2 05/16/17 15:09 97 21 05/16/17 12:02 97.5 115 16 130/80 05/16/17 08:00 Nasal Cannula 2.00 Intake and Output 05/15/17 05/15/17 05/15/17 07:59 15:59 23:59 Intake Total 60 ml 720 ml 0 ml Output Total 225 ml 600 ml 450 ml Balance -165 ml 120 ml -450 ml (Dayron Amado) Physical Examination GENERAL: The patient is awake & alert watching TV. No apparent distress. Normal affect. SKIN: Warm, dry & intact, no evident rashes, ulcerations or other lesions noted. HEENT: Normocephalic, atraumatic. NECK: Midline cervical spine NTTP, neck supple, no JVD, trachea midline. CARDIOVASCULAR: S1S2 w/RRR w/o M/G/R, radial & pedal pulses 2+ bilaterally, cap refill < 2 sec, 2+ pedal edema. RESPIRATORY: CTAB w/o W/R/R, equal excursion, nonlaboured, on RA. GASTROINTESTINAL: Abdomen soft, nontender, positive bowel sounds. MUSCULOSKELETAL: CALDERON w/o difficulty, no evident deformity or clubbing, TTP to right lateral hip & right groin, the lumbosacral spine is NTTP. NEUROLOGICAL: AAOx3. Speech clear & appropriate. Sensation intact to light touch to all extremities. Motor strength 5/5 to all major flexion & extension muscle groups. (Dayron Amado) Lab, Micro, Other Results Allergies Coded Allergies Type Severity Reaction Last Updated Verified Xopenex Allergy Severe 05/07/17 No Uncoded Allergies Type Severity Reaction Last Updated Verified MRI PRECAUTION PACEMAKER Adverse Reaction Severe NON COMPATIBLE PACMAKER Recent Impressions Myelogram 05/15/17 0800 Signed Impressions: Service Date/Time: May 15:12 - CONCLUSION: Uncomplicated total axis myelogram as above. CT scan is to be performed for further evaluation. Dylan Rush MD Thoracic Spine CT 05/15/17 0000 Signed Impressions: Service Date/Time: May 16:35 - CONCLUSION: Tiny disc protrusions at several levels as described, none producing any significant anatomic compromise. Dylan Rush MD Therapeutic Injection 05/15/17 0000 Signed Impressions: Service Date/Time: May 15:12 - CONCLUSION: Uncomplicated therapeutic injection performed under fluoroscopic guidance. Dylan Rush MD Lumbar Spine CT 05/15/17 0000 Signed Impressions: Service Date/Time: May 16:42 - CONCLUSION: Significant concentric canal stenosis at L2-3. Less severe changes at other levels as described Dylan Rush MD Cervical Spine CT 05/15/17 0000 Signed Impressions: Service Date/Time: May 16:28 - CONCLUSION: Multilevel abnormalities, none of which appear to produce critical compromise of canal or foramina. See above discussion. 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 No acute fracture, inflammatory changes or soft tissue mass are noted. Palliative treatment with intra-articular steroid injection should be considered. Luca Gonzalez MD 05:59 17:59 05:59 17:59 05:59 17:59 Intake Total 1152 ml 1110 ml 600 ml 780 ml 0 ml 0 ml Output Total 1525 ml 1250 ml 825 ml 450 ml 450 ml Balance -373 ml -140 ml 600 ml -45 ml -450 ml -450 ml Intake Oral 480 ml 480 ml 600 ml 780 ml 0 ml 0 ml IV Total 672 ml 630 ml Output Urine Total 1525 ml 1250 ml 825 ml 450 ml 450 ml # Voids 0 # Bowel Movements 1 0 1 0 0 Laboratory Tests Test 05/15/17 05/15/17 05/16/17 09:19 23:57 09:06 White Blood Count 11.0 TH/MM3 7.6 TH/MM3 Red Blood Count 3.56 MIL/MM3 3.63 MIL/MM3 Hemoglobin 10.9 GM/DL 11.4 GM/DL Hematocrit 33.0 % 33.3 % Mean Corpuscular Volume 92.7 FL 91.7 FL Mean Corpuscular Hemoglobin 30.7 PG 31.4 PG Mean Corpuscular Hemoglobin 33.1 % 34.3 % Concent Red Cell Distribution Width 13.4 % 14.0 % Platelet Count 195 TH/MM3 180 TH/MM3 Mean Platelet Volume 8.6 FL 9.4 FL Neutrophils (%) (Auto) 76.1 % Lymphocytes (%) (Auto) 10.1 % Monocytes (%) (Auto) 11.8 % Eosinophils (%) (Auto) 1.8 % Basophils (%) (Auto) 0.2 % Neutrophils # (Auto) 8.4 TH/MM3 Lymphocytes # (Auto) 1.1 TH/MM3 Monocytes # (Auto) 1.3 TH/MM3 Eosinophils # (Auto) 0.2 TH/MM3 Basophils # (Auto) 0.0 TH/MM3 CBC Comment DIFF FINAL Differential Comment Prothrombin Time 12.3 SEC Prothromb Time International 1.1 RATIO Ratio Sodium Level 141 MEQ/L 137 MEQ/L Potassium Level 3.8 MEQ/L 3.7 MEQ/L Chloride Level 104 MEQ/L 103 MEQ/L Carbon Dioxide Level 25.8 MEQ/L 23.4 MEQ/L Anion Gap 11 MEQ/L 11 MEQ/L Blood Urea Nitrogen 10 MG/DL 16 MG/DL Creatinine 0.84 MG/DL 0.98 MG/DL Estimat Glomerular Filtration 86 ML/MIN 72 ML/MIN Rate Random Glucose 130 MG/DL 155 MG/DL Calcium Level 9.5 MG/DL 9.1 MG/DL Phosphorus Level 2.7 MG/DL Magnesium Level 1.5 MG/DL 1.6 MG/DL Vital Signs Date Time Temp Pulse Resp B/P Pulse Ox O2 Delivery O2 Flow Rate FiO2 05/16/17 15:09 97 21 05/16/17 12:02 97.5 115 16 130/80 94 05/16/17 08:02 97.4 113 16 138/73 95 05/16/17 08:00 96 Nasal Cannula 2.00 21 05/16/17 08:00 105 05/16/17 03:42 97.3 98 18 159/97 96 05/15/17 23:13 98.6 110 18 142/88 95 05/15/17 20:50 97.9 114 18 139/89 95 05/15/17 20:00 Nasal Cannula 2.00 05/15/17 20:00 112 05/15/17 16:00 97.9 106 18 145/88 97 05/15/17 12:52 96 Nasal Cannula 2.00 05/15/17 12:00 98.8 115 18 147/85 96 05/15/17 08:30 Nasal Cannula 2.00 05/15/17 08:30 114 05/15/17 08:00 98.8 115 18 139/84 95 05/15/17 04:44 98.5 110 18 143/84 96 05/14/17 23:28 98.7 113 18 147/95 97 05/14/17 20:18 96 Nasal Cannula 2.50 05/14/17 20:17 98.4 115 18 144/92 97 05/14/17 20:00 115 05/14/17 19:47 Nasal Cannula 2.00 05/14/17 16:00 98.7 114 20 152/79 98 05/14/17 12:00 98.3 113 22 131/87 97 05/14/17 11:41 93 Nasal Cannula 3.00 05/14/17 08:00 96 Nasal Cannula 2.00 21 05/14/17 08:00 97.4 115 22 149/99 96 05/14/17 08:00 74 05/14/17 04:00 98.2 113 20 150/91 96 05/14/17 00:00 98.1 96 20 138/82 96 05/13/17 20:00 97.9 114 20 130/86 97 05/13/17 19:52 Nasal Cannula 2.00 05/13/17 19:38 114 (Dayron Amado) Medical Decision Making Impression and Plan Impression: Altered mental status Febrile illness Leukocytosis w/bandemia Back pain w/history of spinal stenosis, disc herniation & degenerative disc disease Repeat CT brain demonstrates no acute intracranial abnormality. CT cervical, thoracic & lumbar spine demonstrates extensive degenerative changes w/o any obvious osteomyelitis. Tagged WBC study was unremarkable for any abnormal activity to the neck or cervical and thoracic spine. There was abnormal increased activity along both mainstem bronchi and extending into the lungs most characteristic of bronchitis or bronchopneumonia. CT myelogram which was described as being an uncomplicated total axis myelogram. The CT cervical spine demonstrated multilevel abnormalities w/o any apparent critical compromise of the canal or foramina. On the thoracic spine CT there were tiny disc protrusions at several levels none of which produced significant compromise. And on the lumbar CT there was significant concentric canal stenosis at L2-3 w/less severe changes at the other levels. Patient is doing well and neurologically intact, no pain to lumbar spine, was able to ambulate 50 feet using a wheeled walker w/Physical Therapy today. Plan: Primary management per Hospitalist. Continue neuro checks. Will resume Mirtazapine, Prochlorperazine & Promethazine tomorrow. (Dayron Amado) Attending Statement I have personally seen and examined the patient on 05/16/17. Pertinent documentation and study results have been reviewed by the undersigned. I have personally developed the treatment plan and performed medical decision making. Agree with findings, exam, and treatment plan as noted above. Examination today reveals mild discomfort in the central to right lower lumbar region and right posterior lateral hip with range of motion. Sensation intact to light touch lower extremities Strength intact major flexion and extension groups lower extremities 05/15/[address] scan of the cervical, thoracic, lumbar spine images are reviewed by the undersigned. Images revealed a moderate C4 5 posterior osteophytic disc complex which impinges on the anterior cord without definite significant overall canal stenosis. The lumbar scan reveals moderately severe L2-3 circumferential canal stenosis with approximately 6 mm [place] sector mentioned, moderately severe lateral recess stenosis. The patient seemed to do somewhat better today in physical therapy, ambulating a little more with less pain. We will observe over the weekend to see if he has continued improvement in his pain level. The pain does not continue to improve, it is certainly possible that he has a component of L2-3 radiculopathy contributing to the hip and thigh and groin region pain which may respond with a limited L2-3 decompressive semi- laminectomy. (Ishmael Yañez MD) Dayron Amado May 16, 2017 18:05 Ishmael Yañez MD May 16, 2017 20:34
[2017-05-17] VITALS (7 sets, daily range): BP systolic 103–156; BP diastolic 63–84; PULSE 77–101; RESP 16–21; TEMP 97.9–98.5; O2SAT 93–97
[2017-05-17] MEDS: CEFUROXIME AXETIL 500 MG TAB PO SCH (08:29)
[2017-05-17] MEDS: LISINOPRIL 5 MG TAB PO SCH (08:29)
[2017-05-17] MEDS: AZITHROMYCIN 250 MG TAB PO SCH (08:29)
[2017-05-17] MEDS: NYSTATIN SUSP 500,000 U/5 ML CUP SWISH-SWAL SCH ×4 (08:29→22:17)
[2017-05-17] MEDS: PANTOPRAZOLE SOD 40 MG DELAYED RELEASE TAB PO SCH (08:29)
[2017-05-17] MEDS: CARVEDILOL 3.125 MG TAB PO SCH ×2 (08:29→22:16)
[2017-05-17] MEDS: DOCUSATE SODIUM 50 MG/SENNA 8.6 MG TAB PO SCH ×3 (08:30→21:00)
[2017-05-17] MEDS: POLYETHYLENE GLYCOL 17 GM PKG PO SCH (08:30)
--- NOTE | 2017-05-17 10:02 | HHI.PR ---
Subjective Remarks This is a pleasant 86 y/o Male with Atrial fibrillation status post Ablation, permanent pacemaker placement, on Xarelto, Hypertension, Mitral valve replacement, RYLAND on CPAP, seen at [facility] found Upper spine with spinal stenosis, Herniated disk and degenerative disk disease, admitted to Intensive Care Unit he developed Gastric distention unclear etiology, followed by GI specialist, Abdomen X-Ray (05/10/17)----> Distended stomach, etiology uncertain. Gastric outlet or proximal duodenal obstruction would be in the differential. Abdomen/Pelvis CT (05/10/17)-----> 1. Mild gaseous distention of the stomach with nasogastric tube present. No significant small or large bowel distention. Colonic diverticulosis. 2. Subsegmental basal airspace disease in the lungs without significant effusion. 3. Pacer leads in right atrium and right ventricle. 4. Perez in decompressed bladder. S/P EGD (05/13/17)----> distal esophagitis, hiatal hernia, bx of GE junction, mild gastritis pylorus open, normal duodenum. Pathology gastric mucosa without significant histopathologic abnormality, distal esophagus biopsy with acut esophagitis with features of ulceration, grocott methenamine silver stain is negative for fungal organisms. No n/v. GI specialist signed off the case. Sepsis since admission, secondary to Pneumonia, likely aspiration, Morbid obesity, recommended by ID to continued Cefuroxime, stop dates in EMR and he signed off the case. as per Neurosurgery doing better re started Mirtazapine , Prochlorperazine & Promethazine today. Seen in his bedroom discussed with nurse Miss Moses no new issues. Objective Vital Signs Date Time Temp Pulse Resp B/P Pulse Ox O2 Delivery O2 Flow Rate FiO2 05/17/17 08:00 98.4 84 16 124/80 97 05/17/17 04:00 98.1 101 19 127/80 93 05/17/17 00:00 98.2 78 21 103/63 94 05/16/17 20:00 114 05/16/17 20:00 Nasal Cannula 2.00 05/16/17 20:00 98.2 114 20 113/60 93 05/16/17 17:56 97 21 05/16/17 16:02 98.3 100 16 142/74 94 05/16/17 15:09 97 21 05/16/17 12:02 97.5 115 16 130/80 94 I/O 05/16/17 05/16/17 05/16/17 05/17/17 05/17/17 05/17/17 06:59 14:59 22:59 06:59 14:59 22:59 Intake Total 0 ml 480 ml 380 ml 280 ml Output Total 450 ml 500 ml 250 ml 400 ml Balance -450 ml -20 ml 130 ml -120 ml Intake Oral 0 ml 480 ml 380 ml 280 ml Output Urine Total 450 ml 500 ml 250 ml 400 ml # Bowel Movements 0 0 0 0 Result Diagram: 05/16/17 0906 05/16/17 0906 Imaging Last Impressions Myelogram 05/15/17 0800 Signed Impressions: Service Date/Time: May 15:12 - CONCLUSION: Uncomplicated total axis myelogram as above. CT scan is to be performed for further evaluation. Dylan Rush MD Thoracic Spine CT 05/15/17 0000 Signed Impressions: Service Date/Time: May 16:35 - CONCLUSION: Tiny disc protrusions at several levels as described, none producing any significant anatomic compromise. Dylan Rush MD Therapeutic Injection 05/15/17 0000 Signed Impressions: Service Date/Time: May 15:12 - CONCLUSION: Uncomplicated therapeutic injection performed under fluoroscopic guidance. Dylan Rush MD Lumbar Spine CT 05/15/17 0000 Signed Impressions: Service Date/Time: May 16:42 - CONCLUSION: Significant concentric canal stenosis at L2-3. Less severe changes at other levels as described Dylan Rush MD Cervical Spine CT 05/15/17 0000 Signed Impressions: Service Date/Time: May 16:28 - CONCLUSION: Multilevel abnormalities, none of which appear to produce critical compromise of canal or foramina. See above discussion. 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 No acute fracture, inflammatory changes or soft tissue mass are noted. Palliative treatment with intra-articular steroid injection should be considered. Luca Gonzalez MD Hip and Pelvis X-Ray 05/12/17 0000 Signed Impressions: Service Date/Time: Friday, May 12, 2017 18:29 - CONCLUSION: 1. Moderate osteoarthritis of the right hip. No acute bony abnormalities. Jose Pelayo MD Head CT 05/10/172019 Signed Impressions: Service Date/Time: Wednesday, May 10, 2017 20:52 - CONCLUSION: 1. No new findings. Tiny hemorrhage or calcification left frontal lobe either stable or slightly smaller. Jose Pelayo MD Abdomen/Pelvis CT 05/10/17 Signed Impressions: Service Date/Time: Wednesday, May 10, 2017 20:55 - CONCLUSION: 1. Mild gaseous distention of the stomach with nasogastric tube present. No significant small or large bowel distention. Colonic diverticulosis. 2. Subsegmental basal airspace disease in the lungs without significant effusion. 3. Pacer leads in right atrium and right ventricle. 4. Perez in decompressed bladder. Jose Pelayo MD Abdomen X-Ray 05/10/17 0000 Signed Impressions: Service Date/Time: Wednesday, May 10, 2017 14:58 - CONCLUSION: Distended stomach, etiology uncertain. Gastric outlet or proximal duodenal obstruction would be in the differential. No evidence of small or large bowel distention. Dylan Santo MD Chest X-Ray 05/09/17 0600 Signed Impressions: Service Date/Time: Tuesday, May 09, 2017 04:14 - CONCLUSION: 1. Subsegmental atelectasis left base. The findings are improved when compared with the prior exam. Aguila Brown MD Tumor Localization 05/07/17 0000 Signed Impressions: Service Date/Time: Sunday, May 07, 2017 17:05 - CONCLUSION: 1. No abnormal activity in the neck or cervical and thoracic spine. 2. Abnormal increased activity along both mainstem bronchi and extending into the lungs most characteristic of a bronchitis or bronchopneumonia. Jose Pelayo MD Procedures Myelogram Right hip joint injection Other Results Laboratory Tests Test 05/13/17 05/15/17 05/15/17 05/16/17 06:29 09:19 23:57 09:06 Differential Total Cells 100 Counted Neutrophils % (Manual) 67 % Band Neutrophils % 8 % Lymphocytes % 16 % Monocytes % 5 % Eosinophils % 2 % Neutrophils # (Manual) 8.6 TH/MM3 Myelocytes 2 % Platelet Estimate NORMAL Platelet Morphology Comment NORMAL Ovalocytes 1+ Random Vancomycin Level 10.7 COMMENT Neutrophils (%) (Auto) 76.1 % Lymphocytes (%) (Auto) 10.1 % Monocytes (%) (Auto) 11.8 % Eosinophils (%) (Auto) 1.8 % Basophils (%) (Auto) 0.2 % Neutrophils # (Auto) 8.4 TH/MM3 Lymphocytes # (Auto) 1.1 TH/MM3 Monocytes # (Auto) 1.3 TH/MM3 Eosinophils # (Auto) 0.2 TH/MM3 Basophils # (Auto) 0.0 TH/MM3 CBC Comment DIFF FINAL Differential Comment Prothrombin Time 12.3 SEC Prothromb Time International 1.1 RATIO Ratio Phosphorus Level 2.7 MG/DL White Blood Count 7.6 TH/MM3 Red Blood Count 3.63 MIL/MM3 Hemoglobin 11.4 GM/DL Hematocrit 33.3 % Mean Corpuscular Volume 91.7 FL Mean Corpuscular Hemoglobin 31.4 PG Mean Corpuscular Hemoglobin 34.3 % Concent Red Cell Distribution Width 14.0 % Platelet Count 180 TH/MM3 Mean Platelet Volume 9.4 FL Sodium Level 137 MEQ/L Potassium Level 3.7 MEQ/L Chloride Level 103 MEQ/L Carbon Dioxide Level 23.4 MEQ/L Anion Gap 11 MEQ/L Blood Urea Nitrogen 16 MG/DL Creatinine 0.98 MG/DL Estimat Glomerular Filtration 72 ML/MIN Rate Random Glucose 155 MG/DL Calcium Level 9.1 MG/DL Magnesium Level 1.6 MG/DL Objective Remarks GENERAL: Sitting up in a chair, in no acute distress. HEENT: Atraumatic, normocephalic. Pupils equal, round NECK: Supple. No JVD, adenopathy or thyromegaly. Trachea midline. CARDIOVASCULAR: Tachycardic. Normal S1-S2. No murmurs, rubs or gallops noted. PULMONARY: Bilateral equal air entry. No rales or wheezing. ABDOMEN: Soft, nontender, nondistended. Positive bowel sounds. EXTREMITIES: No significant peripheral edema. Right hip tender to palpation. NEURO: No gross deficits. PSYCH: Mood and affect appropriate. Medications and IVs Current Medications Medications (Trade) Dose Ordered Sig/Jaswinder Route Start Time Stop Time Status Last Admin Miscellaneous Information 1 Q361D XX 05/07/17 09:30 (Lynsey-Colace) 1 tab BID PO 05/07/17 21:00 05/13/17 08:10 (Milk Of Magnesia Liq) 30 ml Q12H PRN PO 05/07/17 09:30 (Senokot) 17.2 mg Q12H PRN PO 05/07/17 09:30 (Dulcolax Supp) 10 mg DAILY PRN RECTAL 05/07/17 09:30 (Lactulose Liq) 30 ml DAILY PRN PO 05/07/17 09:30 (Morphine Inj) 2 mg Q3H PRN IV PUSH 05/07/17 18:45 05/15/17 14:17 (Zofran Inj) 4 mg Q6HR PRN IV PUSH 05/10/17 09:15 05/10/17 09:33 (Compazine Inj) 5 mg Q6H PRN IV PUSH 05/10/17 13:00 Hold 05/10/17 13:43 (Phenergan Supp) 25 mg Q6H PRN RECTAL 05/10/17 13:00 Hold (Remeron) 15 mg HS PO 05/11/17 21:00 Hold 05/12/17 20:35 (Mycostatin Liq) 5 ml QID SWISH-SWAL 05/11/17 18:00 05/17/17 08:29 (Miralax) 17 gm DAILY PO 05/12/17 09:00 (Lynsey-Colace) 2 tab HS PO 05/11/17 21:00 (Protonix) 40 mg DAILY PO 05/13/17 09:00 05/17/17 08:29 (Prinivil) 5 mg DAILY PO 05/12/17 18:00 05/17/17 08:29 (Zithromax) 500 mg DAILY PO 05/14/17 09:00 05/18/17 08:59 05/17/17 08:29 Cefuroxime Axetil 500 mg 500 mg Q12HR PO 05/13/17 21:00 05/17/17 20:59 05/17/17 08:29 (NS 1000 ml Inj) 1,000 ml @ 125 mls/hr Q8H PRN IV 05/15/17 17:52 (Coreg) 6.25 mg BID PO 05/16/17 21:00 05/17/17 08:29 A/P Assessment and Plan Metabolic encephalopathy/ weakness Admitted to ICU with inability to walk and metabolic encephalopathy secondary to sepsis likely secondary to tracheobronchitis versus bronchopneumonia. Most recently patient had a fall onto the floor out of his bed at home prior to hospitalization and had substantial low back and right hip pain. Has has been essentially unable to walk secondary to pain in both areas. Has had substantial central nervous system workup, neurology and neurosurgery both following, no acute RANCH RIDER infections have been identified. ID consult appreciated. Imaging has revealed significant spinal stenosis. CT myelogram 05/15 : significant concentric canal stenosis at L2 - L3. - antibiotics per ID. - PT/ OT/ ST. - recommended to continue Neuro checks, resume Mirtazapine and Discontinued Prochlorperazine and Promethazine. Right hip pain Plain film is negative, CT scan with arthritis. S/p joint injection 05/15 with great relief. - PT/ OT. - pain control with a bowel regimen. Chronic systolic CHF 2-D echocardiogram revealed EF 35-40%; Mild LVH; Trace MR/TR. - continue low dose lisinopril. Abdominal distention GI consult appreciated. CT scan noted. Improved. - follow up with GI. - bowel regimen. Tracheobronchitis vs bronchopneumonia ID consult appreciated. BC 05/07: NGTD, 05/08 strep pneumonia and Legionella urinary Ag negative. CT scan of the cervical, lumbar and thoracic spine negative for any evidence of infection. Tagged WBC scan: tracheobronchitis vs bronchopneumonia. - Oxygen PRN maintain sats above 92%. - Bronchodilators on a p.r.n. basis and aspiration precautions. - Use home CPAP at night. - continue azithromycin and Ceftin per ID. Afib/ flutter Has been tachycardic into the 110s. - increase Coreg 05/16. Adjust as needed. - telemetry. - Xarelto on hold for procedures. Resume when cleared by neurosurgery. Hypokalemia Likely s/t decreased PO intake. - repeat BMP and replete as needed. PPx: Lovenox Discharge Planning Will need SNF at discharge, awaiting final recommendations by Neurosurgery specialist for discharge. De Banegas MD May 17, 2017 10:02
--- NOTE | 2017-05-17 13:31 | HHI.NSPN ---
(Dayron Amado) History Chief Complaint: Slight right hip and groin pain. (Dayron Amado) Interval History 05/07: This is a very pleasant, although confused, 86-year-old male who isn't sure why he is here. The history is obtained from his daughters who are present and he gave permission to speak with. The patient has a history of sleep apnea and uses a CPAP machine at night. About 3 weeks ago he felt that having the head of the bed elevated would help him and he slept that way for a few nights. He developed back pain and one daughter took him to [facility] for evaluation. He was doing well and his pain was controlled with [place], therefore he was discharged home. The following day the other daughter took him to his Chiropractor. At that time he was using a cane to ambulate. When he left the office he was not able to walk and had to be taken to the vehicle in a wheelchair. He was subsequently taken back to [facility] for evaluation again and imaging demonstrated spinal stenosis, disc herniation and degenerative disc disease. He was admitted for 3 days and after that was discharged to [facility] where he had been until this morning. His daughter's report that he was briefly on gabapentin which was stopped due to upper extremity tremors. That was replaced with Remeron and the patient had a decreased level of consciousness. The patient was found on the floor of his room at [facility] and he was transported to [facility] for evaluation in the emergency department. The daughters do report that the patient has had decreased oral intake the past few days and not had a bowel movement since 728. The patient was tremulous and had a max temperature of 102. His daughters did report to the ED Physician that the patient had started coughing that day. In the Emergency Department the patient was found to have an elevated WBC count at 23.8 with neutrophils [address] brain demonstrated a small focal area of mildly increased density within the left periventricular white matter with surrounding low-density which could represent slight haemorrhage and edema. Dr Yañez was notified and requested an MRI but the patient's pacemaker wasn't compatible. Therefore additional CT imaging w/o and w/contrast of the brain and spine were ordered which was unremarkable for any acute abnormality of the brain or spine. Substantial degenerative changes were noted throughout the spine. It was recommended that a tagged WBC study be done. The patient has been admitted by the Library Assistant to the [facility] and was waiting for a bed. 05/08: The patient states he is doing good today. He has no complaints but does endorse some aching to the back. 05/12: When seen this afternoon the patient states he is doing good. He denied any back pain when asked but finally did endorse pain with movement. He also endorsed pain to the right groin. He still is unable to ambulate. 05/13: The patient says he is doing good this afternoon. He does endorse back pain with movement and still has the right groin pain. He went for a GI procedure this morning but he isn't aware of the results. 05/15: This morning the patient states he is doing good. He does have pain to the right groin and the right foot. He denies any pain to the back. He is to go for a CT myelogram today. 05/16: The patient is doing well when seen this afternoon. He states he has pain to the right lateral hip radiating into the groin. He denies any back pain. He states that he was able to ambulate in the room with Physical Therapy today. He had a myelogram which was described as being an uncomplicated total axis myelogram. The CT cervical spine demonstrated multilevel abnormalities w/o any apparent critical compromise of the canal or foramina. On the thoracic spine CT there were tiny disc protrusions at several levels none of which produced significant compromise. And on the lumbar CT there was significant concentric canal stenosis at L2-3 w/less severe changes at the other levels. 05/17: The patient is doing well this afternoon when seen. He states he has some pain to the right hip and groin. (Dayron Amado) System Review Comments Constitutional: Patient denies any fever or chills. HEENT: Patient denies any visual or hearing difficulty. Respiratory: Patient denies any shortness of breath or productive cough. Cardiovascular: Patient denies any chest pain, palpitations or irregular heartbeat. Gastrointestinal: Patient denies any abdominal pain, nausea, vomiting or incontinence of stool. Genitourinary: Patient denies any urinary incontinence. Musculoskeletal: Patient has slight right lateral hip and groin pain. He denies any neck, back or other extremity pain. Neurologic: Patient denies any headache, dizziness, numbness or tingling. ( Dayron Amado) Exam Results Vital Signs Date Time Temp Pulse Resp B/P Pulse Ox O2 Delivery O2 Flow Rate FiO2 05/17/17 08:41 Room Air 05/17/17 08:41 101 05/17/17 08:00 98.4 16 124/80 97 05/16/17 20:00 2.00 05/16/17 17:56 21 Intake and Output 05/16/17 05/16/17 05/17/17 08:00 16:00 00:00 Intake Total 0 ml 480 ml 380 ml Output Total 450 ml 500 ml 250 ml Balance -450 ml -20 ml 130 ml (Dayron Amado) Physical Examination GENERAL: The patient is awake & alert visiting with family. No apparent distress. Normal affect. SKIN: Warm, dry & intact, no evident rashes, ulcerations or other lesions noted. HEENT: Normocephalic, atraumatic. NECK: Neck supple, no JVD, trachea midline. CARDIOVASCULAR: S1S2 w/RRR w/o M/G/R, radial & pedal pulses 2+ bilaterally, cap refill < 2 sec, 2+ pedal edema. RESPIRATORY: CTAB w/o W/R/R, equal excursion, nonlaboured, on RA. GASTROINTESTINAL: Abdomen soft, nontender, positive bowel sounds. MUSCULOSKELETAL: CALDERON w/o difficulty, no evident deformity or clubbing, TTP to right lateral hip & right groin, the lumbosacral spine is NTTP. NEUROLOGICAL: AAOx3. Speech clear & appropriate. Sensation intact to light touch to all extremities. Motor strength 5/5 to all major flexion & extension muscle groups. (Dayron Amado) Medical Decision Making Impression and Plan Impression: Altered mental status Febrile illness Leukocytosis w/bandemia Back pain w/history of spinal stenosis, disc herniation & degenerative disc disease Repeat CT brain demonstrates no acute intracranial abnormality. CT cervical, thoracic & lumbar spine demonstrates extensive degenerative changes w/o any obvious osteomyelitis. Tagged WBC study was unremarkable for any abnormal activity to the neck or cervical and thoracic spine. There was abnormal increased activity along both mainstem bronchi and extending into the lungs most characteristic of bronchitis or bronchopneumonia. CT myelogram which was described as being an uncomplicated total axis myelogram. The CT cervical spine demonstrated multilevel abnormalities w/o any apparent critical compromise of the canal or foramina. On the thoracic spine CT there were tiny disc protrusions at several levels none of which produced significant compromise. And on the lumbar CT there was significant concentric canal stenosis at L2-3 w/less severe changes at the other levels. Patient continues to do well and remains neurologically intact, w/o lumbar spine pain. Plan: Primary management per Hospitalist. Continue neuro checks. Will resume mirtazapine today. Will d/c prochlorperazine & promethazine since he has not required any antiemetics. (Dayron Amado) Attending Statement The exam, history, and the medical decision-making described in the above note were completed with the assistance of the mid-level provider. I reviewed and agree with the findings presented. I attest that I had a [id number] encounter with the patient on the same day, and personally performed and documented my assessment and findings in the medical record. On my examination today, the patient is awake and alert. Mild confusion. Sensation to light touch and motor function intact in the lower extremities Mild right lateral hip and anterior lateral proximal thigh tenderness and discomfort with range of motion, but much improved compared to his examination several days ago. He has been out of bed in the past couple of days and states that he had only mild low back pain and right hip pain when out of bed today. I discussed the myelogram-CT scan lumbar spine findings again with the patient today. There is moderately severe L2-3 stenosis, which likely could contribute to his low back and right hip and thigh pain complaints. Since he is improving well with conservative treatment over the past couple of days, we will continue to try to mobilize him out of bed with physical therapy. If there is significant recurrent pain, options would include epidural steroid injection versus microsurgical decompression at the L2-3 level. (Ishmael Yañez MD) Dayron Amado May 17, 2017 13:31 Ishmael Yañez MD May 17, 2017 14:08
[2017-05-17] MEDS: MIRTAZAPINE 15 MG TAB PO SCH (22:20)
[2017-05-17] MEDS: MORPHINE SULFATE 4 MG/ML INJ IV PUSH PRN (22:21)
[2017-05-18] VITALS (8 sets, daily range): BP systolic 127–154; BP diastolic 69–100; PULSE 75–103; RESP 16–18; TEMP 97.5–98.9; O2SAT 92–96
[2017-05-18] MEDS: PANTOPRAZOLE SOD 40 MG DELAYED RELEASE TAB PO SCH (09:12)
[2017-05-18] MEDS: CARVEDILOL 3.125 MG TAB PO SCH ×2 (09:12→21:17)
[2017-05-18] MEDS: NYSTATIN SUSP 500,000 U/5 ML CUP SWISH-SWAL SCH ×4 (09:12→21:17)
[2017-05-18] MEDS: LISINOPRIL 5 MG TAB PO SCH (09:12)
[2017-05-18] MEDS: DOCUSATE SODIUM 50 MG/SENNA 8.6 MG TAB PO SCH ×3 (09:13→21:17)
[2017-05-18] MEDS: POLYETHYLENE GLYCOL 17 GM PKG PO SCH (09:13)
[2017-05-18] MEDS: MORPHINE SULFATE 4 MG/ML INJ IV PUSH PRN ×2 (09:18→21:18)
--- NOTE | 2017-05-18 12:43 | HHI.PR ---
Subjective Remarks This is a pleasant 86 y/o Male with Atrial fibrillation status post Ablation, permanent pacemaker placement, on Xarelto, Hypertension, Mitral valve replacement, RYLAND on CPAP, seen at [facility] found Upper spine with spinal stenosis, Herniated disk and degenerative disk disease, admitted to Intensive Care Unit he developed Gastric distention unclear etiology, followed by GI specialist, Abdomen X-Ray (05/10/17)----> Distended stomach, etiology uncertain. Gastric outlet or proximal duodenal obstruction would be in the differential. Abdomen/Pelvis CT (05/10/17)-----> 1. Mild gaseous distention of the stomach with nasogastric tube present. No significant small or large bowel distention. Colonic diverticulosis. 2. Subsegmental basal airspace disease in the lungs without significant effusion. 3. Pacer leads in right atrium and right ventricle. 4. Perez in decompressed bladder. S/P EGD (05/13/17)----> distal esophagitis, hiatal hernia, bx of GE junction, mild gastritis pylorus open, normal duodenum. Pathology gastric mucosa without significant histopathologic abnormality, distal esophagus biopsy with acut esophagitis with features of ulceration, grocott methenamine silver stain is negative for fungal organisms. No n/v. GI specialist signed off the case. Sepsis since admission, secondary to Pneumonia, likely aspiration, Morbid obesity, recommended by ID to continued Cefuroxime, stop dates in EMR and he signed off the case. as per Neurosurgery doing better re started Mirtazapine , Prochlorperazine & Promethazine today. 05/18: Seen in his bedroom in the presence of his an another Relative, patient ambulating with Walker, okay to discharge by Neurosurgery will evaluate with his in am tomorrow who has elected a Rehab facility to go but will need to assess with Pharmacovigilance Safety Expert in am tomorrow No nausea, vomit or diarrhea. Objective Vital Signs Date Time Temp Pulse Resp B/P Pulse Ox O2 Delivery O2 Flow Rate FiO2 05/18/17 10:26 95 05/18/17 09:22 Room Air 05/18/17 08:00 98.5 98 18 146/69 96 05/18/17 05:00 97.5 77 16 127/75 92 05/18/17 00:00 98.4 75 16 154/74 93 05/17/17 20:00 91 05/17/17 20:00 96 Room Air 05/17/17 20:00 97.9 90 20 156/84 96 05/17/17 16:00 97.9 77 16 138/73 96 I/O 05/17/17 05/17/17 05/17/17 05/18/17 05/18/17 05/18/17 07:00 15:00 23:00 07:00 15:00 23:00 Intake Total 280 ml 480 ml Output Total 400 ml 525 ml 450 ml 825 ml Balance -120 ml -45 ml -450 ml -825 ml Intake Oral 280 ml 480 ml Output Urine Total 400 ml 525 ml 450 ml 825 ml # Bowel Movements 0 1 Result Diagram: 05/16/17 0906 05/16/17 0906 Imaging Last Impressions Myelogram 05/15/17 0800 Signed Impressions: Service Date/Time: May 15:12 - CONCLUSION: Uncomplicated total axis myelogram as above. CT scan is to be performed for further evaluation. Dylan Rush MD Thoracic Spine CT 05/15/17 0000 Signed Impressions: Service Date/Time: May 16:35 - CONCLUSION: Tiny disc protrusions at several levels as described, none producing any significant anatomic compromise. Dylan Rush MD Therapeutic Injection 05/15/17 0000 Signed Impressions: Service Date/Time: May 15:12 - CONCLUSION: Uncomplicated therapeutic injection performed under fluoroscopic guidance. Dylan Rush MD Lumbar Spine CT 05/15/17 0000 Signed Impressions: Service Date/Time: May 16:42 - CONCLUSION: Significant concentric canal stenosis at L2-3. Less severe changes at other levels as described Dylan Rush MD Cervical Spine CT 05/15/17 0000 Signed Impressions: Service Date/Time: May 16:28 - CONCLUSION: Multilevel abnormalities, none of which appear to produce critical compromise of canal or foramina. See above discussion. 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 No acute fracture, inflammatory changes or soft tissue mass are noted. Palliative treatment with intra-articular steroid injection should be considered. Luca Gonzalez MD Hip and Pelvis X-Ray 05/12/17 0000 Signed Impressions: Service Date/Time: Friday, May 12, 2017 18:29 - CONCLUSION: 1. Moderate osteoarthritis of the right hip. No acute bony abnormalities. Jose Pelayo MD Head CT 05/10/172019 Signed Impressions: Service Date/Time: Wednesday, May 10, 2017 20:52 - CONCLUSION: 1. No new findings. Tiny hemorrhage or calcification left frontal lobe either stable or slightly smaller. Jose Pelayo MD Abdomen/Pelvis CT 05/10/17 0000 Signed Impressions: Service Date/Time: Wednesday, May 10, 2017 20:55 - CONCLUSION: 1. Mild gaseous distention of the stomach with nasogastric tube present. No significant small or large bowel distention. Colonic diverticulosis. 2. Subsegmental basal airspace disease in the lungs without significant effusion. 3. Pacer leads in right atrium and right ventricle. 4. Perez in decompressed bladder. Jose Pelayo MD Abdomen X-Ray 05/10/17 0000 Signed Impressions: Service Date/Time: Wednesday, May 10, 2017 14:58 - CONCLUSION: Distended stomach, etiology uncertain. Gastric outlet or proximal duodenal obstruction would be in the differential. No evidence of small or large bowel distention. Dylan Santo MD Chest X-Ray 05/09/17 0600 Signed Impressions: Service Date/Time: Tuesday, May 09, 2017 04:14 - CONCLUSION: 1. Subsegmental atelectasis left base. The findings are improved when compared with the prior exam. Aguila Brown MD Tumor Localization 05/07/17 0000 Signed Impressions: Service Date/Time: Sunday, May 07, 2017 17:05 - CONCLUSION: 1. No abnormal activity in the neck or cervical and thoracic spine. 2. Abnormal increased activity along both mainstem bronchi and extending into the lungs most characteristic of a bronchitis or bronchopneumonia. Jose Pelayo MD Procedures Myelogram Right hip joint injection Other Results Laboratory Tests Test 05/15/17 05/15/17 05/16/17 09:19 23:57 09:06 Neutrophils (%) (Auto) 76.1 % Lymphocytes (%) (Auto) 10.1 % Monocytes (%) (Auto) 11.8 % Eosinophils (%) (Auto) 1.8 % Basophils (%) (Auto) 0.2 % Neutrophils # (Auto) 8.4 TH/MM3 Lymphocytes # (Auto) 1.1 TH/MM3 Monocytes # (Auto) 1.3 TH/MM3 Eosinophils # (Auto) 0.2 TH/MM3 Basophils # (Auto) 0.0 TH/MM3 CBC Comment DIFF FINAL Differential Comment Prothrombin Time 12.3 SEC Prothromb Time International 1.1 RATIO Ratio Phosphorus Level 2.7 MG/DL White Blood Count 7.6 TH/MM3 Red Blood Count 3.63 MIL/MM3 Hemoglobin 11.4 GM/DL Hematocrit 33.3 % Mean Corpuscular Volume 91.7 FL Mean Corpuscular Hemoglobin 31.4 PG Mean Corpuscular Hemoglobin 34.3 % Concent Red Cell Distribution Width 14.0 % Platelet Count 180 TH/MM3 Mean Platelet Volume 9.4 FL Sodium Level 137 MEQ/L Potassium Level 3.7 MEQ/L Chloride Level 103 MEQ/L Carbon Dioxide Level 23.4 MEQ/L Anion Gap 11 MEQ/L Blood Urea Nitrogen 16 MG/DL Creatinine 0.98 MG/DL Estimat Glomerular Filtration 72 ML/MIN Rate Random Glucose 155 MG/DL Calcium Level 9.1 MG/DL Magnesium Level 1.6 MG/DL Objective Remarks GENERAL: Sitting up in a chair, in no acute distress. HEENT: Atraumatic, normocephalic. Pupils equal, round NECK: Supple. No JVD, adenopathy or thyromegaly. Trachea midline. CARDIOVASCULAR: Tachycardic. Normal S1-S2. No murmurs, rubs or gallops noted. PULMONARY: Bilateral equal air entry. No rales or wheezing. ABDOMEN: Soft, nontender, nondistended. Positive bowel sounds. EXTREMITIES: No significant peripheral edema. Right hip tender to palpation. NEURO: No gross deficits. PSYCH: Mood and affect appropriate. Medications and IVs Current Medications Medications (Trade) Dose Ordered Sig/Jaswinder Route Start Time Stop Time Status Last Admin Miscellaneous Information 1 Q361D XX 05/07/17 09:30 (Lynsey-Colace) 1 tab BID PO 05/07/17 21:00 05/13/17 08:10 (Milk Of Magnesia Liq) 30 ml Q12H PRN PO 05/07/17 09:30 (Senokot) 17.2 mg Q12H PRN PO 05/07/17 09:30 (Dulcolax Supp) 10 mg DAILY PRN RECTAL 05/07/17 09:30 (Lactulose Liq) 30 ml DAILY PRN PO 05/07/17 09:30 (Morphine Inj) 2 mg Q3H PRN IV PUSH 05/07/17 18:45 05/18/17 09:18 (Zofran Inj) 4 mg Q6HR PRN IV PUSH 05/10/17 09:15 05/10/17 09:33 (Remeron) 15 mg HS PO 05/11/17 21:00 05/17/17 22:20 (Mycostatin Liq) 5 ml QID SWISH-SWAL 05/11/17 18:00 05/18/17 09:12 (Miralax) 17 gm DAILY PO 05/12/17 09:00 (Lynsey-Colace) 2 tab HS PO 05/11/17 21:00 (Protonix) 40 mg DAILY PO 05/13/17 09:00 05/18/17 09:12 Lisinopril 5 mg 5 mg DAILY PO 05/12/17 18:00 05/18/17 09:12 (NS 1000 ml Inj) 1,000 ml @ 125 mls/hr Q8H PRN IV 05/15/17 17:52 (Coreg) 6.25 mg BID PO 05/16/17 21:00 05/18/17 09:12 A/P Assessment and Plan Metabolic encephalopathy/ weakness Admitted to ICU with inability to walk and metabolic encephalopathy secondary to sepsis likely secondary to tracheobronchitis versus bronchopneumonia. Most recently patient had a fall onto the floor out of his bed at home prior to hospitalization and had substantial low back and right hip pain. Has has been essentially unable to walk secondary to pain in both areas. Has had substantial central nervous system workup, neurology and neurosurgery both following, no acute PRESCHOOL TEACHER ASSISTANT infections have been identified. ID consult appreciated. Imaging has revealed significant spinal stenosis. CT myelogram 05/15 : significant concentric canal stenosis at L2 - L3. \ - Sepsis/Pneumonia present on admission, ID recommended to continue Azithromycin , Cefuroxime, ID signed off the case. - PT/ OT/ ST. - recommended to continue Neuro checks, resume Mirtazapine and Discontinued Prochlorperazine and Promethazine. Okay to discharge by Neurosurgery Right hip pain Plain film is negative, CT scan with arthritis. S/p joint injection 05/15 with great relief. - PT/ OT. Chronic systolic CHF 2-D echocardiogram revealed EF 35-40%; Mild LVH; Trace MR/TR. - continue low dose lisinopril. stable no signs of exacerbation. Abdominal distention GI consult appreciated. CT scan noted. Improved. - No clear etiology stable GI signed off the case. Tracheobronchitis vs bronchopneumonia ID consult appreciated. BC 05/07: NGTD, 05/08 strep pneumonia and Legionella urinary Ag negative. CT scan of the cervical, lumbar and thoracic spine negative for any evidence of infection. Tagged WBC scan: tracheobronchitis vs bronchopneumonia. - Oxygen PRN maintain sats above 92%. - Bronchodilators on a p.r.n. basis and aspiration precautions. - Use home CPAP at night. - finished Azithromycin and Ceftin Afib/ flutter Stable on Beta blockers. will resume Xarelto today. PPx: Lovenox Discharge Planning Okay to discharge to SNF tomorrow morning. De Banegas MD May 18, 2017 12:43 specialist for discharge. De Banegas MD May 18, 2017 12:43
--- NOTE | 2017-05-18 13:02 | HHI.NSPN ---
History Chief Complaint: Slight right hip and groin pain. Interval History Patient continues to mobilize out of bed with assistance without significant pain. He complains of some pain radiating around the right and left lower flank and anterior abdominal region when he moves in bed. However he is able to sit up in a chair today without significant discomfort. No complaint of pain, weakness, or numbness in the lower extremities Exam Results Vital Signs Date Time Temp Pulse Resp B/P Pulse Ox O2 Delivery O2 Flow Rate FiO2 05/18/17 10:26 95 05/18/17 09:22 Room Air 05/18/17 08:00 98.5 18 146/69 96 05/16/17 20:00 2.00 05/16/17 17:56 21 Intake and Output 05/17/17 05/17/17 05/18/17 08:00 16:00 00:00 Intake Total 280 ml 480 ml Output Total 400 ml 525 ml 450 ml Balance -120 ml -45 ml -450 ml Physical Examination GENERAL: The patient is awake & alert. No apparent distress. Normal affect. SKIN: Warm, dry & intact, no evident rashes, ulcerations or other lesions noted. HEENT: Normocephalic, atraumatic. NECK: Neck supple, no JVD, trachea midline. MUSCULOSKELETAL: CALDERON w/o difficulty, no evident deformity or clubbing, Mild TTP to right lateral hip & right groin, the lumbosacral spine is NTTP. NEUROLOGICAL: AAOx3. Speech clear & appropriate. Sensation intact to light touch to all extremities. Motor strength 5/5 to all major flexion & extension muscle groups. Medical Decision Making Impression and Plan Impression: 1. Low back and right hip-thigh pain continues to gradually improve. He has been able to mobilize out of bed to a chair relatively well for the past couple of days. 2. Moderately severe L2-3 canal stenosis. Possible component of neurogenic claudication versus upper lumbar radiculopathy. Plan: Discussed with the patient. Plan to continue observation, physical therapy. No definite focal neurologic deficit on examination of the lower extremities. He is stable for transfer to inpatient rehabilitation versus correction from neurosurgery standpoint. He can be followed on an outpatient basis. I advised and I would like to see him back for follow-up in 2-3 weeks to make certain that he is making satisfactory progress, and not developing progressive radicular or claudication symptoms or any deficit. Since his symptoms watch were fully discussed. Ishmael Yañez MD May 18, 2017 13:02
[2017-05-18] MEDS ORDERED: RIVAROXABAN 15 MG TAB PO SCH (19:15)
[2017-05-18] MEDS: MIRTAZAPINE 15 MG TAB PO SCH (21:17)
[2017-05-19 00:13] VITALS: BP 128/77; PULSE 90; RESP 16; TEMP 97.7; O2SAT 93
[2017-05-19 04:52] VITALS: BP 162/90; PULSE 99; RESP 16; TEMP 97.8; O2SAT 94
[2017-05-19] MEDS: MORPHINE SULFATE 4 MG/ML INJ IV PUSH PRN ×3 (05:42→12:32)
[2017-05-19 08:00] VITALS: BP_SYST 142; BP_SYST 143; BP_DIAS 101; BP_DIAS 95; PULSE 89; RESP 20; TEMP 97.9; O2SAT 95
[2017-05-19 08:43] VITALS: PULSE 91
[2017-05-19] MEDS: NYSTATIN SUSP 500,000 U/5 ML CUP SWISH-SWAL SCH ×2 (08:46→12:32)
[2017-05-19] MEDS: LISINOPRIL 5 MG TAB PO SCH (08:47)
[2017-05-19] MEDS: PANTOPRAZOLE SOD 40 MG DELAYED RELEASE TAB PO SCH (08:47)
[2017-05-19] MEDS: DOCUSATE SODIUM 50 MG/SENNA 8.6 MG TAB PO SCH (08:47)
[2017-05-19] MEDS: CARVEDILOL 3.125 MG TAB PO SCH (08:47)
[2017-05-19] MEDS: POLYETHYLENE GLYCOL 17 GM PKG PO SCH (08:47)
[2017-05-19 10:22] LABS: BICARBONATE 27.1 MEQ/L (21.0-32.0); MAGNESIUM 1.7 MG/DL (1.5-2.5); POTASSIUM 3.7 MEQ/L (3.5-5.1)
[2017-05-19 12:00] VITALS: BP 151/95; PULSE 94; RESP 20; TEMP 98; O2SAT 95
--- NOTE | 2017-05-19 14:26 | HHI.PR ---
Subjective Remarks This is a pleasant 86 y/o Male with Atrial fibrillation status post Ablation, permanent pacemaker placement, on Xarelto, Hypertension, Mitral valve replacement, RYLAND on CPAP, seen at [facility] found Upper spine with spinal stenosis, Herniated disk and degenerative disk disease, admitted to Intensive Care Unit he developed Gastric distention unclear etiology, followed by GI specialist, Abdomen X-Ray (05/10/17)----> Distended stomach, etiology uncertain. Gastric outlet or proximal duodenal obstruction would be in the differential. Abdomen/Pelvis CT (05/10/17)-----> 1. Mild gaseous distention of the stomach with nasogastric tube present. No significant small or large bowel distention. Colonic diverticulosis. 2. Subsegmental basal airspace disease in the lungs without significant effusion. 3. Pacer leads in right atrium and right ventricle. 4. Peerz in decompressed bladder. S/P EGD (05/13/17)----> distal esophagitis, hiatal hernia, bx of GE junction, mild gastritis pylorus open, normal duodenum. Pathology gastric mucosa without significant histopathologic abnormality, distal esophagus biopsy with acut esophagitis with features of ulceration, grocott methenamine silver stain is negative for fungal organisms. No n/v. GI specialist signed off the case. Sepsis since admission, secondary to Pneumonia, likely aspiration, Morbid obesity, recommended by ID to continued Cefuroxime, stop dates in EMR and he signed off the case. as per Neurosurgery doing better re started Mirtazapine , Prochlorperazine & Promethazine today. 05/18: Seen in his bedroom in the presence of his an another Relative, patient ambulating with Walker, okay to discharge by Neurosurgery will evaluate with his in am tomorrow who has elected a Rehab facility to go but will need to assess with Plant Controller in am tomorrow 05/19: Seen in his bedroom, stable no nausea, vomit or diarrhea, okay to discharge to Rehab facility as per Neurosurgery will discharge at this time. Objective Vital Signs Date Time Temp Pulse Resp B/P Pulse Ox O2 Delivery O2 Flow Rate FiO2 05/19/17 12:00 98.0 94 20 151/95 95 05/19/17 08:43 Room Air 05/19/17 08:43 91 05/19/17 08:00 97.9 89 20 143/101 95 142/95 05/19/17 04:52 97.8 99 16 162/90 94 05/19/17 04:00 Room Air 05/19/17 00:13 97.7 90 16 128/77 93 05/19/17 00:00 Room Air 05/18/17 21:15 98.7 101 16 132/85 94 05/18/17 20:00 103 05/18/17 20:00 96 Room Air 05/18/17 16:00 98.9 89 18 129/100 94 I/O 05/18/17 05/18/17 05/18/17 05/19/17 05/19/17 05/19/17 07:00 15:00 23:00 07:00 15:00 23:00 Intake Total 960 ml 480 ml 0 ml Output Total 825 ml 600 ml 250 ml 500 ml 1300 ml Balance -825 ml 360 ml 230 ml -500 ml -1300 ml Intake Oral 960 ml 480 ml 0 ml Output Urine Total 825 ml 600 ml 250 ml 500 ml 1300 ml # Bowel Movements 0 1 0 Result Diagram: 05/16/17 0906 05/19/17 0908 Imaging Last Impressions Myelogram 05/15/17 0800 Signed Impressions: Service Date/Time: May 15:12 - CONCLUSION: Uncomplicated total axis myelogram as above. CT scan is to be performed for further evaluation. Dylan Rush MD Thoracic Spine CT 05/15/17 Signed Impressions: Service Date/Time: May 16:35 - CONCLUSION: Tiny disc protrusions at several levels as described, none producing any significant anatomic compromise. Dylan Rush MD Therapeutic Injection 05/15/17 0000 Signed Impressions: Service Date/Time: May 15:12 - CONCLUSION: Uncomplicated therapeutic injection performed under fluoroscopic guidance. Dylan Rush MD Lumbar Spine CT 05/15/17 Signed Impressions: Service Date/Time: May 16:42 - CONCLUSION: Significant concentric canal stenosis at L2-3. Less severe changes at other levels as described Dylan Rush MD Cervical Spine CT 05/15/17 Signed Impressions: Service Date/Time: May 16:28 - CONCLUSION: Multilevel abnormalities, none of which appear to produce critical compromise of canal or foramina. See above discussion. Dylan Rush MD Lower Extremity CT 05/14/17 Signed Impressions: Service Date/Time: Sunday, May 14, 2017 10:26 - CONCLUSION: Moderate to severe arthropathy of the right hip characteristic of osteoarthritis. No acute fracture, inflammatory changes or soft tissue mass are noted. Palliative treatment with intra-articular steroid injection should be considered. Luca Gonzalez MD Hip and Pelvis X-Ray 05/12/17 Signed Impressions: Service Date/Time: Friday, May 12, 2017 18:29 - CONCLUSION: 1. Moderate osteoarthritis of the right hip. No acute bony abnormalities. Jose Pelayo MD Head CT 05/10/172019 Signed Impressions: Service Date/Time: Wednesday, May 10, 2017 20:52 - CONCLUSION: 1. No new findings. Tiny hemorrhage or calcification left frontal lobe either stable or slightly smaller. Jose Pelayo MD Abdomen/Pelvis CT 05/10/17 Signed Impressions: Service Date/Time: Wednesday, May 10, 2017 20:55 - CONCLUSION: 1. Mild gaseous distention of the stomach with nasogastric tube present. No significant small or large bowel distention. Colonic diverticulosis. 2. Subsegmental basal airspace disease in the lungs without significant effusion. 3. Pacer leads in right atrium and right ventricle. 4. Perez in decompressed bladder. Jose Pelayo MD Abdomen X-Ray 05/10/17 Signed Impressions: Service Date/Time: Wednesday, May 10, 2017 14:58 - CONCLUSION: Distended stomach, etiology uncertain. Gastric outlet or proximal duodenal obstruction would be in the differential. No evidence of small or large bowel distention. Dylan Santo MD Chest X-Ray 05/09/17 0600 Signed Impressions: Service Date/Time: Tuesday, May 09, 2017 04:14 - CONCLUSION: 1. Subsegmental atelectasis left base. The findings are improved when compared with the prior exam. Aguila Brown MD Tumor Localization 05/07/17 0000 Signed Impressions: Service Date/Time: Sunday, May 07, 2017 17:05 - CONCLUSION: 1. No abnormal activity in the neck or cervical and thoracic spine. 2. Abnormal increased activity along both mainstem bronchi and extending into the lungs most characteristic of a bronchitis or bronchopneumonia. Jose Pelayo MD Procedures Myelogram Right hip joint injection Other Results Laboratory Tests Test 05/15/17 05/16/17 05/19/17 09:19 09:06 09:08 Neutrophils (%) (Auto) 76.1 % Lymphocytes (%) (Auto) 10.1 % Monocytes (%) (Auto) 11.8 % Eosinophils (%) (Auto) 1.8 % Basophils (%) (Auto) 0.2 % Neutrophils # (Auto) 8.4 TH/MM3 Lymphocytes # (Auto) 1.1 TH/MM3 Monocytes # (Auto) 1.3 TH/MM3 Eosinophils # (Auto) 0.2 TH/MM3 Basophils # (Auto) 0.0 TH/MM3 CBC Comment DIFF FINAL Differential Comment Prothrombin Time 12.3 SEC Prothromb Time International 1.1 RATIO Ratio White Blood Count 7.6 TH/MM3 Red Blood Count 3.63 MIL/MM3 Hemoglobin 11.4 GM/DL Hematocrit 33.3 % Mean Corpuscular Volume 91.7 FL Mean Corpuscular Hemoglobin 31.4 PG Mean Corpuscular Hemoglobin 34.3 % Concent Red Cell Distribution Width 14.0 % Platelet Count 180 TH/MM3 Mean Platelet Volume 9.4 FL Sodium Level 140 MEQ/L Potassium Level 3.7 MEQ/L Chloride Level 107 MEQ/L Carbon Dioxide Level 27.1 MEQ/L Anion Gap 6 MEQ/L Blood Urea Nitrogen 24 MG/DL Creatinine 1.15 MG/DL Estimat Glomerular Filtration 60 ML/MIN Rate Random Glucose 110 MG/DL Calcium Level 9.1 MG/DL Phosphorus Level 2.7 MG/DL Magnesium Level 1.7 MG/DL Objective Remarks GENERAL: Sitting up in a chair, in no acute distress. HEENT: Atraumatic, normocephalic. Pupils equal, round NECK: Supple. No JVD, adenopathy or thyromegaly. Trachea midline. CARDIOVASCULAR: Tachycardic. Normal S1-S2. No murmurs, rubs or gallops noted. PULMONARY: Bilateral equal air entry. No rales or wheezing. ABDOMEN: Soft, nontender, nondistended. Positive bowel sounds. EXTREMITIES: No significant peripheral edema. Right hip tender to palpation. NEURO: No gross deficits. PSYCH: Mood and affect appropriate. Medications and IVs Current Medications Medications (Trade) Dose Ordered Sig/Jaswinder Route Start Time Stop Time Status Last Admin Miscellaneous Information 1 Q361D XX 05/07/17 09:30 (Lynsey-Colace) 1 tab BID PO 05/07/17 21:00 05/18/17 21:17 (Milk Of Magnesia Liq) 30 ml Q12H PRN PO 05/07/17 09:30 (Senokot) 17.2 mg Q12H PRN PO 05/07/17 09:30 (Dulcolax Supp) 10 mg DAILY PRN RECTAL 05/07/17 09:30 (Lactulose Liq) 30 ml DAILY PRN PO 05/07/17 09:30 (Morphine Inj) 2 mg Q3H PRN IV PUSH 05/07/17 18:45 05/19/17 12:32 (Zofran Inj) 4 mg Q6HR PRN IV PUSH 05/10/17 09:15 05/10/17 09:33 (Remeron) 15 mg HS PO 05/11/17 21:00 05/18/17 21:17 (Mycostatin Liq) 5 ml QID SWISH-SWAL 05/11/17 18:00 05/19/17 12:32 (Miralax) 17 gm DAILY PO 05/12/17 09:00 (Lynsey-Colace) 2 tab HS PO 05/11/17 21:00 (Protonix) 40 mg DAILY PO 05/13/17 09:00 05/19/17 08:47 Lisinopril 5 mg 5 mg DAILY PO 05/12/17 18:00 05/19/17 08:47 (NS 1000 ml Inj) 1,000 ml @ 125 mls/hr Q8H PRN IV 05/15/17 17:52 (Coreg) 6.25 mg BID PO 05/16/17 21:00 05/19/17 08:47 (Xarelto) 15 mg DAILY@17 PO 05/18/17 19:15 05/18/17 21:19 A/P Assessment and Plan Metabolic encephalopathy/ weakness Admitted to ICU with inability to walk and metabolic encephalopathy secondary to sepsis likely secondary to tracheobronchitis versus bronchopneumonia. Most recently patient had a fall onto the floor out of his bed at home prior to hospitalization and had substantial low back and right hip pain. Has has been essentially unable to walk secondary to pain in both areas. Has had substantial central nervous system workup, neurology and neurosurgery both following, no acute SUPERINTENDENT FISH HATCHERY infections have been identified. ID consult appreciated. Imaging has revealed significant spinal stenosis. CT myelogram 05/15 : significant concentric canal stenosis at L2 - L3. \ - Sepsis/Pneumonia present on admission, ID recommended to continue Azithromycin , Cefuroxime, ID signed off the case. - PT/ OT/ ST. - recommended to continue Neuro checks, resume Mirtazapine and Discontinued Prochlorperazine and Promethazine. Okay to discharge by Neurosurgery Right hip pain Plain film is negative, CT scan with arthritis. S/p joint injection 05/15 with great relief. - PT/ OT. Chronic systolic CHF 2-D echocardiogram revealed EF 35-40%; Mild LVH; Trace MR/TR. - continue low dose lisinopril. stable no signs of exacerbation. Abdominal distention GI consult appreciated. CT scan noted. Improved. - No clear etiology stable GI signed off the case. Tracheobronchitis vs bronchopneumonia ID consult appreciated. BC 05/07: NGTD, 05/08 strep pneumonia and Legionella urinary Ag negative. CT scan of the cervical, lumbar and thoracic spine negative for any evidence of infection. Tagged WBC scan: tracheobronchitis vs bronchopneumonia. - Oxygen PRN maintain sats above 92%. - Bronchodilators on a p.r.n. basis and aspiration precautions. - Use home CPAP at night. - finished Azithromycin and Ceftin Afib/ flutter Stable on Beta blockers. continue Xarelto Mild Hypokalemia and hypomagnesemia replaced. PPx: Lovenox Discussed yesterday with his Daughter and and they told me they will fruit picker his Rehab facility for today also discussed with Plant Controller everything ready for him for discharge to Rehab. Discharge Planning Okay to discharge to Rehab today De Banegas MD May 19, 2017 14:26
[2017-05-19] MEDS ORDERED: POTASSIUM CHLORIDE 20 MEQ CONTROLLED RELEASE TAB PO ONE (14:30)
[2017-05-19] MEDS ORDERED: PANT40TA3 PO (14:34)
[2017-05-19] MEDS ORDERED: CARV3.125 PO (14:34)
[2017-05-19] MEDS ORDERED: HYDR-3516 PO (14:36)
--- NOTE | 2017-05-19 14:42 | HHI.DS ---
Discharge Summary Admission Date May 07, 2017 at 06:28 Discharge Date: May 19, 2017 Admitting Diagnosis Sepsis, r/o discititis, versus osteomyelitis (1) A-fib ICD Code: I48.91 Diagnosis: Principal (2) Sepsis ICD Code: A41.9 Diagnosis: Principal (3) Back pain ICD Code: M54.9 Diagnosis: Principal (4) Pneumonia ICD Code: J18.9 Diagnosis: Principal (5) Spinal stenosis ICD Code: M48.00 Diagnosis: Principal Procedures Myelogram Right hip joint injection Brief History - From Admission The patient is a 86-year-old male with past medical history of atrial fibrillation with previous ablation, permanent pacemaker placement, on Xarelto, hypertension, mitral valve repair, obstructive sleep apnea on C-PAP machine. The patient presented to [facility] ED early this morning with decline in his health for over the past 2-3 weeks. The patient went to [facility] for evaluation of his back pain and he was given prescription for pain medicine. He followed up with his chiropractor and since then he was not able to walk and had to use a wheelchair to get around. He was brought back to [facility] where he underwent a CT scan of the upper spine which showed spinal stenosis, herniated disk and degenerative disk disease. He was admitted to the hospital for several days and was then discharged to a local rehab facility. The patient continues to be unable to walk. He has had a decrease level of alertness for the past 2 days. The patient was placed Gabapentin for muscle spasms and tremors which was discontinued. Also, decreased p.o. intake for the past couple days. Per records, the patient has not had any neck pain, chest pain, shortness of breath, abdominal pain or any GI symptoms. In the ER he had a temperature of 102.3 rectally and his laboratory data is significant for leukocytosis with WBC of 23.8, associated with bandemia and renal failure with a creatinine of 2.06. His lactic acid level measured at 1.5. CT scan of the brain in the ER showed subtle small focal area of mildly increased density in the left periventricular white matter with surrounding low-density which is nonspecific. Questionable slight hemorrhage and edema. Dr. Yañez from neurosurgery was notified by ED and he recommended MRI of the brain, however, the patient has a pacemaker that is incompatible with MRI and he recommended to do a CT scan of the brain with contrast along with CT of the spine for further evaluation of his back pain. In the ED the patient was given vancomycin, Zosyn and 1.5 liter of crystalloids. He is on 2 liters nasal cannula with a saturation 98% and blood pressure of 106/57. The patient is awaiting to undergo CT of the spine along with CT brain with IV contrast. CBC/BMP: 05/16/17 0906 05/19/17 0908 Significant Findings Laboratory Tests Test 05/19/17 09:08 Blood Urea Nitrogen 24 MG/DL (7-18) Estimat Glomerular Filtration 60 ML/MIN (>89) Rate Random Glucose 110 MG/DL (74-106) Imaging Last Impressions Myelogram 05/15/17 0800 Signed Impressions: Service Date/Time: May 15:12 - CONCLUSION: Uncomplicated total axis myelogram as above. CT scan is to be performed for further evaluation. Dylan Rush MD Thoracic Spine CT 05/15/17 0000 Signed Impressions: Service Date/Time: May 16:35 - CONCLUSION: Tiny disc protrusions at several levels as described, none producing any significant anatomic compromise. Dylan Rush MD Therapeutic Injection 05/15/17 Signed Impressions: Service Date/Time: May 15:12 - CONCLUSION: Uncomplicated therapeutic injection performed under fluoroscopic guidance. Dylan Rush MD Lumbar Spine CT 05/15/17 Signed Impressions: Service Date/Time: May 16:42 - CONCLUSION: Significant concentric canal stenosis at L2-3. Less severe changes at other levels as described Dylan Rush MD Cervical Spine CT 05/15/17 Signed Impressions: Service Date/Time: May 16:28 - CONCLUSION: Multilevel abnormalities, none of which appear to produce critical compromise of canal or foramina. See above discussion. Dylan Rush MD Lower Extremity CT 05/14/17 Signed Impressions: Service Date/Time: Sunday, May 14, 2017 10:26 - CONCLUSION: Moderate to severe arthropathy of the right hip characteristic of osteoarthritis. No acute fracture, inflammatory changes or soft tissue mass are noted. Palliative treatment with intra-articular steroid injection should be considered. Luca Gonzalez MD Hip and Pelvis X-Ray 05/12/17 0000 Signed Impressions: Service Date/Time: Friday, May 12, 2017 18:29 - CONCLUSION: 1. Moderate osteoarthritis of the right hip. No acute bony abnormalities. Jose Pelayo MD Head CT 05/10/172019 Signed Impressions: Service Date/Time: Wednesday, May 10, 2017 20:52 - CONCLUSION: 1. No new findings. Tiny hemorrhage or calcification left frontal lobe either stable or slightly smaller. Jose Pelayo MD Abdomen/Pelvis CT 05/10/17 Signed Impressions: Service Date/Time: Wednesday, May 10, 2017 20:55 - CONCLUSION: 1. Mild gaseous distention of the stomach with nasogastric tube present. No significant small or large bowel distention. Colonic diverticulosis. 2. Subsegmental basal airspace disease in the lungs without significant effusion. 3. Pacer leads in right atrium and right ventricle. 4. Perez in decompressed bladder. Jose Pelayo MD Abdomen X-Ray 05/10/17 0000 Signed Impressions: Service Date/Time: Wednesday, May 10, 2017 14:58 - CONCLUSION: Distended stomach, etiology uncertain. Gastric outlet or proximal duodenal obstruction would be in the differential. No evidence of small or large bowel distention. Dylan Santo MD Chest X-Ray 05/09/17 0600 Signed Impressions: Service Date/Time: Tuesday, May 09, 2017 04:14 - CONCLUSION: 1. Subsegmental atelectasis left base. The findings are improved when compared with the prior exam. Aguila Brown MD Tumor Localization 05/07/17 0000 Signed Impressions: Service Date/Time: Sunday, May 07, 2017 17:05 - CONCLUSION: 1. No abnormal activity in the neck or cervical and thoracic spine. 2. Abnormal increased activity along both mainstem bronchi and extending into the lungs most characteristic of a bronchitis or bronchopneumonia. Jose Pelayo MD PE at Discharge GENERAL: Sitting up in a chair, in no acute distress. HEENT: Atraumatic, normocephalic. Pupils equal, round NECK: Supple. No JVD, adenopathy or thyromegaly. Trachea midline. CARDIOVASCULAR: Tachycardic. Normal S1-S2. No murmurs, rubs or gallops noted. PULMONARY: Bilateral equal air entry. No rales or wheezing. ABDOMEN: Soft, nontender, nondistended. Positive bowel sounds. EXTREMITIES: No significant peripheral edema. Right hip tender to palpation. NEURO: No gross deficits. PSYCH: Mood and affect appropriate. Hospital Course This is a pleasant 86 y/o Male with Atrial fibrillation status post Ablation, permanent pacemaker placement, on Xarelto, Hypertension, Mitral valve replacement, RYLAND on CPAP, seen at [facility] found Upper spine with spinal stenosis, Herniated disk and degenerative disk disease, admitted to Intensive Care Unit he developed Gastric distention unclear etiology, followed by GI specialist, Abdomen X-Ray (05/10/17)----> Distended stomach, etiology uncertain. Gastric outlet or proximal duodenal obstruction would be in the differential. Abdomen/Pelvis CT (05/10/17)-----> 1. Mild gaseous distention of the stomach with nasogastric tube present. No significant small or large bowel distention. Colonic diverticulosis. 2. Subsegmental basal airspace disease in the lungs without significant effusion. 3. Pacer leads in right atrium and right ventricle. 4. Perez in decompressed bladder. S/P EGD (05/13/17)----> distal esophagitis, hiatal hernia, bx of GE junction, mild gastritis pylorus open, normal duodenum. Pathology gastric mucosa without significant histopathologic abnormality, distal esophagus biopsy with acut esophagitis with features of ulceration, grocott methenamine silver stain is negative for fungal organisms. No n/v. GI specialist signed off the case. Sepsis since admission, secondary to Pneumonia, likely aspiration, Morbid obesity, recommended by ID to continued Cefuroxime, stop dates in EMR and he signed off the case. as per Neurosurgery doing better re started Mirtazapine , Prochlorperazine & Promethazine today. 05/18: Seen in his bedroom in the presence of his an another Relative, patient ambulating with Walker, okay to discharge by Neurosurgery will evaluate with his in am tomorrow who has elected a Rehab facility to go but will need to assess with [facility] in am tomorrow 05/19: Seen in his bedroom, stable no nausea, vomit or diarrhea, okay to discharge to Rehab facility as per Neurosurgery will discharge at this time. Assessment and Plan Metabolic encephalopathy/ weakness Admitted to ICU with inability to walk and metabolic encephalopathy secondary to sepsis likely secondary to tracheobronchitis versus bronchopneumonia. Most recently patient had a fall onto the floor out of his bed at home prior to hospitalization and had substantial low back and right hip pain. Has has been essentially unable to walk secondary to pain in both areas. Has had substantial central nervous system workup, neurology and neurosurgery both following, no acute MANAGER INTEGRATION infections have been identified. ID consult appreciated. Imaging has revealed significant spinal stenosis. CT myelogram 05/15 : significant concentric canal stenosis at L2 - L3. Spinal stenosis. CT myelogram 05/15: significant concentric canal stenosis at L2 - L3.Not recommended for procedure by Neurosurgery recommended Rehab. - Sepsis/Pneumonia present on admission, ID recommended to continue Azithromycin , Cefuroxime, ID signed off the case. - PT/ OT/ ST. - recommended to continue Neuro checks, resume Mirtazapine and Discontinued Prochlorperazine and Promethazine. Okay to discharge by Neurosurgery Right hip pain Plain film is negative, CT scan with arthritis. S/p joint injection 05/15 with great relief. - PT/ OT. Chronic systolic CHF 2-D echocardiogram revealed EF 35-40%; Mild LVH; Trace MR/TR. - continue low dose lisinopril. stable no signs of exacerbation. Abdominal distention GI consult appreciated. CT scan noted. Improved. - No clear etiology stable GI signed off the case. Tracheobronchitis vs bronchopneumonia ID consult appreciated. BC 05/07: NGTD, 05/08 strep pneumonia and Legionella urinary Ag negative. CT scan of the cervical, lumbar and thoracic spine negative for any evidence of infection. Tagged WBC scan: tracheobronchitis vs bronchopneumonia. - Oxygen PRN maintain sats above 92%. - Bronchodilators on a p.r.n. basis and aspiration precautions. - Use home CPAP at night. - finished Azithromycin and Ceftin Afib/ flutter Stable on Beta blockers. continue Xarelto Mild Hypokalemia and hypomagnesemia replaced. PPx: XARELTO Discussed yesterday with his Daughter and and they told me they will sampler pickup his Rehab facility for today also discussed with [facility] everything ready for him for discharge to Rehab. Discharge Planning Okay to discharge to Rehab today Pt Condition on Discharge: Good Discharge Disposition: Discharge to SNF Discharge Time: > 30 minutes Discharge Instructions DIET: Follow Instructions for: Heart Healthy Diet Activities you can perform: See Additionl Instruction Other Activity Instructions: Follow Neurosurgery and PT recommendations in Rehab De Banegas MD May 19, 2017 14:42
[2017-05-19] MEDS ORDERED: MAGNESIUM SULFATE 1 GM PREMIX 100 ML IV SCH (15:00)
[2017-05-19 16:00] VITALS: BP 149/85; PULSE 89; RESP 20; TEMP 98.4; O2SAT 89
== END 2017-05-19 16:53 | DRG 871 ==
LOC: NEPE 02:54 → NEDA 06:28 → HIMN 15:30 → HIME 05-11 04:30 → N04B 05-11 20:13
PROVIDERS: ADMIT Internal Medicine Critical Care Medicine; ATTEND Internal Medicine
PROC: 0DB38ZX Excision of Lower Esophagus, Via Natural or Artificial Opening Endoscopic, Diagnostic (ICD-10-PCS; 2017-05-13)
PROC: 0DB68ZX Excision of Stomach, Via Natural or Artificial Opening Endoscopic, Diagnostic (ICD-10-PCS; principal; 2017-05-13 10:30)
PROC: 3E0U33Z Introduction of Anti-inflammatory into Joints, Percutaneous Approach (ICD-10-PCS; 2017-05-15)
PROC: 3E0U3BZ Introduction of Anesthetic Agent into Joints, Percutaneous Approach (ICD-10-PCS; 2017-05-15)
PROC: B01B1ZZ Fluoroscopy of Spinal Cord using Low Osmolar Contrast (ICD-10-PCS; 2017-05-15)
DX: A41.9 Sepsis, unspecified organism (principal); J69.0 Pneumonitis due to inhalation of food and vomit; N17.9 Acute kidney failure, unspecified; G93.41 Metabolic encephalopathy; I11.0 Hypertensive heart disease with heart failure; K22.10 Ulcer of esophagus without bleeding; I50.22 Chronic systolic (congestive) heart failure; I48.92 Unspecified atrial flutter; J18.0 Bronchopneumonia, unspecified organism; I48.91 Unspecified atrial fibrillation; G47.33 Obstructive sleep apnea (adult) (pediatric); M48.06 Spinal stenosis, lumbar region; E83.42 Hypomagnesemia; E87.6 Hypokalemia; R65.20 Severe sepsis without septic shock; G89.29 Other chronic pain; K31.89 Other diseases of stomach and duodenum; M51.26 Other intervertebral disc displacement, lumbar region; M51.36 Other intervertebral disc degeneration, lumbar region; M51.34 Other intervertebral disc degeneration, thoracic region; M50.30 Other cervical disc degeneration, unspecified cervical region; J40 Bronchitis, not specified as acute or chronic; K29.70 Gastritis, unspecified, without bleeding; K44.9 Diaphragmatic hernia without obstruction or gangrene; M25.551 Pain in right hip; K59.00 Constipation, unspecified; R53.1 Weakness; E66.01 Morbid (severe) obesity due to excess calories; D64.9 Anemia, unspecified; K57.30 Diverticulosis of large intestine without perforation or abscess without bleeding; R32 Unspecified urinary incontinence; Z95.0 Presence of cardiac pacemaker; Z79.02 Long term (current) use of antithrombotics/antiplatelets; Z88.8 Allergy status to other drugs, medicaments and biological substances
CPT/HCPCS: 20610; 62305; 70450; 70460; 71010; 72125; 72126; 72128; 72129; 72131; 72132; 73502; 73701; 74000; 74176; 76937; 77002; 78806; 78807; 78999; 80048; 80053; 80076; 80202; 81001; 82140; 82150; 82550; 82607; 82948; 83605; 83690; 83735; 83880; 84100; 84145; 84439; 84443; 84481; 84484; 85007; 85025; 85027; 85610; 85730; 86592; 87040; 87070; 87205; 87449; 87641; 88305; 88312; 93005; 93306; 96374; A9569; J0456; J0780; J1630; J1650; J2270; J2405; J2543; J2795; J3301; J3370; J3475; J7030; J7040; J7050; J7120; Q9963; Q9967

== ENCOUNTER 2017-05-28 15:25 | Inpatient (IN) | payer MEDICARE, BC, OTHER ==
[~2017-05-28] VITALS: Ht 177.8 cm; Wt 80.0 kg
[2017-05-28] VITALS (8 sets, daily range): BP systolic 106–132; BP diastolic 55–68; PULSE 68–78; RESP 16–23; TEMP 97.8; O2SAT 94–98
[~2017-05-28 15:25] MED LIST changes: +BACL10TA PO; +BENA20TA3 PO; +CARV3.125 PO; +FLEEENE; +HYDR-3516 PO; -LOTE20TA3 PO; -METO25 PO; +MIRA3350 PO; +PANT40TA3 PO; +REME15TA PO; -RIVA15 PO; +SENN1TAB17 PO; +XARE15TA PO
[2017-05-28] MEDS ORDERED: DULC10SU3 RECTAL (16:40)
[2017-05-28] MEDS ORDERED: DIFL100T PO (16:40)
[2017-05-28] MEDS ORDERED: ENEMENE5 RECTAL (16:40)
[2017-05-28] MEDS ORDERED: OMEP20TA PO (16:40)
[2017-05-28] MEDS ORDERED: MORP20SO2 PO (16:40)
[2017-05-28] MEDS ORDERED: SODIUM CHLORIDE 0.9% FLUSH 5 ML FLUSH IV FLUSH PRN (16:45)
--- NOTE | 2017-05-28 16:51 | PD ---
HPI Chief Complaint: Altered Mental Status Time Seen by Provider: 16:28 Travel History International Travel<30 days: No Contact w/Intl Traveler<30days: No History of Present Illness HPI 86-year-old male presents from [facility] for evaluation of altered mental status. Patient's past medical history of atrial fibrillation previous ablation, permanent pacemaker, hypertension, mitral valve repair, except as sleep apnea. Patient was recently discharged from this hospital on May 19, 2017 for sepsis. The patient apparently also spinal stenosis, degenerative disc disease. Patient recently had mirtazapine and morphine discontinued. According to the nurse's note, the patient was very take meds this morning, answer a few questions, eyes were open. He isn't unable to use breakfast and esophagitis fluid out of this now. The patient was more lethargic than normal. He was then sent to the emergency department for altered mental status. The patient tells me his name, but does not answer any other questions appropriately. He is grimacing and will tell me that he is having back pain. The patient does not contribute to history. PFSH Past Medical History Arthritis: Yes Atrial Fibrillation: Yes Blood Disorders: No Heart Rhythm Problems: Yes Cancer: No Cardiovascular Problems: Yes Chest Pain: No Diabetes: No Diminished Hearing: No (UNKNOWN) Endocrine: No Gastrointestinal Disorders: No Glaucoma: No Genitourinary: No Hepatitis: No Hiatal Hernia: No Hypertension: Yes Immune Disorder: No Implanted Vascular Access Dvce: Yes Musculoskeletal: Yes Neurologic: No Psychiatric: No Reproductive: No Respiratory: Yes Integumentary: No Sleep Apnea: Yes Thyroid Disease: No Past Surgical History Body Medical Devices: Zipzoom Cardiac Surgery: Yes (Pacemaker 2014) Pacemaker: Yes Thoracic Surgery: Yes (VALVE REPAIR) Other Surgery: Yes Social History Alcohol Use: No Tobacco Use: No (FORMER) Substance Use: No Allergies-Medications (Allergen,Severity, Reaction): Coded Allergies: levalbuterol (Verified Allergy, Severe, 05/28/17) Uncoded Allergies: MRI PRECAUTION PACEMAKER (Adverse Reaction, Severe, NON COMPATIBLE PACMAKER , 05/07/17) [facility] PACEMAKER/05/07/17 [facility] Reported Meds & Prescriptions Reported Meds & Active Scripts Active Coreg (Carvedilol) 3.125 Mg Tab 6.25 Mg PO BID Reported Omeprazole 20 Mg Tab 40 Mg PO DAILY Morphine Liq (Morphine Sulfate) 20 Mg/Ml Liq 10 Mg PO Q6HR PRN Enema Disposable (Sodium Phosphates) 1 Taylor Taylor 1 Applic RECTAL EVERY OTHER DAY PRN Dulcolax Supp (Bisacodyl) 10 Mg Supp 20 Mg RECTAL EVERY OTHER DAY PRN Diflucan (Fluconazole) 100 Mg Tab 100 Mg PO DAILY 6 Days SCHEDULED TO START:05/28/2017 END DATE:06/02/2017 Xarelto (Rivaroxaban) 15 Mg Tab 15 Mg PO DAILY Benazepril-Hydrochlorothiazide 20-12.5 Mg Tab 0.5 Tab PO DAILY Baclofen 10 Mg Tab 10 Mg PO BID Senokot S (Sennosides-Docusate Sodium) 8.6-50 Mg Tab 2 Tab PO BID Miralax Powder (Polyethylene Glycol 3350 Powder) 17 Gm Powd 17 Gm PO DAILY Mix and dissolve one measuring capful (17 grams) in 8oz of water,juice,coffee,soda or tea Review of Systems Except as stated in HPI: all other systems reviewed are Neg Physical Exam Narrative GENERAL: Well-nourished, well-developed elderly male patient, afebrile SKIN: Focused skin assessment warm/dry. HEAD: Normocephalic. Atraumatic EYES: No scleral icterus. No injection or drainage. NECK: Supple, trachea midline. No JVD or lymphadenopathy. CARDIOVASCULAR: Regular rate and rhythm without murmurs, gallops, or rubs. RESPIRATORY: Breath sounds equal bilaterally. No accessory muscle use. Lungs sounds diminished throughout. GASTROINTESTINAL: Abdomen soft, non-tender, nondistended. MUSCULOSKELETAL: No cyanosis, or edema. Patient is moving all extremities. BACK: Nontender without obvious deformity. No CVA tenderness. Data Data Last Documented VS Vital Signs Date Time Temp Pulse Resp B/P (MAP) Pulse Ox O2 Delivery O2 Flow Rate FiO2 05/28/17 20:09 68 16 114/55 (74) 97 Room Air 05/28/17 17:00 97.8 Orders Orders Electrocardiogram (05/28/17 16:38) Complete Blood Count With Diff (05/28/17 16:38) Comprehensive Metabolic Panel (05/28/17 16:38) Creatine Kinase (Cpk) (05/28/17 16:38) Prothrombin Time / Inr (Pt) (05/28/17 16:38) Act Partial Throm Time (Ptt) (05/28/17 16:38) Troponin I (05/28/17 16:38) Urinalysis - C+S If Indicated (05/28/17 16:38) Chest, Single Ap (05/28/17 16:38) Ct Brain W/O Iv Contrast(Rout) (05/28/17 16:38) Blood Glucose (05/28/17 16:38) Ecg Monitoring (05/28/17 16:38) Iv Access Insert/Monitor (05/28/17 16:38) Oximetry (05/28/17 16:38) Sodium Chloride 0.9% Flush (Ns Flush) (05/28/17 16:45) Blood Culture (05/28/17 16:38) Magnesium (Mg) (05/28/17 16:38) Lactic Acid Sepsis Protocol (05/28/17 16:38) Cath For Specimen (05/28/17 16:41) Vancomycin Inj (Vancomycin Inj) (05/28/17 18:00) Piperacil-Tazo 4.5 Gm Premix (Zosyn 4.5 (05/28/17 18:00) Acetaminophen Supp (Tylenol Supp) (05/28/17 18:00) Sodium Chlor 0.9% 1000 Ml Inj (Ns 1000 M (05/28/17 18:15) Morphine Inj (Morphine Inj) (05/28/17 19:15) Admit Order (Ed Use Only) (05/28/17 20:29) Labs Laboratory Tests Test 05/28/17 16:50 05/28/17 19:00 White Blood Count 17.4 TH/MM3 Red Blood Count 3.65 MIL/MM3 Hemoglobin 10.9 GM/DL Hematocrit 34.5 % Mean Corpuscular Volume 94.6 FL Mean Corpuscular Hemoglobin 29.8 PG Mean Corpuscular Hemoglobin Concent 31.5 % Red Cell Distribution Width 14.6 % Platelet Count 187 TH/MM3 Mean Platelet Volume 10.1 FL Neutrophils (%) (Auto) 83.8 % Lymphocytes (%) (Auto) 6.0 % Monocytes (%) (Auto) 9.7 % Eosinophils (%) (Auto) 0.3 % Basophils (%) (Auto) 0.2 % Neutrophils # (Auto) 14.6 TH/MM3 Lymphocytes # (Auto) 1.0 TH/MM3 Monocytes # (Auto) 1.7 TH/MM3 Eosinophils # (Auto) 0.0 TH/MM3 Basophils # (Auto) 0.0 TH/MM3 CBC Comment DIFF FINAL Differential Comment Prothrombin Time 11.8 SEC Prothromb Time International Ratio 1.1 RATIO Activated Partial Thromboplast Time 28.8 SEC Blood Urea Nitrogen 87 MG/DL Creatinine 3.18 MG/DL Random Glucose 127 MG/DL Total Protein 7.2 GM/DL Albumin 2.8 GM/DL Calcium Level 9.2 MG/DL Magnesium Level 2.8 MG/DL Alkaline Phosphatase 92 U/L Aspartate Amino Transf (AST/SGOT) 17 U/L Alanine Aminotransferase (ALT/SGPT) 16 U/L Total Bilirubin 0.8 MG/DL Sodium Level 140 MEQ/L Potassium Level 4.1 MEQ/L Chloride Level 105 MEQ/L Carbon Dioxide Level 21.2 MEQ/L Anion Gap 14 MEQ/L Estimat Glomerular Filtration Rate 19 ML/MIN Lactic Acid Level 1.1 mmol/L Total Creatine Kinase 54 U/L Troponin I LESS THAN 0.02 NG/ML Urine Color YELLOW Urine Turbidity HAZY Urine pH 5.0 Urine Specific [place] 1.016 Urine Protein NEG mg/dL Urine Glucose (UA) NEG mg/dL Urine Ketones NEG mg/dL Urine Occult Blood NEG Urine Nitrite NEG Urine Bilirubin NEG Urine Urobilinogen LESS THAN 2.0 MG/DL Urine Leukocyte Esterase NEG Urine RBC LESS THAN 1 /hpf Urine WBC 1 /hpf Microscopic Urinalysis Comment CATH-CULT NOT IND MDM Medical Decision Making Medical Screen Exam Complete: Yes Emergency Medical Condition: Yes Medical Record Reviewed: Yes Interpretation(s) chest x-ray -CONCLUSION: Left lower lobe airspace disease. CT brain - CONCLUSION: 1. No acute intracranial abnormality. 2. Extensive chronic small vessel ischemic change. Differential Diagnosis Electrolyte abnormality versus pneumonia versus dehydration versus intracranial abnormality Versus UTI Narrative Course 86-year-old male presents to the emergency department from nursing facility for altered mental status. EKG, CBC, CMP, CK, troponin, magnesium, PTT, PT/INR, UA are ordered and pending. Blood cultures 2, lactic acid are ordered and pending. Chest x-ray and CT of the brain are ordered and pending. EKG shows SR, HR 73, no acute ST changes. CBC shows leukocytosis 17.4, slight anemia with a hemoglobin of 10.9, hematocrit 34.5, neutrophilia 83.8. CMP shows BUN 87, creatinine 3.18, glucose 127. Lactic acid is 1.1. CK is 54. Troponin is less than 0.02. Magnesium is 2.8. Coags show no acute abnormality. UA [-]. Chest x-ray shows left lower lobe airspace disease. CT of the brain shows 1. No acute intracranial abnormality; 2. Extensive chronic small vessel ischemic change. Patient is given vancomycin 1 g IV, Zosyn 4.5 g IV for pneumonia. Patient is given normal saline 1 L IV bolus. His primary care physician is Dr. Darling Hammonds. [facility] is paged for admission. Dylan Dickerson accepted admission. Sepsis Criteria SIRS Criteria (2 or more): WBC > 45340, < 4000 or > 10% bands Diagnosis Primary Impression: Pneumonia Qualified Codes: J18.1 - Lobar pneumonia, unspecified organism Additional Impression: Altered mental status Qualified Codes: R41.0 - Disorientation, unspecified Admitting Information Admitting Physician Requests: Admit Rimma Alvarenga May 28, 2017 16:51
--- NOTE | 2017-05-28 17:09 | RADRPT ---
EXAM DATE/TIME: 05/28/2017 17:04 [facility] COMPARISON: No previous studies available for comparison. INDICATIONS : Cough. MEDICAL HISTORY : Hypertension. AFIB SURGICAL HISTORY : Pacemaker. ENCOUNTER: Initial ACUITY: 2 days PAIN SCORE: 4/10 LOCATION: Bilateral chest FINDINGS: Median sternotomy wires, cardiomegaly and pacing device is again noted. Left lower lobe airspace dise ase suspected. CONCLUSION: Left lower lobe airspace disease. Aamir Carey MD on May 28, 2017 at 17:07 Board Certified Radiologist. This report was verified electronically.
[2017-05-28 17:27] LABS: AUTOMATED NEUTROPHIL # 14.6 TH/MM3 (1.8-7.7); BASOPHIL % 0.2 % (0.0-2.0); EOSINOPHIL % 0.3 % (0.0-4.0); HEMATOCRIT 34.5 % (39.0-51.0); HEMO FLAGS DIFF FINAL; MEAN CELL VOLUME 94.6 FL (80.0-100.0); MEAN CORPUSCULAR HEMOGLOBIN 29.8 PG (27.0-34.0); MEAN CORPUSCULAR HGB CONC 31.5 % (32.0-36.0); MONO % 9.7 % (0.0-8.0); NEUT % 83.8 % (16.0-70.0); PLATELET COUNT 187 TH/MM3 (150-450); RED BLOOD COUNT 3.65 MIL/MM3 (4.50-5.90); RED CELL DISTRIBUTION WIDTH 14.6 % (11.6-17.2); WHITE BLOOD COUNT 17.4 TH/MM3 (4.0-11.0)
[2017-05-28 17:36] LABS: APTT (PATIENT) 28.8 SEC (24.3-30.1); INTERNATIONAL NORMALIZED RATIO 1.1 RATIO; PROTHROMBIN TIME - PATIENT 11.8 SEC (9.8-11.6)
[2017-05-28 17:55] LABS: ANION GAP 14 MEQ/L (5-15); AST (GOT) 17 U/L (15-37); BICARBONATE 21.2 MEQ/L (21.0-32.0); BLOOD UREA NITROGEN 87 MG/DL (7-18); CHLORIDE 105 MEQ/L (98-107); GLOMERULAR FILTRATION RATE 19 ML/MIN (>89); MAGNESIUM 2.8 MG/DL (1.5-2.5); POTASSIUM 4.1 MEQ/L (3.5-5.1); SODIUM (NA) 140 MEQ/L (136-145)
[2017-05-28 17:56] LABS: ALT (GPT) 16 U/L (12-78)
[2017-05-28 18:00] LABS: ALKALINE PHOSPHATASE 92 U/L (45-117); TOTAL BILIRUBIN ADULT 0.8 MG/DL (0.2-1.0)
[2017-05-28] MEDS ORDERED: VANCOMYCIN INJ 1,000 MG in SODIUM CHLOR 0.9% 250 ML INJ 250 ML IV ONE (18:00)
[2017-05-28] MEDS ORDERED: ACETAMINOPHEN 650 MG SUPP RECTAL ONE (18:00)
[2017-05-28] MEDS ORDERED: PIPERACIL-TAZO 4.5 GM PREMIX 100 ML IV ONE (18:00)
[2017-05-28 18:12] LABS: CREATINE KINASE 54 U/L (39-308)
[2017-05-28] MEDS ORDERED: SODIUM CHLOR 0.9% 1000 ML INJ 1,000 ML IV ONE (18:15)
--- NOTE | 2017-05-28 18:17 | RADRPT ---
EXAM DATE/TIME: 05/28/2017 17:57 [facility] COMPARISON: CT BRAIN W/O CONTRAST, May 10, 2017, 20:52. INDICATIONS : Alt mental status. RADIATION DOSE: 56.39 CTDIvol (mGy) MEDICAL HISTORY : Hypertension. SURGICAL HISTORY : Pacemaker. Carotid stent. ENCOUNTER: Initial ACUITY: 1 day PAIN SCALE: 6/10 LOCATION: Bilateral cranial TECHNIQUE: Multiple contiguous axial images were obtained of the head. Using automated exposure control and adj ustment of the mA and/or kV according to patient size, radiation dose was kept as low as reasonably a chievable to obtain optimal diagnostic quality images. DICOM format image data is available electro nically for review and comparison. FINDINGS: CEREBRUM: Periventricular low attenuation change involving both cerebral hemispheres. Small calcifications asso ciated with the periventricular white matter of left frontal lobe as well as both basal ganglia. The ventricles are normal for age. No evidence of midline shift, mass lesion, hemorrhage or acute infarc tion. No extra-axial fluid collections are seen. POSTERIOR FOSSA: The cerebellum and brainstem are intact. The 4th ventricle is midline. The cerebellopontine angle i s unremarkable. EXTRACRANIAL: The visualized portion of the orbits is intact. SKULL: The calvaria is intact. No evidence of skull fracture. CONCLUSION: 1. No acute intracranial abnormality. 2. Extensive chronic small vessel ischemic change. Luis Fernando Diego Jr., MD on May 28, 2017 at 18:13 Board Certified Radiologist. This report was verified electronically.
[2017-05-28] MEDS ORDERED: MORPHINE SULFATE 4 MG/ML INJ IV PUSH ONE (19:15)
[2017-05-28 20:08] LABS: BLOOD, URINE NEG (NEG); GLUCOSE,URINE NEG (NEG); KETONE, URINE NEG (NEG); NITRITE,URINE NEG (NEG); URINE COLOR YELLOW (YELLW/STRAW)
[2017-05-28 20:15] LABS: COMMENT (UR) CATH-CULT NOT IND; CULTURE IF INDICATED CATH CULTURE NOT IND
[2017-05-28] MEDS ORDERED: SODIUM CHLORIDE 0.9% FLUSH 10 ML FLUSH IV FLUSH PRN (22:15)
[2017-05-28] MEDS ORDERED: ONDANSETRON HCL 4 MG/2 ML VIAL IVP PRN (22:15)
[2017-05-28] MEDS ORDERED: Custom Consult Pharmacy 1 EA OTHER SCH (22:15)
[2017-05-28] MEDS ORDERED: NALOXONE HCL 0.4 MG/ML AMP IV PRN (22:15)
[2017-05-28] MEDS ORDERED: Vancomycin Consult Pharmacy 1 EA OTHER SCH (22:15)
[2017-05-28] MEDS: SODIUM CHLOR 0.9% 1000 ML INJ 1,000 ML IV SCH (22:43)
[2017-05-28] MEDS: SODIUM CHLORIDE 0.9% FLUSH 10 ML FLUSH IV FLUSH SCH (22:43)
[2017-05-28] MEDS: FAMOTIDINE 20 MG/2 ML VIAL IV PUSH SCH (23:16)
[2017-05-28] MEDS: HEPARIN SODIUM - SQ 10,000 UNITS/ML VIAL SQ SCH (23:16)
[2017-05-28] MEDS ORDERED: VANCOMYCIN 1,000 MG/NS 250 ML IV ONE ×2 (23:30)
[2017-05-28] MEDS: MORPHINE SULFATE 4 MG/ML INJ IV PRN (23:50)
[2017-05-29] VITALS (12 sets, daily range): BP systolic 102–140; BP diastolic 42–69; PULSE 57–90; RESP 18–22; TEMP 95.5–98.5; O2SAT 92–98
[2017-05-29] MEDS: PIPERACIL-TAZO 3.375 GM PREMIX 50 ML IV SCH ×3 (01:25→13:33)
[2017-05-29] MEDS: MORPHINE SULFATE 4 MG/ML INJ IV PUSH PRN ×4 (05:57→18:26)
[2017-05-29] MEDS ORDERED: RESP: ALBUTEROL 2.5 MG/IPRATROPIUM 0.5 MG NEB (PRN) NEB (06:30)
[2017-05-29 07:15] LABS: ALT (GPT) 13 U/L (12-78); ANION GAP 11 MEQ/L (5-15); AST (GOT) 14 U/L (15-37); BICARBONATE 23.6 MEQ/L (21.0-32.0); BLOOD UREA NITROGEN 95 MG/DL (7-18); CHLORIDE 108 MEQ/L (98-107); GLOMERULAR FILTRATION RATE 19 ML/MIN (>89); POTASSIUM 3.9 MEQ/L (3.5-5.1); SODIUM (NA) 143 MEQ/L (136-145)
[2017-05-29 07:16] LABS: BASOPHIL % 0.2 % (0.0-2.0); EOSINOPHIL # 0.1 TH/MM3 (0-0.4); EOSINOPHIL % 0.9 % (0.0-4.0); HEMATOCRIT 29.9 % (39.0-51.0); HEMO FLAGS DIFF FINAL; LYMPH % 11.2 % (9.0-44.0); LYMPHOCYTE # 1.2 TH/MM3 (1.0-4.8); MEAN CELL VOLUME 94.3 FL (80.0-100.0); MEAN CORPUSCULAR HEMOGLOBIN 31.6 PG (27.0-34.0); MEAN CORPUSCULAR HGB CONC 33.5 % (32.0-36.0); MONO % 10.5 % (0.0-8.0); NEUT % 77.2 % (16.0-70.0); PLATELET COUNT 147 TH/MM3 (150-450); RED BLOOD COUNT 3.17 MIL/MM3 (4.50-5.90); RED CELL DISTRIBUTION WIDTH 14.7 % (11.6-17.2); WHITE BLOOD COUNT 10.4 TH/MM3 (4.0-11.0)
[2017-05-29 07:18] LABS: ALKALINE PHOSPHATASE 82 U/L (45-117); TOTAL BILIRUBIN ADULT 0.7 MG/DL (0.2-1.0)
--- NOTE | 2017-05-29 08:29 | EKG ---
Date Performed: 05/28/2017 Time Performed: 18:36:47 PTAGE: 86 years EKG: Sinus rhythm WITH FIRST DEGREE AV BLOCK BORDERLINE RIGHT AXIS DEVIATION NONSPECIFIC INTRAVENTRICULAR CONDUCTION D ELAY ABNORMAL ECG PREVIOUS TRACING : 05/15/2017 13.07 Compared to previous tracing, heart rate has slowed. DOCTOR: Steve Main Interpretating Date/Time 05/29/2017 08:27:40
--- NOTE | 2017-05-29 09:41 | MH ---
cc: MAGI PHILLIPS MD DATE OF ADMISSION: 05/28/2017 CHIEF COMPLAINT Altered mental status, dehydration. HISTORY OF PRESENT ILLNESS This is a 86-year-old male who was unable to provide any meaningful history at this time. His daughters are at the bedside. The chart is reviewed and the case was discussed with the ER physician for the history. The patient's problem started about 5 weeks ago. He started sleeping in a reclining bed where the feet were up and the head of bed was up and it made like a little bit of a U and his back sunk into it. After several days of this he developed severe pain in his back. He ended up coming to [facility] on 04/18/2017. He was given some pain medication and the next day he went to a chiropractor, had some adjustments and since that point he has not been able to walk. Two days later he ended up back at [facility] for several days and then went to [facility] for 7 days. His appetite became poor. He became more constipated. He ended up coming to [facility] and was diagnosed with pneumonia and sepsis and spent almost 12 days in the hospital and then was sent to [facility] where he was there for 3 days and then transferred to the [facility] three days later, which he has been there, today being the third day. He has not walked since around 04/19/2017. His mentation is greatly decreased. He had been living independently, driving, walking prior to his back starting to hurt. He has been on multiple medications. However, he was sent to the hospital today as outpatient labs revealed dehydration. He was pocketing food today. His mental status had decreased even over the past 48 hours and his appetite is minimal. The patient himself is unable to provide any meaningful history. He was seen in the emergency room and found to have acute kidney injury and a left lower lobe pneumonia and is being admitted to the hospital for further care. It should also be noted that he was getting outpatient IV half normal saline which was started on 05/27/2017 because of dehydration. MEDICATIONS ON ADMISSION Please see the chart. ALLERGIES XOPENEX, MRI PRECAUTION BECAUSE OF PACEMAKER. PAST MEDICAL HISTORY 1. Hypertension. 2. Mitral valve repair. 3. Atrial fibrillation. 4. Arthritis. 5. Hiatal hernia. 6. Pneumonia. PAST SURGICAL HISTORY 1. Cardiac ablation. 2. Pacemaker implantation. 3. Mitral valve repair secondary to mitral stenosis. SOCIAL HISTORY Ex-smoker, nondrinker, was living alone. Daughters are involved in his care. REVIEW OF SYSTEMS Unobtainable from the patient. He has been having problems with constipation. He has been on multiple medications, several different pain medicines and depression medications. There was concern that he may have had a tumor and during his workup over the past month he has had multiple CTs of the spine, head, the abdomen. He was found to have severe arthritis of the right hip. He was also found to have degenerative changes, no osteomyelitis. He even had a myelogram on 05/15/2017 which showed significant concentric canal stenosis L2, L3. The patient was seen by neurosurgery. No neurosurgical intervention was taken. Dr. Yañez recommended following on an outpatient basis in several weeks. Review of systems otherwise no other pertinent findings. PHYSICAL EXAMINATION VITAL SIGNS: Vital signs today show the patient being afebrile. Pulse 71, respirations 18, blood pressure 132/63. 02 sat is 98% on 3 liters. GENERAL: This is a 86-year-old male resting in bed. He overall appears comfortable and in no distress. HEENT: Mucous membranes are dry. There is no jaundice. NECK: Supple. CARDIOVASCULAR SYSTEM: Regular rate and rhythm. RESPIRATORY EXAM: There is some diminished breath sounds at the bases. Some crackles in the left lung base. Poor inspiratory effort. GASTROINTESTINAL SYSTEM: Bowel sounds are present. There is no point tenderness, guarding or rebound. GENITOURINARY SYSTEM: No suprapubic tenderness. MUSCULOSKELETAL SYSTEM: No edema. NEUROLOGIC EXAM: The patient is awake and alert. 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 He does not follow much in the way of commands. He does try to mouth a few words. His voice is very weak and very hard to understand. Exam is limited because of his cognitive impairment at this time. INVESTIGATIONS White count 17.4, hemoglobin 10.9, platelets are 187. Neutrophils are 83.8. Sodium 140, potassium 4.1, BUN 87, creatinine 3.18, glucose 127, magnesium 2.8. Troponin was negative. Albumin was 3.8. INR is 1.1. Urinalysis was negative. Chest x-ray shows left lower lobe infiltrate. EKG showed sinus rhythm with first degree AV block, borderline right axis deviation, moderate intraventricular conduction delay. CT of the brain showed no acute intracranial abnormality, extensive chronic small vessel ischemic changes. IMPRESSION 1. Left lower lobe pneumonia. 2. Acute kidney injury. 3. Protein calorie malnutrition. 4. Anemia of chronic disease. 5. Metabolic encephalopathy. 6. Chronic back pain. 7. Dysphasia. 8. Obstructive sleep apnea on CPAP. 9. History of mitral valve repair. 10. History of permanent pacemaker placement. DISCUSSION The patient is admitted to Dr. Phillips's service. The patient meets inpatient criteria due to the severity of his pneumonia as well as his altered mentation, all of which without hospitalization would be at high risk for respiratory distress, septic shock, or endstage renal disease. During his hospital stay he will be monitored on telemetry. Will have a Perez catheter inserted. Will cover him with broad spectrum antibiotics for the possibility of health care associated pneumonia and he may have aspirated as well. Zosyn and vancomycin will initially be used. Will consult pharmacy to assist with dosing because of the renal insufficiency and will consult speech therapy and keep him n.p.o. until he is cleared with them. Heparin will be used for DVT prophylaxis. Will hydrate the patient and monitor his electrolytes and his labs. Small amount of pain medicine will be used on a p.r.n. basis only if the patient appears to be in pain and his CPAP will be reordered. Case was discussed with the patient's daughters at the bedside. He currently is a full code, although they state he does have a living will, he would likely not want to have a PEG tube placed if it came to that. I did discuss DNR options with them briefly and they are considering this. Anticipated length of stay is four days. Anticipated discharge is back to the rehab. Dictated by: FAN Ceballos MD RICHY Devries/ESTEFANIA /10:51 PM /8:35 AM
[2017-05-29] MEDS: FAMOTIDINE 20 MG/2 ML VIAL IV PUSH SCH ×2 (09:44→21:35)
[2017-05-29] MEDS: HEPARIN SODIUM - SQ 10,000 UNITS/ML VIAL SQ SCH ×2 (09:45→21:21)
--- NOTE | 2017-05-29 12:39 | HHI.PR ---
Subjective Subjective Remarks awakes to voice, oriented to self coarse cough noted NPO, didn't pass swallow eval no fever unable to obtain ROS Review of Systems Constitutional Constitutional Remarks 12 point ros unable to obtain Vitals/Results Vital Signs Vital Signs Date Time Temp Pulse Resp B/P (MAP) Pulse Ox O2 Delivery O2 Flow Rate FiO2 05/29/17 08:00 95.5 59 22 118/58 (78) 98 05/29/17 07:38 66 05/29/17 06:00 96.4 72 18 102/53 (69) 95 05/29/17 04:00 74 05/29/17 00:40 05/29/17 00:00 96.6 90 18 120/42 (68) 05/29/17 00:00 74 05/28/17 22:45 98 Nasal Cannula 3.00 05/28/17 22:43 71 18 132/63 (86) 98 Room Air 05/28/17 20:09 68 16 114/55 (74) 97 Room Air 05/28/17 18:26 95 Room Air 05/28/17 18:00 78 22 106/55 (72) 95 Room Air 05/28/17 17:00 97.8 77 23 121/68 (85) 94 Room Air 05/28/17 16:55 95 CBC/BMP: 05/29/17 0545 05/29/17 0545 Lab Results Laboratory Tests Test 05/28/17 16:50 05/28/17 19:00 05/29/17 05:45 White Blood Count 17.4 TH/MM3 10.4 TH/MM3 Red Blood Count 3.65 MIL/MM3 3.17 MIL/MM3 Hemoglobin 10.9 GM/DL 10.0 GM/DL Hematocrit 34.5 % 29.9 % Mean Corpuscular Volume 94.6 FL 94.3 FL Mean Corpuscular Hemoglobin 29.8 PG 31.6 PG Mean Corpuscular Hemoglobin Concent 31.5 % 33.5 % Red Cell Distribution Width 14.6 % 14.7 % Platelet Count 187 TH/MM3 147 TH/MM3 Mean Platelet Volume 10.1 FL 10.5 FL Neutrophils (%) (Auto) 83.8 % 77.2 % Lymphocytes (%) (Auto) 6.0 % 11.2 % Monocytes (%) (Auto) 9.7 % 10.5 % Eosinophils (%) (Auto) 0.3 % 0.9 % Basophils (%) (Auto) 0.2 % 0.2 % Neutrophils # (Auto) 14.6 TH/MM3 8.0 TH/MM3 Lymphocytes # (Auto) 1.0 TH/MM3 1.2 TH/MM3 Monocytes # (Auto) 1.7 TH/MM3 1.1 TH/MM3 Eosinophils # (Auto) 0.0 TH/MM3 0.1 TH/MM3 Basophils # (Auto) 0.0 TH/MM3 0.0 TH/MM3 CBC Comment DIFF FINAL DIFF FINAL Differential Comment Prothrombin Time 11.8 SEC Prothromb Time International Ratio 1.1 RATIO Activated Partial Thromboplast Time 28.8 SEC Blood Urea Nitrogen 87 MG/DL 95 MG/DL Creatinine 3.18 MG/DL 3.10 MG/DL Random Glucose 127 MG/DL 116 MG/DL Total Protein 7.2 GM/DL 6.6 GM/DL Albumin 2.8 GM/DL 2.5 GM/DL Calcium Level 9.2 MG/DL 8.8 MG/DL Magnesium Level 2.8 MG/DL Alkaline Phosphatase 92 U/L 82 U/L Aspartate Amino Transf (AST/SGOT) 17 U/L 14 U/L Alanine Aminotransferase (ALT/SGPT) 16 U/L 13 U/L Total Bilirubin 0.8 MG/DL 0.7 MG/DL Sodium Level 140 MEQ/L 143 MEQ/L Potassium Level 4.1 MEQ/L 3.9 MEQ/L Chloride Level 105 MEQ/L 108 MEQ/L Carbon Dioxide Level 21.2 MEQ/L 23.6 MEQ/L Anion Gap 14 MEQ/L 11 MEQ/L Estimat Glomerular Filtration Rate 19 ML/MIN 19 ML/MIN Lactic Acid Level 1.1 mmol/L Total Creatine Kinase 54 U/L Troponin I LESS THAN 0.02 NG/ML Urine Color YELLOW Urine Turbidity HAZY Urine pH 5.0 Urine Specific [place] 1.016 Urine Protein NEG mg/dL Urine Glucose (UA) NEG mg/dL Urine Ketones NEG mg/dL Urine Occult Blood NEG Urine Nitrite NEG Urine Bilirubin NEG Urine Urobilinogen LESS THAN 2.0 MG/DL Urine Leukocyte Esterase NEG Urine RBC LESS THAN 1 /hpf Urine WBC 1 /hpf Microscopic Urinalysis Comment CATH-CULT NOT IND Microbiology Microbiology 05/28/17 Aerobic Blood Culture - Preliminary, Resulted NO GROWTH IN 1 DAY 05/28/17 Anaerobic Blood Culture - Preliminary, Resulted NO GROWTH IN 1 DAY 05/28/17 Aerobic Blood Culture - Preliminary, Resulted NO GROWTH IN 1 DAY 05/28/17 Anaerobic Blood Culture - Preliminary, Resulted NO GROWTH IN 1 DAY Physical Exam General General Appearance: Well Developed, Well Nourished, No Acute Distress, Comfortable Eyes Eye Exam: Pupils Equal, Pupils Reactive Ears & Nose Ears & Nose Exam: Nasal Mucosa [place] Throat Throat Exam: Oral Mucosa [place] & Moist Pulmonary Resp Exam: Crackles, Rhonchi Cardiology CV Exam: Regular Gastrointestinal/Abdomen GI Exam: Soft, Non-Tender, Bowel Sounds Present, Non-Distended Genitourinary Exam: Clear Urine Remarks wilcox Musculoskeletal MS Exam: Joints Intact Integumentary Skin Exam: Warm, Dry Extremeties Extremities Exam: No Edema, Pedal Pulses Palpable Neurologic Neuro Exam: Awake, Speech Clear, Moving All Extremities, No Focal Deficits VTE Prophylaxis VTE Prophylaxis Meds: Heparin Assessment/Plan Assessment/Plan 1. Left lower lobe pneumonia. 2. Acute kidney injury. 3. Protein calorie malnutrition. 4. Anemia of chronic disease. 5. Metabolic encephalopathy. 6. Chronic back pain. 7. Dysphasia. 8. Obstructive sleep apnea on CPAP. 9. History of mitral valve repair. 10. History of permanent pacemaker placement. Plan: continue with abx, duonebs, oxygen follow cultures make duonebs scheduled inc. rales, dec IVF, give Lasix 20 mg IV x 1 Creat remains elevated repeat BMP in am avoid nephrotoxic agents Hold PO meds keep NPO didn't pass swallow eval Heparin for DVT prophylaxis DNR status labs in am condition guarded D/W RN D/W Dr. Phillips This patient was seen by myself and Dr. Phillips, this note is written on his behalf. Louise Blanco May 29, 2017 12:39
[2017-05-29] MEDS ORDERED: FUROSEMIDE 20 MG/2 ML VIAL IV PUSH ONE (13:00)
[2017-05-29] MEDS: SODIUM CHLOR 0.9% 1000 ML INJ 1,000 ML IV SCH ×2 (16:00→18:29)
[2017-05-29] MEDS: RESP: ALBUTEROL 2.5 MG/IPRATROPIUM 0.5 MG NEB (SCH) NEB ×2 (16:57→19:48)
--- NOTE | 2017-05-29 17:57 | RADRPT ---
EXAM DATE/TIME: 05/29/2017 17:02 [facility] COMPARISON: CT ABDOMEN & PELVIS W/O CONTRAST, May 10, 2017, 20:55. INDICATIONS : Increased BUN/Creatnine. MEDICAL HISTORY : Hypertension. Arthritis. Atrial fibrillation. Sleep apnea. SURGICAL HISTORY : Pacemaker. Valve repair. ENCOUNTER: Initial ACUITY: 1 day PAIN SCORE: Nonresponsive. LOCATION: Bilateral flank MEASUREMENTS: RIGHT KIDNEY: 12.6 x 4.3 x 6.6 cm LEFT KIDNEY: 12.4 x 4.2 x 5.6 cm FINDINGS: There is no hydronephrosis. No definite solid mass is identified. No definite stone is identified f or technique. The bladder is grossly intact for technique and not being completely distended during t he exam. The multiple simple cysts in the left kidney the largest measures 4.8 cm in size and multip le simple cysts in the right kidney the largest measures 2.5 cm in size. CONCLUSION: Unremarkable renal ultrasound except for bilateral renal cysts. Lelia Turpin MD on May 29, 2017 at 17:54 Board Certified Radiologist. This report was verified electronically.
[2017-05-29] MEDS: PIPERACIL-TAZO 2.25 GM PREMIX 50 ML IV SCH (21:20)
[2017-05-29] MEDS: SODIUM CHLORIDE 0.9% FLUSH 10 ML FLUSH IV FLUSH SCH (21:21)
--- NOTE | 2017-05-29 22:37 | MB ---
cc: VIOLET COVINGTON MD DATE OF CONSULTATION 05/29/17 REASON FOR CONSULTATION Elevated BUN and creatinine for evaluation. HISTORY OF PRESENT ILLNESS This is an 86-year-old male with past medical history of hypertension, atrial fibrillation, osteoarthritis, mitral valve repair with possible underlying dementia who was admitted because of altered mental status and dehydration. I was called to see the patient because of elevated BUN and creatinine. The patient was found to have a BUN of 87 and a creatinine of 3.1 on admission. The patient previously had creatinine of 1.1. This was about nine days before this admission. He had a history of acute kidney injury in the beginning of the month and the creatinine was 2.0, but it improved to 1.1 and now he is admitted with creatinine of 3.1. The patient is unfortunately not able to give much history. He is still confused and, according to the chart, he has been in [facility] in April. From there he was discharged to [facility] for seven days. He was not eating well over there and became more dehydrated and confused and eventually was brought to [facility]. He was diagnosed here with pneumonia and was treated for almost 12 days and then went back to the nursing facility and then brought again here because of altered mental status. The patient has not been eating very good. He is currently with nasal cannula three liters and saturating well, slightly tachypneic. He is diagnosed with possible pneumonia and currently getting Zosyn and got one dose of vancomycin. PAST MEDICAL HISTORY 1. Hypertension, 2. Atrial fibrillation, 3. Ischemic heart disease, 4. Mitral wall repair 5. History of recurrent pneumonia. PAST SURGICAL HISTORY 1. Pacemaker implantation ablation 2. Mitral wall repair REVIEW OF SYSTEMS Cannot be taking much since the patient is not answering most of the questions. He is in mild respiratory distress. He is with nasal cannula, not eating well, not following all the commands. Has his eyes open and does not know exactly where he is. SOCIAL HISTORY The patient has past history of smoking. There is no history of heavy alcoholism. FAMILY HISTORY Noncontributory. ALLERGIES LEVALBUTEROL MEDS Currently 1. Normal saline at 100 an hour. 2. Protonix 40 mg once a day, 3. DuoNeb nebulizers 4. Heparin 5000 units subcu q. 12-hour 5. Pepcid 10 mg q. 12 hour 6. Zosyn 2.25 grams IV q. 8-hour 7. Received one dose of vancomycin 8. Zofran as needed 9. Morphine as needed PHYSICAL EXAMINATION GENERAL: The patient is awake, alert. He is in mild respiratory distress. VITAL SIGNS: Last blood pressure 106/63, temperature 95.7, oxygen saturation 95-98% on 3 liters nasal cannula. HEENT: Pupils are mid constricted. Nonicteric sclerae, conjunctivae pale. NECK: Supple. JVD is not elevated. LUNGS: The patient has bilateral decreased air entry with basilar rales and scattered wheezing. HEART: S1, S2 with regular rhythm. ABDOMEN: Soft, lax. There is no tenderness. EXTREMITIES: There is no pedal edema. LABORATORY DATA WBC count is 10.4, hemoglobin 10.0 with platelet count 147, neutrophils 77.2. Sodium 143, potassium 3.9, chloride 108, bicarb 23.6, BUN 95, creatinine 3.1, calcium 8.8, AST is 14, ALT is 13, total protein 6.6, albumin is 2.5, INR 1.1. Urinalysis showing that there is no proteinuria. Blood cultures pending. IMAGING STUDIES The patient had an ultrasound of the kidneys done which shows that both kidneys are normal in size and has bilateral renal cysts. There is no hydronephrosis. Chest x-ray done shows that the patient has left lower lobe airspace disease. CT scan of the brain was done without IV contrast and it shows that there is no acute intracranial abnormality, chronic small-vessel ischemic changes. ASSESSMENT/PLAN 1. Acute kidney injury 2. Pneumonia. 3. Dehydration. 4. Anemia. 5. History of atrial fibrillation 6. Confusion and encephalopathy. The patient has multiple comorbid conditions and now also developed acute kidney injury. The etiology of acute kidney injury is either ATN because of the infection or possibility of interstitial nephritis. I agree with continuing the IV fluid for now. He is nonoliguric and passing urine. BUN and creatinine is almost the same. Avoid any nephrotoxins. Thank you for the consultation. I will follow the patient while he is in the hospital. MD ALAYNA Ramirez/ /7:23 PM /10:01 PM
[2017-05-30] VITALS (7 sets, daily range): BP systolic 139–193; BP diastolic 60–81; PULSE 68–98; RESP 18–20; TEMP 96.7–98; O2SAT 94–98
[2017-05-30] MEDS: SODIUM CHLOR 0.9% 1000 ML INJ 1,000 ML IV SCH ×3 (01:30→11:39)
[2017-05-30] MEDS: PIPERACIL-TAZO 2.25 GM PREMIX 50 ML IV SCH ×2 (05:57→14:21)
[2017-05-30] MEDS: RESP: ALBUTEROL 2.5 MG/IPRATROPIUM 0.5 MG NEB (SCH) NEB ×3 (08:12→16:00)
[2017-05-30] MEDS: HEPARIN SODIUM - SQ 10,000 UNITS/ML VIAL SQ SCH (08:36)
[2017-05-30] MEDS: FAMOTIDINE 20 MG/2 ML VIAL IV PUSH SCH (08:37)
[2017-05-30] MEDS: MORPHINE SULFATE 4 MG/ML INJ IV PRN ×2 (08:38→11:37)
[2017-05-30] MEDS: SODIUM CHLORIDE 0.9% FLUSH 10 ML FLUSH IV FLUSH SCH ×2 (08:58→20:55)
[2017-05-30] MEDS ORDERED: PANTOPRAZOLE SOD 40 MG DELAYED RELEASE TAB PO SCH (09:00)
[2017-05-30] MEDS ORDERED: VANCOMYCIN INJ 1,250 MG in SODIUM CHLOR 0.9% 250 ML INJ 250 ML IV ONE (11:00)
--- NOTE | 2017-05-30 11:58 | PD.CONS ---
Consult Service Palliative Care Consult Requested By Dr. Phillips . Primary Care Physician [facility] . Reason for Consultation a. To assist with evaluation and management of symptoms including: Pain, dyspnea, dysphagia b. To assist medical decision maker(s) with: better understanding of current medical conditions; weighing benefits/burdens of medical treatment options; making medical treatment decisions. . HPI History of Present Illness This 86-year-old male, with a past history of RYLAND, hypertension, and atrial fibrillation, has been declining for about 6 weeks. The patient changed his sleeping habit and started developing mid and lower back pain, and that became quite disabling. He became nonambulatory and in a wheelchair and had gone to [facility] for evaluation where a CT scan revealed severe diffuse degenerative arthritis as well as spinal stenosis. The patient was in rehabilitation for a few days, then he came weaker, fell out of bed, and developed altered mental status on 05/07/17, and he was brought to the hospital he was found to have temp 102.3, evidence of sepsis, and an FREDI with creatinine 2.06. He became quite weak but was successfully treated for his infection and was sent to [facility] on 05/19/17. According to his family, he did not progress in any way while at rehabilitation , and he seems to continue to get weaker. They report he was taking very little orally, and he was eventually able to be transferred to the [facility] nursing facility 3 or 4 days ago. However, he continued to get weaker in spite of IV fluids there, and he developed altered mental status again and was sent back here to the hospital for admission on 05/28/17. In the emergency department, findings included: * Profound weakness, some confusion * Temp 97.8, pulse 68, respirations 16, blood pressure 110/55, oxygen saturation 97% on room air * White count 17.4, hemoglobin 10.9 * Sodium 140, creatinine 3.18, albumin 2.8 * CT brain scan with chronic changes but nothing acute * Chest x-ray consistent with left lower lobe pneumonia Cultures were obtained, antibiotics were initiated, and the patient was admitted to the hospital. On 05/29/17, the patient failed his swallow exam with evidence of aspiration, and he was made NPO. He had a loose, rattling cough, and his follow-up creatinine was still 3.10. His white count had come down to 10.4. A renal ultrasound was done that was negative, and the blood cultures were negative so far. The patient had made it clear to his family that if he reached a terminal or end -stage condition he would not want to be resuscitated, he would not want artificial nutrition via tube, and he would want to focus to be on comfort. He has continued to have mid and lower back pain here, worse if he tries to turn or raise his torso, relieved by the pain medicine when they give it to him. He had been on oral morphine 10 mg every 6 hours PRN for pain at home. At the time I am seeing him, he is profoundly weak, whispers, but says his pain is not bad while he is lying still in the bed. He has supplemental oxygen on and denies dyspnea at this time. Palliative Care was consulted to assist with symptom management, and to enter into discussions with the patient and family regarding his current illnesses, the trajectory of his recent decline, the prognosis, and the benefits and burdens of the various treatment choices. . Function/Cognitive Trajectory The patient was living alone and functioning completely independently until the past 5 or 6 weeks. He was still driving a car, he walked 1 mile or more nearly every day, and he had remained mentally sharp. . Review of Systems ROS Limitations: Altered Mental Status Constitutional: COMPLAINS OF: Fever, Weight loss Endocrine: DENIES: Polyuria Eyes: DENIES: Eye inflammation Ears, nose, mouth, throat: DENIES: Epistaxis Respiratory: COMPLAINS OF: Cough, Shortness of breath Cardiovascular: DENIES: Chest pain, Syncope Gastrointestinal: DENIES: Constipation, Diarrhea, Vomiting Genitourinary: DENIES: Hematuria Musculoskeletal: COMPLAINS OF: Joint pain (mild arthritic pains), Back pain ( for more than one month) Integumentary: DENIES: Rash Hematologic/Lymphatics: DENIES: Bruising, Lymphadenopathy Immunologic/Allergic: DENIES: Urticaria Neurologic: DENIES: Headache, Localized weakness, Paresthesias, Speech Problems Psychiatric: COMPLAINS OF: Confusion, DENIES: Hallucinations, Agitation Past Family Social History Coded Allergies: levalbuterol (Verified Allergy, Severe, 05/28/17) Uncoded Allergies: MRI PRECAUTION PACEMAKER (Adverse Reaction, Severe, NON COMPATIBLE PACMAKER , 05/07/17) [facility] PACEMAKER/05/07/17 VSV Past Medical History * Pneumonia, sepsis * Acute kidney injury * Dysphagia, with evidence of aspiration * Malnutrition, poor oral intake recently * History of atrial fibrillation, status post ablation * Hypertension * Spinal stenosis * Chronic back pain for several weeks * History of colon polyps * RYLAND, using CPAP at home * Degenerative arthritis * Hiatal hernia . Past Surgical History * Cardiac ablation for atrial fibrillation * Pacemaker 2014 * Mitral valve repair . Reported Medications Reported Meds & Active Scripts Active Coreg (Carvedilol) 3.125 Mg Tab 6.25 Mg PO BID Reported Omeprazole 20 Mg Tab 40 Mg PO DAILY Morphine Liq (Morphine Sulfate) 20 Mg/Ml Liq 10 Mg PO Q6HR PRN Enema Disposable (Sodium Phosphates) 1 Taylor Taylor 1 Applic RECTAL EVERY OTHER DAY PRN Dulcolax Supp (Bisacodyl) 10 Mg Supp 20 Mg RECTAL EVERY OTHER DAY PRN Diflucan (Fluconazole) 100 Mg Tab 100 Mg PO DAILY 6 Days SCHEDULED TO START:05/28/2017 END DATE:06/02/2017 Xarelto (Rivaroxaban) 15 Mg Tab 15 Mg PO DAILY Benazepril-Hydrochlorothiazide 20-12.5 Mg Tab 0.5 Tab PO DAILY Baclofen 10 Mg Tab 10 Mg PO BID Senokot S (Sennosides-Docusate Sodium) 8.6-50 Mg Tab 2 Tab PO BID Miralax Powder (Polyethylene Glycol 3350 Powder) 17 Gm Powd 17 Gm PO DAILY . Current Medications Medications (Trade) Dose Ordered Sig/Jaswinder Route Start Time Stop Time Status Last Admin (NS Flush) 2 ml UNSCH PRN IV FLUSH 05/28/17 22:15 (NS Flush) 2 ml BID IV FLUSH 05/29/17 09:00 05/30/17 08:58 (Zofran Inj) 4 mg Q6H PRN IVP 05/28/17 22:15 (Heparin Inj) 5,000 units Q12H SQ 05/28/17 22:15 05/30/17 08:36 (Narcan Inj) 0.4 mg UNSCH PRN IV 05/28/17 22:15 Pharmacy Profile Note 0 ml @ 0 mls/hr UNSCH OTHER 05/28/17 22:15 (Pepcid Inj) 10 mg Q12H IV PUSH 05/28/17 22:30 05/30/17 08:37 (Morphine Inj) 2 mg Q3H PRN IV PUSH 05/28/17 23:15 05/29/17 18:26 (Morphine Inj) 4 mg Q3H PRN IV 05/28/17 23:30 05/30/17 08:38 (Duoneb Neb) 1 ampule Q4HR NEB PRN NEB 05/29/17 06:30 05/29/17 06:30 (Duoneb Neb) 1 ampule QID NEB NEB 05/29/17 16:00 05/30/17 08:12 (Protonix) 40 mg DAILY PO 05/30/17 09:00 Sodium Chloride 1,000 ml @ 100 mls/hr Q10H IV 05/29/17 16:00 Piperacillin Sod/ Tazobactam Sod 50 ml @ 100 mls/hr Q8H IV 05/29/17 22:00 05/30/17 05:57 Vancomycin HCl 1250 mg/Sodium Chloride 262.5 ml @ 250 mls/hr ONCE ONCE IV 05/30/17 11:00 05/30/17 12:02 Family History His father at age 47 of heart disease, and his mother in her 50s of some type of cancer. There is other cardiac family history in the family also. The patient's one daughter of esophageal cancer in August 2016. . . Substance Use Tobacco: The patient smoked but quit many years ago. Alcohol: None Prescription med abuse: None Illicits: None . Psychosocial History The patient was born in [place], lived "all over the world" when he was in the [employer], then lived in the [place] area and finally moved to [place] in 2000. He lived with his until she became too debilitated to be at home , and she was moved to an [place]. The patient has lived alone now, completely independently the past few years (until his back pain began in April 2017). 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 He was once, and his currently resides in an [place]. He had 3 daughters and a son, 1 daughter of esophageal cancer in August 2016. . Spiritual/Cultural Factors The patient is of Gnosticist edin, currently has been attending a scientologist lutheran, and family believes he would appreciate visits from the hospital dust collector ore crushing. . Living Will: Copy in medical record Health Care Surrogate: Copy in medical record Durable Power of Nailing Machine Operator: Never completed Health Care Surrogate(s): Daughter Maria nIes Bey . Documented care wishes: The patient has a living will with typical language regarding terminal condition , end-stage condition, or vegetative condition. He has specifically told the family that he would not want artificial nutrition via tube. . Family/friends goals: Patient has some confusion and lacks capacity for decision-making at this time. His daughter, Maria Ines Bey, is the designated HCS. . Ethical and Legal Issues There are no ethical issues that would impact his care were decision-making at this time. The patient is confused and lacks capacity, and his daughter Maria Ines Bey has been named HCS. . Physical Exam Vital Signs Date Time Temp Pulse Resp B/P (MAP) Pulse Ox O2 Delivery O2 Flow Rate FiO2 05/30/17 08:58 20 05/30/17 08:13 97 Nasal Cannula 2.00 05/30/17 08:00 98.0 72 18 161/72 (101) 97 05/30/17 04:00 96.7 68 20 139/60 (86) 97 05/30/17 00:00 97.8 73 20 142/74 (96) 94 05/29/17 20:00 64 05/29/17 20:00 98.5 66 20 140/69 (92) 96 05/29/17 19:51 96 Nasal Cannula 2.00 05/29/17 17:03 98 Nasal Cannula 3.00 05/29/17 16:19 95.7 66 22 106/63 (77) 95 05/29/17 13:26 92 Nasal Cannula 3.00 05/29/17 12:43 95.8 57 20 118/53 (74) 95 05/29/17 12:00 59 Exam CONSTITUTIONAL/GENERAL: This is an elderly, weak, somewhat confused patient, in no apparent distress. TUBES/LINES/DRAINS: Nasal cannula oxygen, SCDs, peripheral IV SKIN: No jaundice, rashes, or lesions. Ecchymoses on upper extremities. No wounds seen anteriorly. Skin temperature appropriate. Not diaphoretic. HEAD: Atraumatic. Normocephalic. EYES: Pupils equal and round and reactive. Extraocular motions intact. No scleral icterus. No injection or drainage. Fundi not examined. ENT: Hearing mildly impaired. Nose without bleeding or purulent drainage. Throat without visible erythema, exudates, masses, or lesions. NECK: Trachea midline. Supple, nontender. No palpable thyroid enlargement or nodularity. CARDIOVASCULAR: Irregular rhythm without murmurs, gallops, or rubs. No JVD. Peripheral pulses symmetric. RESPIRATORY/CHEST: Symmetric, unlabored respirations. Scattered rhonchi and a few rales on the left GASTROINTESTINAL: Abdomen soft, non-tender, nondistended. No hepato-splenomegaly , or palpable masses. No guarding. Bowel sounds present. GENITOURINARY: Without palpable bladder distension. MUSCULOSKELETAL: Extremities without clubbing, cyanosis, or edema. No joint tenderness or effusion noted. No calf tenderness. No mottling or clubbing. LYMPHATICS: No palpable cervical or supraclavicular adenopathy. NEUROLOGICAL: Awake and alert. Profoundly weak. Mild confusion, follows commands. Moves all 4 extremities. PSYCHIATRIC: No obvious anxiety/depression. no apparent hallucinations or other psychotic thought process. . Diagnostic Tests Laboratory Laboratory Tests Test 05/28/17 16:50 05/28/17 19:00 05/29/17 05:45 05/29/17 22:26 White Blood Count 17.4 TH/MM3 (4.0-11.0) 10.4 TH/MM3 (4.0-11.0) Red Blood Count 3.65 MIL/MM3 (4.50-5.90) 3.17 MIL/MM3 (4.50-5.90) Hemoglobin 10.9 GM/DL (13.0-17.0) 10.0 GM/DL (13.0-17.0) Hematocrit 34.5 % (39.0-51.0) 29.9 % (39.0-51.0) Mean Corpuscular Volume 94.6 FL (80.0-100.0) 94.3 FL (80.0-100.0) Mean Corpuscular Hemoglobin 29.8 PG (27.0-34.0) 31.6 PG (27.0-34.0) Mean Corpuscular Hemoglobin Concent 31.5 % (32.0-36.0) 33.5 % (32.0-36.0) Red Cell Distribution Width 14.6 % (11.6-17.2) 14.7 % (11.6-17.2) Platelet Count 187 TH/MM3 (150-450) 147 TH/MM3 (150-450) Mean Platelet Volume 10.1 FL (7.0-11.0) 10.5 FL (7.0-11.0) Neutrophils (%) (Auto) 83.8 % (16.0-70.0) 77.2 % (16.0-70.0) Lymphocytes (%) (Auto) 6.0 % (9.0-44.0) 11.2 % (9.0-44.0) Monocytes (%) (Auto) 9.7 % (0.0-8.0) 10.5 % (0.0-8.0) Eosinophils (%) (Auto) 0.3 % (0.0-4.0) 0.9 % (0.0-4.0) Basophils (%) (Auto) 0.2 % (0.0-2.0) 0.2 % (0.0-2.0) Neutrophils # (Auto) 14.6 TH/MM3 (1.8-7.7) 8.0 TH/MM3 (1.8-7.7) Lymphocytes # (Auto) 1.0 TH/MM3 (1.0-4.8) 1.2 TH/MM3 (1.0-4.8) Monocytes # (Auto) 1.7 TH/MM3 (0-0.9) 1.1 TH/MM3 (0-0.9) Eosinophils # (Auto) 0.0 TH/MM3 (0-0.4) 0.1 TH/MM3 (0-0.4) Basophils # (Auto) 0.0 TH/MM3 (0-0.2) 0.0 TH/MM3 (0-0.2) CBC Comment DIFF FINAL DIFF FINAL Differential Comment Prothrombin Time 11.8 SEC (9.8-11.6) Prothromb Time International Ratio 1.1 RATIO Activated Partial Thromboplast Time 28.8 SEC (24.3-30.1) Blood Urea Nitrogen 87 MG/DL (7-18) 95 MG/DL (7-18) Creatinine 3.18 MG/DL (0.60-1.30) 3.10 MG/DL (0.60-1.30) Random Glucose 127 MG/DL (74-106) 116 MG/DL (74-106) Total Protein 7.2 GM/DL (6.4-8.2) 6.6 GM/DL (6.4-8.2) Albumin 2.8 GM/DL (3.4-5.0) 2.5 GM/DL (3.4-5.0) Calcium Level 9.2 MG/DL (8.5-10.1) 8.8 MG/DL (8.5-10.1) Magnesium Level 2.8 MG/DL (1.5-2.5) Alkaline Phosphatase 92 U/L (45-117) 82 U/L (45-117) Aspartate Amino Transf (AST/SGOT) 17 U/L (15-37) 14 U/L (15-37) Alanine Aminotransferase (ALT/SGPT) 16 U/L (12-78) 13 U/L (12-78) Total Bilirubin 0.8 MG/DL (0.2-1.0) 0.7 MG/DL (0.2-1.0) Sodium Level 140 MEQ/L (136-145) 143 MEQ/L (136-145) Potassium Level 4.1 MEQ/L (3.5-5.1) 3.9 MEQ/L (3.5-5.1) Chloride Level 105 MEQ/L (98-107) 108 MEQ/L (98-107) Carbon Dioxide Level 21.2 MEQ/L (21.0-32.0) 23.6 MEQ/L (21.0-32.0) Anion Gap 14 MEQ/L (5-15) 11 MEQ/L (5-15) Estimat Glomerular Filtration Rate 19 ML/MIN (>89) 19 ML/MIN (>89) Lactic Acid Level 1.1 mmol/L (0.4-2.0) Total Creatine Kinase 54 U/L (39-308) Troponin I LESS THAN 0.02 NG/ML Urine Color YELLOW (YELLW/STRAW) Urine Turbidity HAZY (CLEAR) Urine pH 5.0 (5.0-8.5) Urine Specific [place] 1.016 (1.002-1.035) Urine Protein NEG mg/dL (NEG-TRACE) Urine Glucose (UA) NEG mg/dL (NEG) Urine Ketones NEG mg/dL (NEG) Urine Occult Blood NEG (NEG) Urine Nitrite NEG (NEG) Urine Bilirubin NEG (NEG) Urine Urobilinogen LESS THAN 2.0 MG/DL (LESS Urine Leukocyte Esterase NEG (NEG) Urine RBC LESS THAN 1 /hpf (0-3) Urine WBC 1 /hpf (0-5) Microscopic Urinalysis Comment CATH-CULT NOT IND Urine Eosinophils NONE SEEN /HPF (NONE SEEN) Urine Random Sodium 98 MEQ/L Test 05/30/17 07:02 Random Vancomycin Level 16.9 COMMENT Result Diagram: 05/29/17 0545 05/29/17 0545 Microbiology Microbiology Date/Time Source Procedure Growth Status 05/28/17 17:15 Blood Peripheral Aerobic Blood Culture - Preliminary NO GROWTH IN 2 DAYS Resulted 05/28/17 17:15 Blood Peripheral Anaerobic Blood Culture - Preliminary NO GROWTH IN 2 DAYS Resulted 05/28/17 16:50 Blood Peripheral Aerobic Blood Culture - Preliminary NO GROWTH IN 2 DAYS Resulted 05/28/17 16:50 Blood Peripheral Anaerobic Blood Culture - Preliminary NO GROWTH IN 2 DAYS Resulted Imaging Last Impressions Renal Ultrasound 05/29/17 0000 Signed Impressions: Service Date/Time: May 17:02 - CONCLUSION: Unremarkable renal ultrasound except for bilateral renal cysts. Leila Turpin MD Head CT 05/28/17 1638 Signed Impressions: Service Date/Time: Sunday, May 28, 2017 17:57 - CONCLUSION: 1. No acute intracranial abnormality. 2. Extensive chronic small vessel ischemic change. Luis Fernando Diego Jr., MD Chest X-Ray 05/28/178 Signed Impressions: Service Date/Time: Sunday, May 28, 2017 17:04 - CONCLUSION: Left lower lobe airspace disease. Aamir Carey MD Patient/Family Conference Present at Family Conference: Daughters Maria Ines Bey ([facility]) and Paty Braga, , and one granddaughter. . Family Conference Time (mins): 45 Family Conference Location: [facility] Issues Discussed: * Palliative care role, purpose, approach * Hospice care role, purpose, approach * Additional medical, psychosocial, and spiritual history * Patients general health, functional status, and cognitive changes in the months leading up to the current hospitalization * Patient/family understanding of the current medical problems * Patient/family understanding of prognosis * Patients goals of care as best understood from advance directives and/or conversations and/or values * Current medical treatment options and benefits/burdens of those options * Likely scenarios comparing ongoing aggressive care with a transition to comfort measures only * Questions answered to the best of my ability * Palliative care contact information provided The family wants to transition to comfort care, hospice services. . Assessment and Plan Disease Oriented Problem List: (1) pneumonia, sepsis (2) acute kidney injury, creatinine greater than 3 (3) dysphagia, evidence of aspiration (4) malnutrition, poor oral intake for a couple weeks (5) history of atrial fibrillation, status post ablation (6) spinal stenosis (7) chronic back pain for several weeks (8) history of colon polyps (9) hypertension (10) arthritis, severe degenerative arthritis of the spine (11) hiatal hernia Symptom Scale: (1) pain 0-10 Scale: 3 (back pain, spinal stenosis, degenerative disease) (2) dyspnea 0-10 Scale: 1 (improved on supplemental oxygen) Pertinent Non-Medical Issues Psychosocial: ( in [place]), 3 living children. Retired [employer]. Spiritual: The patient is of Gnosticist edin, currently has been attending a scientologist lutheran, and family believes he would appreciate visits from the hospital dust collector ore crushing. Legal: Patient has some confusion and lacks capacity for decision-making at this time. His daughter, Maria Ines Bey, is the designated HCS. Ethical issues impacting care: None . Important Contacts Daughter/HCS ramon Bey [phone] Daughter: Paty Braga [phone] . Prognosis The patient has had a profound decline over the past 5 or 6 weeks, and now is admitted for the second time in 3 weeks with sepsis. He is profoundly weak and has now developed dysphagia with evidence of aspiration. He has an end-stage condition, and he is appropriate for hospice services. . Code Status: No Code Plan * DO NOT RESUSCITATE, per request of family at the time of admission. * DECISION-MAKING: Patient has some confusion and lacks capacity for decision- making at this time. His daughter, Maria Ines Bey, is the designated HCS. * GOALS: Patient has some confusion and lacks capacity for decision-making at this time. His daughter, Maria Ines Bey, is the designated HCS. * Hospice consult placed. * SYMPTOMS: His dyspnea is being managed with supplemental oxygen and the PRN morphine. I will add some scheduled Roxanol since he had been taking morphine at home and it does seem to help his pain) and will help any dyspnea). * Pre K Teacher to visit patient/family * Palliative Care will continue to follow the patient during this hospitalization. . Time Spent Total Floor Time (mins): 80 Face to Face Time (mins): 15 >50% Counseling/Coord of Care: Yes Thank you for the opportunity to participate in the care of Mr. Purcell. Attestation To help prompt me to consider important information that might be impacting today's encounter and assessment, information from prior notes written by myself or my colleagues may have been "brought forward" into today's note. My signature on this note, however, is an attestation that I personally performed the exam, history, and/or decision-making noted today, and, unless otherwise indicated, the interactions with patient, family, and staff as well as the review of records all occurred today. I also attest that the listed assessment and stated plan reflect my best clinical judgment today based on the combination of historical information, prior notes, and today's exam/ interactions. When time spent is documented, it refers only to time spent today by the signer, or if indicated, combined time spent today by collaborating physician/nurse practitioner. Claudia Fonseca MD May 30, 2017 11:58
--- NOTE | 2017-05-30 12:16 | HHI.PR ---
Subjective Subjective Remarks more awake, voice very soft less congested today remains NPO no fever daughters at bsd Review of Systems Constitutional Constitutional Remarks 12 point ros unable to obtain Vitals/Results Intake & Output 05/30/17 05/30/17 05/31/17 15:00 23:00 07:00 Output Total 600 ml Balance -600 ml Output Urine Total 600 ml Vital Signs Vital Signs Date Time Temp Pulse Resp B/P (MAP) Pulse Ox O2 Delivery O2 Flow Rate FiO2 05/30/17 12:00 97.2 82 18 154/81 (105) 97 05/30/17 08:58 20 05/30/17 08:13 97 Nasal Cannula 2.00 05/30/17 08:00 98.0 72 18 161/72 (101) 97 05/30/17 04:00 96.7 68 20 139/60 (86) 97 05/30/17 00:00 97.8 73 20 142/74 (96) 94 05/29/17 20:00 64 05/29/17 20:00 98.5 66 20 140/69 (92) 96 05/29/17 19:51 96 Nasal Cannula 2.00 05/29/17 17:03 98 Nasal Cannula 3.00 05/29/17 16:19 95.7 66 22 106/63 (77) 95 05/29/17 13:26 92 Nasal Cannula 3.00 05/29/17 12:43 95.8 57 20 118/53 (74) 95 CBC/BMP: 05/29/17 0545 05/29/17 0545 Lab Results Laboratory Tests Test 05/29/17 22:26 05/30/17 07:02 Urine Eosinophils NONE SEEN /HPF Urine Random Sodium 98 MEQ/L Random Vancomycin Level 16.9 COMMENT Physical Exam General General Appearance: Well Developed, Well Nourished, No Acute Distress, Comfortable Eyes Eye Exam: Pupils Equal, Pupils Reactive Ears & Nose Ears & Nose Exam: Nasal Mucosa Paia Throat Throat Exam: Oral Mucosa Paia & Moist Pulmonary Resp Remarks exp. wheeze less ronchi Cardiology CV Exam: Regular Gastrointestinal/Abdomen GI Exam: Soft, Non-Tender, Bowel Sounds Present, Non-Distended Genitourinary Exam: Clear Urine Remarks wilcox Musculoskeletal MS Exam: Joints Intact Integumentary Skin Exam: Warm, Dry Extremeties Extremities Exam: No Edema, Pedal Pulses Palpable Neurologic Neuro Exam: Alert, Awake, Speech Clear, Moving All Extremities, No Focal Deficits VTE Prophylaxis VTE Prophylaxis Meds: Heparin Assessment/Plan Assessment/Plan 1. Left lower lobe pneumonia. 2. Acute kidney injury. 3. Protein calorie malnutrition. 4. Anemia of chronic disease. 5. Metabolic encephalopathy. 6. Chronic back pain. 7. Dysphasia. 8. Obstructive sleep apnea on CPAP. 9. History of mitral valve repair. 10. History of permanent pacemaker placement. Plan: continue with abx, duonebs, oxygen follow cultures Creat remains elevated avoid nephrotoxic agents Nephrology consult renal US results noted keep NPO didn't pass swallow eval Heparin for DVT prophylaxis DNR status overall poor prognosis, mult. comorbidities, adv age, recently admitted Appreciate palliative care input Hospice consult pending d/w daughters, they are ready to proceed with hospice, they prefer that he goes to one facility and remain there. Has been moved to multiple facilities recently Poss il today D/W RN D/W Dr. Phillips D/W pt and family This patient was seen by myself and Dr. Phillips, this note is written on his behalf. Louise Blanco May 30, 2017 12:16
[2017-05-30] MEDS ORDERED: methylPREDNISolone SOD SUCC 125 MG/2 ML VIAL IV PUSH ONE (13:30)
[2017-05-30] MEDS: MORPHINE SULFATE ORAL SOLN 10 MG/0.5 ML SYRINGE SL SCH ×3 (14:20→23:00)
--- NOTE | 2017-05-30 15:51 | HHI.NPPN ---
Subjective History of Present Illness 86-year-old male with past medical history of hypertension, atrial fibrillation, osteoarthritis, mitral valve repair with possible underlying dementia who was admitted because of altered mental status and dehydration. I was called to see the patient because of elevated BUN and creatinine. The patient was found to have a BUN of 87 and a creatinine of 3.1 on admission. Additional Remarks Patient is awake, now NPO, on room air, not in distress. Objective Data Data 05/30/17 05/31/17 19:00 07:00 Output Total 600 ml Balance -600 ml Output Urine Total 600 ml Vital Signs Date Time Temp Pulse Resp B/P (MAP) Pulse Ox O2 Delivery O2 Flow Rate FiO2 05/30/17 12:00 97.2 82 18 154/81 (105) 97 05/30/17 11:42 18 05/30/17 08:13 97 Nasal Cannula 2.00 05/30/17 08:00 98.0 72 18 161/72 (101) 97 05/30/17 04:00 96.7 68 20 139/60 (86) 97 05/30/17 00:00 97.8 73 20 142/74 (96) 94 05/29/17 20:00 64 05/29/17 20:00 98.5 66 20 140/69 (92) 96 05/29/17 19:51 96 Nasal Cannula 2.00 05/29/17 17:03 98 Nasal Cannula 3.00 05/29/17 16:19 95.7 66 22 106/63 (77) 95 -: 05/29/17 0545 05/29/17 0545 Physical Exam General Appearance: No Acute Distress, Comfortable Eyes Eye Exam: Pupils Equal, Pupils Reactive Ears & Nose Ears & Nose Exam: Nasal Mucosa [place] Throat Throat Exam: Oral Mucosa [place] & Moist Cardiology CV Exam: Regular Gastrointestinal/Abdomen GI Exam: Soft, Non-Tender, Bowel Sounds Present, Non-Distended Genitourinary Exam: Clear Urine Musculoskeletal MS Exam: Joints Intact Integumentary Skin Exam: Warm, Dry Extremeties Extremities Exam: No Edema Neurologic Neuro Exam: Alert, Awake, No Focal Deficits Assessment/Plan Assessment Summary: FREDI/Acute Renal Failure Problem List: (1) Acute kidney injury ICD Codes: N17.9 - Acute kidney failure, unspecified (2) Pneumonia ICD Codes: J18.9 - Pneumonia, unspecified organism Status: Acute (3) Altered mental status ICD Codes: R41.82 - Altered mental status, unspecified Status: Acute (4) A-fib ICD Codes: I48.91 - A-fib Status: Chronic (5) Generalized weakness ICD Codes: R53.1 - Weakness Status: Acute (6) hypertension (7) malnutrition, poor oral intake for a couple weeks Plan Patient has been non oliguric. No new BMP. Renal U/S noted. Urine Na. is normal and Eosinophils negative. Seen by Palliative care and Family decided to go with Hospice. I will sign off from Nephrology. Please call again if needed. Problem Qualifiers (1) Pneumonia: Qualified Codes: J18.1 - Lobar pneumonia, unspecified organism (2) Altered mental status: Qualified Codes: R41.0 - Disorientation, unspecified Mercedes Maddox MD May 30, 2017 15:51
[2017-05-30] MEDS ORDERED: PROMETHAZINE HCL 25 MG TAB PO PRN (18:00)
[2017-05-30] MEDS ORDERED: LORazepam 0.5 MG TAB SL PRN (18:00)
[2017-05-30] MEDS ORDERED: ACETAMINOPHEN 650 MG/20.3 ML UDC PO PRN (18:00)
[2017-05-30] MEDS ORDERED: MORPHINE SULFATE ORAL SOLN 10 MG/0.5 ML SYRINGE SL PRN (18:00)
[2017-05-30] MEDS ORDERED: BISACODYL 10 MG SUPP RECTAL PRN (18:00)
[2017-05-30] MEDS ORDERED: PROMETHAZINE HCL 25 MG SUPP RECTAL PRN (18:00)
[2017-05-30] MEDS ORDERED: ACETAMINOPHEN 650 MG SUPP RECTAL PRN (18:00)
[2017-05-30] MEDS ORDERED: LORazepam 2 MG/ML VIAL IV PRN (18:15)
[2017-05-30] MEDS ORDERED: ATROPINE SULFATE 1% OPHT SOLN 2 ML BTL SL PRN (18:30)
[2017-05-30] MEDS: MORPHINE SULFATE ORAL SOLN 10 MG/0.5 ML SYRINGE SL PRN (20:54)
[2017-05-31] VITALS: BP 158/85; PULSE 92; RESP 18; TEMP 97.4; O2SAT 96
[2017-05-31] MEDS: MORPHINE SULFATE ORAL SOLN 10 MG/0.5 ML SYRINGE SL SCH ×6 (02:47→21:25)
[2017-05-31 03:51] VITALS: O2SAT 96
[2017-05-31] MEDS: LORazepam 2 MG/ML VIAL IV PRN ×4 (04:05→19:24)
[2017-05-31 08:00] VITALS: BP 163/98; PULSE 132; RESP 20; TEMP 98; O2SAT 93
[2017-05-31] MEDS: SODIUM CHLORIDE 0.9% FLUSH 10 ML FLUSH IV FLUSH SCH ×2 (08:26→19:30)
[2017-05-31] MEDS ORDERED: HALOPERIDOL LACTATE ORAL CONC 10 MG/5 ML CUP SL PRN (11:15)
--- NOTE | 2017-05-31 11:46 | HHI.HCPN ---
Reason for visit a. To assist with evaluation and management of symptoms including: Pain, dyspnea, agitation. b. To assist medical decision maker(s) with: better understanding of current medical conditions; weighing benefits/burdens of medical treatment options; making medical treatment decisions. . Subjective/Interval History Patient seen and examined to follow up on comfort. Patient was admitted to hospice. Family requests HOSPICE NOT be mentioned in the room. 2 daughters and granddaughter at bedside. Patient is lethargic, arousable at times per family. Has not eaten in 10 days, continued oral care. Patient is moving arms, reaching up. He does not appear painful, he is a little restless. Has scheduled Roxanol and Lorazepam ordered. Family feels overall this has been effective. Encouraged PRN use if they see any signs of discomfort. Ordered low dose Haldol SL PRN for hallucinations, agitation, family agrees. . Family/friend interactions Spoke with daughters outside the room. They are appropriately tearful. Daughter reports patient is afraid to . She is not certain why. Offered manager auto support, they accepted. After hours notified and requested hospice not be mentioned. Family reports son will be arriving from out of town tomorrow afternoon. PPS 20. Reviewed prognosis and possible rapid decline. Offered support. Questions answered to their satisfaction. . Advance Directives Living Will: Copy in medical record Health Care Surrogate: Copy in medical record Durable Power of Nuclear Design Engineer: Never completed Advance Directive Specifics Health Care Surrogate(s): Daughter Maria Ines Bey . Documented care wishes: The patient has a living will with typical language regarding terminal condition , end-stage condition, or vegetative condition. He has specifically told the family that he would not want artificial nutrition via tube. . Significant change in goals: NO CODE. Inpatient hospice. Comfort measures only. . Objective Vital Signs Date Time Temp Pulse Resp B/P (MAP) Pulse Ox O2 Delivery O2 Flow Rate FiO2 05/31/17 08:00 98.0 132 20 163/98 (119) 93 05/31/17 04:06 19 05/31/17 03:51 96 Nasal Cannula 2.00 05/31/17 00:00 97.4 92 18 158/85 (109) 96 05/30/17 22:00 20 05/30/17 20:00 97.4 98 18 193/80 (117) 96 05/30/17 16:00 97.6 77 18 152/79 (103) 98 05/30/17 12:00 97.2 82 18 154/81 (105) 97 05/30/17 11:42 18 Intake & Output 05/31/17 05/31/17 07:00 19:00 Intake Total 140 ml Output Total 1050 ml Balance -1050 ml 140 ml IV Total 140 ml Output Urine Total 1050 ml Physical Exam CONSTITUTIONAL/GENERAL: This is an elderly, weak, somewhat confused patient, in no apparent distress. TUBES/LINES/DRAINS: Nasal cannula oxygen, SCDs, peripheral IV SKIN: No jaundice, rashes, or lesions. Ecchymoses on upper extremities. No wounds seen anteriorly. Skin temperature appropriate. Not diaphoretic. EYES: eyes closed. CARDIOVASCULAR: Irregular rhythm without murmurs, gallops, or rubs. No JVD. Peripheral pulses symmetric. RESPIRATORY/CHEST: Symmetric, unlabored respirations. Scattered rhonchi and a few rales on the left GASTROINTESTINAL: Abdomen soft, non-tender, nondistended. No hepato-splenomegaly , or palpable masses. No guarding. Bowel sounds present. GENITOURINARY: Without palpable bladder distension. MUSCULOSKELETAL: Extremities without clubbing, cyanosis, or edema. No joint tenderness or effusion noted. No calf tenderness. No mottling or clubbing. NEUROLOGICAL: Awake and alert. Profoundly weak. Mild confusion, follows commands. Moves all 4 extremities. PSYCHIATRIC: No obvious anxiety/depression. no apparent hallucinations or other psychotic thought process. . Diagnostic Tests Laboratory Laboratory Tests Test 05/28/17 16:50 05/28/17 19:00 05/29/17 05:45 05/29/17 22:26 White Blood Count 17.4 TH/MM3 (4.0-11.0) 10.4 TH/MM3 (4.0-11.0) Red Blood Count 3.65 MIL/MM3 (4.50-5.90) 3.17 MIL/MM3 (4.50-5.90) Hemoglobin 10.9 GM/DL (13.0-17.0) 10.0 GM/DL (13.0-17.0) Hematocrit 34.5 % (39.0-51.0) 29.9 % (39.0-51.0) Mean Corpuscular Volume 94.6 FL (80.0-100.0) 94.3 FL (80.0-100.0) Mean Corpuscular Hemoglobin 29.8 PG (27.0-34.0) 31.6 PG (27.0-34.0) Mean Corpuscular Hemoglobin Concent 31.5 % (32.0-36.0) 33.5 % (32.0-36.0) Red Cell Distribution Width 14.6 % (11.6-17.2) 14.7 % (11.6-17.2) Platelet Count 187 TH/MM3 (150-450) 147 TH/MM3 (150-450) Mean Platelet Volume 10.1 FL (7.0-11.0) 10.5 FL (7.0-11.0) Neutrophils (%) (Auto) 83.8 % (16.0-70.0) 77.2 % (16.0-70.0) Lymphocytes (%) (Auto) 6.0 % (9.0-44.0) 11.2 % (9.0-44.0) Monocytes (%) (Auto) 9.7 % (0.0-8.0) 10.5 % (0.0-8.0) Eosinophils (%) (Auto) 0.3 % (0.0-4.0) 0.9 % (0.0-4.0) Basophils (%) (Auto) 0.2 % (0.0-2.0) 0.2 % (0.0-2.0) Neutrophils # (Auto) 14.6 TH/MM3 (1.8-7.7) 8.0 TH/MM3 (1.8-7.7) Lymphocytes # (Auto) 1.0 TH/MM3 (1.0-4.8) 1.2 TH/MM3 (1.0-4.8) Monocytes # (Auto) 1.7 TH/MM3 (0-0.9) 1.1 TH/MM3 (0-0.9) Eosinophils # (Auto) 0.0 TH/MM3 (0-0.4) 0.1 TH/MM3 (0-0.4) Basophils # (Auto) 0.0 TH/MM3 (0-0.2) 0.0 TH/MM3 (0-0.2) CBC Comment DIFF FINAL DIFF FINAL Differential Comment Prothrombin Time 11.8 SEC (9.8-11.6) Prothromb Time International Ratio 1.1 RATIO Activated Partial Thromboplast Time 28.8 SEC (24.3-30.1) Blood Urea Nitrogen 87 MG/DL (7-18) 95 MG/DL (7-18) Creatinine 3.18 MG/DL (0.60-1.30) 3.10 MG/DL (0.60-1.30) Random Glucose 127 MG/DL (74-106) 116 MG/DL (74-106) Total Protein 7.2 GM/DL (6.4-8.2) 6.6 GM/DL (6.4-8.2) Albumin 2.8 GM/DL (3.4-5.0) 2.5 GM/DL (3.4-5.0) Calcium Level 9.2 MG/DL (8.5-10.1) 8.8 MG/DL (8.5-10.1) Magnesium Level 2.8 MG/DL (1.5-2.5) Alkaline Phosphatase 92 U/L (45-117) 82 U/L (45-117) Aspartate Amino Transf (AST/SGOT) 17 U/L (15-37) 14 U/L (15-37) Alanine Aminotransferase (ALT/SGPT) 16 U/L (12-78) 13 U/L (12-78) Total Bilirubin 0.8 MG/DL (0.2-1.0) 0.7 MG/DL (0.2-1.0) Sodium Level 140 MEQ/L (136-145) 143 MEQ/L (136-145) Potassium Level 4.1 MEQ/L (3.5-5.1) 3.9 MEQ/L (3.5-5.1) Chloride Level 105 MEQ/L (98-107) 108 MEQ/L (98-107) Carbon Dioxide Level 21.2 MEQ/L (21.0-32.0) 23.6 MEQ/L (21.0-32.0) Anion Gap 14 MEQ/L (5-15) 11 MEQ/L (5-15) Estimat Glomerular Filtration Rate 19 ML/MIN (>89) 19 ML/MIN (>89) Lactic Acid Level 1.1 mmol/L (0.4-2.0) Total Creatine Kinase 54 U/L (39-308) Troponin I LESS THAN 0.02 NG/ML Urine Color YELLOW (YELLW/STRAW) Urine Turbidity HAZY (CLEAR) Urine pH 5.0 (5.0-8.5) Urine Specific [place] 1.016 (1.002-1.035) Urine Protein NEG mg/dL (NEG-TRACE) Urine Glucose (UA) NEG mg/dL (NEG) Urine Ketones NEG mg/dL (NEG) Urine Occult Blood NEG (NEG) Urine Nitrite NEG (NEG) Urine Bilirubin NEG (NEG) Urine Urobilinogen LESS THAN 2.0 MG/DL (LESS Urine Leukocyte Esterase NEG (NEG) Urine RBC LESS THAN 1 /hpf (0-3) Urine WBC 1 /hpf (0-5) Microscopic Urinalysis Comment CATH-CULT NOT IND Urine Eosinophils NONE SEEN /HPF (NONE SEEN) Urine Random Sodium 98 MEQ/L Test 05/30/17 07:02 05/31/17 06:36 Random Vancomycin Level 16.9 COMMENT 22.0 COMMENT Creatinine 1.92 MG/DL (0.60-1.30) Estimat Glomerular Filtration Rate 33 ML/MIN (>89) Result Diagram: 05/29/17 0545 05/31/17 0636 Microbiology Microbiology Date/Time Source Procedure Growth Status 05/28/17 17:15 Blood Peripheral Aerobic Blood Culture - Preliminary NO GROWTH IN 3 DAYS Resulted 05/28/17 17:15 Blood Peripheral Anaerobic Blood Culture - Preliminary NO GROWTH IN 3 DAYS Resulted 05/28/17 16:50 Blood Peripheral Aerobic Blood Culture - Preliminary NO GROWTH IN 3 DAYS Resulted 05/28/17 16:50 Blood Peripheral Anaerobic Blood Culture - Preliminary NO GROWTH IN 3 DAYS Resulted Imaging Last Impressions Renal Ultrasound 05/29/17 0000 Signed Impressions: Service Date/Time: May 17:02 - CONCLUSION: Unremarkable renal ultrasound except for bilateral renal cysts. KElvia Turpin MD Head CT 05/28/171637 Signed Impressions: Service Date/Time: Sunday, May 28, 2017 17:57 - CONCLUSION: 1. No acute intracranial abnormality. 2. Extensive chronic small vessel ischemic change. Luis Fernando Diego Jr., MD Chest X-Ray 05/28/171637 Signed Impressions: Service Date/Time: Sunday, May 28, 2017 17:04 - CONCLUSION: Left lower lobe airspace disease. Aamir Carey MD . Assessment and Plan Disease Oriented Problem List: (1) pneumonia, sepsis (2) acute kidney injury, creatinine greater than 3 (3) dysphagia, evidence of aspiration (4) malnutrition, poor oral intake for a couple weeks (5) history of atrial fibrillation, status post ablation (6) spinal stenosis (7) chronic back pain for several weeks (8) history of colon polyps (9) hypertension (10) arthritis, severe degenerative arthritis of the spine (11) hiatal hernia Symptom Scale: (1) pain 0-10 Scale: Unable to quantify (2) dyspnea 0-10 Scale: Unable to quantify (3) Agitation 0-10 Scale: Unable to quantify Comment: reaching out, appears to have "happy hallucinations" per daughter, will add Haldol in case agitation worsens. Pertinent Non-Medical Issues Psychosocial: ( in [place]), 3 living children. Retired [employer]. Spiritual: The patient is of Pentecostalism edin, currently has been attending a amish hinduism, and family believes he would appreciate visits from the hospital manager auto. Legal: Patient has some confusion and lacks capacity for decision-making at this time. His daughter, Maria Ines Bey, is the designated HCS. Ethical issues impacting care: None . Important Contacts Daughter/HCS ramon Bey [phone] Daughter: Paty Braga [phone] . Prognosis The patient has had a profound decline over the past 5 or 6 weeks, and now is admitted for the second time in 3 weeks with sepsis. He is profoundly weak and has now developed dysphagia with evidence of aspiration. He has an end-stage condition, and he is appropriate for hospice services. . Code Status: No Code Plan * DO NOT RESUSCITATE, per request of family at the time of admission. * DECISION-MAKING: Patient has some confusion and lacks capacity for decision- making at this time. His daughter, Maria Ines Bey, is the designated HCS. * GOALS: Comfort measures only with hospice support. INPATIENT hospice. Family is not interested in care center placement at this time. * FAMILY DOES NOT WANT HOSPICE MENTIONED IN THE ROOM. * SYMPTOMS: yspnea is being managed with supplemental oxygen and the PRN morphine. Controlled with current Lorazepam and Roxanol. Agitation/restlessness : will add PRN Haldol. Family agrees. Pain: family reports turning helps patient , scheduled Roxanol appears to be effective at this time. Encouraged family to request PRN meds if any sign of discomfort. * [employer] Commerce Consultant to visit patient/family, notified after hours of family request. * Hospice/ Palliative Care will continue to follow the patient during this hospitalization. . Attestation To help prompt me to consider important information that might be impacting today's encounter and assessment, information from prior notes written by myself or my colleagues may have been "brought forward" into today's note. My signature on this note, however, is an attestation that I personally performed the exam, history, and/or decision-making noted today, and, unless otherwise indicated, the interactions with patient, family, and staff as well as the review of records all occurred today. I also attest that the listed assessment and stated plan reflect my best clinical judgment today based on the combination of historical information, prior notes, and today's exam/ interactions. When time spent is documented, it refers only to time spent today by the signer, or if indicated, combined time spent today by collaborating physician/nurse practitioner. Reina Robins May 31, 2017 11:46
[2017-05-31 12:00] VITALS: BP 161/110; PULSE 115; RESP 20; TEMP 97.6; O2SAT 95
[2017-05-31 16:00] VITALS: BP 128/81; PULSE 160; RESP 22; TEMP 98.6; O2SAT 94
[2017-05-31 20:00] VITALS: BP 152/102; PULSE 148; RESP 26; TEMP 98; O2SAT 96
[2017-05-31] MEDS: MORPHINE SULFATE 4 MG/ML INJ IV PRN (20:25)
[2017-06-01] MEDS: LORazepam 2 MG/ML VIAL IV PRN (01:57)
[2017-06-01] MEDS: MORPHINE SULFATE ORAL SOLN 10 MG/0.5 ML SYRINGE SL SCH ×6 (03:00→23:34)
[2017-06-01] MEDS: MORPHINE SULFATE 4 MG/ML INJ IV PRN (03:10)
[2017-06-01] MEDS: SODIUM CHLORIDE 0.9% FLUSH 10 ML FLUSH IV FLUSH SCH ×2 (09:00→20:22)
[2017-06-01] MEDS: MORPHINE SULFATE ORAL SOLN 10 MG/0.5 ML SYRINGE SL PRN ×4 (09:26→21:23)
[2017-06-01] MEDS: ATROPINE SULFATE 1% OPHT SOLN 5 ML BTL SL PRN ×3 (10:15→20:26)
[2017-06-01 12:00] VITALS: BP 142/94; PULSE 153; RESP 26; TEMP 97.1; O2SAT 97
--- NOTE | 2017-06-01 12:11 | HHI.HCPN ---
Reason for visit a. To assist with evaluation and management of symptoms including: Pain, dyspnea, agitation. b. To assist medical decision maker(s) with: better understanding of current medical conditions; weighing benefits/burdens of medical treatment options; making medical treatment decisions. . Subjective/Interval History Patient seen and examined to follow up on comfort. Patient is on inpatient hospice. Family requests HOSPICE NOT be mentioned in the room. 2 daughters, son and DIL and granddaughter at bedside. Patient is minimally responsive. Has not eaten in > 10 days, continued oral care. Patient is moving arms, reaching up. He is tachypneic during my visit. Having periods of apnea 9-10 seconds per daughter report. IV infiltrated. Hands and feet are cool to touch. Tachycardic today. Educated nursing and family regarding medications, dosing, use and SL usage. Lengthy conversation with family regarding physical changes today, prognosis hours to days, plan for medication for comfort. Offered care center placement, family again declined. Requested nurse medicate patient for restlessness and tachypnea during my visit. Has scheduled Roxanol and Lorazepam ordered. Encouraged PRN use if they see any signs of discomfort. Ordered low dose Haldol SL PRN for hallucinations, agitation, family agrees. Family is appropriately tearful. . Family/friend interactions See interval note. . Advance Directives Living Will: Copy in medical record Health Care Surrogate: Copy in medical record Durable Power of Fibreglass Gun Hand: Never completed Advance Directive Specifics Health Care Surrogate(s): Daughter Maria Ines Bey . Documented care wishes: The patient has a living will with typical language regarding terminal condition , end-stage condition, or vegetative condition. He has specifically told the family that he would not want artificial nutrition via tube. . Significant change in goals: NO CODE. Comfort measures only with hospice support. Objective Vital Signs Date Time Temp Pulse Resp B/P (MAP) Pulse Ox O2 Delivery O2 Flow Rate FiO2 06/01/17 03:36 19 05/31/17 22:28 20 05/31/17 20:00 98.0 148 26 152/102 (119) 96 05/31/17 16:00 98.6 160 22 128/81 (97) 94 Intake & Output 06/01/17 06/01/17 06:59 18:59 Output Total 500 ml Balance -500 ml Output Urine Total 500 ml Physical Exam CONSTITUTIONAL/GENERAL: This is an elderly, weak, somewhat confused patient, in no apparent distress. TUBES/LINES/DRAINS: Nasal cannula oxygen, SCDs, peripheral IV SKIN: No jaundice, rashes, or lesions. Ecchymoses on upper extremities. No wounds seen anteriorly. Skin temperature appropriate. Not diaphoretic. EYES: eyes closed. CARDIOVASCULAR: Irregular rhythm without murmurs, gallops, or rubs. No JVD. Peripheral pulses symmetric. RESPIRATORY/CHEST: Symmetric, unlabored respirations. Scattered rhonchi and a few rales on the left GASTROINTESTINAL: Abdomen soft, non-tender, nondistended. No hepato-splenomegaly , or palpable masses. No guarding. Bowel sounds present. GENITOURINARY: Without palpable bladder distension. MUSCULOSKELETAL: Extremities without clubbing, cyanosis, or edema. No joint tenderness or effusion noted. No calf tenderness. No mottling or clubbing. NEUROLOGICAL: Awake and alert. Profoundly weak. Mild confusion, follows commands. Moves all 4 extremities. PSYCHIATRIC: No obvious anxiety/depression. no apparent hallucinations or other psychotic thought process. . Diagnostic Tests Laboratory Laboratory Tests Test 05/29/17 22:26 05/30/17 07:02 05/31/17 06:36 Urine Eosinophils NONE SEEN /HPF (NONE SEEN) Urine Random Sodium 98 MEQ/L Random Vancomycin Level 16.9 COMMENT 22.0 COMMENT Creatinine 1.92 MG/DL (0.60-1.30) Estimat Glomerular Filtration Rate 33 ML/MIN (>89) Result Diagram: 05/29/17 0545 05/31/17 0636 Microbiology Microbiology Date/Time Source Procedure Growth Status 05/28/17 17:15 Blood Peripheral Aerobic Blood Culture - Preliminary NO GROWTH IN 4 DAYS Resulted 05/28/17 17:15 Blood Peripheral Anaerobic Blood Culture - Preliminary NO GROWTH IN 4 DAYS Resulted Imaging Last Impressions Renal Ultrasound 05/29/17 0000 Signed Impressions: Service Date/Time: May 17:02 - CONCLUSION: Unremarkable renal ultrasound except for bilateral renal cysts. Leila Turpin MD Head CT 05/28/171637 Signed Impressions: Service Date/Time: Sunday, May 28, 2017 17:57 - CONCLUSION: 1. No acute intracranial abnormality. 2. Extensive chronic small vessel ischemic change. Luis Fernadno Diego Jr., MD Chest X-Ray 05/28/171637 Signed Impressions: Service Date/Time: Sunday, May 28, 2017 17:04 - CONCLUSION: Left lower lobe airspace disease. Aamir Carey MD Assessment and Plan Disease Oriented Problem List: (1) pneumonia, sepsis (2) acute kidney injury, creatinine greater than 3 (3) dysphagia, evidence of aspiration (4) malnutrition, poor oral intake for a couple weeks (5) history of atrial fibrillation, status post ablation (6) spinal stenosis (7) chronic back pain for several weeks (8) history of colon polyps (9) hypertension (10) arthritis, severe degenerative arthritis of the spine (11) hiatal hernia Symptom Scale: (1) pain 0-10 Scale: Unable to quantify (2) dyspnea 0-10 Scale: Unable to quantify (3) Agitation 0-10 Scale: Unable to quantify Comment: reaching out, appears to have "happy hallucinations" per daughter, will add Haldol in case agitation worsens. Pertinent Non-Medical Issues Psychosocial: ( in [place]), 3 living children. Retired [employer]. Spiritual: The patient is of Adventism edin, currently has been attending a islam latter day, and family believes he would appreciate visits from the hospital wax cutter. Legal: Patient has some confusion and lacks capacity for decision-making at this time. His daughter, Maria Ines Bey, is the designated HCS. Ethical issues impacting care: None . Important Contacts Daughter/HCS ramon Bey [phone] Daughter: Paty Braga [phone] . Prognosis The patient has had a profound decline over the past 5 or 6 weeks, and now is admitted for the second time in 3 weeks with sepsis. He is profoundly weak and has now developed dysphagia with evidence of aspiration. He has an end-stage condition, and he is appropriate for hospice services. . Code Status: No Code Plan * DO NOT RESUSCITATE, per request of family at the time of admission. * DECISION-MAKING: Patient has some confusion and lacks capacity for decision- making at this time. His daughter, Maria Ines Bey, is the designated HCS. * GOALS: Comfort measures only with hospice support. INPATIENT hospice. Family is not interested in care center placement at this time. * FAMILY DOES NOT WANT HOSPICE MENTIONED IN THE ROOM. * SYMPTOMS: Dyspnea: now with periods of apnea, PRN oxygen, PRN morphine and lorazepam. Controlled with current Lorazepam and Roxanol. Agitation/restlessness : will add PRN Haldol. Family agrees. Pain: family reports turning helps patient , scheduled Roxanol appears to be effective at this time. Encouraged family to request PRN meds if any sign of discomfort. * Hospice/ Palliative Care will continue to follow the patient during this hospitalization. . Attestation To help prompt me to consider important information that might be impacting today's encounter and assessment, information from prior notes written by myself or my colleagues may have been "brought forward" into today's note. My signature on this note, however, is an attestation that I personally performed the exam, history, and/or decision-making noted today, and, unless otherwise indicated, the interactions with patient, family, and staff as well as the review of records all occurred today. I also attest that the listed assessment and stated plan reflect my best clinical judgment today based on the combination of historical information, prior notes, and today's exam/ interactions. When time spent is documented, it refers only to time spent today by the signer, or if indicated, combined time spent today by collaborating physician/nurse practitioner. Reina Robins Jun 01, 2017 12:11
[2017-06-01] MEDS: LORazepam 0.5 MG TAB SL PRN ×2 (12:54→16:17)
[2017-06-01] MEDS: LORazepam 0.5 MG TAB SL SCH ×3 (15:01→23:34)
[2017-06-01 17:33] VITALS: O2SAT 97
[2017-06-02] MEDS: MORPHINE SULFATE ORAL SOLN 10 MG/0.5 ML SYRINGE SL SCH ×5 (03:01→22:15)
[2017-06-02] MEDS: LORazepam 0.5 MG TAB SL SCH ×2 (03:02→06:32)
[2017-06-02] MEDS: ATROPINE SULFATE 1% OPHT SOLN 5 ML BTL SL PRN (03:08)
[2017-06-02 08:00] VITALS: BP 103/69; PULSE 150; RESP 26; TEMP 99.4; O2SAT 83
[2017-06-02] MEDS: LORazepam 0.5 MG TAB SL PRN ×2 (09:20→11:21)
[2017-06-02] MEDS: MORPHINE SULFATE ORAL SOLN 10 MG/0.5 ML SYRINGE SL PRN ×2 (09:21→11:19)
--- NOTE | 2017-06-02 11:13 | HHI.HCPN ---
Reason for visit a. To assist with evaluation and management of symptoms including: Pain, dyspnea, agitation. b. To assist medical decision maker(s) with: better understanding of current medical conditions; weighing benefits/burdens of medical treatment options; making medical treatment decisions. . Subjective/Interval History Patient seen and examined to follow up on comfort. Patient is on inpatient hospice. Family requests HOSPICE NOT be mentioned in the room. daughter, son and DIL at bedside. Patient is unresponsive. He is imminently dying. He is tachypneic during my visit. Family reports he is due for meds again now, requested nurse medicate patient again. Increased congestion. Skin is warm and dry. Tachycardic. Family feels patient has been more comfortable since addition of scheduled Lorazepam on 06/02/17. Patient has required Lorazepam x 5 PRN doses and 4 doses of PRN Roxanol in the past 24 hours, will increased ATC orders. Questions answered to family satisfaction. Family is appropriately tearful and accepting is imminent. Daughter is asking questions about "what happens after he dies." home list provided, explained they have time to make these decisions. She is appreciative of this information. Nursing office number also provided for when they make a decision. . Family/friend interactions See interval note. . Advance Directives Living Will: Copy in medical record Health Care Surrogate: Copy in medical record Durable Power of Clinical Psychologist: Never completed Advance Directive Specifics Health Care Surrogate(s): Daughter Maria Ines Bey . Documented care wishes: The patient has a living will with typical language regarding terminal condition , end-stage condition, or vegetative condition. He has specifically told the family that he would not want artificial nutrition via tube. . Significant change in goals: NO CODE. Comfort measures on hospice. Objective Vital Signs Date Time Temp Pulse Resp B/P (MAP) Pulse Ox O2 Delivery O2 Flow Rate FiO2 06/02/17 08:00 99.4 150 26 103/69 (80) 83 06/01/17 17:33 97 Nasal Cannula 2.00 06/01/17 12:00 97.1 153 26 142/94 (110) 97 Intake & Output 06/02/17 06/02/17 07:00 19:00 Output Total 150 ml Balance -150 ml Output Urine Total 150 ml Physical Exam CONSTITUTIONAL/GENERAL: This is an elderly, dying patient. PPS 10 SKIN: No jaundice, rashes, or lesions. Ecchymoses on upper extremities. No wounds seen anteriorly. Skin temperature warm. Not diaphoretic. EYES: eyes closed. CARDIOVASCULAR: Irregular rhythm without murmur. RESPIRATORY/CHEST: Labored respirations. Bilateral course breath sounds. Tachypneic. GASTROINTESTINAL: Abdomen soft, nondistended. GENITOURINARY: Without palpable bladder distension. MUSCULOSKELETAL: Extremities without clubbing, cyanosis, or edema. No mottling or clubbing. NEUROLOGICAL: Unresponsive. PSYCHIATRIC: Unresponsive. . Diagnostic Tests Laboratory Laboratory Tests Test 05/31/17 06:36 Creatinine 1.92 MG/DL (0.60-1.30) Estimat Glomerular Filtration Rate 33 ML/MIN (>89) Random Vancomycin Level 22.0 COMMENT Result Diagram: 05/29/17 0545 05/31/17 0636 Microbiology Microbiology Date/Time Source Procedure Growth Status 05/28/17 17:15 Blood Peripheral Aerobic Blood Culture - Final NO GROWTH IN 5 DAYS Complete 05/28/17 17:15 Blood Peripheral Anaerobic Blood Culture - Final NO GROWTH IN 5 DAYS Complete Imaging Last Impressions Renal Ultrasound 05/29/17 0000 Signed Impressions: Service Date/Time: May 17:02 - CONCLUSION: Unremarkable renal ultrasound except for bilateral renal cysts. Leila Turpin MD Head CT 05/28/171637 Signed Impressions: Service Date/Time: Sunday, May 28, 2017 17:57 - CONCLUSION: 1. No acute intracranial abnormality. 2. Extensive chronic small vessel ischemic change. Luis Fernando Diego Jr., MD Chest X-Ray 05/28/171637 Signed Impressions: Service Date/Time: Sunday, May 28, 2017 17:04 - CONCLUSION: Left lower lobe airspace disease. Aamir Carey MD Assessment and Plan Disease Oriented Problem List: (1) pneumonia, sepsis (2) acute kidney injury, creatinine greater than 3 (3) dysphagia, evidence of aspiration (4) malnutrition, poor oral intake for a couple weeks (5) history of atrial fibrillation, status post ablation (6) spinal stenosis (7) chronic back pain for several weeks (8) history of colon polyps (9) hypertension (10) arthritis, severe degenerative arthritis of the spine (11) hiatal hernia Symptom Scale: (1) pain 0-10 Scale: Unable to quantify (2) dyspnea 0-10 Scale: Unable to quantify (3) Agitation 0-10 Scale: Unable to quantify Comment: reaching out, appears to have "happy hallucinations" per daughter, will add Haldol in case agitation worsens. Pertinent Non-Medical Issues Psychosocial: ( in [place]), 3 living children. Retired [employer]. Spiritual: The patient is of Hoahaoism edin, currently has been attending a restorationism jainism, and family believes he would appreciate visits from the hospital dirt bike racer. Legal: Patient has some confusion and lacks capacity for decision-making at this time. His daughter, Maria Ines Bey, is the designated HCS. Ethical issues impacting care: None . Important Contacts Daughter/HCS ramon Bey [phone] Daughter: Paty Braga [phone] . Prognosis The patient has had a profound decline over the past 5 or 6 weeks, and now is admitted for the second time in 3 weeks with sepsis. He is profoundly weak and has now developed dysphagia with evidence of aspiration. He has an end-stage condition, and he is appropriate for hospice services. . Code Status: No Code Plan * DO NOT RESUSCITATE, per request of family at the time of admission. * DECISION-MAKING: Patient has some confusion and lacks capacity for decision- making at this time. His daughter, Maria Ines Bey, is the designated HCS. * GOALS: Comfort measures only with hospice support. INPATIENT hospice. Family is not interested in care center placement at this time. home list provided, family not likely making arrangements until after patient dies. * FAMILY DOES NOT WANT HOSPICE MENTIONED IN THE ROOM. * SYMPTOMS: Dyspnea: now with periods of apnea, PRN oxygen, PRN morphine and lorazepam. Controlled with current Lorazepam and Roxanol. Agitation/restlessness : will add PRN Haldol. Family agrees. Pain: family reports turning helps patient , scheduled Roxanol appears to be effective at this time. Encouraged family to request PRN meds if any sign of discomfort. * Hospice/ Palliative Care will continue to follow the patient during this hospitalization. . Attestation To help prompt me to consider important information that might be impacting today's encounter and assessment, information from prior notes written by myself or my colleagues may have been "brought forward" into today's note. My signature on this note, however, is an attestation that I personally performed the exam, history, and/or decision-making noted today, and, unless otherwise indicated, the interactions with patient, family, and staff as well as the review of records all occurred today. I also attest that the listed assessment and stated plan reflect my best clinical judgment today based on the combination of historical information, prior notes, and today's exam/ interactions. When time spent is documented, it refers only to time spent today by the signer, or if indicated, combined time spent today by collaborating physician/nurse practitioner. Reina Robins Jun 02, 2017 11:13
[2017-06-02 11:50] VITALS: BP 100/66; PULSE 62; RESP 24; TEMP 99.8; O2SAT 88
[2017-06-02] MEDS ORDERED: ATROPINE SULFATE 1% OPHT SOLN 5 ML BTL SL PRN (14:45)
[2017-06-02] MEDS: LORazepam 1 MG TAB SL SCH ×3 (15:11→22:15)
[2017-06-02 15:40] VITALS: BP 76/61; PULSE 163; RESP 16; TEMP 99.9; O2SAT 88
[2017-06-02 20:00] VITALS: BP 99/60; PULSE 112; RESP 20; TEMP 100.1; O2SAT 85
[2017-06-02] MEDS: SODIUM CHLORIDE 0.9% FLUSH 10 ML FLUSH IV FLUSH SCH (21:00)
[2017-06-03] MEDS: LORazepam 1 MG TAB SL SCH ×3 (02:21→09:18)
[2017-06-03] MEDS: MORPHINE SULFATE ORAL SOLN 10 MG/0.5 ML SYRINGE SL SCH ×3 (02:22→09:19)
[2017-06-03 08:00] VITALS: BP 71/36; PULSE 104; RESP 32; TEMP 97.8; O2SAT 84
[2017-06-03] MEDS: SODIUM CHLORIDE 0.9% FLUSH 10 ML FLUSH IV FLUSH SCH (09:23)
--- NOTE | 2017-06-03 09:48 | HHI.HCPN ---
Reason for visit a. To assist with evaluation and management of symptoms including: Pain, dyspnea, agitation. b. To assist medical decision maker(s) with: better understanding of current medical conditions; weighing benefits/burdens of medical treatment options; making medical treatment decisions. . Subjective/Interval History Patient seen and examined to follow up on comfort. Patient is on inpatient hospice. Family requests HOSPICE NOT be mentioned in the room. daughters at bedside. Patient is unresponsive. He is imminently dying. He is tachypneic during my visit. Family reports grimacing and discomfort, especially with repositioning. They are amenable and ask increase in atc comfort meds to maintain better comfort. Questions answered to family satisfaction. Family is appropriately tearful and accepting is imminent. Family/friend interactions see above. Advance Directives Living Will: Copy in medical record Health Care Surrogate: Copy in medical record Durable Power of Orthopaedic General: Never completed Advance Directive Specifics Health Care Surrogate(s): Daughter Maria Ines Bey . Documented care wishes: The patient has a living will with typical language regarding terminal condition , end-stage condition, or vegetative condition. He has specifically told the family that he would not want artificial nutrition via tube. . Objective Vital Signs Date Time Temp Pulse Resp B/P (MAP) Pulse Ox O2 Delivery O2 Flow Rate FiO2 06/03/17 08:00 97.8 104 32 71/36 (48) 84 06/02/17 20:00 100.1 112 20 99/60 (73) 85 06/02/17 15:40 99.9 163 16 76/61 (66) 88 06/02/17 11:50 99.8 62 24 100/66 (77) 88 Intake & Output 06/03/17 06/03/17 07:00 19:00 Output Total 150 ml Balance -150 ml Output Urine Total 150 ml Physical Exam CONSTITUTIONAL/GENERAL: This is an elderly, dying patient. PPS 10 SKIN: No jaundice, rashes, or lesions. Ecchymoses on upper extremities. No wounds seen anteriorly. Skin temperature warm. Not diaphoretic. EYES: eyes closed. CARDIOVASCULAR: Irregular rhythm without murmur. RESPIRATORY/CHEST: Labored respirations. Bilateral course breath sounds. Tachypneic. Orophargeal secretions. GASTROINTESTINAL: Abdomen soft, nondistended. GENITOURINARY: Without palpable bladder distension. MUSCULOSKELETAL: Extremities without clubbing, cyanosis, or edema. No mottling or clubbing. NEUROLOGICAL: Unresponsive. PSYCHIATRIC: Unresponsive. . 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 Pertinent Non-Medical Issues Psychosocial: ( in [place]), 3 living children. Retired [employer]. Spiritual: The patient is of Denominational edin, currently has been attending a alevism religion, and family believes he would appreciate visits from the hospital rn mds coordinator. Legal: Patient has some confusion and lacks capacity for decision-making at this time. His daughter, Maria Ines Bey, is the designated HCS. Ethical issues impacting care: None . Important Contacts Daughter/HCS ramon Bey [phone] Daughter: Paty Barga [phone] . Prognosis The patient has had a profound decline over the past 5 or 6 weeks, and now is admitted for the second time in 3 weeks with sepsis. He is profoundly weak and has now developed dysphagia with evidence of aspiration. He has an end-stage condition, and he is appropriate for hospice services. . Code Status: No Code Plan * DO NOT RESUSCITATE, per request of family at the time of admission. * DECISION-MAKING: Patient has some confusion and lacks capacity for decision- making at this time. His daughter, Maria Ines Bey, is the designated HCS. * GOALS: Comfort measures only with hospice support. INPATIENT hospice. Family is not interested in care center placement at this time. home list provided, family not likely making arrangements until after patient dies. * FAMILY DOES NOT WANT HOSPICE MENTIONED IN THE ROOM. * SYMPTOMS: Dyspnea: now with periods of apnea, PRN oxygen, PRN morphine and lorazepam. Has some increase discomfort per family. Will increase atc Lorazepam and Roxanol. Agitation/restlessness: PRN Haldol available.. Family agrees. * Hospice/ Palliative Care will continue to follow the patient during this hospitalization. . Jorden Bunch MD Jun 03, 2017 09:48
[2017-06-03] MEDS ORDERED: MORPHINE SULFATE ORAL SOLN 10 MG/0.5 ML SYRINGE SL SCH (11:00)
[2017-06-03] MEDS ORDERED: LORazepam 1 MG TAB SL SCH (11:00)
[2017-06-03] MEDS: LORazepam 0.5 MG TAB SL PRN (16:11)
[2017-06-03] MEDS ORDERED: MORPHINE SULFATE 4 MG/ML INJ SQ PRN ×2 (16:45→17:00)
[2017-06-03] MEDS ORDERED: LORazepam 2 MG/ML VIAL SL PRN ×2 (17:45)
[2017-06-03] MEDS ORDERED: LORazepam 2 MG/ML VIAL SL SCH (20:00)
[2017-06-03] MEDS ORDERED: MORPHINE SULFATE 4 MG/ML INJ SQ SCH (20:00)
--- NOTE | 2017-07-07 14:12 | HHI.DS ---
Summary Note Date of : Jun 03, 2017 Time Of : 1700 Admission Date May 28, 2017 at 20:31 Admitting Diagnosis pneumonia, FREDI Diagnosis at Time of : Brief History After developing back pain, the patient became weaker, had a fall, eventually went to rehabilitation but developed sepsis Significant Findings Continues to decline in spite of aggressive care, eventually becoming unresponsive Hospital Course The patient had previously expressed that he would not want to be maintained artificially if he reached an end-stage condition. The family elected to transition to comfort care as he continued to decline, and he peacefully in the hospital Claudia Fonseca MD Jul 07, 2017 14:12
== END 2017-06-03 18:33 | disposition expired | DRG 871 ==
LOC: NEPE 15:25 → NEDA 20:31 → HOCA 23:20
PROVIDERS: ADMIT Family Medicine Hospice and Palliative Medicine; ATTEND Family Medicine Hospice and Palliative Medicine
DX: A41.9 Sepsis, unspecified organism (principal); J18.1 Lobar pneumonia, unspecified organism; N17.0 Acute kidney failure with tubular necrosis; G93.41 Metabolic encephalopathy; E46 Unspecified protein-calorie malnutrition; E86.0 Dehydration; I48.91 Unspecified atrial fibrillation; R13.10 Dysphagia, unspecified; D63.8 Anemia in other chronic diseases classified elsewhere; G47.33 Obstructive sleep apnea (adult) (pediatric); G89.29 Other chronic pain; M54.9 Dorsalgia, unspecified; I05.0 Rheumatic mitral stenosis; I10 Essential (primary) hypertension; I25.9 Chronic ischemic heart disease, unspecified; K44.9 Diaphragmatic hernia without obstruction or gangrene; M19.90 Unspecified osteoarthritis, unspecified site; M48.00 Spinal stenosis, site unspecified; R47.02 Dysphasia; Z51.5 Encounter for palliative care; Z66 Do not resuscitate; Z86.010 Personal history of colon polyps; Z87.01 Personal history of pneumonia (recurrent); Z87.891 Personal history of nicotine dependence; Z95.0 Presence of cardiac pacemaker
CPT/HCPCS: 70450; 71010; 76775; 80053; 80202; 81001; 82550; 82565; 83605; 83735; 84300; 84484; 85025; 85610; 85730; 87040; 87205; 93005; 94640; 94664; 96365; 96367; 96375; J1644; J1940; J2060; J2270; J2543; J2930; J3370; J7030; J7050